=== PATIENT | female | born 1935 | race Caucasian/White ===

== ENCOUNTER 2018-03-12 06:42 | Emergency (ER) | payer OTHER, BC ==
[2018-03-12 07:38] LABS: Absolute Monocytes 1.3 K/uL (0.1-1.3); Absolute Neutrophil 11.8 K/uL (1.8-8.0); Basophils % 0.7 % (0-1.3); Eosinophils % 1.8 % (0-4.4); Hematocrit 21.1 % (36.0-45.0); MCH 31.4 pg (27.0-35.0); MCV 91.2 fL (80-100); Monocytes % 8.1 % (3.3-12.3); RBC Red Blood Cell Count 2.32 M/uL (3.86-4.86)
[2018-03-12 07:41] LABS: Protime INR 1.24
[2018-03-12] MEDS ORDERED: NA CHLORIDE 0.9% 1,000 ML ONE (07:57)
[2018-03-12 08:04] LABS: ALT/SGPT 15 U/L (12-78); AST/SGOT 16 U/L (15-37); Albumin 2.8 g/dL (3.4-5.0); Alkaline Phosphatase 18 U/L (45-117); BUN Blood Urea Nitrogen 61 mg/dL (7-18); Bicarbonate 29 mmol/L (21-32); Bilirubin Direct < 0.1 mg/dL (0-0.2); Bilirubin Total 0.3 mg/dL (0.2-1.0); CKMB Creatine Kinase MB 1.5 ng/mL (0.3-3.6); Creatine Phosphokinase 56 U/L (26-192); Glucose Level 77 mg/dL (74-106); Magnesium 1.8 mg/dL (1.8-2.4); NT PRO-BNP 690 pg/mL (<450); Protein, Total 6.1 g/dL (6.4-8.2); Sodium Level 142 mmol/L (136-145)
--- NOTE | 2018-03-12 08:09 | RAD REPORT ---
EXAM DESCRIPTION: CT - Head Brain Wo Cont - 03/12/2018 7:32 am CLINICAL HISTORY: TRAUMA Syncope, fall, head injury COMPARISON: No comparisons TECHNIQUE: All CT scans are performed using dose optimization technique as appropriate and may inclu de automated exposure control or mA/KV adjustment according to patient size. FINDINGS: No intracranial hemorrhage, hydrocephalus or extra-axial fluid collection.No areas of brai n edema or evidence of midline shift. Mild high density fluid is seen in the left maxillary antrum. The paranasal sinuses and mastoids are otherwise clear. The calvarium is intact. IMPRESSION: No acute intracranial abnormality. Small amount of high density fluid is present in the left maxillary antrum, which may be a small amou nt of blood.
--- NOTE | 2018-03-12 08:15 | RAD REPORT ---
EXAM DESCRIPTION: RAD - Chest Single View - 03/12/2018 7:11 am CLINICAL HISTORY: syncope, fall Chest pain. COMPARISON: No comparisons FINDINGS: Portable technique limits examination quality. The lungs are grossly clear. The heart is normal in size. Dual lead pacer device is present.Sternotom y wires present. IMPRESSION: No acute intrathoracic process suspected.
[2018-03-12] MEDS ORDERED: PANTOPRAZOLE 40 MG INJ ONE (08:40)
[2018-03-12] MEDS ORDERED: LIDOCAINE 1% MPF 5 ML VIAL ONE (08:40)
[2018-03-12] MEDS ORDERED: TETANUS & DIPHTHERIA TOX,ADULT 0.5 ML VIAL ONE (08:40)
[2018-03-12] MEDS ORDERED: PANTOPRAZOLE INJ 80 MG in NA CHLORIDE 0.9% 250 ML IV ONE (08:45)
--- NOTE | 2018-03-12 10:01 | ER ---
Nurse's Notes [facility] Name: Kaur Kinsey Age: 83 yrs Sex: Female : 1935 Arrival Date: 03/12/2018 Time: 06:45 Bed 15 Private MD: Diagnosis: Syncope and collapse;Laceration without foreign body of unspecified part of head;Gastrointestinal hemorrhage, unspecified Presentation: 03/12 06:46 Presenting complaint: EMS states: SYNCOPE AND FALL WITH HEAD TRAUMA ON BLOOD THINNERS. bp Care prior to arrival: IV initiated. 18 GA, in the right antecubital area. Mechanism of Injury: Fall from standing position. Trauma event details: Injury occurred in the [facility], Injury occurred: at home. Injury occurred: March 12, 2018 Injury occurred at: 06:15. 06:46 Acuity: LORRAINE 2 bp 06:46 Method Of Arrival: EMS: [facility] bp 06:54 Transition of care: patient was not received from another setting of care. Onset of jd3 symptoms was March 12, 2018. Risk Assessment: Do you want to hurt yourself or someone else? Patient reports no desire to harm self or others. Initial Sepsis Screen: Does the patient meet any 2 criteria? No. Patient's initial sepsis screen is negative. Does the patient have a suspected source of infection? No. Patient's initial sepsis screen is negative. 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 - Social history:: Smoking status: Patient/guardian denies using tobacco, Smoking status: Patient/guardian denies using tobacco. - Ebola Screening: : Patient negative for fever greater than or equal to 101.5 degrees Fahrenheit, and additional compatible Ebola Virus Disease symptoms Patient negative for fever greater than or equal to 101.5 degrees Fahrenheit, and additional compatible Ebola Virus Disease symptoms Patient denies exposure to infectious person Patient denies travel to an Ebola-affected area in the 21 days before illness onset No symptoms or risks identified at this time. Screenin:46 Abuse screen: Denies threats or abuse. Denies injuries from another. Nutritional bp screening: No deficits noted. Tuberculosis screening: No symptoms or risk factors identified. 07:15 Fall Risk IV access (20 points). iw Primary Survey: 06:46 A: Airway: patent. Breathing/Chest: Respiratory pattern: regular, Respiratory effort: bp spontaneous, unlabored. Circulation: Skin color: pink, Skin temperature: warm, dry. Disability Alert. 07:15 Reassessment Breathing/Chest Respiratory pattern Regular Respiratory effort Spontaneous iw Unlabored. Secondary Survey: 06:46 HEENT: Head Other R FRONTAL FULL THICKNESS IRREGULAR LACERATION. Gastrointestinal: bp Patient vomited prior to arrival. : No signs and/or symptoms were reported regarding the genitourinary system. Musculoskeletal: Circulation, motion, and sensation intact. Range of motion: intact in all extremities. Assessment: 06:46 General: Appears in no apparent distress. comfortable, Behavior is calm, cooperative, bp appropriate for age. Pain: Complains of pain in head. Neuro: Level of Consciousness is awake, alert, obeys commands, Oriented to person, place, time, situation, Appropriate for age Reports dizziness. EENT: No deficits noted. Cardiovascular: Rhythm is ventricular pacer. Respiratory: Airway is patent Respiratory effort is even, unlabored, Respiratory pattern is regular, symmetrical. GI: Reports nausea, vomiting. : No signs and/or symptoms were reported regarding the genitourinary system. Derm: No deficits noted. Musculoskeletal: Circulation, motion, and sensation intact. Range of motion: intact in all extremities. Injury Description: Avulsion sustained to forehead. 07:35 Reassessment: pt states she feels like her stomach is churning and feels very weak, pt iw BP=99/43. 07:41 Reassessment: EDWARD Howard notified of critical lab value HGB of 7.3. ss 08:02 Reassessment: pt unable to stand for more than a few seconds with assistance, BP iw dropped to 65 systolic, Pt states pt had an episosde of black liquid stool this morning, EDWARD Howard notified, NS bolus given, Type and Screen sent. 08:18 Reassessment: positive guaiac stool, per Jessika LEON, pt will receive blood transfusion iw and be admitted to hospital. Vital Signs: 06:46 BP 120 / 50; Pulse 83; Resp 14; Temp 97.9; Pulse Ox 96% ; Weight 68.04 kg; Height 5 ft. bp 6 in. (167.64 cm); 07:35 BP 99 / 43; Pulse 81; Resp 16; Temp 97.5(TE); Pulse Ox 99% on R/A; Pain 0/10; iw 07:43 BP 104 / 36 Supine; Pulse 81; Resp 14; Pulse Ox 99% on R/A; iw 07:48 BP 101 / 38 Sitting; Pulse 84; Resp 14; Pulse Ox 98% on R/A; iw 07:52 BP 65 / 54 Standing; iw 08:00 BP 106 / 47; Pulse 89; Resp 16 S; Pulse Ox 99% on R/A; Pain 4/10; iw 09:10 BP 158 / 44; Pulse 86; Resp 17; Pulse Ox 99% on R/A; mh5 10:46 BP 118 / 45; Pulse 89; Resp 16; Temp 97.0; Pulse Ox 99% on R/A; Pain 7/10; iw 06:46 Body Mass Index 24.21 (68.04 kg, 167.64 cm) bp Fabrice Coma Score: 06:46 Eye Response: spontaneous(4). Verbal Response: oriented(5). Motor Response: obeys bp commands(6). Total: 15. Trauma Score (Adult): 06:46 Eye Response: spontaneous(1); Verbal Response: oriented(1); Motor Response: obeys bp commands(2); Systolic BP: > 89 mm Hg(4); Respiratory Rate: 10 to 29 per min(4); [place] Score: 15; Trauma Score: 12 07:35 Eye Response: spontaneous(1); Verbal Response: oriented(1); Motor Response: obeys iw commands(2); Systolic BP: > 89 mm Hg(4); Respiratory Rate: 10 to 29 per min(4); [place] Score: 15; Trauma Score: 12 ED Course: 06:45 Patient arrived in ED. bp 06:46 Patient has correct armband on for positive identification. Bed in low position. Call bp light in reach. Side rails up X2. Adult w/ patient. 06:46 Maintain EMS IV. Dressing intact. Good blood return noted. Site clean \T\ dry. Gauge \T\ bp site: 18 GAUGE R AC. Patient maintains SpO2 saturation greater than 95% on room air. Thermoregulation: warm blanket given to patient. 06:47 Anita Starkey FNP-C is PHCP. kb 06:47 Levi Moulton MD is Attending Physician. kb 06:47 Triage completed. bp 06:53 Cl Nash, MATT is Primary Nurse. jd3 06:55 Arm band placed on. EKG completed in triage. Results shown to MD. jd3 07:05 Patient moved to radiology via stretcher. jb2 07:09 X-ray completed. Patient tolerated procedure well. Patient moved back from radiology. jb2 07:10 XRAY Chest (1 view) In Process Unspecified. EDMS 07:32 CT Head Brain wo Cont In Process Unspecified. EDMS 09:22 initiated transfer with Lisa from [facility]. eb 09:[address] Turner the GI production sanitizer for [facility] with Lalito WORD PROCESSING SPECIALIST for patient eb transfer consultation. 09:43 connected the curator herbarium from [facility] with Lalito WORD PROCESSING SPECIALIST for patient transfer eb consultation. 09:54 Inserted saline lock: 20 gauge in right forearm, using aseptic technique. em 09:[address] [facility] called and asked for a 15 extension, they are getting a eb bed for her. 10:02 Administrative approval given by Yasmin Nuno Rn Beet Flumer. Santiago Lepe has accepted the patient in transfer. Pt Going to [address] [place] [address] Bed 5864. Report to be called to [phone]. 11:16 Primary Nurse role handed off by Cl Nash, MATT iw 11:16 Margarita Deshpande, MATT is Primary Nurse. iw 11:30 No provider procedures requiring assistance completed. Patient transferred, IV remains iw in place. Administered Medications: 08:01 Drug: NS 0.9% 1000 ml Route: IV; Rate: 1000 ml; Site: right antecubital; iw 08:43 Drug: ProTONIX 80 mg Route: IVP; Site: right antecubital; iw 08:55 Drug: ProTONIX 8 mg/hr Route: IV; Rate: 25 ml/hr; Site: right antecubital; iw 08:55 Drug: Tetanus-Diphtheria Toxoid Adult 0.5 ml {Biomedical Field Service Engineer: [employer]. Exp: iw 04/08/2020. Lot #: [id number]. } Route: IM; Site: right deltoid; 09:20 Drug: Lidocaine (1 %) 1 vials Volume: 5 ml; Route: Infiltration; iw Intake: 06:46 PO: 0ml; Total: 0ml. bp Output: 06:46 Urine: 0ml; Total: 0ml. bp Outcome: 10:01 ER care complete, transfer ordered by . kb 11:30 Transferred by ground EMS to [facility], Transfer form completed. iw X-rays sent w/ patient. 11:30 Condition: stable 11:30 Discharge instructions given to patient, family, Instructed on the need for admit, Demonstrated understanding of instructions. 11:30 Patient's length of stay in the Emergency Department was greater than 2 hours. no GI iw availablePatient's length of stay extended due to 11:33 Patient left the ED. iw Signatures: Dispatcher [employer] EDAnita Arambula, HOLISTIC HEALTH PRACTITIONER-C HOLISTIC HEALTH PRACTITIONER-Ckb Emir Murphy2 Gerry Babin, SOLAR PHOTOVOLTAIC CREW LEAD SOLAR PHOTOVOLTAIC CREW LEAD Margarita Desir RN RN Alena Lyons RN RN ss Martinez, Maria [facility] Cl Nash RN RN jd3 Peltier, Brian, RN RN bp Botello, Elizabeth eb Corrections: (The following items were deleted from the chart) 07:36 07:35 BP 98 / 43; Pulse 81bpm; Resp 16bpm; Pulse Ox 99% RA; iw iw 07:37 07:35 BP 99 / 43; Pulse 81bpm; Resp 16bpm; Pulse Ox 99% RA; iw iw 11:09 08:00 BP 106 / 47; Pulse 89bpm; iw iw 11:09 10:46 BP 118 / 45; Pulse 89bpm; Resp 16bpm; Pulse Ox 99% RA; iw iw
--- NOTE | 2018-03-12 10:01 | EDPHYS ---
Physician Documentation [facility] Name: Kaur Kinsey Age: 83 yrs Sex: Female : 1935 Arrival Date: 03/12/2018 Time: 06:45 Bed 15 Private MD: ED Physician Levi Moulton HPI: 03/12 06:59 This 83 yrs old Female presents to ER via EMS with complaints of Fall Injury, kb Syncope. 06:59 The patient has experienced syncope, lost consciousness. Onset: The symptoms/episode kb began/occurred just prior to arrival. Duration: This was a single episode. Context: occurred at home, occurred while the patient was walking, Just prior to the episode the patient experienced dizziness. Associated injury: Head/face: forehead, laceration, 4 cm(s), 4cm laceration that is well approximated to center of forehead at hairline. 2.5cm laceration above right eyebrow.. Associated signs and symptoms: Pertinent positives: dizziness, vomiting. Current symptoms: Currently, the patient is not experiencing any symptoms, the patient feels back to baseline, no decreased level of consciousness, no confusion, no dysphasia, no headache, no paralysis, no visual changes. The patient has not experienced similar symptoms in the past. The patient has not recently seen a physician. Pt woke up to use the restroom, had a syncopal episode when she got into the bathroom and fell into shower door. States she woke up right away and called for her . Reports she had one episode of vomiting after the fall. EMS reports emesis looked and smelled like bowel content. Pt reports she had a BM last night and this morning. [place] fine when she went to sleep last night. EMS reports pt c/o dizziness when sitting up and it got better when they laid her down. Pt denies abd pain, nausea. States her abdomen just feels uncomfortable (rumbling). . 07:31 PCP is Esdras, Case Manager Specialist is Valdemar. kb 09:25 Pt reports she did have a black stool yesterday and again after the syncopal episode. . 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 - Social history:: Smoking status: Patient/guardian denies using tobacco, Smoking status: Patient/guardian denies using tobacco. - Ebola Screening: : Patient negative for fever greater than or equal to 101.5 degrees Fahrenheit, and additional compatible Ebola Virus Disease symptoms Patient negative for fever greater than or equal to 101.5 degrees Fahrenheit, and additional compatible Ebola Virus Disease symptoms Patient denies exposure to infectious person Patient denies travel to an Ebola-affected area in the 21 days before illness onset No symptoms or risks identified at this time. ROS: 06:59 Constitutional: Negative for fever, chills, and weight loss, Eyes: Negative for injury, kb pain, redness, and discharge, ENT: Negative for injury, pain, and discharge, Neck: Negative for injury, pain, and swelling, Cardiovascular: Negative for chest pain, palpitations, and edema, Respiratory: Negative for shortness of breath, cough, wheezing, and pleuritic chest pain, Back: Negative for injury and pain, : Negative for injury, bleeding, discharge, and swelling, MS/Extremity: Negative for injury and deformity. 06:59 Abdomen/GI: Positive for nausea and vomiting, Negative for abdominal pain, diarrhea, constipation, abdominal cramps, abdominal distension, anorexia. 06:59 Skin: Positive for ecchymosis, of the right eye. 06:59 Neuro: Positive for dizziness, syncope. 07:10 Skin: Positive for laceration(s), of the above right eyebrow and center of forehead at kb hairline. Exam: 07:10 Constitutional: This is a well developed, well nourished patient who is awake, alert, kb and in no acute distress. ENT: Nares patent. No nasal discharge, no septal abnormalities noted. Tympanic membranes are normal and external auditory canals are clear. Oropharynx with no redness, swelling, or masses, exudates, or evidence of obstruction, uvula midline. Mucous membranes moist. Neck: Trachea midline, no thyromegaly or masses palpated, and no cervical lymphadenopathy. Supple, full range of motion without nuchal rigidity, or vertebral point tenderness. No Meningismus. Chest/axilla: Normal chest wall appearance and motion. Nontender with no deformity. No lesions are appreciated. Cardiovascular: Regular rate and rhythm with a normal S1 and S2. No gallops, murmurs, or rubs. Normal PMI, no JVD. No pulse deficits. Respiratory: Lungs have equal breath sounds bilaterally, clear to auscultation and percussion. No rales, rhonchi or wheezes noted. No increased work of breathing, no retractions or nasal flaring. Abdomen/GI: Soft, non-tender, with normal bowel sounds. No distension or tympany. No guarding or rebound. No evidence of tenderness throughout. Back: No spinal tenderness. No costovertebral tenderness. Full range of motion. MS/ Extremity: Pulses equal, no cyanosis. Neurovascular intact. Full, normal range of motion. Neuro: Awake and alert, GCS 15, oriented to person, place, time, and situation. Cranial nerves II-XII grossly intact. Motor strength 5/5 in all extremities. Sensory grossly intact. Cerebellar exam normal. Normal gait. 07:10 Head/face: Noted is no obvious of injury or deformity except ecchymosis, that is moderate, of the right eye, a laceration(s), that is superficial, 4 cm(s), of the center of forehead at hairline. 07:12 Head/face: Noted is a laceration(s), that is deep, 2.5 cm(s), of the above right kb eyebrow. 09:24 Abdomen/GI: Rectal exam: rectal tone normal, Stool: guaiac positive, black, the exam is kb chaperoned by a family member. 10:34 Skin: Appearance: ecchymosis, noted on the, right lower back, that are moderate. Vital Signs: 06:46 BP 120 / 50; Pulse 83; Resp 14; Temp 97.9; Pulse Ox 96% ; Weight 68.04 kg; Height 5 ft. bp 6 in. (167.64 cm); 07:35 BP 99 / 43; Pulse 81; Resp 16; Temp 97.5(TE); Pulse Ox 99% on R/A; Pain 0/10; iw 07:43 BP 104 / 36 Supine; Pulse 81; Resp 14; Pulse Ox 99% on R/A; iw 07:48 BP 101 / 38 Sitting; Pulse 84; Resp 14; Pulse Ox 98% on R/A; iw 07:52 BP 65 / 54 Standing; iw 08:00 BP 106 / 47; Pulse 89; Resp 16 S; Pulse Ox 99% on R/A; Pain 4/10; iw 09:10 BP 158 / 44; Pulse 86; Resp 17; Pulse Ox 99% on R/A; mh5 10:46 BP 118 / 45; Pulse 89; Resp 16; Temp 97.0; Pulse Ox 99% on R/A; Pain 7/10; iw 06:46 Body Mass Index 24.21 (68.04 kg, 167.64 cm) bp Fabrice Coma Score: 06:46 Eye Response: spontaneous(4). Verbal Response: oriented(5). Motor Response: obeys bp commands(6). Total: 15. Trauma Score (Adult): 06:46 Eye Response: spontaneous(1); Verbal Response: oriented(1); Motor Response: obeys bp commands(2); Systolic BP: > 89 mm Hg(4); Respiratory Rate: 10 to 29 per min(4); Fabrice Score: 15; Trauma Score: 12 07:35 Eye Response: spontaneous(1); Verbal Response: oriented(1); Motor Response: obeys iw commands(2); Systolic BP: > 89 mm Hg(4); Respiratory Rate: 10 to 29 per min(4); Fabrice Score: 15; Trauma Score: 12 Laceration: 09:22 Wound Repair of 2.5cm ( 1.0in ) subcutaneous laceration to above right eyebrow. Distal kb neuro/vascular/tendon intact. Anesthesia: Wound infiltrated with 3 mls of 1% lidocaine. Wound prep: Moderate cleansing with hibiclenz by al, Wound irrigation with saline by al. Skin closed with 6 6-0 Prolene using interrupted sutures and sterile technique. Dressed with Neosporin. Patient tolerated well. 09:22 Wound Repair of 4cm ( 1.6in ) subcutaneous laceration to center of forehead and into kb hairline. Linear shaped.. Distal neuro/vascular/tendon intact. Anesthesia: Wound infiltrated with 2 mls of 1% lidocaine. Wound prep: Moderate cleansing with hibiclenz by me, Wound irrigation with saline by me. Skin closed with 4 Dianne using staple gun. Patient tolerated well. MDM: 06:47 Patient medically screened. kb 08:35 Data reviewed: vital signs, nurses notes. Data interpreted: Pulse oximetry: on room air kb is 98 %. Interpretation: normal. Counseling: I had a detailed discussion with the patient and/or guardian regarding: the historical points, exam findings, and any diagnostic results supporting the discharge/admit diagnosis, lab results, radiology results, the need to transfer to another facility, [facility] does not immediately have the required specialist. 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 Verbal understanding received. . 09:58 ED course: Pt accepted by GI and community services coordinator at [facility]. kb 03/12 06:55 Order name: Basic Metabolic Panel; Complete Time: 08:05 kb 03/12 06:55 Order name: CBC with Diff; Complete Time: 07:44 kb 03/12 06:55 Order name: Ckmb; Complete Time: 08:05 kb 03/12 06:55 Order name: CPK; Complete Time: 08:05 kb 03/12 06:55 Order name: LFT's; Complete Time: 08:05 kb 03/12 06:55 Order name: Magnesium; Complete Time: 08:05 kb 03/12 06:55 Order name: NT PRO-BNP; Complete Time: 08:05 kb 03/12 06:55 Order name: PT-INR; Complete Time: 07:44 kb 03/12 06:55 Order name: Ptt, Activated; Complete Time: 07:44 kb 03/12 06:55 Order name: Troponin (emerg Dept Use Only); Complete Time: 08:05 kb 03/12 07:44 Order name: Type And Screen kb 03/12 08:12 Order name: Bb Add On eb 03/12 08:36 Order name: Packed RBC Leukored -1 EDWA 03/12 09:20 Order name: ABO/RH no charge; Complete Time: 09:26 EDMS 03/12 06:46 Order name: CT Head Brain wo Cont; Complete Time: 08:17 bp 03/12 06:55 Order name: Orthostatics; Complete Time: 08:45 kb 03/12 06:55 Order name: XRAY Chest (1 view); Complete Time: 08:17 kb 03/12 06:55 Order name: EKG; Complete Time: 06:56 kb 03/12 06:55 Order name: Cardiac monitoring; Complete Time: 06:59 kb 03/12 06:55 Order name: EKG - Nurse/Tech; Complete Time: 06:59 kb 03/12 06:55 Order name: IV Saline Lock; Complete Time: 06:59 kb 03/12 06:55 Order name: O2 Per Protocol; Complete Time: 06:59 kb 03/12 09:24 Order name: Guiac kb 03/12 09:25 Order name: Occult Blood--Ancillary EDMS 03/12 06:55 Order name: O2 Sat Monitoring; Complete Time: 06:59 kb 03/12 08:22 Order name: Prolene, Sutures; Complete Time: 09:48 kb 03/12 08:22 Order name: Dressing - Wound; Complete Time: 09:48 kb 03/12 08:22 Order name: Gloves, Sterile; Complete Time: 09:48 kb 03/12 08:22 Order name: Setup Suture Tray; Complete Time: 09:48 kb Administered Medications: 08:01 Drug: NS 0.9% 1000 ml Route: IV; Rate: 1000 ml; Site: right antecubital; iw 08:43 Drug: ProTONIX 80 mg Route: IVP; Site: right antecubital; iw 08:55 Drug: ProTONIX 8 mg/hr Route: IV; Rate: 25 ml/hr; Site: right antecubital; iw 08:55 Drug: Tetanus-Diphtheria Toxoid Adult 0.5 ml {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 Exp: iw 04/08/2020. Lot #: [id number]. } Route: IM; Site: right deltoid; 09:20 Drug: Lidocaine (1 %) 1 vials Volume: 5 ml; Route: Infiltration; iw Disposition: 12:35 Co-signature as Attending Physician, Levi Moulton MD I agree with the assessment and wa plan of care. Disposition: 03/12/18 10:01 Transfer ordered to [facility]. Diagnosis are Syncope and collapse, Laceration without foreign body of unspecified part of head, Gastrointestinal hemorrhage, unspecified. - Reason for transfer: Higher level of care. - Accepting physician is Dr Waller. - Condition is Stable. - Problem is new. - Symptoms are unchanged. Signatures: Dispatcher [employer] EDMS Anita Starkey, MAT CLEANING MACHINE OPERATOR-C MAT CLEANING MACHINE OPERATOR-Ckb Margarita Deshpande RN RN iw Appiah, William, MD MD wa Davies, Jonathon, RN RN [id number] Peltier, Brian, RN RN bp Corrections: (The following items were deleted from the chart) 07:12 07:10 Head/face: Noted is no obvious of injury or deformity except ecchymosis, that is kb moderate, of the right eye, a laceration(s), that is superficial, 4 cm(s), of the center of forehead at hairline, kb 09:25 09:24 Abdomen/GI: Rectal exam: rectal tone normal, Stool: guaiac positive, black, kb kb 10:10 10:01 03/12/2018 10:01 Transfer ordered to [facility]. Diagnosis is kb Syncope and collapse; Laceration without foreign body of unspecified part of head; Gastrointestinal hemorrhage, unspecified. Reason for transfer: Higher level of care. Accepting physician is [facility]. Condition is Stable. Problem is new. Symptoms are unchanged. kb 10:36 07:10 Constitutional: This is a well developed, well nourished patient who is awake, kb alert, and in no acute distress. ENT: Nares patent. No nasal discharge, no septal abnormalities noted. Tympanic membranes are normal and external auditory canals are clear. Oropharynx with no redness, swelling, or masses, exudates, or evidence of obstruction, uvula midline. Mucous membranes moist. Neck: Trachea midline, no thyromegaly or masses palpated, and no cervical lymphadenopathy. Supple, full range of motion without nuchal rigidity, or vertebral point tenderness. No Meningismus. Chest/axilla: Normal chest wall appearance and motion. Nontender with no deformity. No lesions are appreciated. Cardiovascular: Regular rate and rhythm with a normal S1 and S2. No gallops, murmurs, or rubs. Normal PMI, no JVD. No pulse deficits. Respiratory: Lungs have equal breath sounds bilaterally, clear to auscultation and percussion. No rales, rhonchi or wheezes noted. No increased work of breathing, no retractions or nasal flaring. Abdomen/GI: Soft, non-tender, with normal bowel sounds. No distension or tympany. No guarding or rebound. No evidence of tenderness throughout. Back: No spinal tenderness. No costovertebral tenderness. Full range of motion. MS/ Extremity: Pulses equal, no cyanosis. Neurovascular intact. Full, normal range of motion. Neuro: Awake and alert, GCS 15, oriented to person, place, time, and situation. Cranial nerves II-XII grossly intact. Motor strength 5/5 in all extremities. Sensory grossly intact. Cerebellar exam normal. Normal gait. kb 11:33 10:10 03/12/2018 10:01 Transfer ordered to [facility]. Diagnosis is iw Syncope and collapse; Laceration without foreign body of unspecified part of head; Gastrointestinal hemorrhage, unspecified. Reason for transfer: Higher level of care. Accepting physician is Dr Waller. Condition is Stable. Problem is new. Symptoms are unchanged. kb
[2018-03-12] MEDS ORDERED: NA CHLORIDE 0.9% 250 ML ONE (10:12)
--- NOTE | 2018-03-13 06:09 | EKG ---
Test Date: 2018-03-12 Test Time: 06:50:10 Fabric Sourcer: NIRAV MEASUREMENT RESULTS: Intervals: Rate: 82 SC: 134 QRSD: 170 QT: 448 QTc: 523 [place]: P: 56 SC: 134 QRS: -59 T: 105 INTERPRETIVE STATEMENTS: Atrial-sensed ventricular-paced rhythm Abnormal ECG Compared to ECG 06/23/2003 10:34:00 Sinus rhythm no longer present Incomplete right bundle-branch block no longer present Left anterior fascicular block no longer present T-wave abnormality no longer present Myocardial infarct finding no longer present Electronically Signed On 03-13-18 06:06:29 CDT by Silviano Tobar
== END 2018-03-12 11:33 | disposition short-term general hospital (02) ==
LOC: ER 06:42
PROC: 0JQ10ZZ Repair Face Subcutaneous Tissue and Fascia, Open Approach (ICD-10-PCS; principal; 2018-03-12)
PROC: 30233N1 Transfusion of Nonautologous Red Blood Cells into Peripheral Vein, Percutaneous Approach (ICD-10-PCS; 2018-03-12)
DX: S01.81XA Laceration without foreign body of other part of head, initial encounter (principal); K92.2 Gastrointestinal hemorrhage, unspecified; W18.30XA Fall on same level, unspecified, initial encounter; Y93.01 Activity, walking, marching and hiking; Y92.009 Unspecified place in unspecified non-institutional (private) residence as the place of occurrence of the external cause; Z23 Encounter for immunization; Z79.01 Long term (current) use of anticoagulants; Z88.0 Allergy status to penicillin; Z88.5 Allergy status to narcotic agent; Z88.8 Allergy status to other drugs, medicaments and biological substances; Z91.048 Other nonmedicinal substance allergy status; Z95.1 Presence of aortocoronary bypass graft; E78.00 Pure hypercholesterolemia, unspecified; I51.9 Heart disease, unspecified
CPT/HCPCS: 12014; 36415; 36430; 70450; 71045; 80048; 80076; 82272; 82550; 82553; 83735; 83880; 84484; 85025; 85610; 85730; 86850; 86900; 86901; 90714; 93005; 96374; 99285; C9113 ×2; J7030; P9016

== ENCOUNTER 2018-03-16 09:59 | Emergency (ER) | payer OTHER, BC ==
--- OUTSIDE RECORDS SUMMARY | 2018-03-16 10:02 | XMS REPORT ---
:1935 [facility] [address] [place] [address] [address] [place] [address] Care Team Providers Name Role Phone CANDIDO LE Unavailable Unavailable Problems This patient has no known problems. Allergies, Adverse Reactions, Alerts This patient has no known allergies or adverse reactions. Medications This patient has no known medications. Results Test Description Test Time Test Comments Text Results Atomic Results Result Comments RAD, HIP, 2 2018-03-13 17:39:00 Reason for exam:->fall FINAL REPORT PATIENT ID: VIEWS, RIGHT [id number] Two views of the right hip without comparison. IMPRESSION: There is no acute fracture or traumatic malalignment. Mild degenerative changes are seen at the soft tissues are unremarkable. The sacrum is obscured by overlying bowel gas. Signed: Syeda Guthrie MDReport Verified Date/Time: 03/13/2018 17:39:18 Reading Location: [address] Ortho Consult Reading Room ONIN I 2018-03-13 14:03:00 Test Item Value Reference Range Comments TROPONIN I (BEAKER) (test iywq=351) 0.21 ng/mL 0.00-0.03 Troponin I (TnI) levels must be interpreted in the context of the presenting symptoms and the clinical findings. Elevated TnI levels indicate myocardial damage, but are not specific for ischemic heart disease. Elevated TnI levels are seen in patients with other cardiac conditions (including myocarditis and congestive heart failure), and slight TnI elevations occur in patients with other conditions, including sepsis, renal failure, acidosis, acute neurological disease, and persistent tachyarrhythmia.HEMOGLOBIN AND [id number] 13: 20:00 Test Item Value Reference Range Comments HEMOGLOBIN (BEAKER) (test ykbc=872) 8.8 GM/DL 11.2-15.7 HEMATOCRIT (ELISABETH) (test bfct=182) 25.7 % 34.1-44.9 HEMOGLOBIN [id number] 08:44:00 Test Item Value Reference Range Comments HEMOGLOBIN A1C (BEAKER) (test kerq=654) 5.4 % 4.3-6.1 TROPONIN [id number] 07:07:00 Test Item Value Reference Range Comments TROPONIN I (BEAKER) (test zxte=730) 0.24 ng/mL 0.00-0.03 Troponin I (TnI) levels must be interpreted in the context of the presenting symptoms and the clinical findings. Elevated TnI levels indicate myocardial damage, but are not specific for ischemic heart disease. Elevated TnI levels are seen in patients with other cardiac conditions (including myocarditis and congestive heart failure), and slight TnI elevations occur in patients with other conditions, including sepsis, renal failure, acidosis, acute neurological disease, and persistent tachyarrhythmia.[id number] 05:24:00 Test Item Value Reference Range Comments PHOSPHORUS (BEAKER) (test aoyw=539) 2.6 mg/dL 2.3-4.7 [id number] 05:24:00 Test Item Value Reference Range Comments MAGNESIUM (BEAKER) (test lerb=862) 2.1 mg/dL 1.6-2.6 BASIC METABOLIC [id number] 05:24:00 Test Item Value Reference Range Comments SODIUM (BEAKER) (test 137 meq/L 136-145 nixz=135) POTASSIUM (BEAKER) (test 3.7 meq/L 3.5-5.1 ohra=467) CHLORIDE (BEAKER) (test 107 meq/L 98-107 nknn=744) CO2 (BEAKER) (test 21 meq/L 22-29 cdxo=362) BLOOD UREA NITROGEN 34 mg/dL 7-21 (BEAKER) (test cehr=394) CREATININE (BEAKER) (test 0.70 mg/dL 0.57-1.25 ovjq=935) GLUCOSE RANDOM (BEAKER) 102 mg/dL 70-105 (test wczx=675) CALCIUM (BEAKER) (test 8.6 mg/dL 8.4-10.2 rxjv=957) EGFR (BEAKER) (test 80 mL/min/1.73 sq m ESTIMATED GFR IS NOT mxdk=5723) ACCURATE CREATININE CLEARANCE IN PREDICTING GLOMERULAR FILTRATION RATE. ESTIMATED GFR IS NOT APPLICABLE FOR DIALYSIS PATIENTS. LIPID [id number] 05:24:00 Test Item Value Reference Range Comments TRIGLYCERIDES (BEAKER) (test mbrd=821) 131 mg/dL CHOLESTEROL (BEAKER) (test izdq=017) 105 mg/dL HDL CHOLESTEROL (BEAKER) (test qasy=105) 31 mg/dL LDL CHOLESTEROL CALCULATED (BEAKER) (test 48 mg/dL jzwt=441) Triglyceride Reference Range: Low Risk <150 Borderline 150- 199 High Risk 200-499 Very High Risk >=500Cholesterol Reference Range: Low Risk <200 Borderline 200-239 High Risk > 240HDL Cholesterol Reference Range: Low Risk >=60 High Risk <40LDL Cholesterol Reference Range: Optimal <100 Near Optimal 100-129 Borderline 130-159 High 160-189 Very High >=190TSH/FREE T4 IF [id number] 05:20:00 Test Item Value Reference Range Comments THYROID STIMULATING HORMONE (BEAKER) (test 4.02 uIU/mL 0.35-4.94 lukn=652) CBC W/PLT COUNT & AUTO [id number] 04:52:00 Test Item Value Reference Range Comments WHITE BLOOD CELL COUNT (BEAKER) (test ided=201) 11.6 K/ L 3.5-10.5 RED BLOOD CELL COUNT (BEAKER) (test igoh=688) 2.79 M/ L 3.93-5.22 HEMOGLOBIN (BEAKER) (test fphh=512) 8.8 GM/DL 11.2-15.7 HEMATOCRIT (BEAKER) (test pdpr=908) 25.7 % 34.1-44.9 MEAN CORPUSCULAR VOLUME (BEAKER) (test zfdt=525) 92.1 fL 79.4-94.8 MEAN CORPUSCULAR HEMOGLOBIN (BEAKER) (test 31.5 pg 25.6-32.2 jvzt=386) MEAN CORPUSCULAR HEMOGLOBIN CONC (BEAKER) (test 34.2 GM/DL 32.2-35.5 oune=532) RED CELL DISTRIBUTION WIDTH (BEAKER) (test 14.4 % 11.7-14.4 epre=496) PLATELET COUNT (BEAKER) (test aahq=017) 144 K/CU MM 150-450 MEAN PLATELET VOLUME (BEAKER) (test wcmj=442) 10.9 fL 9.4-12.3 NUCLEATED RED BLOOD CELLS (BEAKER) (test 0 /100 WBC 0-0 fzyg=679) NEUTROPHILS RELATIVE PERCENT (BEAKER) (test 74 % ghkh=780) LYMPHOCYTES RELATIVE PERCENT (BEAKER) (test 13 % fhqp=554) MONOCYTES RELATIVE PERCENT (BEAKER) (test 8 % senw=400) EOSINOPHILS RELATIVE PERCENT (BEAKER) (test 3 % qmjl=010) BASOPHILS RELATIVE PERCENT (BEAKER) (test 1 % cxbc=336) NEUTROPHILS ABSOLUTE COUNT (BEAKER) (test 8.62 K/ L 1.56-6.13 pjzm=930) LYMPHOCYTES ABSOLUTE COUNT (BEAKER) (test 1.54 K/ L 1.18-3.74 yrnj=672) MONOCYTES ABSOLUTE COUNT (BEAKER) (test 0.98 K/ L 0.24-0.36 ptlv=201) EOSINOPHILS ABSOLUTE COUNT (BEAKER) (test 0.32 K/ L 0.04-0.36 wdin=135) BASOPHILS ABSOLUTE COUNT (BEAKER) (test 0.06 K/ L 0.01-0.08 tzlc=668) IMMATURE GRANULOCYTES-RELATIVE PERCENT (BEAKER) 1 % 0-1 (test fqtb=3205) HEMOGLOBIN AND [id number] 04:40:00 Test Item Value Reference Range Comments HEMOGLOBIN (BEAKER) (test vmxn=635) 8.8 GM/DL 11.2-15.7 HEMATOCRIT (BEAKER) (test kpok=900) 25.7 % 34.1-44.9 TROPONIN [id number] 00:53:00 Test Item Value Reference Range Comments TROPONIN I (BEAKER) (test fxnp=877) 0.22 ng/mL 0.00-0.03 Troponin I (TnI) levels must be interpreted in the context of the presenting symptoms and the clinical findings. Elevated TnI levels indicate myocardial damage, but are not specific for ischemic heart disease. Elevated TnI levels are seen in patients with other cardiac conditions (including myocarditis and congestive heart failure), and slight TnI elevations occur in patients with other conditions, including sepsis, renal failure, acidosis, acute neurological disease, and persistent tachyarrhythmia.HEMOGLOBIN AND [id number] 00: 09:00 Test Item Value Reference Range Comments HEMOGLOBIN (BEAKER) (test zmhu=947) 8.8 GM/DL 11.2-15.7 HEMATOCRIT (BEAKER) (test qzmn=273) 26.3 % 34.1-44.9 URINALYSIS W/ REFLEX URINE [id number] 21:53:00 Test Item Value Reference Range Comments COLOR (BEAKER) (test zrvk=225) Light Yellow CLARITY (BEAKER) (test jzmr=250) Clear SPECIFIC GRAVITY UA (BEAKER) (test vbli=496) 1.015 1.001-1.035 PH UA (BEAKER) (test xylu=523) 5.0 5.0-8.0 PROTEIN UA (BEAKER) (test zpbk=919) Negative Negative GLUCOSE UA (BEAKER) (test odbo=867) Negative Negative KETONES UA (BEAKER) (test mxkd=820) 10 mg/dL Negative BILIRUBIN UA (BEAKER) (test ruew=503) Negative Negative BLOOD UA (BEAKER) (test bifj=942) Negative Negative NITRITE UA (BEAKER) (test czkv=954) Negative Negative LEUKOCYTE ESTERASE UA (BEAKER) (test dzqy=793) Moderate Negative UROBILINOGEN UA (BEAKER) (test fsaz=292) 0.2 mg/dL 0.2-1.0 RBC UA (BEAKER) (test vvvb=774) 1 /HPF WBC UA (BEAKER) (test hzgz=358) 7 /HPF MUCUS (BEAKER) (test hqka=7633) Rare SQUAMOUS EPITHELIAL (BEAKER) (test leiv=341) 1 /HPF SOURCE(BEAKER) (test tifn=7708) [id number] 18:36:00 Test Item Value Reference Range Comments FERRITIN (BEAKER) (test aevg=178) 71 ng/mL 5-275 VITAMIN B12 AND [id number] 18:36:00 Test Item Value Reference Range Comments VITAMIN B12 (BEAKER) (test mfuo=497) 552 pg/mL 213-816 FOLATE (BEAKER) (test zsah=986) 16.2 ng/mL >=7.0 TROPONIN [id number] 18:12:00 Test Item Value Reference Range Comments TROPONIN I (BEAKER) (test iuxy=493) 0.20 ng/mL 0.00-0.03 Troponin I (TnI) levels must be interpreted in the context of the presenting symptoms and the clinical findings. Elevated TnI levels indicate myocardial damage, but are not specific for ischemic heart disease. Elevated TnI levels are seen in patients with other cardiac conditions (including myocarditis and congestive heart failure), and slight TnI elevations occur in patients with other conditions, including sepsis, renal failure, acidosis, acute neurological disease, and persistent tachyarrhythmia.IRON, TIBC, % SAT. (WITHOUT FERRITIN) 2018-03-12 18:01:00 Test Item Value Reference Range Comments IRON (BEAKER) (test bvle=703) 159 ug/dL 40-160 TOTAL IRON BINDING CAPACITY (BEAKER) (test 234 ug/dL 250-450 flad=398) IRON % SATURATION (2) (BEAKER) (test siwd=5655) 68 % 20-55 HEMOGLOBIN AND [id number] 17:39:00 Test Item Value Reference Range Comments HEMOGLOBIN (BEAKER) (test tlsw=287) 7.1 GM/DL 11.2-15.7 HEMATOCRIT (BEAKER) (test blvt=343) 21.4 % 34.1-44.9 RAD, CHEST, 1 VIEW, NON [id number] 16:19:00Post-intubationReason for exam:-& gt;sobShould this be performed at the bedside?->YesFINAL REPORT TECHNIQUE: Frontal chest radiograph dated 03/12/2018. 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 There is biapical pleural thickening. No focal consolidation. No pleural effusion or pneumothorax. Cardiomediastinal silhouette is normal in size. No pulmonary edema. No fracture. Sternotomy wires and plates are well aligned. There is apparent sclerosis of the left clavicle suggestive of a marrow replacement process. A nuclear medicine bone scan can be obtained. Signed: Tamie Alberts Verified Date/Time: 03/12/2018 16:19:21 Reading Location: [facility] Radiology Reading Room [id number] 15:29:00 Test Item Value Reference Range Comments PROCALCITONIN (BEAKER) (test tgjo=1581) 0.10 ng/mL <0.05 SEPSIS RISK (ng/mL)Low: 0.05-0.50Intermediate: 0.51-2.00High: & gt;=2.01B-TYPE NATRIURETIC FACTOR (BNP)2018-03-12 15:11:00 Test Item Value Reference Range Comments B-TYPE NATRIURETIC PEPTIDE (BEAKER) (test 238 pg/mL 0-100 tuki=362) CREATINE KINASE (CK), TOTAL AND [id number] 15:10:00 Test Item Value Reference Range Comments CREATINE KINASE TOTAL (BEAKER) (test lpzq=386) 80 U/L 29-200 CREATINE KINASE-MB (BEAKER) (test yiem=538) 3.1 ng/mL 0.0-6.6 CREATINE KINASE-MB INDEX (BEAKER) (test bath=255) 3.9 % CK-MB Reference Range:<6.7 Normal6.7-10.0 Borderline>10.0 AbnormalTROPONIN [id number] 15:10:00 Test Item Value Reference Range Comments TROPONIN I (BEAKER) (test vnra=152) 0.13 ng/mL 0.00-0.03 Troponin I (TnI) levels must be interpreted in the context of the presenting symptoms and the clinical findings. Elevated TnI levels indicate myocardial damage, but are not specific for ischemic heart disease. Elevated TnI levels are seen in patients with other cardiac conditions (including myocarditis and congestive heart failure), and slight TnI elevations occur in patients with other conditions, including sepsis, renal failure, acidosis, acute neurological disease, and persistent tachyarrhythmia.COMPREHENSIVE METABOLIC [id number] 15:08:00 Test Item Value Reference Range Comments TOTAL PROTEIN (BEAKER) 5.8 gm/dL 6.0-8.3 (test kabp=971) ALBUMIN (BEAKER) (test 3.1 g/dL 3.5-5.0 rokh=9656) ALKALINE PHOSPHATASE 19 U/L 40-150 (BEAKER) (test qwiy=697) BILIRUBIN TOTAL (BEAKER) 0.9 mg/dL 0.2-1.2 (test ioap=238) SODIUM (BEAKER) (test 137 meq/L 136-145 otpa=186) POTASSIUM (BEAKER) (test 3.8 meq/L 3.5-5.1 wcxg=437) CHLORIDE (BEAKER) (test 106 meq/L 98-107 ltex=691) CO2 (BEAKER) (test 21 meq/L 22-29 anvk=066) BLOOD UREA NITROGEN 52 mg/dL 7-21 (BEAKER) (test wspr=429) CREATININE (BEAKER) (test 0.73 mg/dL 0.57-1.25 gcrm=676) GLUCOSE RANDOM (BEAKER) 96 mg/dL 70-105 (test cqwd=275) CALCIUM (BEAKER) (test 8.6 mg/dL 8.4-10.2 ntim=071) AST (SGOT) (BEAKER) (test 18 U/L 5-34 irih=436) ALT (SGPT) (BEAKER) (test 11 U/L 6-55 qntx=994) EGFR (BEAKER) (test 76 mL/min/1.73 sq m ESTIMATED GFR IS NOT tmxy=4697) ACCURATE CREATININE CLEARANCE IN PREDICTING GLOMERULAR FILTRATION RATE. ESTIMATED GFR IS NOT APPLICABLE FOR DIALYSIS PATIENTS. KETONE, [id number] 15:08:00 Test Item Value Reference Range Comments KETONES, BLOOD (BEAKER) (test qtrg=1524) 0.6 mmol/L <0.4 [id number] 15:03:00 Test Item Value Reference Range Comments PHOSPHORUS (BEAKER) (test czua=357) 3.0 mg/dL 2.3-4.7 [id number] 15:03:00 Test Item Value Reference Range Comments MAGNESIUM (BEAKER) (test tunq=468) 1.5 mg/dL 1.6-2.6 LACTIC ACID, VENOUS, WHOLE [id number] 14:59:00 Test Item Value Reference Range Comments LACTATE BLOOD VENOUS (2) (BEAKER) (test 1.2 mmol/L 0.5-2.2 zyoq=1882) Effective 11/14/2015: Units/Reference Range ChangeNew: 0.5-2.2 mmol/L Previous: 5 -20 mg/dLPROTHROMBIN TIME/[id number] 14:45:00 Test Item Value Reference Range Comments PROTIME (BEAKER) (test zoui=783) 16.3 seconds 11.7-14.7 INR (BEAKER) (test plzk=490) 1.3 <=5.9 RECOMMENDED COUMADIN/WARFARIN INR THERAPY RANGESSTANDARD DOSE: 2.0 - 3.0 Includes: PROPHYLAXIS forvenous thrombosis, systemic embolization; TREATMENT for venous thrombosis and/or pulmonary embolus.HIGH RISK: Target INR is 2.5-3.5 for patients with mechanical heart valves.CBC W/PLT COUNT & AUTO [id number] 14:39:00 Test Item Value Reference Range Comments WHITE BLOOD CELL COUNT (BEAKER) (test pumf=149) 11.5 K/ L 3.5-10.5 RED BLOOD CELL COUNT (BEAKER) (test gekp=895) 2.49 M/ L 3.93-5.22 HEMOGLOBIN (BEAKER) (test pmwp=471) 7.7 GM/DL 11.2-15.7 HEMATOCRIT (BEAKER) (test kxom=016) 23.1 % 34.1-44.9 MEAN CORPUSCULAR VOLUME (BEAKER) (test uadr=856) 92.8 fL 79.4-94.8 MEAN CORPUSCULAR HEMOGLOBIN (BEAKER) (test 30.9 pg 25.6-32.2 gdes=271) MEAN CORPUSCULAR HEMOGLOBIN CONC (BEAKER) (test 33.3 GM/DL 32.2-35.5 esfd=106) RED CELL DISTRIBUTION WIDTH (BEAKER) (test 13.6 % 11.7-14.4 gdrf=202) PLATELET COUNT (BEAKER) (test apqj=686) 162 K/CU MM 150-450 MEAN PLATELET VOLUME (BEAKER) (test dquq=799) 10.9 fL 9.4-12.3 NUCLEATED RED BLOOD CELLS (BEAKER) (test 0 /100 WBC 0-0 pwbg=189) NEUTROPHILS RELATIVE PERCENT (BEAKER) (test 76 % ijdr=949) LYMPHOCYTES RELATIVE PERCENT (BEAKER) (test 15 % ngzo=288) MONOCYTES RELATIVE PERCENT (BEAKER) (test 8 % hzcn=116) EOSINOPHILS RELATIVE PERCENT (BEAKER) (test 0 % ovab=936) BASOPHILS RELATIVE PERCENT (BEAKER) (test 0 % ztmd=477) NEUTROPHILS ABSOLUTE COUNT (BEAKER) (test 8.75 K/ L 1.56-6.13 xnur=016) LYMPHOCYTES ABSOLUTE COUNT (BEAKER) (test 1.70 K/ L 1.18-3.74 grxj=132) MONOCYTES ABSOLUTE COUNT (BEAKER) (test 0.93 K/ L 0.24-0.36 tzgd=738) EOSINOPHILS ABSOLUTE COUNT (BEAKER) (test 0.02 K/ L 0.04-0.36 ahrj=798) BASOPHILS ABSOLUTE COUNT (BEAKER) (test 0.03 K/ L 0.01-0.08 aniv=915) IMMATURE GRANULOCYTES-RELATIVE PERCENT (BEAKER) 1 % 0-1 (test aqdf=6604) POCT-GLUCOSE [id number] 13:22:00 Test Item Value Reference Range Comments POC-GLUCOSE METER (BEAKER) 119 mg/dL 70-110 TESTED AT [facility] [address] (test wwmo=7161) [facility] [address]
--- OUTSIDE RECORDS SUMMARY | 2018-03-16 10:02 | XMS REPORT | Clinical Summary ---
:1935 Author Organization [facility] Address [address] [place] [address] Phone Care Team Providers Name Role Phone Unavailable Primary Care Provider Unavailable Allergies Active Allergy Reactions Severity Noted Date Comments Codeine Anaphylaxis High 03/12/2018 Meperidine Anaphylaxis High 03/12/2018 Morphine Anaphylaxis High 03/12/2018 Dexamethasone 03/12/2018 Iodinated Contrast- Oral And Iv Dye 03/12/2018 Benazepril 03/12/2018 Penicillins 03/12/2018 Zolpidem 03/12/2018 Current Medications Prescription Sig. Disp. Refills Start Date End Date Status simvastatin (ZOCOR) 20 Take 20 mg by Active MG tablet mouth nightly. carvedilol (COREG) 25 Take 25 mg by Active MG tablet mouth 2 (two) times daily with breakfast and dinner. clopidogrel (PLAVIX) Take 75 mg by Active 75 mg tablet mouth 3 (three) times a week MWF . levothyroxine Take 75 mcg by Active (SYNTHROID, mouth Every LEVOTHROID) 75 MCG morning on an tablet empty stomach. pantoprazole Take 1 tablet (40 180 tablet 3 03/13/2018 Active (PROTONIX) 40 MG mg total) by tablet mouth 2 (two) times daily. Active Problems Problem Noted Date Elevated troponin 03/13/2018 GIB (gastrointestinal bleeding) 03/12/2018 Acute blood loss anemia 03/12/2018 Demand ischemia of myocardium (HCC) 03/12/2018 Syncope 03/12/2018 Resolved Problems Problem Noted Date Resolved Date High anion gap metabolic acidosis 03/12/2018 03/12/2018 Encounters Date Type Specialty Care Team Description 03/12/2018 - Hospital Encounter Intensive Care Omranian, Acute blood loss 03/13/2018 MD Keyur anemia;Syncope, unspecified syncope type;Gastrointesti nal hemorrhage associated with gastric ulcer 03/12/2018 Anesthesia Event Gastroenterology Juanjose Sage MD 03/12/2018 Orders Only General Internal Medicine 03/12/2018 Procedure Pass Gastroenterology 03/12/2018 Surgery Gastroenterology [facility], UPPER ENDOSCOPY Silviano Velazquez MD after 03/15/2017 Social History Tobacco Use Types Packs/Day Years Used Date Never Smoker Smokeless Tobacco: Never Used Alcohol Use Drinks/Week oz/Week Comments No Sex Assigned at Date Recorded Not on file Last Filed Vital Signs Vital Sign Reading Time Taken Blood Pressure 170/58 03/13/2018 5:19 PM CDT Pulse 90 03/13/2018 5:19 PM CDT Temperature 36.4 C (97.6 F) 03/13/2018 12:30 PM CDT Respiratory Rate 24 03/13/2018 5:19 PM CDT Oxygen Saturation 97% 03/13/2018 5:19 PM CDT Inhaled Oxygen Concentration - - Weight 60.1 kg (132 lb 7.9 oz) 03/13/2018 4:20 AM CDT Height 167.6 cm (5' 6") 03/12/2018 1:20 PM CDT Body Mass Index 21.39 03/13/2018 4:20 AM CDT Plan of Treatment Not on file Results TRANSFUSION SERVICE REPORT - SCAN (03/14/2018 6:00 PM)Only the most recent of2 resultswithin the time period is included.Prepare Leuko-Red RBC (03/13/2018 11: 55 PM) Component Value Ref Range CROSSMATCH COMPATIBLE Unit ABO O Pos UNIT NUMBER [id number] Status TRANSFUSED Blood Bank Product RED BLOOD CELLS PRODUCT CODE [id number] Specimen Performing Laboratory Other SAFETRACE [place] XR hip 2 views right (03/13/2018 5:02 PM) Specimen Performing Laboratory GE RIS Narrative FINAL REPORT Two views of the right hip without comparison. IMPRESSION: There is no acute fracture or traumatic malalignment. Mild degenerative changes are seen at the soft tissues are unremarkable. The sacrum is obscured by overlying bowel gas. Signed: Syeda Guthrie MD Report Verified Date/Time:03/13/2018 17:39:18 Reading Location: [facility] C0[facility] Ortho Consult Reading Room Procedure Note Interface, External Ris In - 03/13/2018 5:41 PM CDT FINAL REPORT Two views of the right hip without comparison. IMPRESSION: There is no acute fracture or traumatic malalignment. Mild degenerative changes are seen at the soft tissues are unremarkable. The sacrum is obscured by overlying bowel gas. Signed: Syeda Guthrie MD Report Verified Date/Time: 03/13/2018 17:39:18 Reading Location: [address] Ortho Consult Reading Room CARDIOGRAM REPORT - SCAN (03/13/2018 4:30 PM)Hemoglobin and hematocrit (07/2017 1:12 PM)Only the most recent of4 resultswithin the time period is included. Component Value Ref Range Hemoglobin 8.8 (L) 11.2 - 15.7 GM/DL Hematocrit 25.7 (L) 34.1 - 44.9 % Specimen Performing Laboratory Blood - Arm, [address] [address] Troponin I (03/13/2018 1:12 PM)Only the most recent of5 resultswithin the time period is included. Component Value Ref Range Troponin I 0.21 (HH) 0.00 - 0.03 ng/mL Specimen Performing Laboratory Blood - Arm, [address] [address] Narrative Troponin I (TnI) levels must be interpreted [...] failure, acidosis, acute neurological disease, and persistent tachyarrhythmia. TSH/Free T4 If Indicated (03/13/2018 4:19 AM) Component Value Ref Range TSH 4.02 0.35 - 4.94 uIU/mL Specimen Performing Laboratory Blood [address] [address] CBC with platelet count + automated diff (03/13/2018 4:19 AM)Only the most recent of2 resultswithin the time period is included. Component Value Ref Range WBC 11.6 (H) 3.5 - 10.5 K/L RBC 2.79 (L) 3.93 - 5.22 M/L Hemoglobin 8.8 (L) 11.2 - 15.7 GM/DL Hematocrit 25.7 (L) 34.1 - 44.9 % MCV 92.1 79.4 - 94.8 fL MCH 31.5 25.6 - 32.2 pg MCHC 34.2 32.2 - 35.5 GM/DL RDW 14.4 11.7 - 14.4 % Platelets 144 (L) 150 - 450 K/CU MM MPV 10.9 9.4 - 12.3 fL nRBC 0 0 - 0 /100 WBC % Neutros 74 % % Lymphs 13 % % Monos 8 % % Eos 3 % % Baso 1 % # Neutros 8.62 (H) 1.56 - 6.13 K/L # Lymphs 1.54 1.18 - 3.74 K/L # Monos 0.98 (H) 0.24 - 0.36 K/L # Eos 0.32 0.04 - 0.36 K/L # Baso 0.06 0.01 - 0.08 K/L Immature Granulocytes-Relative 1 0 - 1 % Specimen Performing Laboratory Blood [address] [address] CBC with platelet count + automated diff (03/13/2018 4:19 AM)Only the most recent of2 resultswithin the time period is included. Specimen Performing Laboratory Blood Narrative The following orders were created for panel order CBC with platelet count + automated diff. Procedure Abnormality Status --------- ------ CBC with platelet count ...[[id number]]AbnormalFinal result Please view results for these tests on the individual orders. Phosphorus (03/13/2018 4:19 AM)Only the most recent of2 resultswithin the time period is included. Component Value Ref Range Phosphorus 2.6 2.3 - 4.7 mg/dL Specimen Performing Laboratory Blood [address] [address] Magnesium (03/13/2018 4:19 AM)Only the most recent of2 resultswithin the time period is included. Component Value Ref Range Magnesium 2.1 1.6 - 2.6 mg/dL Specimen Performing Laboratory Blood [address] [address] Hemoglobin A1c (03/13/2018 4:19 AM) Component Value Ref Range Hemoglobin A1C 5.4 4.3 - 6.1 % Specimen Performing Laboratory Blood [address] [address] Lipid panel (03/13/2018 4:19 AM) Component Value Ref Range Triglycerides 131 mg/dL Cholesterol 105 mg/dL HDL 31 mg/dL LDL Calculated 48 mg/dL Specimen Performing Laboratory Blood [address] [address] Narrative Triglyceride Reference Range: Low Risk <150 [id number] High Risk 200-499 Very High Risk>=500 Cholesterol Reference Range: Low Risk <200 [id number] High Risk>240 HDL Cholesterol Reference Range: Low Risk >=60 High Risk <40 LDL Cholesterol Reference Range: Optimal<100 Near [id number] [id number] [id number] Very High >=190 Basic Metabolic Panel (03/13/2018 4:19 AM) Component Value Ref Range Sodium 137 136 - 145 meq/L Potassium 3.7 3.5 - 5.1 meq/L Chloride 107 98 - 107 meq/L CO2 21 (L) 22 - 29 meq/L BUN 34 (H) 7 - 21 mg/dL Creatinine 0.70 0.57 - 1.25 mg/dL Glucose 102 70 - 105 mg/dL Calcium 8.6 8.4 - 10.2 mg/dL EGFR 80Comment: ESTIMATED GFR IS NOT ACCURATE mL/min/1.73 sq m CREATININE CLEARANCE IN PREDICTING GLOMERULAR FILTRATION RATE. ESTIMATED GFR IS NOT APPLICABLE FOR DIALYSIS PATIENTS. Specimen Performing Laboratory Blood [address] [address] Transfuse Leuko-Red RBC (03/12/2018 10:40 PM)Only the most recent of2 resultswithin the time period is included.Urinalysis w/Microscopic + Reflex to Culture (03/12/2018 9:38 PM) Component Value Ref Range Color, UA Light Yellow Clarity, UA Clear Specific [place], UA 1.015 1.001 - 1.035 pH, UA 5.0 5.0 - 8.0 Protein, UA Negative Negative Glucose, UA Negative Negative Ketones, UA 10 mg/dL (A) Negative Bilirubin, UA Negative Negative Blood, UA Negative Negative Nitrite, UA Negative Negative Leukocytes, UA Moderate (A) Negative Urobilinogen, UA 0.2 0.2 - 1.0 mg/dL RBC, UA 1 /HPF WBC, UA 7 /HPF Mucus Rare Squam Epithel, UA 1 /HPF Specimen Source Specimen Performing Laboratory Urine - Urine, Voided [address] [address] REPORT OF PROCEDURE - ENDOSCOPY URL (03/12/2018 8:30 PM)2D Echo W/Doppler(CW/PW /Color) (03/12/2018 5:48 PM) Component Value Ref Range Ejection Fraction Specimen Performing Laboratory [facility] ECHO HEARTLAB MKCKESSON CPACS Narrative Transthoracic Echocardiography Report (TTE) Demographics Patient Name [facility], Date of Study 03/12/2018 KAUR [id number] Female Visit Number [id number] Unknown [id number] Room Number 7107 Number Date of Birth4Referring Physician Age83 year(s)Publications Editor Garcia Siu [facility] Interpreting [facility] Needs to be Pre Physician Read Jae Mars MD Fellow SHONA Santos Procedure Type of Study TTE procedure:2DECHO W DOPPLER(CW/PW/COLOR) (STAT) Indications:Unexplained Pre-syncope/Syncope. 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 Severe concentric LV hypertrophy. Septal motion is abnormal, likely related to prior cardiac surgery . The other segments contract normally. LVEF by Olvera's method of disk assessment is normal (55-60%) . Degree of diastolic dysfunction (LAP assessment) is inconclusive due to mitral stenosis . The prosthetic AoV appears well-seated with normal function by Doppler. AoV dimensionless obstructive index (DOI)) is 0.89 . Mild paravalvular leak anteriorly. Severe mitral annular calcification, particularly posteriorly causing significant narrowing of mitral annulus. Calcification extends into posterior leaflet. There is severe mitral valve stenosis Estimated peak systolic PA pressure is 40-45 mmHg . Signature Findings Rhythm/BPRegular sinus rhythm during the exam. Left Ventricle The LV endocardium is adequately visualized. The left ventricle is chamber size (by vol index) is normal (female - LVED vol - 29-61ml/m2). Severe concentric LV hypertrophy. Septal motion is abnormal, likely related to prior cardiac surgery . The other segments contract normally. LVEF by Olvera's method of disk assessment is normal (55-60%) . Degree of diastolic dysfunction (LAP assessment) is inconclusive due to mitral stenosis . Left AtriumLA size is severely enlarged (>48 ml/m2) . Right VentricleThe right ventricular chamber size and systolic function are within normal limits. Right Atrium RA size is probably normal based on available views. Atrial SeptumNormal interatrial septum by available views. 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 The prosthetic AoV appears well-seated with normal function by Doppler. AoV dimensionless obstructive index (DOI)) is 0.89 . Mild paravalvular leak anteriorly. Mitral Valve Severe mitral annular calcification, particularly posteriorly causing significant narrowing of mitral annulus. Calcification extends into posterior leaflet. There is severe mitral valve stenosis (mean gradient 17.85 mmHg). Trace mitral regurgitation. Tricuspid ValveTV structure is normal. Mild tricuspid regurgitation. Estimated peak systolic PA pressure is 40-45 mmHg . Pulmonic Valve Normal PV structure and function. AortaAortic root size (SInus of Valsalva diameter) is normal . Proximal ascending aorta size is normal . PericardiumNo significant pericardial effusion is visualized. IVC/SVC/PA/PV/PleuralThe estimated RA pressure by IVC dynamics 5-10mmHg . Chambers/Structures Left Atrium LA Volume: 131.72 mlLA Area: 30.92 cm^ 2 LA Vol. Index: 77 ml/m^2 Left Ventricle LVIDd: 2.87 cm LV Septum Diastolic: 1.55 cm LV PW Diastolic: 2.46 cm LVEDV Olvera's:56.58 ml LVESV Olvera's:23.4 ml LVEF Olvera's: 58.6 %LVEDVI: 33 ml/m^2 LVESVI: 14 ml/m^2 LVOT Diameter: 1.48 cm Aorta Ao Root S of [place].: 3.93 cmAscending Aorta: 2.97 cm Descending Aorta: 3.02 cm Doppler/Quantitative Measurements Mitral Valve Mean Velocity: 1.82 m/s Mean Gradient: 15.28 mmHg Area (continuity): 0.81 cm^2 MV VTI : 76.4 cm MV Donald. Peak: 3.01 m/s Aortic Valve Peak Velocity: 2.39 m/sMean Velocity: 1.5 m/s Peak Gradient: 22.77 mmHgMean Gradient: 10.53 mmHg AV Area (continuity): 1.54 cm^2 AV VTI: 40.46 cm AV DVI: 0.89 LVOT Peak Velocity: 1.47 m/s Peak Gradient: 8.64 mmHg Mean Velocity: 1.03 m/s Mean Gradient: 5.04 mmHg LVOT Diameter: 1.48 cmLVOT VTI: 36.19 cm LVOT Area: 1.72 cm^2LVOT SV:62.23 ml LVOT CO: 4.98 l/min LVOT CI: 2.93 l/min/m^2 Tricuspid Valve TR Velocity: 3.07 m/s TR Gradient: 37.71 mmHg Procedure Note Interface, External Ris In - 03/13/2018 3:44 PM CDT Transthoracic Echocardiography Report (TTE) Demographics Patient Name DARWIN, Date of Study 03/12/2018 KAUR Gender Female Visit Number [id number] Race Unknown Room Number 7107 Number Date of 1935 Referring Physician Age 83 year(s) Publications Editor Garcia Siu [facility] Interpreting [facility] Needs to be Pre Physician Read Jae Mars MD Fellow SHONA Santos Procedure Type of Study TTE procedure:2DECHO W DOPPLER(CW/PW/COLOR) (STAT) Indications:Unexplained Pre-syncope/Syncope. 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 Severe concentric LV hypertrophy. Septal motion is abnormal, likely related to prior cardiac surgery . The other segments contract normally. LVEF by Olvera's method of disk assessment is normal (55-60%) . Degree of diastolic dysfunction (LAP assessment) is inconclusive due to mitral stenosis . The prosthetic AoV appears well-seated with normal function by Doppler. AoV dimensionless obstructive index (DOI)) is 0.89 . Mild paravalvular leak anteriorly. Severe mitral annular calcification, particularly posteriorly causing significant narrowing of mitral annulus. Calcification extends into posterior leaflet. There is severe mitral valve stenosis Estimated peak systolic PA pressure is 40-45 mmHg . Signature Findings Rhythm/BP Regular sinus rhythm during the exam. Left Ventricle The LV endocardium is adequately visualized. The left ventricle is chamber size (by vol index) is normal (female - LVED vol - 29-61ml/m2). Severe concentric LV hypertrophy. Septal motion is abnormal, likely related to prior cardiac surgery . The other segments contract normally. LVEF by Olvera's method of disk assessment is normal (55-60%) . Degree of diastolic dysfunction (LAP assessment) is inconclusive due to mitral stenosis . Left Atrium LA size is severely enlarged (>48 ml/m2) . Right Ventricle The right ventricular chamber size and systolic function are within normal limits. Right Atrium RA size is probably normal based on available views. Atrial Septum Normal interatrial septum by available views. 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 The prosthetic AoV appears well-seated with normal function by Doppler. AoV dimensionless obstructive index (DOI)) is 0.89 . Mild paravalvular leak anteriorly. Mitral Valve Severe mitral annular calcification, particularly posteriorly causing significant narrowing of mitral annulus. Calcification extends into posterior leaflet. There is severe mitral valve stenosis (mean gradient 17.85 mmHg). Trace mitral regurgitation. Tricuspid Valve TV structure is normal. Mild tricuspid regurgitation. Estimated peak systolic PA pressure is 40-45 mmHg . Pulmonic Valve Normal PV structure and function. Aorta Aortic root size (SInus of Valsalva diameter) is normal . Proximal ascending aorta size is normal . Pericardium No significant pericardial effusion is visualized. IVC/SVC/PA/PV/Pleural The estimated RA pressure by IVC dynamics 5-10mmHg . Chambers/Structures Left Atrium LA Volume: 131.72 ml LA Area: 30.92 cm^2 LA Vol. Index: 77 ml/m^2 Left Ventricle LVIDd: 2.87 cm LV Septum Diastolic: 1.55 cm LV PW Diastolic: 2.46 cm LVEDV Olvera's:56.58 ml LVESV Olvera's:23.4 ml LVEF Olvera's: 58.6 % LVEDVI: 33 ml/m^2 LVESVI: 14 ml/m^2 LVOT Diameter: 1.48 cm Aorta Ao Root S of [place].: 3.93 cm Ascending Aorta: 2.97 cm Descending Aorta: 3.02 cm Doppler/Quantitative Measurements Mitral Valve Mean Velocity: 1.82 m/s Mean Gradient: 15.28 mmHg Area (continuity): 0.81 cm^2 MV VTI: 76.4 cm MV Donald. Peak: 3.01 m/s Aortic Valve Peak Velocity: 2.39 m/s Mean Velocity: 1.5 m/s Peak Gradient: 22.77 mmHg Mean Gradient: 10.53 mmHg AV Area (continuity): 1.54 cm^2 AV VTI: 40.46 cm AV DVI: 0.89 LVOT Peak Velocity: 1.47 m/s Peak Gradient: 8.64 mmHg Mean Velocity: 1.03 m/s Mean Gradient: 5.04 mmHg LVOT Diameter: 1.48 cm LVOT VTI: 36.19 cm LVOT Area: 1.72 cm^2 LVOT SV:62.23 ml LVOT CO: 4.98 l/min LVOT CI: 2.93 l/min/m^2 Tricuspid Valve TR Velocity: 3.07 m/s TR Gradient: 37.71 mmHg Vitamin B12 and Folate (03/12/2018 5:19 PM) Component Value Ref Range Vitamin B12 552 213 - 816 pg/mL Folate 16.2 >=7.0 ng/mL Specimen Performing Laboratory Blood [address] [address] Iron, TIBC, % sat. (without ferritin) (03/12/2018 5:19 PM) Component Value Ref Range Iron 159 40 - 160 ug/dL TIBC 234 (L) 250 - 450 ug/dL Iron % Saturation 68 (H) 20 - 55 % Specimen Performing Laboratory Blood [address] [address] Ferritin (03/12/2018 5:19 PM) Component Value Ref Range Ferritin 71 5 - 275 ng/mL Specimen Performing Laboratory [address] [address] ECG 12 lead (03/12/2018 4:22 PM) Specimen Performing Laboratory GE MUSE Narrative Ventricular Rate 79 BPM Atrial Rate 79 BPM P-R Interval 132 ms QRS Duration 168 ms Q-T Interval 478 ms QTC Calculation(Bazett) 548 ms P [place] 36 degrees R [place] -58 degrees T [place] 114 degrees Atrial-sensed ventricular-paced rhythm Abnormal ECG No previous ECGs available Confirmed by MD DONNELL, JET ([id number]) on 03/13/2018 5:18:05 AM Procedure Note Interface, External Ris In - 03/13/2018 5:18 AM CDT Ventricular Rate 79 BPM Atrial Rate 79 BPM P-R Interval 132 ms QRS Duration 168 ms Q-T Interval 478 ms QTC Calculation(Bazett) 548 ms P [place] 36 degrees R [place] -58 degrees T [place] 114 degrees Atrial-sensed ventricular-paced rhythm Abnormal ECG No previous ECGs available Confirmed by MD DONNELL, JET ([id number]) on 03/13/2018 5:18:05 AM XR chest 1 view portable / bedside (03/12/2018 2:34 PM) Specimen Performing Laboratory GE RIS Narrative FINAL REPORT TECHNIQUE: Frontal chest radiograph dated 03/12/2018. CLINICAL HISTORY: SOB COMPARISON STUDY: None IMPRESSION: Right-sided pacemaker is unchanged. There is biapical pleural thickening. No focal consolidation. No pleural effusion or pneumothorax. Cardiomediastinal silhouette is normal in size. No pulmonary edema. No fracture. Sternotomy wires and plates are well aligned. There is apparent sclerosis of the left clavicle suggestive of a marrow replacement process. A nuclear medicine bone scan can be obtained. Signed: Candy Alberts MD Report Verified Date/Time:03/12/2018 16:19:21 Reading Location: [facility] Radiology Reading Room Procedure Note Interface, External Ris In - 03/12/2018 4:21 PM CDT FINAL REPORT TECHNIQUE: Frontal chest radiograph dated 03/12/2018. CLINICAL HISTORY: SOB COMPARISON STUDY: None IMPRESSION: Right-sided pacemaker is unchanged. There is biapical pleural thickening. No focal consolidation. No pleural effusion or pneumothorax. Cardiomediastinal silhouette is normal in size. No pulmonary edema. No fracture. Sternotomy wires and plates are well aligned. There is apparent sclerosis of the left clavicle suggestive of a marrow replacement process. A nuclear medicine bone scan can be obtained. Signed: Candy Alberts MD Report Verified Date/Time: 03/12/2018 16:19:21 Reading Location: [facility] Radiology Reading Room Procalcitonin (03/12/2018 2:18 PM) Component Value Ref Range Procalcitonin 0.10 (H) <0.05 ng/mL Specimen Performing Laboratory Blood - Arm, Right [address] [address] Narrative SEPSIS RISK (ng/mL) Low:0.05-0.50 Intermediate: 0.51-2.00 High: >=2.01 Type and screen, automated (03/12/2018 2:18 PM) Component Value Ref Range ABO/RH AUTOMATED (BEAKER) O POSITIVE Ab Scrn NEGATIVE Specimen Performing Laboratory Blood - Arm, [address] [address] Lactic acid, venous, whole blood (03/12/2018 2:18 PM) Component Value Ref Range Lactate, Venous 1.2 0.5 - 2.2 mmol/L Specimen Performing Laboratory Blood - Arm, [address] [address] Narrative Effective 11/14/2015: Units/Reference Range Change New: 0.5-2.2 mmol/LPrevious: 5-20 mg/dL Prothrombin time/INR (03/12/2018 2:18 PM) Component Value Ref Range Protime 16.3 (H) 11.7 - 14.7 seconds INR 1.3 <=5.9 Specimen Performing Laboratory Blood - Arm, [address] [address] Narrative RECOMMENDED COUMADIN/WARFARIN INR THERAPY RANGES STANDARD DOSE: 2.0 - 3.0 Includes: PROPHYLAXIS for venous thrombosis, systemic embolization; TREATMENT for venous thrombosis and/or pulmonary embolus. HIGH RISK: Target INR is 2.5-3.5 for patients with mechanical heart valves. B-type Natriuretic Factor (BNP) (03/12/2018 2:18 PM) Component Value Ref Range BNP 238 (H) 0 - 100 pg/mL Specimen Performing Laboratory Blood - Arm, [address] [address] Creatine Kinase (CK), Total and MB (03/12/2018 2:18 PM) Component Value Ref Range Total CK 80 29 - 200 U/L CK-MB 3.1 0.0 - 6.6 ng/mL MB Relative Index 3.9 % Specimen Performing Laboratory Blood - Arm, [address] [address] Narrative CK-MB Reference Range: <6.7Normal 6.7-10.0Borderline >10.0 Abnormal Ketone, blood (03/12/2018 2:18 PM) Component Value Ref Range Ketones, Blood 0.6 (H) <0.4 mmol/L Specimen Performing Laboratory Blood - Arm, [address] [address] Comprehensive metabolic panel (03/12/2018 2:18 PM) Component Value Ref Range Protein, Total 5.8 (L) 6.0 - 8.3 gm/dL Albumin 3.1 (L) 3.5 - 5.0 g/dL Alkaline Phosphatase 19 (L) 40 - 150 U/L Total Bilirubin 0.9 0.2 - 1.2 mg/dL Sodium 137 136 - 145 meq/L Potassium 3.8 3.5 - 5.1 meq/L Chloride 106 98 - 107 meq/L CO2 21 (L) 22 - 29 meq/L BUN 52 (H) 7 - 21 mg/dL Creatinine 0.73 0.57 - 1.25 mg/dL Glucose 96 70 - 105 mg/dL Calcium 8.6 8.4 - 10.2 mg/dL AST 18 5 - 34 U/L ALT 11 6 - 55 U/L EGFR 76Comment: ESTIMATED GFR IS NOT ACCURATE mL/min/1.73 sq m CREATININE CLEARANCE IN PREDICTING GLOMERULAR FILTRATION RATE. ESTIMATED GFR IS NOT APPLICABLE FOR DIALYSIS PATIENTS. Specimen Performing Laboratory Blood - Arm, [address] [address] POC-Glucose meter (03/12/2018 1:20 PM) Component Value Ref Range POC-Glucose Meter 119 (H)Comment: TESTED AT [address] 70 - 110 mg/[place] [address] Specimen Performing Laboratory Blood [address] [address] after 03/15/2017
--- NOTE | 2018-03-16 10:50 | EDPHYS ---
Physician Documentation [facility] Name: Kaur Kinsey Age: 83 yrs Sex: Female : 1935 Arrival Date: 03/16/2018 Time: 10:02 Bed Treatment Private MD: THIERRY ESTRADA ED Physician Alex Yañez HPI: 03/16 10:46 This 83 yrs old Female presents to ER via Wheelchair with complaints of tom Suture Removal. 10:46 The patient has roverto on the forehead. Previous treatment: The patient was initially tom treated 10 day(s) ago. Sutures/roverto progress: The patient has no c/o's. The wound is well-healing with no redness, swelling, discharge, or dehiscence reported. The patient has not experienced similar symptoms in the past. Historical: - Allergies: 10:38 Codeine; aj1 10:38 Demerol; aj1 10:38 Dexamethasone; aj1 10:38 Iodine; aj1 10:38 Lotensin; aj1 10:38 Morphine; aj1 10:38 PENICILLINS; aj1 10:38 Zolpidem; aj1 - Home Meds: 10:38 carvedilol 25 mg Oral tab 1 tab daily [Active]; levothyroxine 75 mcg tab 1 tab once aj1 daily [Active]; Plavix 75 mg Oral tab 1 tab once daily [Active]; simvastatin 20 mg Oral tab 1 tab once daily [Active]; Protonix Oral [Active]; - PMHx: 10:38 heart disease; High Cholesterol; Thyroid problem; aj1 - Immunization history:: Last tetanus immunization: up to date Flu vaccine is up to date. - Social history:: Smoking status: Patient/guardian denies using tobacco. - Ebola Screening: : Patient denies travel to an Ebola-affected area in the 21 days before illness onset. - Family history:: not pertinent. ROS: 10:46 Constitutional: Negative for fever, chills, and weight loss, Eyes: Negative for injury, tom pain, redness, and discharge, ENT: Negative for injury, pain, and discharge, Neck: Negative for injury, pain, and swelling, Cardiovascular: Negative for chest pain, palpitations, and edema, Respiratory: Negative for shortness of breath, cough, wheezing, and pleuritic chest pain, Abdomen/GI: Negative for abdominal pain, nausea, vomiting, diarrhea, and constipation, Back: Negative for injury and pain, : Negative for injury, bleeding, discharge, and swelling, MS/Extremity: Negative for injury and deformity, Neuro: Negative for headache, weakness, numbness, tingling, and seizure, Psych: Negative for depression, anxiety, suicide ideation, homicidal ideation, and hallucinations, Allergy/Immunology: Negative for hives, rash, and allergies, Endocrine: Negative for neck swelling, polydipsia, polyuria, polyphagia, and marked weight changes, Hematologic/Lymphatic: Negative for swollen nodes, abnormal bleeding, and unusual bruising. 10:46 Skin: Positive for laceration(s). Exam: 10:46 Constitutional: This is a well developed, well nourished patient who is awake, alert, tom and in no acute distress. Head/Face: Normocephalic, atraumatic. Eyes: Pupils equal round and reactive to light, extra-ocular motions intact. Lids and lashes normal. Conjunctiva and sclera are non-icteric and not injected. Cornea within normal limits. Periorbital areas with no swelling, redness, or edema. ENT: Nares patent. No nasal discharge, no septal abnormalities noted. Tympanic membranes are normal and external auditory canals are clear. Oropharynx with no redness, swelling, or masses, exudates, or evidence of obstruction, uvula midline. Mucous membranes moist. Neck: Trachea midline, no thyromegaly or masses palpated, and no cervical lymphadenopathy. Supple, full range of motion without nuchal rigidity, or vertebral point tenderness. No Meningismus. Chest/axilla: Normal chest wall appearance and motion. Nontender with no deformity. No lesions are appreciated. Cardiovascular: Regular rate and rhythm with a normal S1 and S2. No gallops, murmurs, or rubs. Normal PMI, no JVD. No pulse deficits. Respiratory: Lungs have equal breath sounds bilaterally, clear to auscultation and percussion. No rales, rhonchi or wheezes noted. No increased work of breathing, no retractions or nasal flaring. Abdomen/GI: Soft, non-tender, with normal bowel sounds. No distension or tympany. No guarding or rebound. No evidence of tenderness throughout. Back: No spinal tenderness. No costovertebral tenderness. Full range of motion. Skin: Warm, dry with normal turgor. Normal color with no rashes, no lesions, and no evidence of cellulitis. MS/ Extremity: Pulses equal, no cyanosis. Neurovascular intact. Full, normal range of motion. Neuro: Awake and alert, GCS 15, oriented to person, place, time, and situation. Cranial nerves II-XII grossly intact. Motor strength 5/5 in all extremities. Sensory grossly intact. Cerebellar exam normal. Normal gait. Psych: Awake, alert, with orientation to person, place and time. Behavior, mood, and affect are within normal limits. Vital Signs: 10:38 BP 118 / 42; Pulse 62; Resp 18; Temp 97.2(TE); Pulse Ox 98% on R/A; Weight 61.23 kg aj1 (R); Height 5 ft. 6 in. (167.64 cm) (R); 10:38 Body Mass Index 21.79 (61.23 kg, 167.64 cm) [facility] Procedures: 10:49 Suture/Staple removal: Removed 6 sutures, 4 roverto, from face, site appears well tom healed, dressed with Neosporin, Patient tolerated well. MDM: 10:31 Patient medically screened. [facility] 10:48 Data reviewed: vital signs, nurses notes. [facility] Administered Medications: No medications were administered Disposition: 03/16/18 10:49 Discharged to Home. Impression: Encounter for removal of sutures - and roverto. - Condition is Stable. - Discharge Instructions: Suture Removal, Care After, Wound Closure Removal. - Medication Reconciliation Form, Thank You Letter, Antibiotic Education, Prescription Opioid Use form. - Follow up: THIERRY ESTRADA; When: As needed; Reason: Recheck today's complaints, Continuance of care, Re-evaluation by your physician. - Problem is new. - Symptoms have improved. Signatures: Willow Alexander RN RN aj1 Alex Yañez MD MD cha Townsend, Paige RN RN pt Corrections: (The following items were deleted from the chart) 10:58 10:49 03/16/2018 10:49 Discharged to Home. Impression: Encounter for removal of sutures pt - and roverto. Condition is Stable. Forms are Medication Reconciliation Form, Thank You Letter, Antibiotic Education, Prescription Opioid Use. Follow up: THIERRY ESTRADA; When: As needed; Reason: Recheck today's complaints, Continuance of care, Re-evaluation by your physician. Problem is new. Symptoms have improved. tom
--- NOTE | 2018-03-16 10:50 | ER ---
Nurse's Notes [facility] Name: Kaur Kinsey Age: 83 yrs Sex: Female : 1935 Arrival Date: 03/16/2018 Time: 10:02 Bed Treatment Private MD: THIERRY ESTRADA Diagnosis: Encounter for removal of sutures-and roverto Presentation: 03/16 10:33 Presenting complaint: Patient states: She fell last and hit her head, she was aj1 transferred to [facility], where she stayed in ICU and was discharged 3 days ago. States that she came into today to have her sutures and roverto removed. Sutures noted above right eye, roverto noted to scalp. Patient reports that she is still having some dizziness when she stands, but is feels fine when she is sitting. Bruising noted to right eye. Transition of care: patient was not received from another setting of care. Onset of symptoms was March 11, 2018. Risk Assessment: Do you want to hurt yourself or someone else? Patient reports no desire to harm self or others. Initial Sepsis Screen: Does the patient meet any 2 criteria? No. Patient's initial sepsis screen is negative. Does the patient have a suspected source of infection? No. Patient's initial sepsis screen is negative. Care prior to arrival: None. 10:33 Method Of Arrival: Wheelchair aj1 10:33 Acuity: LORRAINE 4 aj1 Triage Assessment: 10:38 General: Appears in no apparent distress. comfortable, Behavior is calm, cooperative, aj1 appropriate for age. Pain: Complains of pain in forehead. Historical: - Allergies: 10:38 Codeine; aj1 10:38 Demerol; aj1 10:38 Dexamethasone; aj1 10:38 Iodine; aj1 10:38 Lotensin; aj1 10:38 Morphine; aj1 10:38 PENICILLINS; aj1 10:38 Zolpidem; aj1 - Home Meds: 10:38 carvedilol 25 mg Oral tab 1 tab daily [Active]; levothyroxine 75 mcg tab 1 tab once aj1 daily [Active]; Plavix 75 mg Oral tab 1 tab once daily [Active]; simvastatin 20 mg Oral tab 1 tab once daily [Active]; Protonix Oral [Active]; - PMHx: 10:38 heart disease; High Cholesterol; Thyroid problem; aj1 - Immunization history:: Last tetanus immunization: up to date Flu vaccine is up to date. - Social history:: Smoking status: Patient/guardian denies using tobacco. - Ebola Screening: : Patient denies travel to an Ebola-affected area in the 21 days before illness onset. - Family history:: not pertinent. Screenin:39 Abuse screen: Denies threats or abuse. Denies injuries from another. Nutritional aj1 screening: No deficits noted. Tuberculosis screening: No symptoms or risk factors identified. Assessment: 10:39 General: Appears in no apparent distress. comfortable, Behavior is calm, cooperative, aj1 appropriate for age. Pain: Complains of pain in forehead. Neuro: Level of Consciousness is awake, alert, obeys commands, Oriented to person, place, time, situation, Speech is normal, Facial symmetry appears normal, Reports dizziness. Cardiovascular: Patient's skin is warm and dry. Respiratory: Airway is patent Respiratory effort is even, unlabored, Respiratory pattern is regular, symmetrical. GI: No signs and/or symptoms were reported involving the gastrointestinal system. : No signs and/or symptoms were reported regarding the genitourinary system. EENT: No signs and/or symptoms were reported regarding the EENT system. Derm: Bruising that is green, on right eye sutures noted above right eye, roverto noted to scalp. Musculoskeletal: Circulation, motion, and sensation intact. Vital Signs: 10:38 BP 118 / 42; Pulse 62; Resp 18; Temp 97.2(TE); Pulse Ox 98% on R/A; Weight 61.23 kg aj1 (R); Height 5 ft. 6 in. (167.64 cm) (R); 10:38 Body Mass Index 21.79 (61.23 kg, 167.64 cm) aj1 ED Course: 10:02 Patient arrived in ED. sb2 10:03 THIERRY ESTRADA is Private Physician. sb2 10:31 Alex Yañez MD is Attending Physician. tom 10:33 Willow Alexander, MATT is Primary Nurse. aj1 10:36 Triage completed. aj1 10:38 Arm band placed on Patient placed in an exam room. aj1 10:39 Patient has correct armband on for positive identification. Call light in reach. aj1 10:39 No provider procedures requiring assistance completed. aj1 10:48 THIERRY ESTRADA is Referral Physician. tom Administered Medications: No medications were administered Outcome: 10:49 Discharge ordered by . tom 10:57 Condition: good pt 10:57 Discharge instructions given to patient, family, Instructed on safety practices, wound care, Demonstrated understanding of instructions, wound care. 10:57 No charge visit due to suture removal. 10:58 Patient left the ED. pt Signatures: Willow Alexander RN RN aj1 Alex Yañez MD MD cha Townsend, Paige, RN RN pt Arianne Boucher 2
== END 2018-03-16 10:58 | disposition home or self-care (01) ==
LOC: ER 09:59
DX: Z48.02 Encounter for removal of sutures (principal)

== ENCOUNTER 2018-05-26 10:07 | Day surgery (SDC) | payer OTHER, BC ==
--- OUTSIDE RECORDS SUMMARY | 2018-05-26 10:10 | XMS REPORT | Clinical Summary ---
:1935 Author Organization [facility] Address [address] [place] [address] Care Team Providers Name Role Phone Unavailable Primary Care Provider Unavailable Allergies Active Allergy Reactions Severity Noted Date Comments Codeine Anaphylaxis High 03/12/2018 Meperidine Anaphylaxis High 03/12/2018 Dexamethasone 03/12/2018 Iodinated Contrast- Oral And Iv Dye 03/12/2018 Benazepril 03/12/2018 Morphine Anaphylaxis High 03/12/2018 Penicillins 03/12/2018 Zolpidem 03/12/2018 Medications Medication Sig Dispensed Refills Start Date End Date Status simvastatin (ZOCOR) 20 Take 20 mg by 0 Active MG tablet mouth nightly. carvedilol (COREG) 25 Take 25 mg by 0 Active MG tablet mouth 2 (two) times daily with breakfast and dinner. clopidogrel (PLAVIX) Take 75 mg by 0 Active 75 mg tablet mouth 3 (three) times a week MW . levothyroxine Take 75 mcg by 0 Active (SYNTHROID, mouth Every LEVOTHROID) 75 MCG morning on an tablet empty stomach. pantoprazole Take 1 tablet (40 180 tablet 3 03/13/2018 Active (PROTONIX) 40 MG mg total) by tablet mouth 2 (two) times daily. Active Problems Problem Noted Date Elevated troponin 03/13/2018 GIB (gastrointestinal bleeding) 03/12/2018 Acute blood loss anemia 03/12/2018 Demand ischemia of myocardium 03/12/2018 Syncope 03/12/2018 Resolved Problems Problem Noted Date Resolved Date High anion gap metabolic acidosis 03/12/2018 03/12/2018 Encounters Date Type Specialty Care Team Description 03/12/2018 Anesthesia Event Gastroenterology Juanjose Sage MD 03/12/2018 [facility] Silviano Velazquez MD 03/12/2018 Hospital Intensive Care Omranian, Acute blood loss anemia; - Encounter MD Keyur Syncope, unspecified syncope type; 03/13/2018 Gastrointestinal hemorrhage associated with gastric ulcer 03/12/2018 Orders Only General Internal Medicine after 05/25/2017 Social History Tobacco Use Types Packs/Day Years Used Date Never Smoker Smokeless Tobacco: Never Used Alcohol Use Drinks/Week oz/Week Comments No Sex Assigned at Date Recorded Not on file Job Start Date Occupation Industry Not on file Not on file Not on file Travel History Travel Start Travel End No recent travel history available. Last Filed Vital Signs Vital Sign Reading [...] CDT Plan of Treatment Not on file Procedures Procedure Name Priority Date/Time Associated Comments Diagnosis REPORT OF PROCEDURE - 03/22/2018 10:30 ENDOSCOPY SCAN AM CDT RHYTHM STRIP - SCAN 03/22/2018 10:30 AM CDT TRANSFUSION SERVICE 03/14/2018 6:00 REPORT - SCAN PM CDT PREPARE LEUKO-REDUCED Routine 03/13/2018 11:55 Results for this RBC PM CDT procedure are in the results section. TRANSFUSION SERVICE 03/13/2018 6:01 REPORT - SCAN PM CDT XR HIP RIGHT 2 VIEW Routine 03/13/2018 5:02 Results for this PM CDT procedure are in the results section. ECHOCARDIOGRAM REPORT - 03/13/2018 4:30 SCAN PM CDT TROPONIN I Routine 03/13/2018 1:12 Results for this PM CDT procedure are in the results section. HEMOGLOBIN AND STAT 03/13/2018 1:12 Results for this HEMATOCRIT PM CDT procedure are in the results section. CBC W/PLT COUNT & AUTO Routine 03/13/2018 4:19 Results for this DIFFERENTIAL AM CDT procedure are in the results section. TROPONIN I Routine 03/13/2018 4:19 Results for this AM CDT procedure are in the results section. HEMOGLOBIN AND STAT 03/13/2018 4:19 Results for this HEMATOCRIT AM CDT procedure are in the results section. BASIC METABOLIC PANEL Routine 03/13/2018 4:19 Results for this (7) AM CDT procedure are in the results section. PHOSPHORUS STAT 03/13/2018 4:19 Results for this AM CDT procedure are in the results section. MAGNESIUM STAT 03/13/2018 4:19 Results for this AM CDT procedure are in the results section. LIPID PANEL Routine 03/13/2018 4:19 Results for this AM CDT procedure are in the results section. HEMOGLOBIN A1C Routine 03/13/2018 4:19 Results for this AM CDT procedure are in the results section. TSH/FREE T4 IF Routine 03/13/2018 4:19 Results for this INDICATED AM CDT procedure are in the results section. CBC W/PLT COUNT & AUTO Routine 03/13/2018 4:19 Results for this DIFFERENTIAL AM CDT procedure are in the results section. TROPONIN I Routine 03/12/2018 11:52 Results for this PM CDT procedure are in the results section. HEMOGLOBIN AND STAT 03/12/2018 11:52 Results for this HEMATOCRIT PM CDT procedure are in the results section. TRANSFUSE LEUKO-REDUCED Routine 03/12/2018 10:40 RED BLOOD CELLS PM CDT URINALYSIS W/ REFLEX STAT 03/12/2018 9:38 Results for this URINE CULTURE PM CDT procedure are in the results section. REPORT OF PROCEDURE - 03/12/2018 8:30 ENDOSCOPY URL PM CDT UPPER ENDOSCOPY 03/12/2018 8:00 Melena PM CDT 2D ECHO W/ DOPPLER STAT 03/12/2018 5:48 Results for this (CW/PW/COLOR) PM CDT procedure are in the results section. IRON, TIBC, % SAT. Routine 03/12/2018 5:19 Results for this (WITHOUT FERRITIN) PM CDT procedure are in the results section. FERRITIN Routine 03/12/2018 5:19 Results for this PM CDT procedure are in the results section. VITAMIN B12 AND FOLATE Routine 03/12/2018 5:19 Results for this PM CDT procedure are in the results section. TROPONIN I Routine 03/12/2018 5:19 Results for this PM CDT procedure are in the results section. HEMOGLOBIN AND STAT 03/12/2018 5:19 Results for this HEMATOCRIT PM CDT procedure are in the results section. ECG 12-LEAD Routine 03/12/2018 4:22 PM CDT Procedure Note - Interface, External Ris In - 03/12/2018 4:33 PM CDT Ventricular Rate 79 BPM Atrial Rate 79 BPM P-R Interval 132 ms QRS Duration 168 ms Q-T Interval 478 ms QTC Calculation(Bazett) 548 ms P Independence 36 degrees R Independence -58 degrees T Independence 114 degrees Atrial-sensed ventricular-paced rhythm Abnormal ECG No previous ECGs available ECG 12-LEAD STAT 03/12/2018 4:22 PM CDT BLOOD CULTURE Routine 03/12/2018 2:54 PM CDT XR CHEST 1 VIEW Routine 03/12/2018 2:34 PM CDT Results for this PORTABLE/BEDSIDE procedure are in the results section. CBC W/PLT COUNT & AUTO STAT 03/12/2018 2:18 PM CDT Results for this DIFFERENTIAL procedure are in the results section. TYPE AND SCREEN, AUTOMATED STAT 03/12/2018 2:18 PM CDT PHOSPHORUS STAT 03/12/2018 2:18 PM CDT CBC W/PLT COUNT & AUTO STAT 03/12/2018 2:18 PM CDT Results for this DIFFERENTIAL procedure are in the results section. MAGNESIUM STAT 03/12/2018 2:18 PM CDT LACTIC ACID, VENOUS, WHOLE STAT 03/12/2018 2:18 PM CDT Results for this BLOOD procedure are in the results section. B-TYPE NATRIURETIC FACTOR STAT 03/12/2018 2:18 PM CDT Results for this (BNP) procedure are in the results section. PROCALCITONIN STAT 03/12/2018 2:18 PM CDT CREATINE KINASE (CK), TOTAL STAT 03/12/2018 2:18 PM CDT Results for this AND MB procedure are in the results section. TROPONIN I STAT 03/12/2018 2:18 PM CDT COMPREHENSIVE METABOLIC STAT 03/12/2018 2:18 PM CDT Results for this PANEL procedure are in the results section. KETONE, BLOOD STAT 03/12/2018 2:18 PM CDT PROTHROMBIN TIME/INR Routine 03/12/2018 2:18 PM CDT BLOOD CULTURE Routine 03/12/2018 2:18 PM CDT POCT-GLUCOSE METER Routine 03/12/2018 1:20 PM CDT after 05/25/2017 Results EKG-SCANNED (03/22/2018 10:30 AM CDT) Narrative Performed At RHYTHM STRIP - SCAN (03/22/2018 10:30 AM CDT) Narrative Performed At TRANSFUSION SERVICE REPORT - SCAN (03/14/2018 6:00 PM CDT)Only the most recent of2 resultswithin the time period is included. Narrative Performed At Prepare Leuko-Red RBC (03/13/2018 11:55 PM CDT) CROSSMATCH COMPATIBLE SAFETRACE TX Unit ABO O Pos SAFETRACE TX UNIT NUMBER [id number] SAFETRACE TX Status TRANSFUSED SAFETRACE TX Blood Bank Product RED BLOOD CELLS SAFETRACE TX PRODUCT CODE [id number] SAFETRACE TX Specimen Other Performing Organization Address City/State/Zipcode Phone Number SAFETRACE TX XR hip 2 views right (03/13/2018 5:02 PM CDT) Narrative Performed At FINAL REPORT GE RIS Two views of the right hip without comparison. IMPRESSION: There is no acute fracture or traumatic malalignment. Mild degenerative changes are seen at the soft tissues are unremarkable. The sacrum is obscured by overlying bowel gas. Signed: Floyd Guthrie MD Report Verified Date/Time:03/13/2018 17:39:18 Reading Location: [address] Ortho Consult Reading Room Procedure Note Interface, External Ris In - 03/13/2018 5:41 PM CDT FINAL REPORT Two views of the right hip without comparison. IMPRESSION: There is no acute fracture or traumatic malalignment. Mild degenerative changes are seen at the soft tissues are unremarkable. The sacrum is obscured by overlying bowel gas. Signed: Floyd Guthrie MD Report Verified Date/Time: 03/13/2018 17:39:18 Reading Location: [facility] [id number] Ortho Consult Reading Room Performing Organization Address City/State/Zipcode Phone Number GE RIS ECHOCARDIOGRAM REPORT - SCAN (03/13/2018 4:30 PM CDT) Narrative Performed At Hemoglobin and hematocrit (03/13/2018 1:12 PM CDT)Only the most recent of4 resultswithin the time period is included. Hemoglobin 8.8 (L) 11.2 - 15.7 GM/DL [facility] Hematocrit 25.7 (L) 34.1 - 44.9 % [facility] Specimen Blood - Arm, Right Performing Organization Address [facility] Phone Number [address] [address] CENTER Troponin I (03/13/2018 1:12 PM CDT)Only the most recent of5 resultswithin the time period is included. Troponin I 0.21 (HH) 0.00 - 0.03 ng/mL [facility] Specimen Blood - Arm, Right Narrative Performed At [facility] Troponin I (TnI) levels must be interpreted [...] acidosis, acute neurological disease, and persistent tachyarrhythmia. Performing Organization Address City/State/Zipcode Phone Number [address] [address] [phone] CENTER TSH/Free T4 If Indicated (03/13/2018 4:19 AM CDT) TSH 4.02 0.35 - 4.94 uIU/mL [facility] Specimen Blood Performing Organization Address City/State/Zipcode Phone Number [facility] [address] [place] [address] [phone] CENTER CBC with platelet count + automated diff (03/13/2018 4:19 AM CDT)Only the most recent of2 resultswithin the time period is included. WBC 11.6 (H) 3.5 - 10.5 K/L [facility] RBC 2.79 (L) 3.93 - 5.22 M/L [facility] Hemoglobin 8.8 (L) 11.2 - 15.7 GM/DL [facility] Hematocrit 25.7 (L) 34.1 - 44.9 % [facility] MCV 92.1 79.4 - 94.8 fL [facility] MCH 31.5 25.6 - 32.2 pg [facility] MCHC 34.2 32.2 - 35.5 GM/DL [facility] RDW 14.4 11.7 - 14.4 % [facility] Platelets 144 (L) 150 - 450 K/CU MM [facility] MPV 10.9 9.4 - 12.3 fL [facility] nRBC 0 0 - 0 /100 WBC [facility] % Neutros 74 % [facility] % Lymphs 13 % [facility] % Monos 8 % [facility] % Eos 3 % [facility] % Baso 1 % [facility] # Neutros 8.62 (H) 1.56 - 6.13 K/L [facility] # Lymphs 1.54 1.18 - 3.74 K/L [facility] # Monos 0.98 (H) 0.24 - 0.36 K/L [facility] # Eos 0.32 0.04 - 0.36 K/L [facility] # Baso 0.06 0.01 - 0.08 K/L [facility] Immature Granulocytes-Relative 1 0 - 1 % [facility] Specimen Blood Performing Organization Address City/State/Zipcode Phone Number [address] [address] CENTER Phosphorus (03/13/2018 4:19 AM CDT)Only the most recent of2 resultswithin the time period is included. Phosphorus 2.6 2.3 - 4.7 mg/dL [facility] Specimen Blood Performing Organization Address City/[facility]/Zipcode Phone Number [address] [address] CENTER Magnesium (03/13/2018 4:19 AM CDT)Only the most recent of2 resultswithin the time period is included. Magnesium 2.1 1.6 - 2.6 mg/dL [facility] Specimen Blood Performing Organization Address City/[facility]/Zipcode Phone Number [address] [address] [place] Hemoglobin A1c (03/13/2018 4:19 AM CDT) Hemoglobin A1C 5.4 4.3 - 6.1 % [facility] Specimen Blood Performing Organization Address City/[facility]/Zipcode Phone Number [address] [address] [phone] [place] Lipid panel (03/13/2018 4:19 AM CDT) Triglycerides 131 mg/dL [facility] Cholesterol 105 mg/dL [facility] HDL 31 mg/dL [facility] LDL Calculated 48 mg/dL [facility] Specimen Blood Narrative Performed At [facility] Triglyceride Reference Range: Low Risk <150 [id number] High Risk 200-499 Very High Risk>=500 Cholesterol Reference Range: Low Risk <200 [id number] High Risk>240 HDL Cholesterol Reference Range: Low Risk >=60 High Risk <40 LDL Cholesterol Reference Range: Optimal<100 Near [id number] [id number] [id number] Very High >=190 Performing Organization Address City/[facility]/Zipcode Phone Number [address] [address] CENTER Basic Metabolic Panel (03/13/2018 4:19 AM CDT) Sodium 137 136 - 145 meq/L [facility] Potassium 3.7 3.5 - 5.1 meq/L [facility] Chloride 107 98 - 107 meq/L [facility] CO2 21 (L) 22 - 29 meq/L [facility] BUN 34 (H) 7 - 21 mg/dL [facility] Creatinine 0.70 0.57 - 1.25 mg/dL [facility] Glucose 102 70 - 105 mg/dL [facility] Calcium 8.6 8.4 - 10.2 mg/dL [facility] EGFR 80Comment: ESTIMATED GFR IS mL/min/1.73 sq m [facility] NOT ACCURATE CREATININE [facility] CLEARANCE IN PREDICTING GLOMERULAR FILTRATION RATE. ESTIMATED GFR IS NOT APPLICABLE FOR DIALYSIS PATIENTS. Specimen Blood Performing Organization Address City/[facility]/Zipcode Phone Number [address] [address] [phone] CENTER Transfuse Leuko-Red RBC (03/12/2018 10:40 PM CDT)Only the most recent of2 resultswithin the time period is included.Urinalysis w/Microscopic + Reflex to Culture (03/12/2018 9:38 PM CDT) Color, UA Light Yellow [facility] Clarity, UA Clear [facility] Specific [place], UA 1.015 1.001 - 1.035 [facility] pH, UA 5.0 5.0 - 8.0 [facility] Protein, UA Negative Negative [facility] Glucose, UA Negative Negative [facility] Ketones, UA 10 mg/dL (A) Negative [facility] Bilirubin, UA Negative Negative [facility] Blood, UA Negative Negative [facility] Nitrite, UA Negative Negative [facility] Leukocytes, UA Moderate (A) Negative [facility] Urobilinogen, UA 0.2 0.2 - 1.0 mg/dL [facility] RBC, UA 1 /HPF [facility] WBC, UA 7 /HPF [facility] Mucus Rare [facility] Squam Epithel, UA 1 /HPF [facility] Specimen Source [facility] Specimen Urine - Urine, Voided Performing Organization Address City/State/Zipcode Phone Number [facility] [address] [place] [address] [phone] CENTER REPORT OF PROCEDURE - ENDOSCOPY URL (03/12/2018 8:30 PM CDT) Narrative Performed At 2D Echo W/Doppler(CW/PW/Color) (03/12/2018 5:48 PM CDT) Ejection Fraction [facility] Narrative Performed At Transthoracic Echocardiography Report (TTE) [facility] Demographics Patient Name [facility], Date of Study 03/12/2018 KAUR [id number] GenderFemale Visit Number [id number] Unknown [id number] Room Number 7107 Number Date of Birth4Referring Physician Age83 year(s)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 Th e left ventricle is chamber size (by vol index) is normal (female - LVED vol - 29-61ml/m2). Severe co ncentric LV hypertrophy. Septal motion is ab normal, likely related to prior cardiac surgery . Th e other segments contract normally. LV EF by Ovlera's method of disk assessment is no rmal (55-60%) . De gree of diastolic dysfunction (LAP assessment) is in conclusive due to mitral stenosis . Left AtriumLA size is severely enlarged (>48 ml/m2) . Right VentricleThe right ventricular chamber size and systolic fu nction are within normal limits. Right Atrium RA size is probably normal based on available vi ews. Atrial SeptumNormal interatrial septum by available views. 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 Th e prosthetic AoV appears well-seated with normal fu nction by Doppler. Ao V dimensionless obstructive index (DOI)) is 0.89 . Mi ld paravalvular leak anteriorly. Mitral Valve Severe mitral annular calcification, particularly po steriorly causing significant narrowing of mitral an nulus. Calcification extends into posterior le aflet. Th ere is severe mitral valve stenosis (mean gr adient 17.85 mmHg). Tr annabelle mitral regurgitation. Tricuspid ValveTV structure is normal. Mi ld tricuspid regurgitation. Es timated peak systolic PA pressure is 40-45 mmHg . Pulmonic Valve Normal PV structure and function. AortaAortic root size (SInus of Valsalva diameter) is no rmal . Pr oximal ascending aorta size is normal . PericardiumNo significant pericardial effusion is visualized. IVC/SVC/PA/PV/PleuralThe estimated RA pressure by IVC dynamics 5-10mmHg . Chambers/Structures Left Atrium LA Volume: 131.72 mlLA Area: 30.92 cm^2 LA Vol. 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 Phone Number [facility] [address] [place] [phone] CENTER Iron, TIBC, % sat. (without ferritin) (03/12/2018 5:19 PM CDT) Iron 159 40 - 160 ug/dL [facility] TIBC 234 (L) 250 - 450 ug/dL [facility] Iron % Saturation 68 (H) 20 - 55 % [facility] Specimen Blood Performing Organization Address [facility] Phone Number [address] [address] CENTER Ferritin (03/12/2018 5:19 PM CDT) Ferritin 71 5 - 275 ng/mL [facility] Specimen Blood Performing Organization Address [facility] Phone Number [address] [address] [phone] [place] ECG 12 lead (03/12/2018 4:22 PM CDT) Narrative Performed At Ventricular Rate 79 BPM GE MUSE Atrial Rate 79 BPM P-R Interval 132 ms QRS Duration 168 ms Q-T Interval 478 ms QTC Calculation(Bazett) 548 ms P Independence 36 degrees R Independence -58 degrees T Independence 114 degrees Atrial-sensed ventricular-paced rhythm Abnormal ECG No previous ECGs available Confirmed by MD DONNELL, JET ([id number]) on 03/13/2018 5:18:05 AM Procedure Note Interface, External Ris In - 03/13/2018 5:18 AM CDT Ventricular Rate 79 BPM Atrial Rate 79 BPM P-R Interval 132 ms QRS Duration 168 ms Q-T Interval 478 ms QTC Calculation(Bazett) 548 ms P Independence 36 degrees R Independence -58 degrees T Independence 114 degrees Atrial-sensed ventricular-paced rhythm Abnormal ECG No previous ECGs available Confirmed by MD DONNELL, JET ([id number]) on 03/13/2018 5:18:05 AM Performing Organization Address City/State/Zipcode Phone Number [place] Blood culture #2 (03/12/2018 2:54 PM CDT)Only the most recent of2 resultswithin the time period is included. Result No growth in 5 days [facility] Specimen Blood - Arm, Right Performing Organization Address City/[facility]/Zipcode Phone Number [facility] [address] [place] [address] CENTER XR chest 1 view portable / bedside (03/12/2018 2:34 PM CDT) Narrative Performed At FINAL REPORT [employer] TECHNIQUE: Frontal chest radiograph dated 03/12/2018. CLINICAL [...] MD Report Verified Date/Time:03/12/2018 16:19:21 Reading Location: [facility] Radiology Reading Room Procedure Note Interface, External [...] Report Verified Date/Time: 03/12/2018 16:19:21 Reading Location: [facility] Radiology Reading Room Performing Organization Address [facility]/Zipcode Phone Number GE RIS Procalcitonin (03/12/2018 2:18 PM CDT) Procalcitonin 0.10 (H) <0.05 ng/mL [facility] Specimen Blood - Arm, Right Narrative Performed At [facility] SEPSIS RISK (ng/mL) Low:0.05-0.50 Intermediate: 0.51-2.00 High: >=2.01 Performing Organization Address [facility] Phone Number [address] [address] [phone] CENTER Type and screen, automated (03/12/2018 2:18 PM CDT) ABO/RH AUTOMATED (BEAKER) O POSITIVE [facility] Ab Scrn NEGATIVE [facility] Specimen Blood - Arm, Right Performing Organization Address [facility] Phone Number [address] [address] [phone] Lactic acid, venous, whole blood (03/12/2018 2:18 PM CDT) Lactate, Venous 1.2 0.5 - 2.2 mmol/L [facility] Specimen Blood - Arm, Right Narrative Performed At [facility] Effective 11/14/2015: Units/Reference Range Change New: 0.5-2.2 mmol/LPrevious: 5-20 mg/dL Performing Organization Address [facility] Phone Number [address] [address] CENTER Prothrombin time/INR (03/12/2018 2:18 PM CDT) Protime 16.3 (H) 11.7 - 14.7 seconds [facility] INR 1.3 <=5.9 [facility] Specimen Blood - Arm, Right Narrative Performed At [facility] RECOMMENDED COUMADIN/WARFARIN INR THERAPY RANGES STANDARD DOSE: 2.0 - 3.0 Includes: PROPHYLAXIS for venous thrombosis, systemic embolization; TREATMENT for venous thrombosis and/or pulmonary embolus. HIGH RISK: Target INR is 2.5-3.5 for patients with mechanical heart valves. Performing Organization Address [facility] Phone Number [address] [address] CENTER B-type Natriuretic Factor (BNP) (03/12/2018 2:18 PM CDT) BNP 238 (H) 0 - 100 pg/mL [facility] Specimen Blood - Arm, Right Performing Organization Address [facility] Phone Number [address] [address] CENTER Creatine Kinase (CK), Total and MB (03/12/2018 2:18 PM CDT) Total CK 80 29 - 200 U/L [facility] CK-MB 3.1 0.0 - 6.6 ng/mL [facility] MB Relative Index 3.9 % [facility] Specimen Blood - Arm, Right Narrative Performed At CK-MB Reference Range: [facility] <6.7Normal 6.7-10.0Borderline >10.0 Abnormal Performing Organization Address [facility] [place] Phone Number [address] [place] [address] [address] CENTER Ketone, blood (03/12/2018 2:18 PM CDT) Ketones, Blood 0.6 (H) <0.4 mmol/L [facility] Specimen Blood - Arm, Right Performing Organization Address [facility] Phone Number [address] [place] [address] [address] [phone] CENTER Comprehensive metabolic panel (03/12/2018 2:18 PM CDT) Protein, Total 5.8 (L) 6.0 - 8.3 gm/dL [facility] Albumin 3.1 (L) 3.5 - 5.0 g/dL [facility] Alkaline Phosphatase 19 (L) 40 - 150 U/L [facility] Total Bilirubin 0.9 0.2 - 1.2 mg/dL [facility] Sodium 137 136 - 145 meq/L [facility] Potassium 3.8 3.5 - 5.1 meq/L [facility] Chloride 106 98 - 107 meq/L [facility] CO2 21 (L) 22 - 29 meq/L [facility] BUN 52 (H) 7 - 21 mg/dL [facility] Creatinine 0.73 0.57 - 1.25 mg/dL [facility] Glucose 96 70 - 105 mg/dL [facility] Calcium 8.6 8.4 - 10.2 mg/dL [facility] AST 18 5 - 34 U/L [facility] ALT 11 6 - 55 U/L [facility] EGFR 76Comment: ESTIMATED GFR mL/min/1.73 sq m [facility] IS NOT ACCURATE [facility] CREATININE CLEARANCE IN PREDICTING GLOMERULAR FILTRATION RATE. ESTIMATED GFR IS NOT APPLICABLE FOR DIALYSIS PATIENTS. Specimen Blood - Arm, Right Performing Organization Address City/[facility]/Zipcode Phone Number [address] [place] [address] [address] CENTER POC-Glucose meter (03/12/2018 1:20 PM CDT) POC-Glucose Meter 119 (H)Comment: TESTED AT 70 - 110 mg/dL [address] [address] Specimen Blood Performing Organization Address City/[facility]/Zipcode Phone Number [address] [place] [place] [address] CENTER after 05/25/2017 Insurance Payer Benefit Plan / Subscriber ID Type Phone Address Group MEDICARE MEDICARE A B xxxxxxxxxx Medicare BLUE CROSS/BLUE BCBS OS xxxxxxxxxxxx PPO [phone] [address] SHIELD POS/PPO/[place] [address] Advance Directives For more information, please contact:[facility] [place] [address] [phone] Code Status Date Activated Date Inactivated Comments Full Code 03/12/2018 1:03 PM 03/13/2018 8:25 PM This code status was determined by: Patient
--- OUTSIDE RECORDS SUMMARY | 2018-05-26 10:10 | XMS REPORT ---
:1935 [facility] Address [address] [place] [address] [address] [address] Care Team Providers Name Role Phone REY CANDIDO Unavailable Unavailable Problems This patient has no known problems. Allergies, Adverse Reactions, Alerts This patient has no known allergies or adverse reactions. Medications This patient has no known medications. Results Test Description Test Time Test Comments Text Results Atomic Results Result Comments BLOOD CULTURE 2018-03-18 00:00:00 Test Item Value Reference Range Comments CULTURE (BEAKER) (test leqg=2928) No growth in 5 days BLOOD [id number] 00:00:00 Test Item Value Reference Range Comments CULTURE (BEAKER) (test cmko=3980) No growth in 5 days RAD, HIP, 2 VIEWS, [id number] 17:39:00Reason for exam:->fallFINAL REPORT Two views of the right hip without comparison. IMPRESSION: Thereis no acute fracture or traumatic malalignment. Mild degenerative changes are seen at the soft tissues are unremarkable. The sacrum is obscured by overlying bowel gas. Signed: Syeda Guthrie [facility] Verified Date/ Time: 03/13/2018 17:39:18 Reading Location: [facility] [id number] Ortho Consult Reading Room TROPONIN [id number] 14:03:00 Test Item Value Reference Range Comments TROPONIN I (NOEMIAKER) (test irii=750) 0.21 ng/mL 0.00-0.03 Troponin I (TnI) levels [...] acute neurological disease, and persistent tachyarrhythmia.HEMOGLOBIN AND [id number] 13: 20:00 Test Item Value Reference Range Comments HEMOGLOBIN (BEAKER) (test guto=761) 8.8 GM/DL 11.2-15.7 HEMATOCRIT (BEAKER) (test fatj=618) 25.7 % 34.1-44.9 HEMOGLOBIN [id number] 08:44:00 Test Item Value Reference Range Comments HEMOGLOBIN A1C (BEAKER) (test zuym=128) 5.4 % 4.3-6.1 TROPONIN [id number] 07:07:00 Test Item Value Reference Range Comments TROPONIN I (BEAKER) (test fsbs=496) 0.24 ng/mL 0.00-0.03 Troponin I (TnI) levels [...] failure, acidosis, acute neurological disease, and persistent tachyarrhythmia.[id number] 05:24:00 Test Item Value Reference Range Comments PHOSPHORUS (BEAKER) (test vxgx=776) 2.6 mg/dL 2.3-4.7 [id number] 05:24:00 Test Item Value Reference Range Comments MAGNESIUM (BEAKER) (test econ=597) 2.1 mg/dL 1.6-2.6 BASIC METABOLIC [id number] 05:24:00 Test Item Value Reference Range Comments SODIUM (BEAKER) (test 137 meq/L 136-145 mqvc=184) POTASSIUM (BEAKER) (test 3.7 meq/L 3.5-5.1 rwcw=763) CHLORIDE (BEAKER) (test 107 meq/L 98-107 degr=121) CO2 (BEAKER) (test 21 meq/L 22-29 qncj=662) BLOOD UREA NITROGEN 34 mg/dL 7-21 (BEAKER) (test sdpd=378) CREATININE (BEAKER) (test 0.70 mg/dL 0.57-1.25 kdio=005) GLUCOSE RANDOM (BEAKER) 102 mg/dL 70-105 (test znpt=285) CALCIUM (BEAKER) (test 8.6 mg/dL 8.4-10.2 pnjn=668) EGFR (BEAKER) (test 80 mL/min/1.73 sq m ESTIMATED GFR IS NOT jcbb=3860) ACCURATE CREATININE CLEARANCE IN PREDICTING GLOMERULAR FILTRATION RATE. ESTIMATED GFR IS NOT APPLICABLE FOR DIALYSIS PATIENTS. LIPID [id number] 05:24:00 Test Item Value Reference Range Comments TRIGLYCERIDES (BEAKER) (test nvqe=009) 131 mg/dL CHOLESTEROL (BEAKER) (test pqxe=491) 105 mg/dL HDL CHOLESTEROL (BEAKER) (test xqpn=256) 31 mg/dL LDL CHOLESTEROL CALCULATED (BEAKER) (test 48 mg/dL ffrx=855) Triglyceride Reference Range: Low Risk <150 Borderline 150- 199 High Risk 200-499 Very High Risk >=500Cholesterol Reference Range: Low Risk <200 Borderline 200-239 High Risk > 240HDL Cholesterol Reference Range: Low Risk >=60 High Risk <40LDL Cholesterol Reference Range: Optimal <100 Near Optimal 100-129 Borderline 130-159 High 160-189 Very High >=190TSH/FREE T4 IF [id number] 05:20:00 Test Item Value Reference Range Comments THYROID STIMULATING HORMONE (BEAKER) (test 4.02 uIU/mL 0.35-4.94 scqg=664) CBC W/PLT COUNT & AUTO [id number] 04:52:00 Test Item Value Reference Range Comments WHITE BLOOD CELL COUNT (BEAKER) (test ebua=642) 11.6 K/ L 3.5-10.5 RED BLOOD CELL COUNT (BEAKER) (test hpgg=664) 2.79 M/ L 3.93-5.22 HEMOGLOBIN (BEAKER) (test zwze=793) 8.8 GM/DL 11.2-15.7 HEMATOCRIT (BEAKER) (test fqam=136) 25.7 % 34.1-44.9 MEAN CORPUSCULAR VOLUME (BEAKER) (test semh=742) 92.1 fL 79.4-94.8 MEAN CORPUSCULAR HEMOGLOBIN (BEAKER) (test 31.5 pg 25.6-32.2 mzks=434) MEAN CORPUSCULAR HEMOGLOBIN CONC (BEAKER) (test 34.2 GM/DL 32.2-35.5 sdhk=087) RED CELL DISTRIBUTION WIDTH (BEAKER) (test 14.4 % 11.7-14.4 cauz=302) PLATELET COUNT (BEAKER) (test grxt=911) 144 K/CU MM 150-450 MEAN PLATELET VOLUME (BEAKER) (test tsgi=711) 10.9 fL 9.4-12.3 NUCLEATED RED BLOOD CELLS (BEAKER) (test 0 /100 WBC 0-0 aljw=676) NEUTROPHILS RELATIVE PERCENT (BEAKER) (test 74 % yvnt=614) LYMPHOCYTES RELATIVE PERCENT (BEAKER) (test 13 % tndj=708) MONOCYTES RELATIVE PERCENT (BEAKER) (test 8 % akcb=778) EOSINOPHILS RELATIVE PERCENT (BEAKER) (test 3 % yorb=639) BASOPHILS RELATIVE PERCENT (BEAKER) (test 1 % livg=933) NEUTROPHILS ABSOLUTE COUNT (BEAKER) (test 8.62 K/ L 1.56-6.13 zrpj=231) LYMPHOCYTES ABSOLUTE COUNT (BEAKER) (test 1.54 K/ L 1.18-3.74 vnta=137) MONOCYTES ABSOLUTE COUNT (BEAKER) (test 0.98 K/ L 0.24-0.36 svxf=158) EOSINOPHILS ABSOLUTE COUNT (BEAKER) (test 0.32 K/ L 0.04-0.36 ytfp=773) BASOPHILS ABSOLUTE COUNT (BEAKER) (test 0.06 K/ L 0.01-0.08 hzsf=741) IMMATURE GRANULOCYTES-RELATIVE PERCENT (BEAKER) 1 % 0-1 (test gesp=5449) HEMOGLOBIN AND [id number] 04:40:00 Test Item Value Reference Range Comments HEMOGLOBIN (BEAKER) (test dzxx=701) 8.8 GM/DL 11.2-15.7 HEMATOCRIT (BEAKER) (test ioin=788) 25.7 % 34.1-44.9 TROPONIN [id number] 00:53:00 Test Item Value Reference Range Comments TROPONIN I (BEAKER) (test rzfk=144) 0.22 ng/mL 0.00-0.03 Troponin I (TnI) levels [...] acute neurological disease, and persistent tachyarrhythmia.HEMOGLOBIN AND [id number] 00: 09:00 Test Item Value Reference Range Comments HEMOGLOBIN (BEAKER) (test hsoc=360) 8.8 GM/DL 11.2-15.7 HEMATOCRIT (BEAKER) (test rnmw=538) 26.3 % 34.1-44.9 URINALYSIS W/ REFLEX URINE [id number] 21:53:00 Test Item Value Reference Range Comments COLOR (BEAKER) (test zsba=944) Light Yellow CLARITY (BEAKER) (test qmqa=373) Clear SPECIFIC GRAVITY UA (BEAKER) (test xocp=970) 1.015 1.001-1.035 PH UA (BEAKER) (test zedu=873) 5.0 5.0-8.0 PROTEIN UA (BEAKER) (test jxqo=593) Negative Negative GLUCOSE UA (BEAKER) (test wyah=471) Negative Negative KETONES UA (BEAKER) (test bqnp=927) 10 mg/dL Negative BILIRUBIN UA (BEAKER) (test uhws=547) Negative Negative BLOOD UA (BEAKER) (test ickp=579) Negative Negative NITRITE UA (BEAKER) (test knol=075) Negative Negative LEUKOCYTE ESTERASE UA (BEAKER) (test lpso=472) Moderate Negative UROBILINOGEN UA (BEAKER) (test eesw=609) 0.2 mg/dL 0.2-1.0 RBC UA (BEAKER) (test qszm=499) 1 /HPF WBC UA (BEAKER) (test fcqk=847) 7 /HPF MUCUS (BEAKER) (test jtci=3495) Rare SQUAMOUS EPITHELIAL (BEAKER) (test vmat=577) 1 /HPF SOURCE(BEAKER) (test wubd=1262) [id number] 18:36:00 Test Item Value Reference Range Comments FERRITIN (BEAKER) (test lbdr=804) 71 ng/mL 5-275 VITAMIN B12 AND [id number] 18:36:00 Test Item Value Reference Range Comments VITAMIN B12 (BEAKER) (test bdpa=626) 552 pg/mL 213-816 FOLATE (BEAKER) (test mrgz=630) 16.2 ng/mL >=7.0 TROPONIN [id number] 18:12:00 Test Item Value Reference Range Comments TROPONIN I (BEAKER) (test vvqm=927) 0.20 ng/mL 0.00-0.03 Troponin I (TnI) levels [...] Value Reference Range Comments IRON (BEAKER) (test pwcc=809) 159 ug/dL 40-160 TOTAL IRON BINDING CAPACITY (BEAKER) (test 234 ug/dL 250-450 hamv=375) IRON % SATURATION (2) (BEAKER) (test infj=9437) 68 % 20-55 HEMOGLOBIN AND [id number] 17:39:00 Test Item Value Reference Range Comments HEMOGLOBIN (BEAKER) (test izqy=107) 7.1 GM/DL 11.2-15.7 HEMATOCRIT (BEAKER) (test hmcu=535) 21.4 % 34.1-44.9 RAD, CHEST, 1 VIEW, NON [id number] 16:19:00Post-intubationReason for exam:-& gt;sobShould this be performed [...] [place] Verified Date/Time: 03/12/2018 16:19:21 Reading Location: [facility] Radiology Reading Room [id number] 15:29:00 Test Item Value Reference Range Comments PROCALCITONIN (BEAKER) (test aice=2678) 0.10 ng/mL <0.05 SEPSIS RISK (ng/mL)Low: 0.05-0.50Intermediate: 0.51-2.00High: & gt;=2.01B-TYPE NATRIURETIC FACTOR (BNP)2018-03-12 15:11:00 Test Item Value Reference Range Comments B-TYPE NATRIURETIC PEPTIDE (BEAKER) (test 238 pg/mL 0-100 drpa=567) CREATINE KINASE (CK), TOTAL AND [id number] 15:10:00 Test Item Value Reference Range Comments CREATINE KINASE TOTAL (BEAKER) (test hxya=652) 80 U/L 29-200 CREATINE KINASE-MB (BEAKER) (test gnpe=262) 3.1 ng/mL 0.0-6.6 CREATINE KINASE-MB INDEX (BEAKER) (test wqmg=941) 3.9 % CK-MB Reference Range:<6.7 Normal6.7-10.0 Borderline>10.0 AbnormalTROPONIN [id number] 15:10:00 Test Item Value Reference Range Comments TROPONIN I (BEAKER) (test sdbr=289) 0.13 ng/mL 0.00-0.03 Troponin I (TnI) levels [...] acute neurological disease, and persistent tachyarrhythmia.COMPREHENSIVE METABOLIC [id number] 15:08:00 Test Item Value Reference Range Comments TOTAL PROTEIN (BEAKER) 5.8 gm/dL 6.0-8.3 (test vvkx=634) ALBUMIN (BEAKER) (test 3.1 g/dL 3.5-5.0 ostv=2061) ALKALINE PHOSPHATASE 19 U/L 40-150 (BEAKER) (test wnzt=828) BILIRUBIN TOTAL (BEAKER) 0.9 mg/dL 0.2-1.2 (test upxz=029) SODIUM (BEAKER) (test 137 meq/L 136-145 ybeq=795) POTASSIUM (BEAKER) (test 3.8 meq/L 3.5-5.1 lpem=850) CHLORIDE (BEAKER) (test 106 meq/L 98-107 qvuz=186) CO2 (BEAKER) (test 21 meq/L 22-29 votd=642) BLOOD UREA NITROGEN 52 mg/dL 7-21 (BEAKER) (test jukx=528) CREATININE (BEAKER) (test 0.73 mg/dL 0.57-1.25 ktno=384) GLUCOSE RANDOM (BEAKER) 96 mg/dL 70-105 (test ufpi=264) CALCIUM (BEAKER) (test 8.6 mg/dL 8.4-10.2 opcg=813) AST (SGOT) (BEAKER) (test 18 U/L 5-34 bfft=790) ALT (SGPT) (BEAKER) (test 11 U/L 6-55 isrg=216) EGFR (BEAKER) (test 76 mL/min/1.73 sq m ESTIMATED GFR IS NOT rluh=4021) ACCURATE CREATININE CLEARANCE IN PREDICTING GLOMERULAR FILTRATION RATE. ESTIMATED GFR IS NOT APPLICABLE FOR DIALYSIS PATIENTS. KETONE, [id number] 15:08:00 Test Item Value Reference Range Comments KETONES, BLOOD (BEAKER) (test jchy=1985) 0.6 mmol/L <0.4 [id number] 15:03:00 Test Item Value Reference Range Comments PHOSPHORUS (BEAKER) (test hzmx=446) 3.0 mg/dL 2.3-4.7 [id number] 15:03:00 Test Item Value Reference Range Comments MAGNESIUM (BEAKER) (test dxno=196) 1.5 mg/dL 1.6-2.6 LACTIC ACID, VENOUS, WHOLE [id number] 14:59:00 Test Item Value Reference Range Comments LACTATE BLOOD VENOUS (2) (BEAKER) (test 1.2 mmol/L 0.5-2.2 lxvi=6447) Effective 11/14/2015: Units/Reference Range ChangeNew: 0.5-2.2 mmol/L Previous: 5 -20 mg/dLPROTHROMBIN TIME/[id number] 14:45:00 Test Item Value Reference Range Comments PROTIME (BEAKER) (test tylw=147) 16.3 seconds 11.7-14.7 INR (BEAKER) (test sgfz=772) 1.3 <=5.9 RECOMMENDED COUMADIN/WARFARIN INR THERAPY RANGESSTANDARD DOSE: 2.0 - 3.0 Includes: PROPHYLAXIS forvenous thrombosis, systemic embolization; TREATMENT for venous thrombosis and/or pulmonary embolus.HIGH RISK: Target INR is 2.5-3.5 for patients with mechanical heart valves.CBC W/PLT COUNT & AUTO [id number] 14:39:00 Test Item Value Reference Range Comments WHITE BLOOD CELL COUNT (BEAKER) (test eqga=230) 11.5 K/ L 3.5-10.5 RED BLOOD CELL COUNT (BEAKER) (test mxjz=282) 2.49 M/ L 3.93-5.22 HEMOGLOBIN (BEAKER) (test kbnz=061) 7.7 GM/DL 11.2-15.7 HEMATOCRIT (BEAKER) (test hpqq=849) 23.1 % 34.1-44.9 MEAN CORPUSCULAR VOLUME (BEAKER) (test myob=932) 92.8 fL 79.4-94.8 MEAN CORPUSCULAR HEMOGLOBIN (BEAKER) (test 30.9 pg 25.6-32.2 jtog=328) MEAN CORPUSCULAR HEMOGLOBIN CONC (BEAKER) (test 33.3 GM/DL 32.2-35.5 kncn=500) RED CELL DISTRIBUTION WIDTH (BEAKER) (test 13.6 % 11.7-14.4 oiry=701) PLATELET COUNT (BEAKER) (test ilhd=918) 162 K/CU MM 150-450 MEAN PLATELET VOLUME (BEAKER) (test qrbi=397) 10.9 fL 9.4-12.3 NUCLEATED RED BLOOD CELLS (BEAKER) (test 0 /100 WBC 0-0 pkeh=088) NEUTROPHILS RELATIVE PERCENT (BEAKER) (test 76 % ruoh=220) LYMPHOCYTES RELATIVE PERCENT (BEAKER) (test 15 % lzwy=642) MONOCYTES RELATIVE PERCENT (BEAKER) (test 8 % tthx=659) EOSINOPHILS RELATIVE PERCENT (BEAKER) (test 0 % gkmi=395) BASOPHILS RELATIVE PERCENT (BEAKER) (test 0 % rnwa=661) NEUTROPHILS ABSOLUTE COUNT (BEAKER) (test 8.75 K/ L 1.56-6.13 zyae=956) LYMPHOCYTES ABSOLUTE COUNT (BEAKER) (test 1.70 K/ L 1.18-3.74 iyre=402) MONOCYTES ABSOLUTE COUNT (BEAKER) (test 0.93 K/ L 0.24-0.36 ehwt=850) EOSINOPHILS ABSOLUTE COUNT (BEAKER) (test 0.02 K/ L 0.04-0.36 pbcn=899) BASOPHILS ABSOLUTE COUNT (BEAKER) (test 0.03 K/ L 0.01-0.08 phpq=325) IMMATURE GRANULOCYTES-RELATIVE PERCENT (BEAKER) 1 % 0-1 (test wjwk=5107) POCT-GLUCOSE [id number] 13:22:00 Test Item Value Reference Range Comments POC-GLUCOSE METER (BEAKER) 119 mg/dL 70-110 TESTED AT [facility] [address] (test mxeq=0045) [facility] [address]
[2018-05-26] MEDS ORDERED: Ringers Lactate 1,000 ML IV ONE (10:45)
[2018-05-26] MEDS ORDERED: PROPOFOL 200 MG/20 ML VIAL IV ONE ×2 (12:02→12:03)
[2018-05-26] MEDS ORDERED: LIDOCAINE 1% MPF 5 ML VIAL ONE (12:03)
--- NOTE | 2018-05-26 12:15 | ENDO RPT ---
[address], [address] EGD PROCEDURE REPORT EXAM DATE: 05/26/2018 PATIENT NAME: Kaur Kinsey MR#: [id number] BIRTHDATE: 1935 ATTENDING: Levi Oquendo Dr STATUS: outpatient DIRECTOR OF SOFTWARE DEVELOPMENT: Yola Lazo and Liza Barreto RN INDICATIONS: The patient is a 83 yr old Female here for an EGD due to melenic bleeding and anemia PROCEDURE PERFORMED: EGD with biopsy MEDICATIONS: Per Anesthesia. TOPICAL ANESTHETIC: none CONSENT: The patient understands the risks and benefits of the procedure and understands that these risks include, but are not limited to: sedation, allergic reaction, infection, perforation and/or bleeding. Alternative means of evaluation and treatment include, among others: physical exam, x-rays, and/or surgical intervention. The patient elects to proceed with this endoscopic procedure. DESCRIPTION OF PROCEDURE: During intra-op preparation period all mechanical medical equipment was checked for proper function. Hand hygiene and appropriate measures for infection prevention was taken. Procedure, possible complications, and alternatives including but not limited to the possibility of bleeding, perforation, tear, infection, sepsis, need for surgery, need for blood transfusion, and anesthesia related complications were explained to the patient. After the risks, benefits and alternatives of the procedure were thoroughly explained, Informed consent was verified, confirmed and timeout was successfully executed by the treatment team. The patient was placed in the left lateral position. The patient was anesthetized with topical anesthesia. Through the anesthetized oropharyngeal area, the scope was passed without any difficulty. The [id number] ([id number]) endoscope was introduced through the mouth and advanced to the second portion of the duodenum. Retroflexed views revealed a small hiatal hernia. The gastroscope was then slowly withdrawn and removed. A small hiatal hernia was found An ulcer was found at the pylorus. Multiple biopsies were obtained and sent to pathology. ADVERSE EVENTS: There were no complications. IMPRESSIONS: 1. Small hiatal hernia 2. 3 mm ulcer with surrounding edema / erythema - inflammation at the pylorus RECOMMENDATIONS: 1. await biopsy results 2. acid suppression therapy 3. CT abdomen REPEAT EXAM: Return in 3 month(s) Levi Oquendo Dr eSigned: Levi Oquendo Dr 05/26/2018 12:14 PM cc: Fernando Dewitt CPT CODES: ICD9 CODES: PATIENT NAME: Ananddeannagirma Kaurterrell Hargrove MR#: [id number]
== END 2018-05-26 12:45 | disposition home or self-care (01) ==
LOC: OR 10:07
PROVIDERS: ATTEND Internal Medicine Gastroenterology
PROC: 0DB68ZX Excision of Stomach, Via Natural or Artificial Opening Endoscopic, Diagnostic (ICD-10-PCS; principal; 2018-05-26 11:30)
DX: K29.50 Unspecified chronic gastritis without bleeding (principal); K25.9 Gastric ulcer, unspecified as acute or chronic, without hemorrhage or perforation; K44.9 Diaphragmatic hernia without obstruction or gangrene; D64.9 Anemia, unspecified; I10 Essential (primary) hypertension; E07.9 Disorder of thyroid, unspecified; I25.10 Atherosclerotic heart disease of native coronary artery without angina pectoris; Z79.02 Long term (current) use of antithrombotics/antiplatelets; Z95.0 Presence of cardiac pacemaker; Z95.2 Presence of prosthetic heart valve; Z95.1 Presence of aortocoronary bypass graft; Z88.0 Allergy status to penicillin; Z88.6 Allergy status to analgesic agent; Z88.8 Allergy status to other drugs, medicaments and biological substances
CPT/HCPCS: 43239; 88305; 88312; J2704

== ENCOUNTER 2021-09-26 00:28 | Observation (INO) | payer OTHER, BC ==
--- OUTSIDE RECORDS SUMMARY | 2021-09-26 00:32 | XMS REPORT | Continuity of Care Document ---
:1935 Author Organization [facility] t Address [address] [place] [address] Care Team Providers Name Role Phone Gladys Aldrich Attending Clinician Unavailable OMRANIAN Attending Clinician Unavailable OMRANIAN Admitting Clinician Unavailable Payers Payer Name Policy Type Policy Number Effective Date Expiration Date S ource Problems This patient has no known problems. Allergies, Adverse Reactions, Alerts Allergy Allergy Status Severity Reaction(s) Onset Inactive Treating Comm ents Source Name Type Date Date Clinician iodine DA [facility] U [facility] 11-30 00:00: [address] morphine DA [facility] 11-30 00:00: [address] codeine DA Active U [facility] 11-30 00:00: [address] dexameth DA Active U [facility] asone 11-30 00:00: [address] benazepr DA Active U [facility] il 11-30 00:00: [address] zolpidem DA Active U 2020- [facility] 11-30 00:00: [address] meperidi DA Active U [facility] ne 11-30 00:00: [address] iodine DA Active U UNKNOWN 0 [facility] 11-30 00:00: [address] morphine DA Active U UNKNOWN [facility] 11-30 00:00: [facility] codeine DA Active U UNKNOWN [facility] 11-30 00:00: [address] dexameth DA Active U UNKNOWN [facility] asone 11-30:: [address] benazepr DA Active U UNKNOWN [facility] [place] 11-30 00:00: [address] zolpidem DA Active U UNKNOWN [facility] 11-30 00:00: [address] meperidi DA Active U UNKNOWN [facility] ne 11-30 00:00: [address] Medications This patient has no known medications. Procedures This patient has no known procedures. Encounters Start End Encounter Admission Attending Care Care Encounter Source Date/Time Date/Time Type Type Clinicians Facility Department ID 2020-12-01 2020-12-01 Outpatient [facility] SURG [id number] [id number] [facility] 09:00:00 09:00:00 [facility] [id number] [facility] Results Test Description Test Time Test Comments Results Result Comments Source BASIC METABOLIC PANEL 2020-12-01 09:34:00 Test Item Value Reference Range Interpretation Comme nts SODIUM (test code = NA) 135 MMOL/L 137-145 L POTASSIUM (test code = K) 3.9 MMOL/L 3.5-5.1 N CHLORIDE (test code = CL) 96 MMOL/L 98-107 L CARBON DIOXIDE (test code = CO2) 29 MMOL/L 22-30 N GLUCOSE (test code = GLU) 93 MG/DL 74-106 N BLOOD UREA NITROGEN (test code = 16 MG/DL 7-17 N BUN) GLOMERULAR FILTRATION RATE (test > 60 Reporting units: ml/min/1.73 code = GFR) m2 (Modified M DRD Formula)Referen ce Range: > or = 60 ml/min/1.7 3 m2 CREATININE (test code = CREAT) 0.80 MG/DL 0.52-1.04 N CALCIUM (test code = CA) 9.6 MG/DL 8.4-10.2 N LIPID PROFILE (CORONARY RISK)2020-12-01 09:34:00 Test Item Value Reference Range Interpretation Comments TRIGLYCERIDES (test 123 MG/DL TRIGLYCE RIDES code = TRIG) REFERENCE RANGE:Normal: < 150 mg/dLBorderline High: 150-199 mg/dLHi gh: 200-499 mg/dLVe ry High: >=500 mg/ dL CHOLESTEROL (test code 147 MG/DL <200 = CHOL) HDL CHOLESTEROL (test 60 MG/DL 40-59 H code = HDL) LIPOPROTEIN LDL (test 50 MG/DL 0-99 N code = LDL) OPTIMAL........ .<100 mg/dLNEAR OPTIMAL/ABOVE OPTIMAL........ .100-12 9 mg/dL BORDERLINE HIGH.........13 0-159 mg/dL HIGH.........16 0-189 mg/dL VERY HIGH...... ...>/= 190 mg/dL [id number] 09:34:00 Test Item Value Reference Range Interpretation Comments MAGNESIUM (test code = MAG) 1.9 MG/DL 1.6-2.3 N COVID 19 Asymptomatic [facility] [id number] 09:23:00 Test Item Value Reference Range Interpretation Comments COVID 19 NEGATIVE Negative "Negative resul ts from Asymptomatic IH AG patients with symptom (test code = onset beyondfiv e days, COVNONPUIAG) should be liliam aura as presumptive, andconfirmation with a molecular assay , if necessary forpa tient management may be performed. Nega tive results do notr ule out COVID-19 and sh ould not be used as the sole basisfor treatm ent or patient managem ent decisions, includinginfect ion control decisio ns. Negative result s should beconsidered in the context of a pa tients recent exposure s,history, and the presenc e of clinical signs and symptomsconsist ent with COVID-19.This t est detects both vi able andnon-viable S ARS-CoV and SARS CoV-2. Test performance dep endson the amount of virus (antigen) in the sample." BASIC METABOLIC [id number] 09:23:00 Test Item Value Reference Range Interpretation Comments SODIUM (test code = 135 MMOL/L 137-145 L NA) POTASSIUM (test code = 3.9 MMOL/L 3.5-5.1 N K) CHLORIDE (test code = 96 MMOL/L 98-107 L CL) CARBON DIOXIDE (test 29 MMOL/L 22-30 N code = CO2) GLUCOSE (test code = 93 MG/DL 74-106 N GLU) BLOOD UREA NITROGEN 16 MG/DL 7-17 N (test code = BUN) GLOMERULAR FILTRATION > 60 Report ing units: RATE (test code = GFR) ml/mi n/1.73 m2 (Modified MDRD Formula)Referen ce Range: > or = 6 0 ml/min/1.73 m2 CREATININE (test code 0.80 MG/DL 0.52-1.04 N = CREAT) CALCIUM (test code = 9.6 MG/DL 8.4-10.2 N CA) LIPID PROFILE (CORONARY RISK)2020-12-01 09:23:00 Test Item Value Reference Range Interpretation Comments TRIGLYCERIDES (test 123 MG/DL TRIGLYCE RIDES code = TRIG) REFERENCE RANGE:Normal: < 150 mg/dLBorderline High: 150-199 mg/dLHi gh: 200-499 mg/dLVe ry High: >=500 mg/ dL CHOLESTEROL (test code 147 MG/DL <200 = CHOL) HDL CHOLESTEROL (test 60 MG/DL 40-59 H code = HDL) LIPOPROTEIN LDL (test MG/DL 0-99 code = LDL) [id number] 09:23:00 Test Item Value Reference Range Interpretation Comments MAGNESIUM (test code = MAG) 1.9 MG/DL 1.6-2.3 N PROTHROMBIN [id number] 09:16:00 Test Item Value Reference Range Interpretation Comments PROTHROMBIN TIME PATIENT 12.9 9.5-12.7 H (test code = PTP) INTERNATIONAL NORMAL RATIO 1.2 0.86-1.14 H T he INR is to be used (test code = INR) only for m onitoring oral anticoagulantth erapy. INDICATION INR VALUE ------- ------- -----1. Prophylaxis, d eep venous thrombos is, including high risk surgery. 2.0 - 3.0 2. Prophylaxis, de ep venous thrombos is, hip surgery, tr eatment for deep venous thrombosis or pulmonary preve ntion of systemic embolism in pat ients with valvula r heart disease, atrial fibrillation, tissue heart va lve, or acute myocardia l infarction. 2.0 - 3.0 3. Mechanical pros thesis heart valves, recurrent syste olga embolism. 3.0 - 4.5 PTT [id number] 09:16:00 Test Item Value Reference Range Interpretation Comments PTT ACTIVATED (test code = APTT) 36.2 SECONDS 25.1-36.5 N CBC W/AUTO [id number] 08:51:00 Test Item Value Reference Range Interpretation Comments WHITE BLOOD CELL (test code = 7.7 K/MM3 3.8-9.8 N WBC) RED BLOOD CELL (test code = 4.39 M/MM3 3.58-4.97 N RBC) HEMOGLOBIN (test code = HGB) 13.8 G/DL 11.2-14.9 N HEMATOCRIT (test code = HCT) 42.7 % 33.2-43.5 N MEAN CELL VOLUME (test code = 97 fL 80.7-99.1 N MCV) MEAN CELL HGB (test code = MCH) 31.4 pg 27.0-34.1 N MEAN CELL HGB CONCETRATION 32.3 % 32.2-35.7 N (test code = MCHC) RED CELL DISTRIBUTION WIDTH 13.0 % 12.1-15.2 N (test code = RDW) PLATELET COUNT (test code = 239 K/MM3 129-368 N PLT) MEAN PLATELET VOLUME (test code 9.8 fl 7.4-10.4 N = MPV) NEUTROPHIL % (test code = NT%) 67.0 % 43-75 N IMMATURE GRANULOCYTE % (test 0.1 % 0.0-2.0 N code = IG%) LYMPHOCYTE % (test code = LY%) 15.4 % 14-44 N MONOCYTE % (test code = MO%) 10.3 % 4-13 N EOSINOPHIL % (test code = EO%) 6.3 % 0-6 H BASOPHIL % (test code = BA%) 0.9 % 0-2 N NUCLEATED RBC % (test code = 0.0 % 0-1.0 N NRBC%) NEUTROPHIL # (test code = NT#) 5.17 K/mm3 2.0-7.6 N IMMATURE GRANULOCYTE # (test 0.01 x10 3/uL 0-0.03 N code = IG#) LYMPHOCYTE # (test code = LY#) 1.19 K/mm3 1.0-3.8 N MONOCYTE # (test code = MO#) 0.80 K/mm3 0.1-0.8 N EOSINOPHIL # (test code = EO#) 0.49 K/mm3 0.0-0.2 H BASOPHIL # (test code = BA#) 0.07 K/mm3 0.0-0.2 N NUCLEATED RBC # (test code = 0.00 K/mm3 0.0-0.1 N NRBC#) BLOOD [id number] 00:00:00 Test Item Value Reference Range Interpretation Comments CULTURE (BEAKER) (test No growth in 5 days code = 1095) BLOOD [id number] 00:00:00 Test Item Value Reference Range Interpretation Comments CULTURE (BEAKER) (test No growth in 5 days code = 1095) RAD, HIP, 2 VIEWS, [id number] 17:39:00Reason for exam:->fallFINAL REPORT Two views of the right hip without comparison. IMPRESSION: Thereis no acute fracture or traumatic malalignment. Mild degenerative changes are seen at the soft tissues are unremarkable. The sacrum is obscured by overlying bowel gas. Signed: Syeda Guthrie MDReport Verified Date/Time: 03/13/2018 17:39:18 Reading Location: [address] Ortho Consult Reading Room TROPONIN [id number] 14:03:00 Test Item Value Reference Range Interpretation Comments TROPONIN I (BEAKER) (test code = 0.21 ng/mL 0.00-0.03 397) Troponin I (TnI) levels must be interpreted [...] acute neurological disease, and persistent tachyarrhythmia.HEMOGLOBIN AND [id number] 13:20:00 Test Item Value Reference Range Interpretation Comments HEMOGLOBIN (BEAKER) (test code = 8.8 GM/DL 11.2-15.7 L 410) HEMATOCRIT (BEAKER) (test code = 25.7 % 34.1-44.9 L 411) HEMOGLOBIN [id number] 08:44:00 Test Item Value Reference Range Interpretation Comments HEMOGLOBIN A1C (BEAKER) (test code = 5.4 % 4.3-6.1 368) TROPONIN [id number] 07:07:00 Test Item Value Reference Range Interpretation Comments TROPONIN I (BEAKER) (test code = 0.24 ng/mL 0.00-0.03 HH 397) Troponin I (TnI) levels must be interpreted [...] failure, acidosis, acute neurological disease, and persistent tachyarrhythmia.[id number] 05:24:00 Test Item Value Reference Range Interpretation Comments PHOSPHORUS (BEAKER) (test code = 2.6 mg/dL 2.3-4.7 604) [id number] 05:24:00 Test Item Value Reference Range Interpretation Comments MAGNESIUM (BEAKER) (test code = 2.1 mg/dL 1.6-2.6 627) BASIC METABOLIC [id number] 05:24:00 Test Item Value Reference Range Interpretation Comments SODIUM (BEAKER) 137 meq/L 136-145 (test code = 381) POTASSIUM (BEAKER) 3.7 meq/L 3.5-5.1 (test code = 379) CHLORIDE (BEAKER) 107 meq/L 98-107 (test code = 382) CO2 (BEAKER) (test 21 meq/L 22-29 L code = 355) BLOOD UREA NITROGEN 34 mg/dL 7-21 H (BEAKER) (test code = 354) CREATININE (BEAKER) 0.70 mg/dL 0.57-1.25 (test code = 358) GLUCOSE RANDOM 102 mg/dL 70-105 (BEAKER) (test code = 652) CALCIUM (BEAKER) 8.6 mg/dL 8.4-10.2 (test code = 697) EGFR (BEAKER) (test 80 mL/min/1.73 ESTIMA AURA GFR IS code = 1092) sq m NOT ACCURATE CREATININE CLEARANCE IN PREDICTING GLOMERULAR FILTRATION RATE . ESTIMATED GFR I S NOT APPLICABLE FOR DIALYSIS PATIEN TS. LIPID [id number] 05:24:00 Test Item Value Reference Range Interpretation Comments TRIGLYCERIDES (BEAKER) (test code = 131 mg/dL 540) CHOLESTEROL (BEAKER) (test code = 105 mg/dL 631) HDL CHOLESTEROL (BEAKER) (test code 31 mg/dL = 976) LDL CHOLESTEROL CALCULATED (BEAKER) 48 mg/dL (test code = 633) Triglyceride Reference Range: Low Risk <150 Borderline 150-199 High Risk 200-499 Very High Risk >=500Cholesterol Reference Range: Low Risk <200 Borderline 200-239 High Risk >240HDL Cholesterol Reference Range: Low Risk >=60 High Risk <40LDL Cholesterol Reference Range: Optimal <100 Near Optimal 100-129 Borderline 130-159 High 160-189 Very High >=190TSH/FREE T4 IF [id number] 05:20:00 Test Item Value Reference Range Interpretation Comments THYROID STIMULATING HORMONE 4.02 uIU/mL 0.35-4.94 (BEAKER) (test code = 772) CBC W/PLT COUNT & AUTO [id number] 04:52:00 Test Item Value Reference Range Interpretation Comments WHITE BLOOD CELL COUNT (BEAKER) 11.6 K/ L 3.5-10.5 H (test code = 775) RED BLOOD CELL COUNT (BEAKER) 2.79 M/ L 3.93-5.22 L (test code = 761) HEMOGLOBIN (BEAKER) (test code = 8.8 GM/DL 11.2-15.7 L 410) HEMATOCRIT (BEAKER) (test code = 25.7 % 34.1-44.9 L 411) MEAN CORPUSCULAR VOLUME (BEAKER) 92.1 fL 79.4-94.8 (test code = 753) MEAN CORPUSCULAR HEMOGLOBIN 31.5 pg 25.6-32.2 (BEAKER) (test code = 751) MEAN CORPUSCULAR HEMOGLOBIN CONC 34.2 GM/DL 32.2-35.5 (BEAKER) (test code = 752) RED CELL DISTRIBUTION WIDTH 14.4 % 11.7-14.4 (BEAKER) (test code = 412) PLATELET COUNT (BEAKER) (test 144 K/CU MM 150-450 L code = 756) MEAN PLATELET VOLUME (BEAKER) 10.9 fL 9.4-12.3 (test code = 754) NUCLEATED RED BLOOD CELLS 0 /100 WBC 0-0 (BEAKER) (test code = 413) NEUTROPHILS RELATIVE PERCENT 74 % (BEAKER) (test code = 429) LYMPHOCYTES RELATIVE PERCENT 13 % (BEAKER) (test code = 430) MONOCYTES RELATIVE PERCENT 8 % (BEAKER) (test code = 431) EOSINOPHILS RELATIVE PERCENT 3 % (BEAKER) (test code = 432) BASOPHILS RELATIVE PERCENT 1 % (BEAKER) (test code = 437) NEUTROPHILS ABSOLUTE COUNT 8.62 K/ L 1.56-6.13 H (BEAKER) (test code = 670) LYMPHOCYTES ABSOLUTE COUNT 1.54 K/ L 1.18-3.74 (BEAKER) (test code = 414) MONOCYTES ABSOLUTE COUNT (BEAKER) 0.98 K/ L 0.24-0.36 H (test code = 415) EOSINOPHILS ABSOLUTE COUNT 0.32 K/ L 0.04-0.36 (BEAKER) (test code = 416) BASOPHILS ABSOLUTE COUNT (BEAKER) 0.06 K/ L 0.01-0.08 (test code = 417) IMMATURE GRANULOCYTES-RELATIVE 1 % 0-1 PERCENT (BEAKER) (test code = 2801) HEMOGLOBIN AND [id number] 04:40:00 Test Item Value Reference Range Interpretation Comments HEMOGLOBIN (BEAKER) (test code = 8.8 GM/DL 11.2-15.7 L 410) HEMATOCRIT (BEAKER) (test code = 25.7 % 34.1-44.9 L 411) TROPONIN [id number] 00:53:00 Test Item Value Reference Range Interpretation Comments TROPONIN I (BEAKER) (test code = 0.22 ng/mL 0.00-0.03 HH 397) Troponin I (TnI) levels must be interpreted [...] acute neurological disease, and persistent tachyarrhythmia.HEMOGLOBIN AND [id number] 00:09:00 Test Item Value Reference Range Interpretation Comments HEMOGLOBIN (BEAKER) (test code = 8.8 GM/DL 11.2-15.7 L 410) HEMATOCRIT (BEAKER) (test code = 26.3 % 34.1-44.9 L 411) URINALYSIS W/ REFLEX URINE [id number] 21:53:00 Test Item Value Reference Range Interpretation Comments COLOR (BEAKER) (test code = 470) Light Yellow CLARITY (BEAKER) (test code = Clear 469) SPECIFIC GRAVITY UA (BEAKER) 1.015 1.001-1.035 (test code = 468) PH UA (BEAKER) (test code = 467) 5.0 5.0-8.0 PROTEIN UA (BEAKER) (test code = Negative Negative 464) GLUCOSE UA (BEAKER) (test code = Negative Negative 365) KETONES UA (BEAKER) (test code = 10 mg/dL Negative A 371) BILIRUBIN UA (BEAKER) (test code Negative Negative = 462) BLOOD UA (BEAKER) (test code = Negative Negative 461) NITRITE UA (BEAKER) (test code = Negative Negative 465) LEUKOCYTE ESTERASE UA (BEAKER) Moderate Negative A (test code = 466) UROBILINOGEN UA (BEAKER) (test 0.2 mg/dL 0.2-1.0 code = 463) RBC UA (BEAKER) (test code = 1 /HPF 519) WBC UA (BEAKER) (test code = 7 /HPF 520) MUCUS (BEAKER) (test code = Rare 1574) SQUAMOUS EPITHELIAL (BEAKER) 1 /HPF (test code = 516) SOURCE(BEAKER) (test code = 2795) [id number] 18:36:00 Test Item Value Reference Range Interpretation Comments FERRITIN (BEAKER) (test code = 361) 71 ng/mL 5-275 VITAMIN B12 AND [id number] 18:36:00 Test Item Value Reference Range Interpretation Comments VITAMIN B12 (BEAKER) (test code = 552 pg/mL 213-816 774) FOLATE (BEAKER) (test code = 362) 16.2 ng/mL >=7.0 TROPONIN [id number] 18:12:00 Test Item Value Reference Range Interpretation Comments TROPONIN I (BEAKER) (test code = 0.20 ng/mL 0.00-0.03 397) Troponin I (TnI) levels must be interpreted [...] 2018-03-12 18:01:00 Test Item Value Reference Range Interpretation Comments IRON (BEAKER) (test code = 547) 159 ug/dL 40-160 TOTAL IRON BINDING CAPACITY 234 ug/dL 250-450 L (BEAKER) (test code = 769) IRON % SATURATION (2) (BEAKER) 68 % 20-55 H (test code = 2590) HEMOGLOBIN AND [id number] 17:39:00 Test Item Value Reference Range Interpretation Comments HEMOGLOBIN (BEAKER) (test code = 7.1 GM/DL 11.2-15.7 L 410) HEMATOCRIT (BEAKER) (test code = 21.4 % 34.1-44.9 L 411) RAD, CHEST, 1 VIEW, NON [id number] 16:19:00Post-intubationReason for exam:- >sobShould this be performed at the bedside?->YesFINAL REPORT TECHNIQUE: Frontal chest radiograph dated 03/12/2018. CLINICAL HI STORY: SOB COMPARISON STUDY: None IMPRESSION:Right-sided pacemaker is [...] scan can be obtained. Signed: Tamie Alberts MDReport Verified Date/Time: 03/12/2018 16:19:21 Reading Location: [facility] Radiology Reading Room [id number] 15:29:00 Test Item Value Reference Range Interpretation Comments PROCALCITONIN (BEAKER) (test code 0.10 ng/mL <0.05 H = 3036) SEPSIS RISK (ng/mL)Low: 0.05-0.50Intermediate: 0.51-2.00High: >=2.01B-TYPE NATRIURETIC FACTOR (BNP)2018-03-12 15:11:00 Test Item Value Reference Range Interpretation Comments B-TYPE NATRIURETIC PEPTIDE (BEAKER) 238 pg/mL 0-100 H (test code = 700) CREATINE KINASE (CK), TOTAL AND [id number] 15:10:00 Test Item Value Reference Range Interpretation Comments CREATINE KINASE TOTAL (BEAKER) 80 U/L 29-200 (test code = 380) CREATINE KINASE-MB (BEAKER) (test 3.1 ng/mL 0.0-6.6 code = 750) CREATINE KINASE-MB INDEX (BEAKER) 3.9 % (test code = 395) CK-MB Reference Range:<6.7 Normal6.7-10.0 Borderline>10.0 AbnormalTROPONIN [id number] 15:10:00 Test Item Value Reference Range Interpretation Comments TROPONIN I (BEAKER) (test code = 0.13 ng/mL 0.00-0.03 H 397) Troponin I (TnI) levels must be interpreted [...] acute neurological disease, and persistent tachyarrhythmia.COMPREHENSIVE METABOLIC [id number] 15:08:00 Test Item Value Reference Range Interpretation Comments TOTAL PROTEIN 5.8 gm/dL 6.0-8.3 L (BEAKER) (test code = 770) ALBUMIN (BEAKER) 3.1 g/dL 3.5-5.0 L (test code = 1145) ALKALINE PHOSPHATASE 19 U/L 40-150 L (BEAKER) (test code = 346) BILIRUBIN TOTAL 0.9 mg/dL 0.2-1.2 (BEAKER) (test code = 377) SODIUM (BEAKER) (test 137 meq/L 136-145 code = 381) POTASSIUM (BEAKER) 3.8 meq/L 3.5-5.1 (test code = 379) CHLORIDE (BEAKER) 106 meq/L 98-107 (test code = 382) CO2 (BEAKER) (test 21 meq/L 22-29 L code = 355) BLOOD UREA NITROGEN 52 mg/dL 7-21 H (BEAKER) (test code = 354) CREATININE (BEAKER) 0.73 mg/dL 0.57-1.25 (test code = 358) GLUCOSE RANDOM 96 mg/dL 70-105 (BEAKER) (test code = 652) CALCIUM (BEAKER) 8.6 mg/dL 8.4-10.2 (test code = 697) AST (SGOT) (BEAKER) 18 U/L 5-34 (test code = 353) ALT (SGPT) (BEAKER) 11 U/L 6-55 (test code = 347) EGFR (BEAKER) (test 76 mL/min/1.73 ESTIMA AURA GFR IS code = 1092) sq m NOT ACCURATE CREATININE CLEARANCE IN PREDICTING GLOMERULAR FILTRATION RATE . ESTIMATED GFR I S NOT APPLICABLE FOR DIALYSIS PATIEN TS. KETONE, [id number] 15:08:00 Test Item Value Reference Range Interpretation Comments KETONES, BLOOD (BEAKER) (test code 0.6 mmol/L <0.4 H = 1103) [id number] 15:03:00 Test Item Value Reference Range Interpretation Comments PHOSPHORUS (BEAKER) (test code = 3.0 mg/dL 2.3-4.7 604) [id number] 15:03:00 Test Item Value Reference Range Interpretation Comments MAGNESIUM (BEAKER) (test code = 1.5 mg/dL 1.6-2.6 L 627) LACTIC ACID, VENOUS, WHOLE [id number] 14:59:00 Test Item Value Reference Range Interpretation Comments LACTATE BLOOD VENOUS (2) (BEAKER) 1.2 mmol/L 0.5-2.2 (test code = 2872) Effective 11/14/2015: Units/Reference Range ChangeNew: 0.5-2.2 mmol/L Previous: 5-20 mg/dLPROTHROMBIN TIME/[id number] 14:45:00 Test Item Value Reference Range Interpretation Comments PROTIME (BEAKER) (test code = 16.3 seconds 11.7-14.7 H 759) INR (BEAKER) (test code = 370) 1.3 <=5.9 RECOMMENDED COUMADIN/WARFARIN INR THERAPY RANGESSTANDARD DOSE: 2.0 - 3.0 Includes: PROPHYLAXIS forvenous thrombosis, systemic embolization; TREATMENT for venous thrombosis and/or pulmonary embolus.HIGH RISK: Target INR is 2.5-3.5 for patients with mechanical heart valves.CBC W/PLT COUNT & AUTO DIFFERENTIAL 2018-03-12 14:39:00 Test Item Value Reference Range Interpretation Comments WHITE BLOOD CELL COUNT (BEAKER) 11.5 K/ L 3.5-10.5 H (test code = 775) RED BLOOD CELL COUNT (BEAKER) 2.49 M/ L 3.93-5.22 L (test code = 761) HEMOGLOBIN (BEAKER) (test code = 7.7 GM/DL 11.2-15.7 L 410) HEMATOCRIT (BEAKER) (test code = 23.1 % 34.1-44.9 L 411) MEAN CORPUSCULAR VOLUME (BEAKER) 92.8 fL 79.4-94.8 (test code = 753) MEAN CORPUSCULAR HEMOGLOBIN 30.9 pg 25.6-32.2 (BEAKER) (test code = 751) MEAN CORPUSCULAR HEMOGLOBIN CONC 33.3 GM/DL 32.2-35.5 (BEAKER) (test code = 752) RED CELL DISTRIBUTION WIDTH 13.6 % 11.7-14.4 (BEAKER) (test code = 412) PLATELET COUNT (BEAKER) (test 162 K/CU MM 150-450 code = 756) MEAN PLATELET VOLUME (BEAKER) 10.9 fL 9.4-12.3 (test code = 754) NUCLEATED RED BLOOD CELLS 0 /100 WBC 0-0 (BEAKER) (test code = 413) NEUTROPHILS RELATIVE PERCENT 76 % (BEAKER) (test code = 429) LYMPHOCYTES RELATIVE PERCENT 15 % (BEAKER) (test code = 430) MONOCYTES RELATIVE PERCENT 8 % (BEAKER) (test code = 431) EOSINOPHILS RELATIVE PERCENT 0 % (BEAKER) (test code = 432) BASOPHILS RELATIVE PERCENT 0 % (BEAKER) (test code = 437) NEUTROPHILS ABSOLUTE COUNT 8.75 K/ L 1.56-6.13 H (BEAKER) (test code = 670) LYMPHOCYTES ABSOLUTE COUNT 1.70 K/ L 1.18-3.74 (BEAKER) (test code = 414) MONOCYTES ABSOLUTE COUNT (BEAKER) 0.93 K/ L 0.24-0.36 H (test code = 415) EOSINOPHILS ABSOLUTE COUNT 0.02 K/ L 0.04-0.36 L (BEAKER) (test code = 416) BASOPHILS ABSOLUTE COUNT (BEAKER) 0.03 K/ L 0.01-0.08 (test code = 417) IMMATURE GRANULOCYTES-RELATIVE 1 % 0-1 PERCENT (BEAKER) (test code = 2801) POCT-GLUCOSE [id number] 13:22:00 Test Item Value Reference Range Interpretation Comments POC-GLUCOSE METER 119 mg/dL 70-110 H TESTED AT [facility] [address] ([place]) (test code = ELISABETH CHAHAL 1538) [id number]
[2021-09-26 01:04] LABS: Absolute Lymphocytes (CBC) 1.6 K/uL (0.7-4.9); Hematocrit 39.4 % (36.0-45.0); Lymphocytes % 18.9 % (15.3-44.8); MPV 8.1 fL (7.6-11.3); RBC Red Blood Cell Count 4.18 M/uL (3.86-4.86)
[2021-09-26 01:20] LABS: Potassium 4.4 mmol/L (3.5-5.1)
[2021-09-26 01:48] LABS: Albumin 3.4 g/dL (3.4-5.0); Bilirubin Direct 0.1 mg/dL (0-0.2); Bilirubin Total 0.5 mg/dL (0.2-1.0); Protein, Total 8.3 g/dL (6.4-8.2)
[2021-09-26] MEDS ORDERED: ONDANSETRON 4 MG/2 ML VIAL ONE (01:53)
[2021-09-26] MEDS ORDERED: FENTANYL CITR 100 MCG/2 ML ONE (01:53)
--- NOTE | 2021-09-26 07:40 | EDPHYS ---
Physician Documentation [facility] Name: Kaur Kinsey Age: 86 yrs Sex: Female : 1935 Arrival Date: 09/26/2021 Time: 00:34 Bed 4 Private MD: ED Physician Ivan Conway HPI: 09/26 02:41 This 86 yrs old Female presents to ER via Wheelchair with complaints of Chest Pain > 30 kdr y/o. 02:41 The patient or guardian reports chest pain that is located primarily in the substernal kdr area. Onset: suddenly, 1 hour(s) ago. The pain does not radiate. Associated signs and symptoms: The patient has no apparent associated signs or symptoms. The chest pain is described as aching, a pressure, sharp. Duration: The patient or guardian reports a single episode, that is still ongoing, but improving. Severity of pain: At its worst the pain was moderate severe just prior to arrival, in the emergency department the pain has improved mildly. The patient has not recently seen a physician. Historical: - Allergies: 00:46 Codeine; as6 00:46 Morphine; as6 00:46 Demerol; as6 00:46 PENICILLINS; as6 00:46 Iodine; as6 00:46 Lotensin; as6 00:46 zolpidem; as6 00:46 Dexamethasone; as6 - Home Meds: 00:46 simvastatin 20 mg Oral tab 1 tab once daily [Active]; carvedilol 25 mg Oral tab 1 tab as6 daily [Active]; Plavix 75 mg Oral tab 1 tab MWF [Active]; levothyroxine 75 mcg tab 1 tab once daily [Active]; Protonix 40 mg oral TbEC 1 tab 2 times per day [Active]; Charlette Oral daily [Active]; - PMHx: 00:46 heart disease; High Cholesterol; Thyroid problem; as6 - PSHx: 00:46 Cholecystectomy; partial mastectomy; "vein surgery"; pacemaker; open heart; as6 - Immunization history:: Client reports receiving the 2nd dose of the Covid vaccine, moderna. - Social history:: Smoking status: Patient denies any tobacco usage or history of. ROS: 02:41 Constitutional: Negative for fever, chills, and weight loss, Eyes: Negative for injury, kdr pain, redness, and discharge, Neck: Negative for injury, pain, and swelling, Respiratory: Negative for shortness of breath, cough, wheezing, and pleuritic chest pain, Abdomen/GI: Negative for abdominal pain, nausea, vomiting, diarrhea, and constipation, Back: Negative for injury and pain, : Negative for injury, bleeding, discharge, and swelling, MS/Extremity: Negative for injury and deformity, Skin: Negative for injury, rash, and discoloration, Neuro: Negative for headache, weakness, numbness, tingling, and seizure activity. Psych: Negative for depression, anxiety, suicide ideation, homicidal ideation, and hallucinations, Allergy/Immunology: Negative for hives, rash, and allergies, Endocrine: Negative for neck swelling, polydipsia, polyuria, polyphagia, and marked weight changes, Hematologic/Lymphatic: Negative for swollen nodes, abnormal bleeding, and unusual bruising. 02:41 Cardiovascular: Positive for chest pain, Negative for edema, orthopnea, palpitations, paroxysmal nocturnal dyspnea. Exam: 02:41 Constitutional: This is a well developed, well nourished patient who is awake, alert, kdr and in no acute distress. Head/Face: Normocephalic, atraumatic. Eyes: Pupils equal round and reactive to light, extra-ocular motions intact. Lids and lashes normal. Conjunctiva and sclera are non-icteric and not injected. Cornea within normal limits. Periorbital areas with no swelling, redness, or edema. Neck: Trachea midline, no thyromegaly or masses palpated, and no cervical lymphadenopathy. Supple, full range of motion without nuchal rigidity, or vertebral point tenderness. No Meningismus. Chest/axilla: Normal chest wall appearance and motion. Nontender with no deformity. No lesions are appreciated. Cardiovascular: Regular rate and rhythm with a normal S1 and S2. No gallops, murmurs, or rubs. Normal PMI, no JVD. No pulse deficits. Respiratory: Lungs have equal breath sounds bilaterally, clear to auscultation and percussion. No rales, rhonchi or wheezes noted. No increased work of breathing, no retractions or nasal flaring. Abdomen/GI: Soft, non-tender, with normal bowel sounds. No distension or tympany. No guarding or rebound. No evidence of tenderness throughout. Back: No spinal tenderness. No costovertebral tenderness. Full range of motion. Skin: Warm, dry with normal turgor. Normal color with no rashes, no lesions, and no evidence of cellulitis. MS/ Extremity: Pulses equal, no cyanosis. Neurovascular intact. Full, normal range of motion. Neuro: Awake and alert, GCS 15, oriented to person, place, time, and situation. Cranial nerves II-XII grossly intact. Motor strength 5/5 in all extremities. Sensory grossly intact. Cerebellar exam normal. Normal gait. Psych: Awake, alert, with orientation to person, place and time. Behavior, mood, and affect are within normal limits. 05:32 ECG was reviewed by the Attending Physician. kdr Vital Signs: 00:39 BP 210 / 74; Pulse 74; Resp 20 S; Temp 98.8(TE); Pulse Ox 100% on R/A; Weight 58.97 kg as6 (R); Height 5 ft. 6 in. (167.64 cm); Pain 10/10; 01:03 Pulse 70; Resp 16; Pulse Ox 100% on R/A; st1 01:09 BP 154 / 66; st1 04:52 BP 138 / 64; Pulse 62; Resp 18; Pulse Ox 97% on R/A; sf1 06:00 BP 134 / 66; Pulse 60; Resp 16; Pulse Ox 95% on 2 lpm NC; st1 07:30 BP 146 / 64; Pulse 68; Resp 18; Pulse Ox 99% on R/A; ph 08:30 BP 159 / 78; Pulse 66; Resp 16; Pulse Ox 100% on R/A; ph 10:00 BP 142 / 70; Pulse 67; Resp 18; Pulse Ox 98% on R/A; ph 11:00 BP 149 / 78; Pulse 70; Resp 18; Temp 97.8; Pulse Ox 100% on R/A; ph 00:39 Body Mass Index 20.98 (58.97 kg, 167.64 cm) as6 MDM: 02:39 Data reviewed: vital signs, nurses notes, lab test result(s), EKG, radiologic studies. kdr ED course: Patient's chest pain has resolved at this time. She states that her chronic leg pain is more of an issue at this time. Currently her initial labs have returned minus the cardiac enzyme. Discussed with the patient and her the possible need for admission to observe and further evaluate prior to discharge. Patient and her expressed their desire most likely to be discharged and to follow-up tomorrow with Dr. Aldrich. Indicated that this may be possible if her enzymes are negative and she continues to be pain-free. Patient's expressed that they definitely did not want to be transferred back to [facility] this they had had a very negative experience there when they were transferred there previously. 07:24 Transition of care: Care assumed from Freddie Rees MD. ms3 07:26 Patient medically screened. ms3 07:35 HEART Score: History: Moderately Suspicious (1), ECG: Non specific repolarization ms3 disturbance / LBTB / PM (1), Age: > or = 65 years (2), Risk Factors: > or = 3 Risk factors for atherosclerotic disease (2), Troponin: > 1 and < 3 x normal limit (1), Total Score = 7. The patient was given aspirin in the Emergency Department. 07:37 ED course: Discussed case with Dr. Callahan and accepts patient as observation. Discussed ms3 plan for observation with patient and her and they understand agree with plan. Patient's pain is improved at this time. Patient remains in stable condition.. 09/26 00:44 Order name: Basic Metabolic Panel; Complete Time: 07: kdr 09/26 00:44 Order name: CBC with Diff; Complete Time: 02:29 kdr 09/26 00:44 Order name: LFT's; Complete Time: 07: kdr 09/26 00:44 Order name: Troponin HS; Complete Time: 07: kdr 09/26 08:33 Order name: SARS-COV-2 RT PCR; Complete Time: 09:20 EDMS 09/26 09:30 Order name: Basic Metabolic Panel EDMS 09/26 09:30 Order name: Basic Metabolic Panel EDMS 09/26 09:30 Order name: CBC with Automated Diff EDMS 09/26 09:30 Order name: CBC with Automated Diff EDMS 09/26 09:31 Order name: Troponin High Sensitivity EDMS 09/26 09:31 Order name: Troponin High Sensitivity EDMS 09/26 09:31 Order name: Troponin High Sensitivity EDMS 09/26 09:31 Order name: Troponin High Sensitivity EDMS 09/26 00:44 Order name: XRAY Chest (1 view) [facility] 09/26 00:44 Order name: EKG; Complete Time: 00:45 kdr 09/26 00:44 Order name: Cardiac monitoring; Complete Time: 00:55 kdr 09/26 00:44 Order name: EKG - Nurse/Tech; Complete Time: 00:55 kdr 09/26 00:44 Order name: IV Saline Lock; Complete Time: 00:55 kdr 09/26 00:44 Order name: Labs collected and sent; Complete Time: 00:55 [facility] 09/26 00:44 Order name: O2 Per Protocol; Complete Time: 00:55 kdr 09/26 00:44 Order name: O2 Sat Monitoring; Complete Time: 00:55 [facility] 09/26 07:38 Order name: EKG Electrocardiogram EDMS 09/26 09:30 Order name: NPO EDMS EC:32 Rate is 71 beats/min. Rhythm is regular, Paced with No ectopy. Clinical impression: kdr paced. Administered Medications: 02:02 Drug: fentaNYL (PF) 25 mcg Route: IVP; Site: left antecubital; sf1 02:02 Drug: Zofran (Ondansetron) 4 mg Route: IVP; Site: left antecubital; sf1 08:00 Drug: Aspirin Chewable Tablet 324 mg Route: PO; ph 11:55 Follow up: Response: No adverse reaction ph Disposition Summary: 09/26/21 07:39 Hospitalization Ordered Hospitalization Status: Observation ms3 Provider: Nestor Callahan ms3 Location: Telemetry/MedSurg (observation) ms3 Condition: Stable ms3 Problem: new ms3 Symptoms: have improved ms3 Bed/Room Type: Standard ms3 Room Assignment: 211(09/26/21 11:28) bd Diagnosis - Chest pain, unspecified ms3 - elevated troponin ms3 - History of HLD ms3 - History of CAD ms3 Forms: - Medication Reconciliation Form ms3 - SBAR form ms3 Signatures: Dispatcher [employer] EDMS Jaquelin Ellis Kevin, MD MD kdr Yelitza De Leon RN RN ph Ivan Conway, DO ms3 Virgil Lange RN RN as6 Fillers, MATT Gong RN sf1 Corrections: (The following items were deleted from the chart) 08:33 07:35 COVID 19 CPL+BRZ ordered. EDMS EDMS 11 07:39 ms3 bd
--- NOTE | 2021-09-26 07:40 | ER ---
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 Coronavirus screen: At this time, the client does not indicate any symptoms associated with coronavirus-19. Ebola Screen: No symptoms or risks identified at this time. Initial Sepsis Screen: Does the patient meet any 2 criteria? No. Patient's initial sepsis screen is negative. Does the patient have a suspected source of infection? No. Patient's initial sepsis screen is negative. Risk Assessment: Do you want to hurt yourself or someone else? Patient reports no desire to harm self or others. Onset of symptoms was September 25, 2021 at 23:30. 00:39 Method Of Arrival: Wheelchair as6 00:39 Acuity: LORRAINE 2 as6 Triage Assessment: 00:45 General: Appears uncomfortable, Behavior is cooperative, anxious. Pain: Complains of as6 pain in chest and epigastric area. Cardiovascular: Reports chest pain. Historical: - Allergies: 00:46 Codeine; as6 00:46 Morphine; as6 00:46 Demerol; 6 00:46 PENICILLINS; as 00:46 Iodine; as 00:46 Lotensin; as6 00:46 zolpidem; as6 00:46 Dexamethasone; as6 - Home Meds: 00:46 simvastatin 20 mg Oral tab 1 tab once daily [Active]; carvedilol 25 mg Oral tab 1 tab as6 daily [Active]; Plavix 75 mg Oral tab 1 tab MWF [Active]; levothyroxine 75 mcg tab 1 tab once daily [Active]; Protonix 40 mg oral TbEC 1 tab 2 times per day [Active]; Charlette Oral daily [Active]; - PMHx: 00:46 heart disease; High Cholesterol; Thyroid problem; as6 - PSHx: 00:46 Cholecystectomy; partial mastectomy; "vein surgery"; pacemaker; open heart; as6 - Immunization history:: Client reports receiving the 2nd dose of the Covid vaccine, moderna. - Social history:: Smoking status: Patient denies any tobacco usage or history of. Screenin:56 Abuse screen: Denies threats or abuse. Nutritional screening: No deficits noted. st1 Tuberculosis screening: No symptoms or risk factors identified. Fall Risk None identified. No fall in past 12 months (0 pts). No secondary diagnosis (0 pts). IV access (20 points). Ambulatory Aid- None/Bed Rest/Nurse Assist (0 pts). Gait- Normal/Bed Rest/Wheelchair (0 pts) Mental Status- Oriented to own ability (0 pts). Total Bains Fall Scale indicates No Risk (0-24 pts). Assessment: 00:56 Reassessment: No changes from previously documented assessment. Patient is alert, st1 oriented x 3, equal unlabored respirations, skin warm/dry/pink. please see triage assessment. Pain: Complains of pain in Chest Pain does not radiate. Pain currently is 8 out of 10 on a pain scale. Pain began suddenly. 07:15 Reassessment: Patient appears in no apparent distress at this time. No changes from ph previously documented assessment. Patient is alert, oriented x 3, equal unlabored respirations, skin warm/dry/pink. PT resting comfortably, at bedside, awaiting results of HS troponin and re-evaluation by ERP. 08:30 Reassessment: Patient appears in no apparent distress at this time. Patient and/or ph family updated on plan of care and expected duration. Pain level reassessed. Patient is alert, oriented x 3, equal unlabored respirations, skin warm/dry/pink. 09:30 Reassessment: Patient appears in no apparent distress at this time. Patient and/or ph family updated on plan of care and expected duration. Pain level reassessed. Patient is alert, oriented x 3, equal unlabored respirations, skin warm/dry/pink. 11:00 Reassessment: Patient appears in no apparent distress at this time. Patient and/or ph family updated on plan of care and expected duration. Pain level reassessed. Patient is alert, oriented x 3, equal unlabored respirations, skin warm/dry/pink. 11:52 Reassessment: Patient appears in no apparent distress at this time. Patient and/or ph family updated on plan of care and expected duration. Pain level reassessed. Patient is alert, oriented x 3, equal unlabored respirations, skin warm/dry/pink. Report called to MATT Jacobsen Patient denies pain at this time. Vital Signs: 00:39 BP 210 / 74; Pulse 74; Resp 20 S; Temp 98.8(TE); Pulse Ox 100% on R/A; Weight 58.97 kg as6 (R); Height 5 ft. 6 in. (167.64 cm); Pain 10/10; 01:03 Pulse 70; Resp 16; Pulse Ox 100% on R/A; st1 01:09 BP 154 / 66; st1 04:52 BP 138 / 64; Pulse 62; Resp 18; Pulse Ox 97% on R/A; sf1 06:00 BP 134 / 66; Pulse 60; Resp 16; Pulse Ox 95% on 2 lpm NC; st1 07:30 BP 146 / 64; Pulse 68; Resp 18; Pulse Ox 99% on R/A; ph 08:30 BP 159 / 78; Pulse 66; Resp 16; Pulse Ox 100% on R/A; ph 10:00 BP 142 / 70; Pulse 67; Resp 18; Pulse Ox 98% on R/A; ph 11:00 BP 149 / 78; Pulse 70; Resp 18; Temp 97.8; Pulse Ox 100% on R/A; ph 00:39 Body Mass Index 20.98 (58.97 kg, 167.64 cm) as6 ED Course: 00:34 Patient arrived in ED. wm 00:35 Freddie Rees MD is Attending Physician. kdr 00:41 Triage completed. as6 00:42 Arm band placed on. as6 00:45 Kaleigh Nroton RN is Primary Nurse. st1 00:55 Troponin HS Sent. st1 00:55 LFT's Sent. st1 00:55 CBC with Diff Sent. st1 00:55 Basic Metabolic Panel Sent. st1 00:56 Patient has correct armband on for positive identification. Placed in gown. Bed in low st1 position. Call light in reach. Side rails up X 1. equalizer operator on. Pulse ox on. NIBP on. Door closed. Warm blanket given. Verbal reassurance given. Head of bed elevated. 00:56 No provider procedures requiring assistance completed. Inserted saline lock: 20 gauge st1 in left antecubital area, using aseptic technique. Oxygen administration via nasal cannula \\T\\ 2L/min. 01:07 Basic Metabolic Panel Sent. sf1 01:07 LFT's Sent. sf1 01:07 Troponin HS Sent. sf1 01:17 XRAY Chest (1 view) In Process Unspecified. EDMS 07:24 Attending Physician role handed off by Freddie Rees MD ms3 07:24 Ivan Conway DO is Attending Physician. ms3 07:38 Nestor Callahan MD is Hospitalizing Provider. ms3 11:54 Patient admitted, IV remains in place. ph Administered Medications: 02:02 Drug: fentaNYL (PF) 25 mcg Route: IVP; Site: left antecubital; sf1 02:02 Drug: Zofran (Ondansetron) 4 mg Route: IVP; Site: left antecubital; sf1 08:00 Drug: Aspirin Chewable Tablet 324 mg Route: PO; ph 11:55 Follow up: Response: No adverse reaction ph Outcome: 07:39 Decision to Hospitalize by Provider. ms3 11:54 Admitted to Tele accompanied by nurse, family with patient, via wheelchair, room 211, ph Report called to Ann-Marie GUTIERREZ 11:54 Condition: good 11:54 Instructed on the need for admit. 11:59 Patient left the ED. ph Signatures: Dispatcher [employer] EDMS Freddie Rees MD MD kdr Hall, Patricia RN RN ph Ivan Conway DO DO ms3 Ofelia Araiza Virgil Lange RN RN as6 Kaleigh Norton, RN RN st1 Farideh Marshall RN RN sf1
[2021-09-26] MEDS ORDERED: ASPIRIN EC 81 MG TAB PO ONE (07:52)
[2021-09-26] MEDS ORDERED: ASPIRIN 81 MG CHEWABLE TABLET ONE (08:03)
--- NOTE | 2021-09-26 09:33 | P.HP ---
Certification for Inpatient Patient admitted to: Observation With expected LOS: <2 Midnights Practitioner: I am a practitioner with admitting privileges, knowledge of patient current condition, hospital course, and medical plan of care. Services: Services provided to patient in accordance with Admission requirements found in Title 42 Section 412.3 of the Code of Federal Regulations Patient History Date of Service: 09/26/21 Reason for admission: Chest pain, NSTEMI History of Present Illness: 86-year-old female, PMH CAD s/p CABG, s/p aortic valve replacement, pacemaker, hypothyroidism Presents to ED due to severe substernal pressure/squeezing sensation. Episode began 11 PM last night and lasted up to about an hour after arrival to the ER, then slowly subsided after. Currently without any chest pain. States she has been in her usual state of health until this episode, it was very uncomfortable and she was unable to sleep. She has been taking her medications as prescribed, without any recent changes in her medications. She denies any shortness of breath, no nausea/vomiting, no diarrhea, no fever/chills. In the ED, troponin was noted to be mildly elevated, labs otherwise rather unremarkable. Given her significant risk factors/history and mildly elevated troponin, patient will be brought in under observation for ACS rule out. Allergies benazepril [From Lotensin] Allergy (Verified 09/26/21 15:04) Hives/Rash codeine Allergy (Verified 09/26/21 15:04) Shortness of breath dexamethasone Allergy (Verified 09/26/21 15:04) Hives/Rash iodine Allergy (Verified 09/26/21 15:04) Hives/Rash meperidine [From Demerol] Allergy (Verified 09/26/21 15:04) Shortness of breath morphine Allergy (Verified 09/26/21 15:04) Shortness of breath Penicillins Allergy (Verified 09/26/21 15:04) Hives/Rash zolpidem Allergy (Verified 09/26/21 15:04) Hives/Rash Home Medications: Carvedilol [Coreg] 1 tab PO DAILY 09/26/21 Clopidogrel Bisulfate [Plavix] 75 mg PO DAILY 09/26/21 Levothyroxine Sodium [Levothyroxine] 75 mcg PO DAILY 09/26/21 Pantoprazole [Protonix Tab*] 1 tab PO BID 09/26/21 Simvastatin 1 tab PO DAILY 09/26/21 - Past Medical/Surgical History -: CAD s/p CABG -: Hypothyroidism -: h/o breast cancer, now s/p mastectomy -: CABG -: Cholecystectomy -: Partial mastectomy -: Pacemaker - Family History Family History: Reviewed- Non-Contributory - Social History Smoking Status: Never smoker Alcohol use: No Place of Residence: Home Review of Systems 10-point ROS is otherwise unremarkable Physical Examination - Physical Exam General: Alert, In no apparent distress, Oriented x3 HEENT: Mucous membr. moist/pink, Sclerae nonicteric Neck: Supple, No LAD Respiratory: Clear to auscultation bilaterally, Normal air movement Cardiovascular: No edema, Regular rate/rhythm, Systolic murmur Gastrointestinal: Soft and benign, Non-distended, No tenderness Musculoskeletal: No erythema, No tenderness Integumentary: No rashes, No significant lesion Neurological: Normal speech, Normal strength at 5/5 x4 extr, Normal affect - Studies Laboratory Data (last 24 hrs) 09/26/21 00:50: WBC 8.30, Hgb 13.2, Hct 39.4, Plt Count 238 09/26/21 00:50: Sodium 134 L, Potassium 4.4, BUN 18, Creatinine 0.81, Glucose 104, Total Bilirubin 0.5, AST 37, ALT 24, Alkaline Phosphatase 28 L Assessment and Plan - Advance Directives Does patient have a Living Will: No Does patient have a Durable POA for Healthcare: No Physician Review Additional Text: Problem List NSTEMI CAD s/p CABG pacemaker s/p aortic valve replacement h/o breast cancer s/p mastectomy GERD hypothyroidism troponin mildly elevated on initial check significant cardiac history, and reporting substernal pressure, couldn't sleep given aspirin in ED start lovenox beta mable, statin cardiology consulted trend trop Echocardiogram, stress test VTE: lovenox Code: DNR Dispo: home, in next 24-48hrs Time Spent Managing Pts Care (In Minutes): 70
[2021-09-26] MEDS: ENOXAPARIN 60 MG/0.6 ML SQ SCH ×2 (10:00→22:43)
[2021-09-26] MEDS ORDERED: REGADENOSON 0.4 MG/5 ML SYR IV ONE (11:27)
[2021-09-26 12:44] VITALS: BMI 20.9
--- NOTE | 2021-09-26 13:01 | RAD REPORT ---
EXAM DESCRIPTION: RAD - Chest Single View - 09/26/2021 1:17 am CLINICAL HISTORY: 86 years, Female, CHEST PAIN COMPARISON: None. FINDINGS: Single view of the chest was obtained portable. No prior films are available for compariso n. The heart is in the upper normal size. Sternotomy wires and metallic ring within the aortic valv e corresponding to previous valvular replacement. There is a dual-lead pacemaker via right subclavian . The pulmonary vasculature is normal distribution. Minimal increased linear densities within the rig ht and left lung base could correspond to atelectasis and/or infiltrate. No significant pleural effus ions. The rest of the soft tissue and bony structures demonstrate to be unremarkable. IMPRESSION: Minimal increased linear densities within the right and left lung base could correspond to atelectasis and/or infiltrate. Status post aortic valve replacement. Pacemaker in good position. Electronically signed by: Eber Ashley MD 09/26/2021 1:52 AM CDT Due to temporary technical issues with the PACS/Fluency reporting system, reports are being signed by the in House radiologists without review as a courtesy to insure prompt reporting. The interpreting radiolog ist is fully responsible for the content of the report.
[2021-09-26 15:05] VITALS: O2SAT 96
[2021-09-26] MEDS ORDERED: carvediloL 6.25 MG TAB PO SCH (18:00)
--- NOTE | 2021-09-26 20:33 | CON ---
Date of Consultation: 09/26/2021 Reason For Consultation: Elevated troponin. History Of Present Illness: This is an elderly female, known history of coronary artery disease, sta tus post 3-vessel CABG in 2009, aortic valve replacement, aortic root replacement for aortic aneurysm , comes in because of chest pressure. She was resting at home and had retrosternal chest pressure th at radiates to the left upper extremity and has been completely chest pain free since. Denies having any active chest pain or shortness of breath or any other complaints at the present time. Past Medical History: Coronary artery disease; thoracic aortic aneurysm, status post surgical repair ; history of hypothyroidism; acid reflux; breast cancer. Medications: Refer to reconciliation sheet for detailed list. Allergies: LONG LIST OF ALLERGIES WAS REVIEWED. Family History: No premature coronary artery disease or cancer. Social History: Does not smoke or drink. Does not use any drugs. Review of Systems: All systems reviewed are negative except as mentioned in the HPI. Physical Examination: Vital Signs: Reviewed. Head and Neck: Pupils are equal and reactive to light. Intact eye movements. No JVD. No cervical lymphadenopathy. Neck is supple. Thyroid is not enlarged. Lungs: Clear to auscultation bilaterally. No rhonchi, rales, or crackles. No accessory muscle use. Heart: Irregular. No extra sounds. Abdomen: Soft, nontender. Bowel sounds positive. No organomegaly. No masses or hernia. No rigidi ty or rebound. Extremities: No clubbing or cyanosis. Intact pulses. Skin: No rashes. Neurologic: Alert, awake, oriented x3. No acute focal deficits appreciated. Investigations: Hemoglobin is 13.2. Troponin 125, then 154. Creatinine was 0.81. Assessment And Recommendations: Chest pain with elevated troponin, suggestive of non-ST elevation my ocardial infarction. Agree with Lovenox and aspirin, and please do a Lexiscan nuclear stress test. The patient claims that this was canceled today because of shoulder pain. Also, the patient to be pr emedicated prior to the stress test. If stress test is abnormal, then we will plan for coronary ron ogram. Please obtain an echocardiogram if not already done and use nitroglycerin and morphine for pa in control. SR/MODL Voice ID: [id number] Report ID: [id number]
[2021-09-26] MEDS ORDERED: ATORVASTATIN 40 MG TAB PO SCH (21:00)
--- NOTE | 2021-09-26 23:12 | P.DS ---
Admission Date: 09/26/21 Discharge Date: 09/26/21 Discharge Condition: FAIR Reason for Admission: Chest pain, NSTEMI Procedures: Chest x-ray FINDINGS: Single view of the chest was obtained portable. No prior films are available for comparison. The heart is in the upper normal size. Sternotomy wires and metallic ring within the aortic valve corresponding to previous valvular replacement. There is a dual-lead pacemaker via right subclavian. The pulmonary vasculature is normal distribution. Minimal increased linear densities within the right and left lung base could correspond to atelectasis and/or infiltrate. No significant pleural effusions. The rest of the soft tissue and bony structures demonstrate to be unremarkable. IMPRESSION: Minimal increased linear densities within the right and left lung base could correspond to atelectasis and/or infiltrate. Status post aortic valve replacement. Pacemaker in good position. Problem list NSTEMI CAD s/p CABG pacemaker s/p aortic valve replacement h/o breast cancer s/p mastectomy GERD hypothyroidism Brief History of Present Illness: 86-year-old female, PMH CAD s/p CABG, s/p aortic valve replacement, pacemaker, hypothyroidism Presents to ED due to severe substernal pressure/squeezing sensation. Episode began 11 PM last night and lasted up to about an hour after arrival to the ER, then slowly subsided after. Currently without any chest pain. States she has been in her usual state of health until this episode, it was very uncomfortable and she was unable to sleep. She has been taking her medications as prescribed, without any recent changes in her medications. She denies any shortness of breath, no nausea/vomiting, no diarrhea, no fever/chills. In the ED, troponin was noted to be mildly elevated, labs otherwise rather unremarkable. Given her significant risk factors/history and mildly elevated troponin, patient will be brought in under observation for ACS rule out. Hospital Course: Patient was admitted, troponins were trended and were slowly trending upwards diagnosed with NSTEMI and treated with Lovenox, aspirin, statin. Patient was evaluated by cardiology who recommended echocardiogram, stress test. 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 Aldrich and therefore requested transfer to [facility]. she has accepted patient for further evaluation. Patient to be transferred this evening. Vital Signs/Physical Exam: Temp Pulse Resp BP Pulse Ox 98.7 F 68 19 173/73 H 93 09/26/21 20:00 09/26/21 20:00 09/26/21 20:00 09/26/21 20:00 09/26/21 20:00 General: Alert, In no apparent distress HEENT: Atraumatic, PERRLA, EOMI Neck: Supple, JVD not distended Respiratory: Clear to auscultation bilaterally, Normal air movement Cardiovascular: Regular rate/rhythm, Normal S1 S2 Gastrointestinal: Normal bowel sounds, No tenderness Musculoskeletal: No tenderness Integumentary: No rashes Neurological: Normal speech, Normal tone, Normal affect Lymphatics: No axilla or inguinal lymphadenopathy Laboratory Data at Discharge: WBC 8.30 K/uL (4.3-10.9) 09/26/21 00:50 Hgb 13.2 g/dL (12.0-15.0) 09/26/21 00:50 Hct 39.4 % (36.0-45.0) 09/26/21 00:50 Plt Count 238 K/uL (152-406) 09/26/21 00:50 Sodium 134 mmol/L (136-145) L 09/26/21 00:50 Potassium 4.4 mmol/L (3.5-5.1) 09/26/21 00:50 BUN 18 mg/dL (7-18) 09/26/21 00:50 Creatinine 0.81 mg/dL (0.55-1.3) 09/26/21 00:50 Glucose 104 mg/dL (74-106) 09/26/21 00:50 Total Bilirubin 0.5 mg/dL (0.2-1.0) 09/26/21 00:50 AST 37 U/L (15-37) 09/26/21 00:50 ALT 24 U/L (12-78) 09/26/21 00:50 Alkaline Phosphatase 28 U/L (45-117) L 09/26/21 00:50 Home Medications: Carvedilol [Coreg] 1 tab PO DAILY 09/26/21 Clopidogrel Bisulfate [Plavix] 75 mg PO DAILY 09/26/21 Levothyroxine Sodium [Levothyroxine] 75 mcg PO DAILY 09/26/21 Pantoprazole [Protonix Tab*] 1 tab PO BID 09/26/21 Simvastatin 1 tab PO DAILY 09/26/21 Physician Discharge Instructions: Continue with plan of care at [facility] Followup: CHRISTIAN ALDRICH [UNKNOWN] - Fernando Dewitt MD [Primary Care Provider] - Time spent managing pt's care (in minutes): 30
[2021-09-26 23:49] VITALS: BP 156/66; TEMP 98.1
[2021-09-27] MEDS ORDERED: ASPIRIN EC 81 MG TAB PO SCH (09:00)
--- NOTE | 2021-09-30 08:32 | EKG ---
Test Date: 2021-09-26 Test Time: 00:53:02 [place] Hand: MEASUREMENT RESULTS: Intervals: Rate: 71 [place]: 166 QRSD: 178 QT: 468 QTc: 508 [place]: P: 86 NV: 166 QRS: -64 T: 105 INTERPRETIVE STATEMENTS: Electronic ventricular pacemaker Compared to ECG 09/26/2021 00:52:30 No significant changes Electronically Signed On 09-30-21 08:23:57 CDT by Silviano Tobar
--- NOTE | 2021-09-30 08:32 | EKG ---
Test Date: 2021-09-26 Test Time: 00:52:30 Parts Processor: MEASUREMENT RESULTS: Intervals: Rate: 74 [place]: 168 QRSD: 178 QT: 462 QTc: 512 [place]: P: 89 [place]: 168 QRS: -64 T: 106 INTERPRETIVE STATEMENTS: Electronic ventricular pacemaker Compared to ECG 03/12/2018 06:50:10 Atrial-sensed ventricular-paced complex(es) or rhythm no longer present Electronically Signed On 09-30-21 08:23:58 CDT by Silviano Tobar
== END 2021-09-27 00:19 | disposition short-term general hospital (02) ==
LOC: ER 00:28 → ERHOLD 09:47 → 2ND 11:54
PROVIDERS: ADMIT Hospitalist; ATTEND Hospitalist
DX: I21.4 Non-ST elevation (NSTEMI) myocardial infarction (principal); I25.10 Atherosclerotic heart disease of native coronary artery without angina pectoris; K21.9 Gastro-esophageal reflux disease without esophagitis; E03.9 Hypothyroidism, unspecified; M25.519 Pain in unspecified shoulder; E78.00 Pure hypercholesterolemia, unspecified; E78.5 Hyperlipidemia, unspecified; Z66 Do not resuscitate; Z95.0 Presence of cardiac pacemaker; Z95.1 Presence of aortocoronary bypass graft; Z95.2 Presence of prosthetic heart valve; Z79.02 Long term (current) use of antithrombotics/antiplatelets; Z79.899 Other long term (current) drug therapy; Z88.6 Allergy status to analgesic agent; Z88.8 Allergy status to other drugs, medicaments and biological substances; Z88.0 Allergy status to penicillin; Z91.041 Radiographic dye allergy status; Z85.3 Personal history of malignant neoplasm of breast; Z90.10 Acquired absence of unspecified breast and nipple; Z90.49 Acquired absence of other specified parts of digestive tract; Z20.822 Contact with and (suspected) exposure to COVID-19
CPT/HCPCS: 93005 ×2; 85025; 80048; 36415; 80076; 84484 ×4; 71045; 94760 ×2; 96375; 96374; 99285; U0003; J3010; J1650; J2405; G0378 ×2; J2785

== ENCOUNTER 2023-03-01 20:40 | Emergency (ER) | payer OTHER, BC ==
--- OUTSIDE RECORDS SUMMARY | 2023-03-01 20:44 | XMS REPORT | Continuity of Care Document ---
:1935 Author Organization [facility] t Address [address] [facility]. [address] [place] [address] Care Team Providers Name Role Phone Eliseo Her Attending Clinician Unavailable Christian Aldrich Attending Clinician Unavailable CANDIDO LE Attending Clinician Unavailable Eliseo Her Admitting Clinician Unavailable CANDIDO LE Admitting Clinician Unavailable Payers Payer Name Policy Type Policy Number Effective Date Expiration Date S ource Problems Condition Condition Condition Status Onset Resolution Last Treating Co mments Source Name Details Category Date Date Treatment Clinician Date Elevated Elevated Disease [facility] Demand Demand Disease Recurre [facility] ischemia ischemia nce 03-12 [facility] Medical myocardium myocardium 00 Ce nter GIB GIB Disease Active [facility] (gastroint (gastroint 03-12 [facility] estinal estinal 00:00: Medical bleeding) bleeding) 00 Cent er Acute Acute Disease Active [facility] blood loss blood loss 03-12 [facility] anemia anemia 00:00: Medical 00 Center Syncope Syncope Disease Active [facility] 03[facility] Allergies, Adverse Reactions, Alerts Allergy Allergy Status Severity Reaction(s) Onset Inactive Treating Comm ents Source Name Type Date Date Clinician Penicill DA Active U UNKNOWN [facility] 09[facility]: [address] iodine DA Active U 2020-0 [facility] 11-30 00:00: [place] [facility] morphine DA Active U 2020-0 [facility] 11-30 00:00: [address] codeine DA Active U 1-0 [facility] 11-30 00:00: [address] dexameth DA Active U 2020-0 [facility] asone 11-30 00:00: [address] benazepr DA Active U 2020-0 [facility] il 11-30 00:00: [address] zolpidem DA Active U 2020-0 [facility] 11-30 00:00: [address] meperidi DA Active U 2020-0 [facility] ne 11-30 00:00: [address] iodine DA Active U UNKNOWN 2020-0 [facility] 11-30 00:00: [address] morphine DA Active U UNKNOWN 2020-0 [facility] 11-30 00:00: [address] codeine DA Active U UNKNOWN 2020-0 [facility] 11-30 00:00: [address] dexameth DA Active U UNKNOWN 2020-0 [facility] asone 11-30 00:00: [address] benazepr DA Active U UNKNOWN 2020-0 [facility] il 11-30 00:00: [address] zolpidem DA Active U UNKNOWN 2020-0 [facility] 11-30 00:00: [address] Center meperidi DA Active U UNKNOWN 2020-0 [facility] ne 11-30 00:00: [address] Codeine Propensi Active Anaphylaxis 2017-[address] [facility] to 03-12 [facility] adverse 00:00: Medical reaction 00 Center s Meperidi Propensi Active Anaphylaxis 2018-[address] [facility] ty to 03-12 [facility] adverse 00:00: Medical reaction 00 Center s Dexameth Propensi Active 2017- [facility] asone ty to 03-12 [facility] adverse 00:00: Medical reaction 00 Center s Iodinate Propensi Active 2018- [facility] to 03-12 [facility] Contrast adverse 00:00: Medical Media reaction 00 Center s Benazepr Propensi Active 2017-[address] [facility] ty to 03-12 [facility] adverse 00:00: Medical reaction 00 Center s Morphine Propensi Active Anaphylaxis 2018- [facility] ty to 03-12 [facility] adverse 00:00: Medical reaction 00 Center s Penicill Propensi Active [facility] to 03-12 [facility] adverse 00:00: Medical reaction 00 Center s Zolpidem Propensi Active [facility] ty to 03-12 [facility] adverse 00:00: Medical reaction 00 Center s Social History Social Habit Start Date Stop Date Quantity Comments Source Alcohol intake 2018-03-16 2018-03-[address] [facility] 00:00:00 00:00:00 non-drinker of Medical Ce nter alcohol (finding) Tobacco use and 2018-03-12 2018-03-12 Smokeless [address] [facility]00 non-user Medical Center Sex Assigned At [address] [facility] 00:00:00 00:[facility]:00 Medical Center Smoking Status Start Date Stop Date Source Never smoked tobacco [facility] s [facility] Medications Ordered Filled Start Stop Current Ordering Indication Dosage Frequency Signature Comments Components Source Medication Medication Date Date Medication? Clinician (SIG) Name Name simvastatin Yes 20mg QD Take [address] (ZOCOR) 20 03-13 by mouth [facility] MG tablet 18:25: nightly. Medi hetal 28 Center carvedilol Yes 25mg Take [address] (COREG) 25 03-13 by mouth 2 Lisa es MG tablet 18:25: (two) Medical 28 times Center daily with breakfast and dinner. clopidogrel Yes 75mg [id number] Take [address] (PLAVIX) 75 03-13 [id number] by mouth 3 [facility] mg tablet 18:25: 3W (three) Medic al 28 times a Center week MWF . levothyroxi Yes 75ug Take [address] ne 9-01 mcg by [facility] (SYNTHROID, 18:25: mouth Medic al LEVOTHROID) 28 Every Center 75 MCG morning on tablet an empty stomach. pantoprazol Yes 40mg Q.5D Take [address] e 9-01 tablet (40 [facility] (PROTONIX) 00:00: mg total) Me dical 40 MG 00 by mouth 2 Center tablet (two) times daily. Procedures Procedure Date / Time Performed Performing Clinician [facility] nabor [id number] 2021-09-28 00:00:00 [facility] [id number] 2021-09-28 00:00:00 [facility] [id number] 2021-09-28 00:00:00 [facility] [id number] 2021-09-28 00:00:00 [facility] [id number] 2021-09-28 00:00:00 [facility] Encounters Start End Encounter Admission Attending Care Care Encounter Source Date/Time Date/Time Type Type Clinicians Facility Department ID 2021-09-27 2021-09-29 Inpatient UR GUERRERO HerU TELE [id number] [facility] 01:35:00 14:53:[address] [facility] 2020-11-30 2020-11-30 Outpatient TIMA Aldrich [facility] [id number] [facility] 14:19:40 14:19:[address] [facility] Results Test Description Test Time Test Comments Results Result Comments Source LIPID PROFILE (CORONARY RISK) 2021-09-28 10:00:00 Test Item Value Reference Range Interpretation Comme nts TRIGLYCERIDES (test code = TRIG) 71 MG/DL 150-199 L TRIGLYCERIDES REFERENCE RANGE:Normal: < 150 mg/dLBorderline High: 150-199 mg/dLHigh: 200- 499 mg/dLVery High: >=500 mg/ dL CHOLESTEROL (test code = CHOL) 140 MG/DL <200 HDL CHOLESTEROL (test code = 63 MG/DL 40-59 H HDL) LIPOPROTEIN LDL (test code = 41 MG/DL 0-99 N OPTIMAL.........<100 mg/dLNEAR LDL) OPTIMAL/ABOVE OPTIMAL........ .100-129 mg/dL BORDERLINE HIGH .........130-159 mg/dL HIGH..... ....160-189 mg/dL VERY HIGH...... ...>/= 190 mg/dL PROTHROMBIN [id number] 09:24:00 Test Item Value Reference Range Interpretation Comments PROTHROMBIN TIME 12.3 SECONDS 9.5-12.7 N PATIENT (test code = PTP) INTERNATIONAL NORMAL 1.1 0.86-1.14 N The INR is to be RATIO (test code = used only for INR) monitoring oral anticoagulantth erap y. INDICATION INR VALUE ---- ---- ---- -------1. Prophylaxis, de ep venous thrombos is, including high risk surgery. 2.0 - 3.0 2. Prophylaxis, deep venous thrombosis, hip surgery, treatm ent for deep venous thrombosis or pulmonary prevention of systemic emboli sm in patients wit h valvular heart disease, atrial fibrillation, tissue heart va lve, or acute myocar dial infarction. 2.0 - 3.0 3. Medical Scientific Officer al prosthesis hear t valves, recurre nt systemic emboli sm. 3.0 - 4.5 PTT [id number] 09:24:00 Test Item Value Reference Range Interpretation Comments PTT ACTIVATED (test code = APTT) 39.5 SECONDS 25.1-36.5 H COMPREHENSIVE METABOLIC [id number] 09:23:00 Test Item Value Reference Range Interpretation Comments SODIUM (test code 132 MMOL/L 137-145 L = NA) POTASSIUM (test 4.1 MMOL/L 3.5-5.1 N code = K) CHLORIDE (test 96 MMOL/L 98-107 L code = CL) CARBON DIOXIDE 28 MMOL/L 22-30 N (test code = CO2) ANION GAP (test 12 MMOL/L 14-24 L code = GAP) GLUCOSE (test 124 MG/DL 74-106 H code = GLU) BLOOD UREA 19 MG/DL 7-17 H NITROGEN (test code = BUN) GLOMERULAR > 60 Reporting units : FILTRATION RATE ml/min/1.73 m2 (Modified (test code = GFR) MDRD Formu la)Reference Range: > or = 6 0 ml/min/1.73 m2 CREATININE (test 0.60 MG/DL 0.52-1.04 N code = CREAT) TOTAL PROTEIN 8.7 G/DL 6.3-8.2 H [facility] Clinical Diagnostic (test code = has made us kemar re of PROT) newinformation regarding the potential i nterference ofEltrombopag ( a bone marrow stimulan t used to treatthrombocyt onmenia and aplastic anemia ) with specific assays on the Vitros 5600 of which Total Protein is one of thoseassays per formed in our lab.Wallace woodard testing perform ed at Ortho determined that Eltrombopag does interfere with Vitros Total Protein asfollowsEltrom bopag Interference fo r Vitros Product Total Protein:======= Eltrombopag Max Observed Av g. BiasConcentrati on Concentration Concentration== ==== 2.5 mg/dl 6.0 g/dl +0.41 +0.34 3.5 mg/dl 6.0 g /dl +0.50 +0.45 5 mg/dl 6 .0 g/dl +0.73 +0.65 2.5 mg/dl 8.0 g/dl +0.44 +0.4 1 3.5 mg/dl 8.0 g/dl +0.55 +0.52 5 mg/dl 8.0 g/dl +0.86 +0.77 ALBUMIN (test 4.2 G/DL 3.5-5.0 N code = ALB) CALCIUM (test 9.8 MG/DL 8.4-10.2 N code = CA) BILIRUBIN TOTAL 0.9 MG/DL 0.2-1.3 Eltrombopag Interference (test code = for Vitros Prod uct TBil, BILT) BuBc: Assa y Eltrombopag Ofelia lyte/ Max Observed Avg. B ias Concentration C oncentration Concentration== ====TBil 7mg/dl TBil/ 1. 2mg/dl +0.23mg.dl +0.2 0mg/dlBuBc 3.5mg/dl Bu/0.8 mg/dl +0.25mg/dl +0.2 4mg/dlBuBc 7 mg/dl Bu/14.2mg /dl +0.38mg/dl +0.2 5mg/dlBuBc 5mg/dl Bc/0mg/d l +0.25mg/dl +0.15mg/dlBuBc 3.5mg/dl Bc/2.8mg/dl +0. 25mg/dl +0.23mg/dl SGOT/AST (test 146 UNITS/L 14-36 H code = AST) SGPT/ALT (test 119 UNITS/L 0-34 H code = ALT) ALKALINE 68 UNITS/L 38-126 PHOSPHATASE (test code = ALKP) UNABLE TO DRAW BLOOD, REASON: PT IN RESTROOMNOTIFIED PATIENT CARE STAFF: CHIN DAS 09/28/21 AT 0603 BY Flora Tejada W/AUTO [id number] 09:08:00 Test Item Value Reference Range Interpretation Comments WHITE BLOOD CELL (test code = 8.0 K/MM3 3.8-9.8 N WBC) RED BLOOD CELL (test code = 4.13 M/MM3 3.58-4.97 N RBC) HEMOGLOBIN (test code = HGB) 13.0 G/DL 11.2-14.9 N HEMATOCRIT (test code = HCT) 38.9 % 33.2-43.5 N MEAN CELL VOLUME (test code = 94 fL 80.7-99.1 N MCV) MEAN CELL HGB (test code = MCH) 31.5 pg 27.0-34.1 N MEAN CELL HGB CONCETRATION 33.4 % 32.2-35.7 N (test code = MCHC) RED CELL DISTRIBUTION WIDTH 12.3 % 12.1-15.2 N (test code = RDW) PLATELET COUNT (test code = 243 K/MM3 129-368 N PLT) MEAN PLATELET VOLUME (test code 10.0 fl 7.4-10.4 N = MPV) NEUTROPHIL % (test code = NT%) 72.7 % 43-75 N IMMATURE GRANULOCYTE % (test 0.4 % 0.0-2.0 N code = IG%) LYMPHOCYTE % (test code = LY%) 14.2 % 14-44 N MONOCYTE % (test code = MO%) 10.4 % 4-13 N EOSINOPHIL % (test code = EO%) 1.6 % 0-6 N BASOPHIL % (test code = BA%) 0.7 % 0-2 N NUCLEATED RBC % (test code = 0.0 % 0-1.0 N NRBC%) NEUTROPHIL # (test code = NT#) 5.84 K/mm3 2.0-7.6 N IMMATURE GRANULOCYTE # (test 0.03 x10 3/uL 0-0.03 N code = IG#) LYMPHOCYTE # (test code = LY#) 1.14 K/mm3 1.0-3.8 N MONOCYTE # (test code = MO#) 0.84 K/mm3 0.1-0.8 H EOSINOPHIL # (test code = EO#) 0.13 K/mm3 0.0-0.2 N BASOPHIL # (test code = BA#) 0.06 K/mm3 0.0-0.2 N NUCLEATED RBC # (test code = 0.00 K/mm3 0.0-0.1 N NRBC#) UNABLE TO DRAW BLOOD, REASON: PT IN RESTROOMNOTIFIED PATIENT CARE STAFF: CHIN DAS 09/28/21 AT 0604 BY Frances Tejada Asymptomatic IH [id number] 07:39:00 Test Item Value Reference Range Interpretation Comments COVID 19 NEGATIVE Negative "Negative resul ts from Asymptomatic IH AG patients with symptom (test code = onset beyondfiv e days, COVNONPUIAG) should be treat ed as presumptive, andconfirmation with a molecular assay [...] amount of virus (antigen) in the sample." [id number] 20:10:00 Test Item Value Reference Range Interpretation Comments TROPONIN-I (test code = TROPI) 0.026 NG/ML 0.012-0.033 N - XR SHOULDER 2+V [id number] 15:54:[address] [facility] [place] [place] [facility] KAUR KINSEY : 1935 Sex: F Patient Name: KAUR KINSEY Unit No: [id number] EXAMS: CPT CODE: [id number] XR SHOULDER 2+V [place] [id number] EXAM: - XR SHOULDER 2+V RT CLINICAL HISTORY: R arm pain COMPARISON: None available. TECHNIQUE: AP views in internal and external rotation LOCATION: U19 FINDINGS: Bones: Anatomic alignment. No displaced fracture or dislocation identified. Normal marrow density. Joint spaces: Mild glenohumeral and acromioclavicular joint degenerative changes noted. No periarticular erosions. Soft tissues: Unremarkable. IMPRESSION: No acute osseous findings. at 1554 Reported and signed by: Duarte Palm MD CC: Christian Aldrich MD; Eliseo Her MD;Radha Mg MD Technologist: Araseli Espinal (RT)(R) Transcrpt Date/Tm/Trnsp: 09/27/2021 (6452) Michael.JW22 Orig Print D/T: S: 09/27/2021 (5326) JOEY [place] NAME: KAUR KINSEY [address] [place] PHYS: Radha Chacon MD [address] [address] : 1935 AGE: 86 SEX: F : [id number] PHONE #: [phone] EXAM DATE: 09/27/2021 STATUS: ADM IN FAX #: [phone] RADIOLOGY NO: PAGE 1 Signed [id number] 15:14:00 Test Item Value Reference Range Interpretation Comments TROPONIN-I (test code = TROPI) 0.025 NG/ML 0.012-0.033 COMPREHENSIVE METABOLIC [id number] 11:14:00 Test Item Value Reference Range Interpretation Comments SODIUM (test code 134 MMOL/L 137-145 L = NA) POTASSIUM (test 4.5 MMOL/L 3.5-5.1 N code = K) CHLORIDE (test 99 MMOL/L 98-107 N code = CL) CARBON DIOXIDE 29 MMOL/L 22-30 N (test code = CO2) ANION GAP (test 11 MMOL/L 14-24 L code = GAP) GLUCOSE (test 119 MG/DL 74-106 H code = GLU) BLOOD UREA 19 MG/DL 7-17 H NITROGEN (test code = BUN) GLOMERULAR > 60 Reporting units : FILTRATION RATE ml/min/1.73 m2 (Modified (test code = GFR) MDRD Formu la)Reference Range: > or = 6 0 ml/min/1.73 m2 CREATININE (test 0.80 MG/DL 0.52-1.04 N code = CREAT) TOTAL PROTEIN 8.3 G/DL 6.3-8.2 H [facility] Clinical Diagnostic (test code = has made us kemar re of PROT) newinformation regarding the potential i nterference ofEltrombopag ( a bone marrow stimulan t used to treatthrombocyt onmenia and aplastic anemia ) with specific assays on the Curbed.coms 5600 of which Total Protein is one of thoseassays per formed in our lab.Anna Mariee vance testing perform ed at Ortho determined that Eltrombopag does interfere with Vitros Total Protein asfollowsEltrom bopag Interference fo r Vitros Product Total Protein:======= Eltrombopag Max Observed Av g. BiasConcentrati on Concentration Concentration== ==== 2.5 mg/dl 6.0 g/dl +0.41 +0.34 3.5 mg/dl 6.0 g /dl +0.50 +0.45 5 mg/dl 6 .0 g/dl +0.73 +0.65 2.5 mg/dl 8.0 g/dl +0.44 +0.4 1 3.5 mg/dl 8.0 g/dl +0.55 +0.52 5 mg/dl 8.0 g/dl +0.86 +0.77 ALBUMIN (test 4.0 G/DL 3.5-5.0 N code = ALB) CALCIUM (test 9.9 MG/DL 8.4-10.2 N code = CA) BILIRUBIN TOTAL 0.8 MG/DL 0.2-1.3 N Eltrombopag Interference (test code = for Vitros Prod uct TBil, BILT) BuBc: Assa y Eltrombopag Ofelia lyte/ Max Observed Avg. B ias Concentration C oncentration Concentration== ====TBil 7mg/dl TBil/ 1. 2mg/dl +0.23mg.dl +0.2 0mg/dlBuBc 3.5mg/dl Bu/0.8 mg/dl +0.25mg/dl +0.2 4mg/dlBuBc 7 mg/dl Bu/14.2mg /dl +0.38mg/dl +0.2 5mg/dlBuBc 5mg/dl Bc/0mg/d l +0.25mg/dl +0.15mg/dlBuBc 3.5mg/dl Bc/2.8mg/dl +0. 25mg/dl +0.23mg/dl SGOT/AST (test 130 UNITS/L 14-36 H code = AST) SGPT/ALT (test 90 UNITS/L 0-34 H code = ALT) ALKALINE 59 UNITS/L 38-126 N PHOSPHATASE (test code = ALKP) CBC W/AUTO [id number] 10:55:00 Test Item Value Reference Range Interpretation Comments WHITE BLOOD CELL (test code = 7.7 K/MM3 3.8-9.8 N WBC) RED BLOOD CELL (test code = 4.17 M/MM3 3.58-4.97 N RBC) HEMOGLOBIN (test code = HGB) 12.9 G/DL 11.2-14.9 N HEMATOCRIT (test code = HCT) 39.6 % 33.2-43.5 N MEAN CELL VOLUME (test code = 95 fL 80.7-99.1 N MCV) MEAN CELL HGB (test code = MCH) 30.9 pg 27.0-34.1 N MEAN CELL HGB CONCETRATION 32.6 % 32.2-35.7 N (test code = MCHC) RED CELL DISTRIBUTION WIDTH 12.4 % 12.1-15.2 N (test code = RDW) PLATELET COUNT (test code = 220 K/MM3 129-368 N PLT) MEAN PLATELET VOLUME (test code 10.4 fl 7.4-10.4 N = MPV) NEUTROPHIL % (test code = NT%) 74.2 % 43-75 N IMMATURE GRANULOCYTE % (test 0.3 % 0.0-2.0 N code = IG%) LYMPHOCYTE % (test code = LY%) 11.4 % 14-44 L MONOCYTE % (test code = MO%) 10.3 % 4-13 N EOSINOPHIL % (test code = EO%) 2.9 % 0-6 N BASOPHIL % (test code = BA%) 0.9 % 0-2 N NUCLEATED RBC % (test code = 0.0 % 0-1.0 N NRBC%) NEUTROPHIL # (test code = NT#) 5.72 K/mm3 2.0-7.6 N IMMATURE GRANULOCYTE # (test 0.02 x10 3/uL 0-0.03 N code = IG#) LYMPHOCYTE # (test code = LY#) 0.88 K/mm3 1.0-3.8 L MONOCYTE # (test code = MO#) 0.79 K/mm3 0.1-0.8 N EOSINOPHIL # (test code = EO#) 0.22 K/mm3 0.0-0.2 H BASOPHIL # (test code = BA#) 0.07 K/mm3 0.0-0.2 N NUCLEATED RBC # (test code = 0.00 K/mm3 0.0-0.1 N NRBC#) GLYCOSYLATED HEMOGLOBIN [id number] 10:09:00 Test Item Value Reference Range Interpretation Comments GLYCOSYLATED 5.3 % 4.8-5.9 N Any condition t hat HEMOGLOBIN (HA1C) shortens e rythocyte (test code = survival or dec reasesmean GLYHGB) erythrocyte age (e.g., recovery from a cute blood loss,hemolytic anemia) will falsely lo wer HGBA1c resultsregardle ss of the method used. HG BA1c results from zi rouse HbSS, HbCC, and HbSc must be interpreted with cautiongiven th e pathological pr ocesses, including anemia,increase d red cell turnover, trans fusion requirements, thatadversely i mpact HGBA1c as a mar ker of long-term glycemiccontrol . Alternative for ms of testing such as fructosaminesho uld be considered for these patients. MEAN BLOOD GLUCOSE 105 MG/DL 70-110 N (test code = MBG) PATIENT REFUSE THE BLOOD DRAW. NOTIFIED PATIENT CARE STAFF:XOCHITL GUTIERREZ ON 09/27/21 AT 0641 BY [id number] PROFILE (CORONARY RISK)2021-09-27 10:06:00 Test Item Value Reference Range Interpretation Comments TRIGLYCERIDES (test 69 MG/DL 150-199 L TRIGLYCE RIDES code = TRIG) REFERENCE RANGE:Normal: < 150 mg/dLBorderline High: 150-199 mg/dLHi gh: 200-499 mg/dLVe ry High: >=500 mg/ dL CHOLESTEROL (test code 129 MG/DL <200 = CHOL) HDL CHOLESTEROL (test 57 MG/DL 40-59 N code = HDL) LIPOPROTEIN LDL (test 42 MG/DL 0-99 N OPTIM AL.........<100 code = LDL) mg/dLNEAR OPTIMAL/ABOVE OPTIMAL........ .100-12 9 mg/dL BORDERL INE HIGH.........13 0-159 mg/dL HIGH.........16 0-189 mg/dL VERY HIGH.........>/ = 190 mg/dL PATIENT REFUSE THE BLOOD DRAW. NOTIFIED PATIENT CARE STAFF:XOCHITL GUTIERREZ ON 09/27/21 AT 0642 BY [id number] STIMULATING [id number] 10:06:00 Test Item Value Reference Range Interpretation Comments THYROID STIMULATING 3.530 MIU/L 0.465-4.68 N Please b e aware that HORMONE (test code = bias re sults for TSH TSH) may occur forpa tient who are taking Biotin suppleme nts. PATIENT REFUSE THE BLOOD DRAW. NOTIFIED PATIENT CARE STAFF:XOCHITL GUTIERREZ ON 09/27/21 AT 0642 BY [id number] 10:06:00 Test Item Value Reference Range Interpretation Comments TROPONIN-I (test code = TROPI) 0.028 NG/ML 0.012-0.033 N PATIENT REFUSE THE BLOOD DRAW. NOTIFIED PATIENT CARE STAFF:XOCHITL GUTIERREZ ON 09/27/21 AT 0642 BY [id number] METABOLIC [id number] 09:34:00 Test Item Value Reference Range Interpretation [...] 8.4-10.2 N CA) LIPID PROFILE (CORONARY RISK)2020-12-01 09:34:00 Test Item Value Reference Range Interpretation Comments TRIGLYCERIDES (test 123 MG/DL TRIGLYCE RIDES code = TRIG) REFERENCE RANGE:Normal: < 150 mg/dLBorderline High: 150-199 mg/dLHi gh: 200-499 mg/dLVe ry High: >=500 mg/ dL CHOLESTEROL (test code 147 MG/DL <200 = CHOL) HDL CHOLESTEROL (test 60 MG/DL 40-59 H code = HDL) LIPOPROTEIN LDL (test 50 MG/DL 0-99 N OPTIM AL.........<100 code = LDL) mg/dLNEAR OPTIMAL/ABOVE OPTIMAL........ .100-12 9 mg/dL BORDER LINE HIGH.........13 0-159 mg/dL HIGH.........16 0-189 mg/dL VERY HIGH.........>/ = 190 mg/dL [id number] 09:34:00 Test Item Value Reference Range Interpretation Comments MAGNESIUM (test code = MAG) 1.9 MG/DL 1.6-2.3 N COVID 19 Asymptomatic IH [id number] 09:23:00 Test Item Value Reference Range Interpretation Comments COVID 19 NEGATIVE Negative "Negative resul ts from Asymptomatic IH AG patients with symptom (test code = onset beyondfiv e days, COVNONPUIAG) should be treat ed as presumptive, andconfirmation with a molecular assay [...] virus (antigen) in the sample." BASIC METABOLIC [id number] 09:23:00 Test Item Value Reference Range Interpretation [...] LDL (test MG/DL 0-99 code = LDL) [id number] 09:23:00 Test Item Value Reference Range Interpretation Comments MAGNESIUM (test code = MAG) 1.9 MG/DL 1.6-2.3 N PROTHROMBIN [id number] 09:16:00 Test Item Value Reference Range Interpretation Comments PROTHROMBIN TIME PATIENT 12.9 9.5-12.7 H (test code = PTP) INTERNATIONAL NORMAL RATIO 1.2 0.86-1.14 H T he INR is to be used (test code = INR) only for m onitoring oral anticoagulantth erapy. INDICATION INR VALUE ------- ------- -----1. Prophylaxis, de ep venous thrombos is, including high risk surgery. 2.0 - 3.0 2. Prophylaxis, de ep venous thrombos is, hip surgery, treatm ent for deep venous thr ombosis or pulmonary prevention of s ystemic embolism in pat ients with valvular h eart disease, atrial fibrillation, t issue heart valve, or acute myocardial infa rction. 2.0 - 3.0 3. Mechanical pros thesis heart valves, recurrent syste olga embolism. 3.0 - 4.5 PTT [id number] 09:16:00 Test Item Value Reference Range Interpretation Comments PTT ACTIVATED (test code = APTT) 36.2 SECONDS 25.1-36.5 N CBC W/AUTO [id number] 08:51:00 Test Item Value Reference Range Interpretation [...] = 0.00 K/mm3 0.0-0.1 N NRBC#) BLOOD [id number] 00:00:00 Test Item Value Reference Range Interpretation Comments CULTURE (BEAKER) (test No growth in 5 days code = 1095) BLOOD [id number] 00:00:00 Test Item Value Reference Range Interpretation Comments CULTURE (BEAKER) (test No growth in 5 days code = 1095) RAD, HIP, 2 VIEWS, [id number] 17:39:00Reason for exam:->fallFINAL REPORT Two views of the right hip without comparison. IMPRESSION: There is no acute fracture or traumatic malalignment. Mild degenerative changes are seen at the soft tissuesare unremarkable. The sacrum is obscured by overlying bowel gas. Signed: Floyd Guthrie MDReport Verified Date/Time: 03/13/2018 17:39:18 Reading Location: [facility] [id number] Ortho Consult Reading Room [facility] signed by: FLOYD GUTHRIE M.D. on 03/13/2018 05:39 PMTROPONIN [id number] 14:03:00 Test Item Value Reference Range Interpretation [...] acute neurological disease, and persistent tachyarrhythmia.HEMOGLOBIN AND [id number] 13:20:00 Test Item Value Reference Range Interpretation Comments HEMOGLOBIN (BEAKER) (test code = 8.8 GM/DL 11.2-15.7 L 410) HEMATOCRIT (BEAKER) (test code = 25.7 % 34.1-44.9 L 411) HEMOGLOBIN [id number] 08:44:00 Test Item Value Reference Range Interpretation Comments HEMOGLOBIN A1C (BEAKER) (test code = 5.4 % 4.3-6.1 368) TROPONIN [id number] 07:07:00 Test Item Value Reference Range Interpretation Comments TROPONIN I (BEAKER) (test code = 0.24 ng/mL 0.00-0.03 397) Troponin I (TnI) levels [...] failure, acidosis, acute neurological disease, and persistent tachyarrhythmia.[id number] 05:24:00 Test Item Value Reference Range Interpretation Comments PHOSPHORUS (BEAKER) (test code = 2.6 mg/dL 2.3-4.7 604) [id number] 05:24:00 Test Item Value Reference Range Interpretation Comments MAGNESIUM (BEAKER) (test code = 2.1 mg/dL 1.6-2.6 627) BASIC METABOLIC [id number] 05:24:00 Test Item Value Reference Range Interpretation [...] NOT APPLICABLE FOR DIALYSIS PATIEN TS. LIPID [id number] 05:24:00 Test Item Value Reference Range Interpretation Comments TRIGLYCERIDES (BEAKER) (test code = 131 mg/dL 540) CHOLESTEROL (BEAKER) (test code = 105 mg/dL 631) HDL CHOLESTEROL (BEAKER) (test code 31 mg/dL = 976) LDL CHOLESTEROL CALCULATED (BEAKER) 48 mg/dL (test code = 633) Triglyceride Reference Range: Low Risk <150 Borderline 150-199 High Risk 200- 499 Very High Risk >=500Cholesterol Reference Range: Low Risk <200 Borderline 200-239 High Risk >240HDL Cholesterol Reference Range: Low Risk >=60 High Risk <40LDL Cholesterol Reference Range: Optimal <100 Near Optimal 100-129 Borderline 130-159 High 160-189 Very High >=190TSH/FREE T4 IF [id number] 05:20:00 Test Item Value Reference Range Interpretation Comments THYROID STIMULATING HORMONE 4.02 uIU/mL 0.35-4.94 (BEAKER) (test code = 772) CBC W/PLT COUNT & AUTO [id number] 04:52:00 Test Item Value Reference Range Interpretation [...] (BEAKER) (test code = 2801) HEMOGLOBIN AND [id number] 04:40:00 Test Item Value Reference Range Interpretation Comments HEMOGLOBIN (BEAKER) (test code = 8.8 GM/DL 11.2-15.7 L 410) HEMATOCRIT (BEAKER) (test code = 25.7 % 34.1-44.9 L 411) TROPONIN [id number] 00:53:00 Test Item Value Reference Range Interpretation [...] acute neurological disease, and persistent tachyarrhythmia.HEMOGLOBIN AND [id number] 00:09:00 Test Item Value Reference Range Interpretation Comments HEMOGLOBIN (BEAKER) (test code = 8.8 GM/DL 11.2-15.7 L 410) HEMATOCRIT (BEAKER) (test code = 26.3 % 34.1-44.9 L 411) URINALYSIS W/ REFLEX URINE [id number] 21:53:00 Test Item Value Reference Range Interpretation [...] = 516) SOURCE(BEAKER) (test code = 2795) [id number] 18:36:00 Test Item Value Reference Range Interpretation Comments FERRITIN (BEAKER) (test code = 361) 71 ng/mL 5-275 VITAMIN B12 AND [id number] 18:36:00 Test Item Value Reference Range Interpretation Comments VITAMIN B12 (BEAKER) (test code = 552 pg/mL 213-816 774) FOLATE (BEAKER) (test code = 362) 16.2 ng/mL >=7.0 TROPONIN [id number] 18:12:00 Test Item Value Reference Range Interpretation [...] H (test code = 2590) HEMOGLOBIN AND [id number] 17:39:00 Test Item Value Reference Range Interpretation Comments HEMOGLOBIN (BEAKER) (test code = 7.1 GM/DL 11.2-15.7 L 410) HEMATOCRIT (BEAKER) (test code = 21.4 % 34.1-44.9 L 411) RAD, CHEST, 1 VIEW, NON [id number] 16:19:00Post-intubationReason for exam:- >sobShould this be performed [...] bone scan can be obtained. Signed: Candy Adameepcielo Verified Date/Time: 03/12/2018 16:19:21 Reading Location: [facility] Radiology Reading Room [id number] 15:29:00 Test Item Value Reference Range Interpretation Comments PROCALCITONIN (BEAKER) (test code 0.10 ng/mL <0.05 H = 3036) SEPSIS RISK (ng/mL)Low: 0.05-0.50Intermediate: 0.51-2.00High: >=2.01B-TYPE NATRIURETIC FACTOR (BNP)2018-03-12 15:11:00 Test Item Value Reference Range Interpretation Comments B-TYPE NATRIURETIC PEPTIDE (BEAKER) 238 pg/mL 0-100 H (test code = 700) CREATINE KINASE (CK), TOTAL AND [id number] 15:10:00 Test Item Value Reference Range Interpretation Comments CREATINE KINASE TOTAL (BEAKER) 80 U/L 29-200 (test code = 380) CREATINE KINASE-MB (BEAKER) (test 3.1 ng/mL 0.0-6.6 code = 750) CREATINE KINASE-MB INDEX (BEAKER) 3.9 % (test code = 395) CK-MB Reference Range:<6.7 Normal6.7-10.0 Borderline>10.0 AbnormalTROPONIN [id number] 15:10:00 Test Item Value Reference Range Interpretation [...] failure, acidosis, acute neurological disease, and persistent tachyarrhythmia.KETONE, [id number] 15:08:00 Test Item Value Reference Range Interpretation Comments KETONES, BLOOD (BEAKER) (test code 0.6 mmol/L <0.4 H = 1103) COMPREHENSIVE METABOLIC [id number] 15:08:00 Test Item Value Reference Range Interpretation [...] S NOT APPLICABLE FOR DIALYSIS PATIEN TS. [id number] 15:03:00 Test Item Value Reference Range Interpretation Comments PHOSPHORUS (BEAKER) (test code = 3.0 mg/dL 2.3-4.7 604) [id number] 15:03:00 Test Item Value Reference Range Interpretation Comments MAGNESIUM (BEAKER) (test code = 1.5 mg/dL 1.6-2.6 L 627) LACTIC ACID, VENOUS, WHOLE [id number] 14:59:00 Test Item Value Reference Range Interpretation Comments LACTATE BLOOD VENOUS (2) (BEAKER) 1.2 mmol/L 0.5-2.2 (test code = 2872) Effective 11/14/2015: Units/Reference Range ChangeNew: 0.5-2.2 mmol/L Previous: 5- 20 mg/dLPROTHROMBIN [id number] 14:45:00 Test Item Value Reference Range Interpretation Comments PROTIME (BEAKER) (test code = 16.3 seconds 11.7-14.7 H 759) INR (BEAKER) (test code = 370) 1.3 <=5.9 RECOMMENDED COUMADIN/WARFARIN INR THERAPY RANGESSTANDARD DOSE: 2.0 - 3.0 Includes: PROPHYLAXIS for venous thrombosis, systemic embolization; TREATMENT for venous thrombosis and/or pulmonary embolus.HIGH RISK: Target INR is 2.5-3.5 for patients with mechanical heart valves.CBC W/PLT COUNT & AUTO [id number] 14:39:00 Test Item Value Reference Range Interpretation [...] PERCENT (BEAKER) (test code = 2801) POCT-GLUCOSE [id number] 13:22:00 Test Item Value Reference Range Interpretation Comments POC-GLUCOSE METER 119 mg/dL 70-110 H TESTED AT [facility] 6720 (BEAKER) (test code = ELISABETH MEDELL[place] 1538) [address] Notes Date/Time Note Provider Source 2021-09-29 07:02:00-00:00 [facility] ([facility]) Hospitalist Discharge Summary REPORT#:[id number] REPORT STATUS: Signed DATE:09/29/21 TIME: 701 PATIENT: KAUR KINSEY UNIT #: [id number] [facility] AGE: 86 SEX: F ATTEND: Sumit Her MD ADM AUTHOR: Radha Mg MD R2 * ALL edits or amendments must be made on the el ectronic/computer document * Radha Mg 09/29/21 0702: General Information Date of admission: Observation Start Date: Date of admission: 09/27/21 Discharge date: 09/29/21 Hospital course: Ms. Kinsey is an 86 yo w daniel with CAD s/p CABG 2009 (BLAIR to LAD, SVG to D), aortic valve replacement/ aortic aneurys m repair 2009, biventricular pacemaker replaced 2020, hypothyroidism, PUD with GI bleed 2019, osteoarthritis with chronic knee and upper back pain, remote hx breast cancer who presented to OSH for CP and was transferred t o our facility for management of possible NSTEMI by her motion study engineer Dr. Aldrich. Pt presented to [facility] with chest pain and was admitted for possible ACS and reportedly received full-dose A SA 325mg x1 and full-dose Lovenox. Pt was found to hav e elevated high-sensitivity troponin (172, REF < 59) and non-specific ST changes on ECG and underwent stress test there which was stopped when pt began having R arm pain. On 09/27 pt was transferred to our facility for further management by her outpt car diologist Dr. Aldrich. Pt's troponins here were normal x 2 however pt continued having occasional R shoulder/ neck pain worse with movemen t of R arm. She underwent L heart catheterization by Dr. Aldrich and was found to blanco ve occluded BLAIR to LAD however SVG to first diagonal remains patent with no ne ed for revascularization at this time. Per cardiology, plan to cont iue medical management and optimization of pt's risk factors. Pt was also evaluated by orthopedic yifan geon Dr. Clemons however was not having R shoulder pain at th at time; no recommendation for inpt intervention at this time. Pt received [place] 5/325 for her shoul calixto pain with relief of her symptoms and no adverse effe cts. During her admission at our facility the pt was monitored with telemetry and received her home C oreg, Synthroid, and pantoprazole as well as ASA 81mg and statin. No Eliquis as pt takes this MWF at home. Pt also received Lovenox for DVT Prophylax is. No acute events overnight al though her BP remains somewhat elevated; resumed pt' s home losartan 50mg. This AM pt continues havin g occasional R shoulder/ neck pain however does not desire steroid injection; plan for outpt follow-up with pt 's orthopedist as pt's R shoulder pain appears t o be due to musculoskeletal causes rather than cardiac. No CP, SOB, lightheadedness, palpitations, or N/V. Pt is medically stable to dc home per Cardiology with plan to follow up with Dr. Aldrich in 1 week. Also advised follow-up with p t's orthopedist for further evaluation/ treatment of pt' s MSK R shoulder pain. Discharge plan was discussed with pt and pt's daughter who expressed understa nding and agreement with plan and eagerness to go home. Pt. condition on discharge: improved, stable Allergies: Allergies: Penicillins (Coded, UNKNOWN, 09/27/21) benazepril (From LOTENSIN) (Coded, UNKNOWN, 11/11 08/02) codeine (Coded, UNKNOWN, 11/30/20) dexamethasone (Coded, UNKNOWN, 11/30/20) iodine (Coded, UNKNOWN, 11/30/20) meperidine (From DEMEROL) (Coded, UNKNOWN, 11/30) morphine (Coded, UNKNOWN, 11/30/20) zolpidem (Coded, UNKNOWN, 11/30/20) Med Rec Med Rec Discharge meds: Continue taking these medications: SIMVASTATIN (ZOCOR) 20 MG TAB 20 MILLIGRAM ORAL DAILY. CARVEDILOL (COREG) 25 MG TAB 25 MILLIGRAM ORAL DAILY. CLOPIDOGREL (PLAVIX) 75 MG TAB 75 MILLIGRAM ORAL THURSDAY, THURSDAY, THURSDAY. LEVOTHYROXINE (SYNTHROID) 75 MCG TAB 75 MICROGRAM ORAL DAILY. FEXOFENADINE (CHARLETTE ALLERGY) 180 MG TAB 180 MILLIGRAM ORAL DAILY. PANTOPRAZOLE DR (PROTONIX) 40 MG TAB.DR 40 MILLIGRAM ORAL TWICE DAILY. LOSARTAN (COZAAR) 50 MG TAB 50 MILLIGRAM ORAL DAILY. Comments: TAKE 1 TABLET BY MOUTH EVERY DAY - SIG Obtained From [employer] Objective VS/I O Last Documented: Result Date Time B/P 167/75 09/29 618 B/P Mean 105.6 09/29 618 Pulse 78 09/29 618 Pulse Ox 97 09/29 0411 O2 Delivery Nasal cannula 09/29 410 Temp 97.9 09/29 041 Resp 16 09/29 041 FiO2 21 09/29 0112 24 hour I O ending at 0700: 09/29 0700 09/28 1900 Intake Total 360 300 Output Total Balance 360 300 Intake, Oral 360 300 Number Voids 3 Patient 57.5 kg Weight Weight Bed scale Measurement Method General appearance: alert, awake, oriented, no a cute distress, mental status normal Head/Eyes: atraumatic, normal conjunctiva/sclera , normocephalic ENT: moist mucosal membranes, normal ear right Neck: JVD present, full range of motion, no brui t/NL carotids, no masses or swelling Cardiovascular: murmur, pacemaker (biventricular ), regular rate rhythm Murmur: systolic 2/6 (YEISON, DEM), diastolic 2/6 (YEISON, DEM ) Respiratory: aerating well, clear to auscultatio n, symmetric expansion, no distress Abdomen: non-tender, soft, no distention Genitourinary: no bladder distention, no urinary catheter Rectal: not indicated Extremities: moves all, norm al capillary refill, no calf tenderness, no cyanosis , no edema Vascular pulse assess: Palpatated: R radial, L radial, R posterior tibi nicolas, L posterior tibialis. Musculoskeletal: normal inspection, mild R shoul calixto pain with R shoulder movement, R upper back muscle tenderness to palp ation; no bony midline tenderness Neuro/SOUBRETTE: alert, oriented X 3, normal speech Skin: dry, normal temperature Psychiatry: normal affect, normal judgment/insig ht, normal mood Results Findings/Data: Laboratory Tests: 09/28 09/28 09/28 0852 0852 0710 Chemistry Sodium (137 - 145 MMOL/L) 132 L Potassium (3.5 - 5.1 MMOL/L) 4.1 Chloride (98 - 107 MMOL/L) 96 L Carbon Dioxide (22 - 30 MMOL/L) 28 Anion Gap (14 - 24 MMOL/L) 12 L BUN (7 - 17 MG/DL) 19 H Creatinine (0.52 - 1.04 MG/DL) 0.60 Glomerular Filtr Rate > 60 Glucose (74 - 106 MG/DL) 124 H Calcium (8.4 - 10.2 MG/DL) 9.8 Total Bilirubin (0.2 - 1.3 MG/DL) 0.9 AST (14 - 36 UNITS/L) 146 H ALT (0 - 34 UNITS/L) 119 H Total Alk Phosphatase (38 - 126 UNITS/L) 68 Total Protein (6.3 - 8.2 G/DL) 8.7 H Albumin (3.5 - 5.0 G/DL) 4.2 Triglycerides (150 - 199 MG/DL) 71 L Cholesterol (<200 MG/DL) 140 LDL Cholesterol Measurd (0 - 99 MG/DL) 41 HDL Cholesterol (40 - 59 MG/DL) 63 H Coagulation INR (0.86 - 1.14) 1.1 APTT (25.1 - 36.5 SECONDS) 39.5 H PT Patient/Control Mix (9.5 - 12.7 SECONDS) 12. 3 Hematology WBC (3.8 - 9.8 K/MM3) 8.0 RBC (3.58 - 4.97 M/MM3) 4.13 Hgb (11.2 - 14.9 G/DL) 13.0 Hct (33.2 - 43.5 %) 38.9 MCV (80.7 - 99.1 fL) 94 MCH (27.0 - 34.1 pg) 31.5 MCHC (32.2 - 35.7 %) 33.4 RDW (12.1 - 15.2 %) 12.3 Plt Count (129 - 368 K/MM3) 243 MPV (7.4 - 10.4 fl) 10.0 Neut % (Auto) (43 - 75 %) 72.7 Lymph % (Auto) (14 - 44 %) 14.2 Tucker % (Auto) (4 - 13 %) 10.4 Eos % (Auto) (0 - 6 %) 1.6 Baso % (Auto) (0 - 2 %) 0.7 Neut # (Auto) (2.0 - 7.6 K/mm3) 5.84 Lymph # (Auto) (1.0 - 3.8 K/mm3) 1.14 Tucker # (Auto) (0.1 - 0.8 K/mm3) 0.84 H Eos # (Auto) (0.0 - 0.2 K/mm3) 0.13 Baso # (Auto) (0.0 - 0.2 K/mm3) 0.06 Immature Gran % (0.0 - 2.0 %) 0.4 Nucleated RBC % (0 - 1.0 %) 0.0 Nucleated RBCs # (Man) (0.0 - 0.1 K/mm3) 0.00 Serology SARS-CoV-2 Ag (Rapid) (Negative) NEGATIVE Results: labs reviewed, vital signs reviewed, cu rrent med profile rev'd Discharge Instructions PCP PCP follow-up: PCP: DOES_NOT KNOW Additional Discharge Routines: Patient Financial Representative Follow -Up Diet: Cardiac Additional instructions: follow up with pt's orthopedist for R shoulder/ upper back pain Discharge management: greater than 30 mins, face to face encounter Time spent: Time spent with patient (minutes): 38 Follow-up Appointments Consulting provider 1: Provider 1: Christian Aldrich MD Specialty: Cardiology Consult follow up timeframe: In 1-2 weeks Quality: Discharge Advanced Care Plan 65 or Older Discussed with: patient, surrogate decis. maker ( and daughter) Discussion included: code status (DNR) Current Medications Current medication review: I attest that the foregoing medication list in t he medical record is true, accurate, and complete to the best of my knowled luis. Evan Harris 09/29/21 1410: Attestations Teaching Physician Attestation F/U visit w/ resident: I saw the patient with the resident. D/W Pt and pt daughter at bed side. Pt wants to follow up with her Orthos as outpt. Rev iewed labs. agree with the resident's findings and plan. d/w pt, pt daughter, RN Resident Discharge time > 30 minutes in coordinating care Electronically Signed by Radha Mg MD R2 on at 140 Electronically Signed by Evan Harris MD on at 1410 RPT #:[id number] END OF REPORT 2021-09-29 06:43:00-00:00 [facility] ([facility]) Cardiology Progress Note REPORT#:[id number] REPORT STATUS: Signed DATE:09/29/21 TIME: 06 PATIENT: KAUR KINSEY UNIT #: [id number] [facility] AGE: 86 SEX: F ATTEND: Fozia Her MD ADM AUTHOR: Terrell Moore MD * ALL edits or amendments must be made on the [employer]/computer document * Subjective Chief complaint: CP/NSTMI HPI: No shoulder pain. Patient reports: No: chest pain, palpitations, shortness of breat h. Objective General VS/I O: 24 hour I O ending at 0700: 09/29 0700 09/28 1900 Intake Total 300 Output Total Balance 300 Intake, Oral 300 Patient 57.5 kg Weight Weight Bed scale Measurement Method Vital Signs: Date Time Temp Pulse Resp B/P B/P Pulse O2 O2 F low FiO2 Mean Ox Delivery Rate 09/29 0619 78 167/75 105.6 09/29 0411 97.9 79 16 175/67 103.2 97 Nasal cannula 09/29 0112 95 Room air 21 09/29 0035 98.1 98 17 161/69 99.6 96 09/28 2057 97.7 66 17 163/70 100.9 95 09/28 1835 97.5 75 16 171/68 102.5 98 Room air 09/28 1527 97.7 71 18 128/62 84.1 95 Room air 09/28 1411 97.5 81 16 144/74 97.1 95 09/28 0650 98.1 78 16 156/64 94.6 95 Room air PATIENT WEIGHT: Weight (lb): 126 Weight (oz): 12.25 Weight (kg): 57.500 Medications: Active Meds + DC'd Last 24 Hrs Nitroglycerin (NITRO-BID UD) 1 INCH Q6HR TRANSDE RM Sodium Chloride (SODIUM CHLORIDE 0.9%) 173 ML IL EOP ONCE ONE IV (DC) Hydrocodone Bitart/Acetaminophen (NORCO 5/325 TA BLET (C-II)) 0 .STK-MED ONE .ROUTE (DC) Nitroglycerin (NITRO-BID UD) 0 .STK-MED ONE .ROU TE (DC) Iopamidol (ISOVUE-300) 0 .STK-MED ONE .ROUTE (DC ) Heparin Sodium/Sodium Chloride (HEPARIN 1000 UNI TS/NS 500ML) 1,000 ML .STK- MED ONE IV (DC) Iopamidol (ISOVUE-300) 0 .STK-MED ONE .ROUTE (DC ) Lidocaine HCl (XYLOCAINE 1%) 0 .STK-MED ONE .ROU TE (DC) Fentanyl Citrate (SUBLIMAZE (C-II)) 0 .STK-MED O NE .ROUTE (DC) Heparin Sodium (HEPARIN SODIUM) 0 .STK-MED ONE . ROUTE (DC) Midazolam HCl (VERSED (C-IV)) 0 .STK-MED ONE .R OUTE (DC) Diphenhydramine HCl (BENADRYL) 0 .STK-MED ONE IV (DC) Famotidine (PEPCID) 0 .STK-MED ONE IV (DC) Methylprednisolone Sodium Succinate (SOLU-Medrol ) 0 .STK-MED ONE IV (DC) Hydrocodone Bitart/Acetaminophen (NORCO 5/325 TA BLET (C-II)) 1 TAB Q4H PRN PRN PO Tramadol HCl (ULTRAM) 50 MG Q6H PRN PRN PO Aspirin (CHILDREN'S ASPIRIN) 81 MG DAILY PO Atorvastatin Calcium (LIPITOR) 40 MG DAILY PO Carvedilol (COREG) 25 MG DAILY PO Levothyroxine Sodium (Synthroid) 75 MCG DAILY PO Pantoprazole (PROTONIX) 40 MG BID PO Clopidogrel Bisulfate (PLAVIX) 75 MG MOWEFR PO ( CKD) Acetaminophen (TYLENOL) 650 MG Q4H PRN PRN PO Hydralazine HCl (APRESOLINE) 10 MG Q4H PRN PRN I V Ondansetron HCl (ZOFRAN) 4 MG Q8H PRN PRN IV Physical Exam General appearance: alert, awake, oriented Head/Eyes: atraumatic, normocephalic, PERRLA ENT: moist mucosal membranes Neck: JVD present, full range of motion, no brui t/NL carotids, no masses or swelling Cardiovascular: CV assessment: regular rate and rhythm, BP puls es = bilaterally Murmur assessment: II/ YEISON and DEM Respiratory: clear to auscultation, no distress Abdomen: soft, non-tender, no mass/organomegaly, no pulsatile mass Lower extremity: LE assessment: no edema, 2+ peripheral pulses Musculoskeletal: full range of motion Neuro/SOUBRETTE: alert, oriented X 3, CN II-XII intact , no motor deficits Psychiatry: normal affect, normal judgment/insig ht, normal mood, no hallucinations Results Findings/Data: Laboratory Tests 09/28 0852 Chemistry Sodium (137 - 145 MMOL/L) 132 L Potassium (3.5 - 5.1 MMOL/L) 4.1 Chloride (98 - 107 MMOL/L) 96 L Carbon Dioxide (22 - 30 MMOL/L) 28 Anion Gap (14 - 24 MMOL/L) 12 L BUN (7 - 17 MG/DL) 19 H Creatinine (0.52 - 1.04 MG/DL) 0.60 Glomerular Filtr Rate > 60 Glucose (74 - 106 MG/DL) 124 H Calcium (8.4 - 10.2 MG/DL) 9.8 Total Bilirubin (0.2 - 1.3 MG/DL) 0.9 AST (14 - 36 UNITS/L) 146 H ALT (0 - 34 UNITS/L) 119 H Total Alk Phosphatase (38 - 126 UNITS/L) 68 Total Protein (6.3 - 8.2 G/DL) 8.7 H Albumin (3.5 - 5.0 G/DL) 4.2 Triglycerides (150 - 199 MG/DL) 71 L Cholesterol (<200 MG/DL) 140 LDL Cholesterol Measurd (0 - 99 MG/DL) 41 HDL Cholesterol (40 - 59 MG/DL) 63 H Laboratory Tests 09/29 851 Coagulation INR (0.86 - 1.14) 1.1 APTT (25.1 - 36.5 SECONDS) 39.5 H PT Patient/Control Mix (9.5 - 12.7 SECONDS) 12. 3 Laboratory Tests 09/29 851 Hematology WBC (3.8 - 9.8 K/MM3) 8.0 RBC (3.58 - 4.97 M/MM3) 4.13 Hgb (11.2 - 14.9 G/DL) 13.0 Hct (33.2 - 43.5 %) 38.9 MCV (80.7 - 99.1 fL) 94 MCH (27.0 - 34.1 pg) 31.5 MCHC (32.2 - 35.7 %) 33.4 RDW (12.1 - 15.2 %) 12.3 Plt Count (129 - 368 K/MM3) 243 MPV (7.4 - 10.4 fl) 10.0 Neut % (Auto) (43 - 75 %) 72.7 Lymph % (Auto) (14 - 44 %) 14.2 Tucker % (Auto) (4 - 13 %) 10.4 Eos % (Auto) (0 - 6 %) 1.6 Baso % (Auto) (0 - 2 %) 0.7 Neut # (Auto) (2.0 - 7.6 K/mm3) 5.84 Lymph # (Auto) (1.0 - 3.8 K/mm3) 1.14 Tucker # (Auto) (0.1 - 0.8 K/mm3) 0.84 H Eos # (Auto) (0.0 - 0.2 K/mm3) 0.13 Baso # (Auto) (0.0 - 0.2 K/mm3) 0.06 Immature Gran % (0.0 - 2.0 %) 0.4 Nucleated RBC % (0 - 1.0 %) 0.0 Nucleated RBCs # (Man) (0.0 - 0.1 K/mm3) 0.00 Laboratory Tests 09/28 0710 Serology SARS-CoV-2 Ag (Rapid) (Negative) NEGATIVE Laboratory Tests 09/28 0852 Coagulation APTT (25.1 - 36.5 SECONDS) 39.5 H Diagnosis, Assessment Plan Free Text DxA P Notes Free Text DxA P Notes: IMPRESSION: 1. CP/NSTMI - s/p LHC. Occluded BLAIR to LAD. 2. CAD, S/P CABX2 on 03/01/2010, BLAIR to LAD, S VG to D 3. AVR, AI, stable 4. MR 5. PAFIB 6. S/P PPI 7. HTN 8. HLP 9. Shoulder pain - resolved. RECOMMEND: 1. Continue current Med Rx 2. Consider amlodipine if continued HTN. 3. Cardiac cleared for discharge. at 0708 [facility] #:[id number] END OF REPORT 2021-09-28 18:48:00-00:00 [facility]edic Consult Note REPORT#:[id number] REPORT STATUS: Signed DATE:09/28/21 TIME: 1847 PATIENT: KAUR KINSEY UNIT #: [id number] ROOM/BED: Z408-A : 34 AGE: 86 SEX: F ATTEND: Sumit Her MD ADM AUTHOR: Devendra Melendez MD * ALL edits or amendments must be made on the [employer]/computer document * History of Present Illness Time At Bedside )( Time at bedside: 1800 Reason for consult: pain (right shoulder) Chief complaint: pain between the shoulder blades HPI: 86 years old lady with a his tory of carotid artery disease, aortic aneurysm and pacemaker was admitted to the hospital due to th e complaint of chest pain. Patient also reported that she has occasional pa in in between her shoulder blades several months of Prialt to her admission . However today patient has no pain in her right s houlder or in her back. History - Adult longitudinal Additional medical history: CAD s/p CABG, bradycardia with pacemaker, breast cancer s/p L mastectomy and radiation, aortic valve replacement, aortic aneurysm repair, hypothyroidism, bleeding gastric ulcer (2-3 yea rs ago per daughter, causes by NSAID use on top of Plavix, treated via EGD) , and Sweet's syndrome Additional surgical history: CABG (02/2010), aortic valve replacement ( 0), aortic aneurysm repair (02/2010), R leg vein surgery, L partial mastec kiesha (1981), cholecystectomy (1953), vein surgery (1961), pacemaker placemen t (2002, batteries replaced 2009, pacemaker replaced 1 year ago) Smoking status: Smoking status for patients 13 years old or old er: Never Smoker Allergies: Coded Allergies: Penicillins (UNKNOWN 09/27/21) benazepril (From LOTENSIN) (UNKNOWN 11/30/20) codeine (UNKNOWN 11/30/20) dexamethasone (UNKNOWN 11/30/20) iodine (UNKNOWN 11/30/20) meperidine (From DEMEROL) (UNKNOWN 11/30/20) morphine (UNKNOWN 11/30/20) zolpidem (UNKNOWN 11/30/20) Review of Systems Constitutional: Denies: chills, fatigue, fev er, generalized weakness, lethargy, malaise, recent wt loss, other. Musculoskeletal: Denies: extremity pain, extremity swelli ng, joint pain, joint swelling, lumbar pain, myalgias, neck pain, thoracic pain. Objective VS: Last Documented: Result Date Time Pulse Ox 98 09/28 1834 B/P 171/68 09/28 1834 B/P Mean 102.5 09/28 1834 O2 Delivery Room air 09/28 1834 Temp 97.5 09/28 1834 Pulse 75 09/28 1834 Resp 16 09/28 1834 PATIENT WEIGHT: Weight (lb): 126 Weight (oz): 12.25 Weight (kg): 57.500 Ambulation status: ambulating, self Physical Exam General appearance: alert, awake, oriented, no a cute distress, pleasant, conversational, mental status normal Shoulder-left: full range of motion, neurovascul ar intact, non-tender, normal inspection, shoulder stable, no compartment syndrome, no deformity, no evidence of DVT, no joint swelling Shoulder-right: full range of motion, ne urovascular intact, non-tender, normal inspection, shoulder stable, no compartment syndrome, no deformity, no evidence of DVT, no joint swelling Neck: full range of motion, non-tender, supple/n o meningismus, no masses or swelling Musculoskeletal: no midline vertebral tend, no m uscle spasm, no paraspinal tenderness Diagnosis, Assessment Plan Problem List/A P: 1. CAD (coronary artery disease) 2. Pacemaker 3. History of bradycardia 4. S/P CABG (coronary artery bypass graft) 5. S/P aortic valve replacement 6. S/P aortic aneurysm repair 7. Status post partial mastectomy of left breas t Free Text A P: Assessment: 1. No abnormality of both shoulders are thoracic spine/cervical spine. 2. The occasional soreness between her shoulder blades was probably due to heavy lifting pulling or pushing doing h er daily activity. However patient was asymptomatic today. Plan: I recommended the patient to avoid any heavy lifting pulling or pushing. Quality: Ortho Current Medications Current medication review: I attest that the foregoing medication list in t medical record is true, accurate, and complete to the best of my knowled ge. Electronically Signed by Devendra Melendez MD on at 1856 [facility] #:[id number] END OF REPORT 2021-09-28 11:16:00-00:00 [id number] [facility] [address] [place] [address] PATIENT NAME: KAUR KINSEY ADMIT DATE : 09/27/21 ACCOUNT NO: [id number] ROOM NO: [facility] AGE: 86 REPORT TYPE: CARDIAC CATHETERIZATION REPORT SEX: F ADMITTING PHYSICIAN:Eliseo Her MD ATTENDING PHYSICIAN:Eliseo Her MD PROCEDURE DATE: 09/28/2021 SENIOR DEVELOPER: Christian Aldrich MD TITLE OF THE PROCEDURE: 1. Left heart catheterization. 2. Graft angiography. 3. BLAIR angiogram. 4. Aortic root angiogram. INDICATION FOR THE PROCEDURE: Chest pain , non-ST wave myocardial infarction in a patient with known coronary artery disease, ao rtic valve replacement and previous bypass. ESTIMATED BLOOD LOSS: Minimal. COMPLICATIONS: None. CONTRAST: 110 mL. ANESTHESIA: Conscious sedation with Versed and f entanyl. A 1% lidocaine for local anesthesia. FINAL DIAGNOSES: Single-vessel coronary artery d isease, patent saphenous vein graft to the first diagonal, occluded le ft internal mammary artery to the left anterior descending, thoracic aortic aneurysm, s tatus post ascending graft repair and aortic valve replacement. The recomme ndation is medical therapy. PROCEDURE IN DETAIL: After informed consent, the patient was brought to the cardiac catheterization lab in a stable fasting nonsedated state. She was prepped and draped in the usual sterile fashion. After conscious sedation, 1% lidocaine was administered to the right common f emoral artery area for local anesthesia. A 6-Vincentian sheath was placed in the right common femoral artery using standard techniques and fluoroscop y. After heparinization, left coronary angiogram showed 20% ostial LAD. The circumflex had luminal irregularities. The LAD itself had a 55% mid lesion. The first diagonal had like a 30% proximal lesion and then the graft to the diagonal is aneurysmal at the distal part. The second diagonal had a 50% ostial lesion. There i s a 30% distal plaque in the LAD. The BLAIR appears to be occluded. There is n o retrograde flow. Right coronary angiogram showed 35 % plaque proximal, mid, and distal dominant vessel, large vessel. Left ventricular angiogram showed ejection fraction of 60%, left ventricular end-diastolic pressure of 7, no wall motion abnormalities or PATIENT NAME: KAUR KINSEY significant aortic valve gradient. BLAIR is occluded proximally. The vein graft to the first diagonal is patent with 45% mid dis ease. There is a valve right after the disease and there is an aneurysmal dil atation distal. Aortic root angiogram was carried out th at showed the ascending graft to be patent and then after proximal to that, ther e is aneurysm at 3.5 cm. The right groin was sealed using Angio-Seal. There were no complications. T he patient tolerated the procedure well. She was transferred back to the holding area for observation and then back to her room wh ere she can be safely discharged this evening. This was all discussed in detail with the patient and her daughter. Dictated By: Christian Aldrich MD WT: CATH:DAMARIS/GISELA/WILFRED Conf#: [id number]/DID#: [id number] Authenticated by Christian Aldrich MD On 09/10 12:15:57 PM at 1215 PATIENT NAME: KAUR KINSEY 2021-09-28 08:58:00-00:00 [id number] [place] [address] PATIENT NAME: KAUR KINSEY ADMIT DATE : 09/27/21 ACCOUNT NO: [id number] ROOM NO: .[facility] AGE: 86 REPORT TYPE: ELECTROCARDIOGRAM SEX: F ADMITTING PHYSICIAN:Eliseo Her MD ATTENDING PHYSICIAN:Eliseo Her MD Order: [id number] Test Reason : CP/CAD/[place] Test Date/Time Stamp: [facility] Sep 28 2021 08:58:32 Blood Pressure : / mmHG Vent. Rate : 074 BPM Atrial Rate : 074 BPM P-R Int : 166 ms QRS Dur : 182 ms QT Int : 480 ms P-R-T Axes : 049 -66 105 degree s QTc Int : 532 ms Atrial-sensed ventricular-paced rhythm Abnormal ECG When compared with ECG of 27-SEP-2021 11:10, Vent. rate has increased BY 2 BPM Confirmed by CHRISTIAN ALDRICH ([id number]) on 09/28/2021 12:20:15 PM Referred By: Eliseo Her Confirmed by:CHRISTIAN CUETO at 1220 PATIENT NAME: KAUR KINSEY 2021-09-28 08:58:00-00:00 [id number] [place] [address] PATIENT NAME: KAUR KINSEY ADMIT DATE : 09/27/21 ACCOUNT NO: [id number] ROOM NO: Z.408 AGE: 86 REPORT TYPE: ELECTROCARDIOGRAM SEX: F ADMITTING PHYSICIAN:Eliseo Her MD ATTENDING PHYSICIAN:Eliseo Her MD Order: [id number] Test Reason : CP/CAD/[place] Test Date/Time Stamp: ThuSep 28 2021 08:58:32 Blood Pressure : / mmHG Vent. Rate : 074 BPM Atrial Rate : 074 BPM P-R Int : 166 ms QRS Dur : 182 ms QT Int : 480 ms P-R-T Axes : 049 -66 105 degree s QTc Int : 532 ms Atrial-sensed ventricular-paced rhythm Abnormal ECG When compared with ECG of 27-SEP-2021 11:10, Vent. rate has increased BY 2 BPM Confirmed by CHRISTIAN ALDRICH ([id number]) on 09/30/2021 4:17:57 PM Referred By: Self Referred Confirmed by:CHRISTIAN ECHEVERRIA at 1617 PATIENT NAME: KAUR KINSEY 2021-09-28 06:31:00-00:00 [facility] ([facility]) Hospitalist Progress Note REPORT#:[id number] REPORT STATUS: Signed DATE:09/28/21 TIME: 630 PATIENT: KAUR KINSEY UNIT #: [id number] ROOM/BED: [address] : 34 AGE: 86 SEX: F ATTEND: Fozia Her MD ADM AUTHOR: Jarrell Crespo MD R1 * ALL edits or amendments must be made on the Max Rumpus/Exterity document * See Addendum Jarrell Crespo 09/28/21630: Subjective Chief complaint: chest pain HPI: Patient was sitting in the chair at the time of examination. She reports that she had arm pain earlier, but none now. Review of Systems Constitutional: Denies: chills, fever. Allergy/Immun: Denies: anaphylaxis. Eyes: Denies: itching. Respiratory: Denies: STERN (dyspnea on exer tion), pleuritic pain, pneumonia, productive cough ( sputum), SOB. Cardiovascular: Denies: chest pain, STERN (dyspnea on exertion). GI: Denies: abdominal pain, nausea, vomiting. Neuro: Denies: slurred speech, unable to speak. Psych: Denies: agitation. All systems rev neg: except as marked Objective General VS/I O: Vital Signs: Date Time Temp Pulse Resp B/P B/P Pulse O2 O2 F low FiO2 Mean Ox Delivery Rate 09/28 0650 98.1 78 16 156/64 94.6 95 Room air 09/28 0446 97.5 99 17 162/77 105.5 97 09/28 0333 97.5 70 18 173/70 104.6 96 Room air 09/27 2342 98.1 74 19 149/58 88.5 95 Room air 09/27 2201 97.5 61 17 198/70 112.9 96 09/27 1918 97.5 61 19 174/63 99.9 94 Room air 09/27 1536 59 16 104/66 78.8 94 09/27 1031 71 17 99 09/27 1031 97.3 74 16 150/66 94.0 90 24 hour I O ending at 0700: 09/28 0700 09/27 1900 Intake Total 480 Output Total Balance 480 Intake, Oral 480 Number Voids 4 1 PATIENT WEIGHT: Weight (lb): Weight (oz): Weight (kg): Medications: Active Meds + DC'd Last 24 Hrs Sodium Chloride (SODIUM CHLORIDE 0.9%) 3 ML PREO P ONCE ONE IV (PEND) Hydrocodone Bitart/Acetaminophen (NORCO 5/325 TA BLET (C-II)) 1 TAB Q4H PRN PRN PO Tramadol HCl (ULTRAM) 50 MG Q6H PRN PRN PO Aspirin (CHILDREN'S ASPIRIN) 81 MG DAILY PO Atorvastatin Calcium (LIPITOR) 40 MG DAILY PO Carvedilol (COREG) 25 MG DAILY PO Enoxaparin Sodium (LOVENOX) 40 MG Q24H SUBQ (DC ) Levothyroxine Sodium (Synthroid) 75 MCG DAILY PO Pantoprazole (PROTONIX) 40 MG BID PO Clopidogrel Bisulfate (PLAVIX) 75 MG MOWEFR PO ( CKD) Acetaminophen (TYLENOL) 650 MG Q4H PRN PRN PO Hydralazine HCl (APRESOLINE) 10 MG Q4H PRN PRN I V Ondansetron HCl (ZOFRAN) 4 MG Q8H PRN PRN IV Nutrition assessment: The data set between the solid lines has been im ported from the dietitian's assessment. Any exceptions have been noted under Provider comments. BMI Calculated: Nutrition related diagnosis: Nutrition diagnosis details: Nutrition problem: Nutrition etiology: Nutrition signs and symptoms: Nutrition prescription: Dietitian name: Assessment completed: Provider comments on imported dietitian assessme nt: Physical Exam General appearance: alert, awake, oriented Head/Eyes: atraumatic, normocephalic ENT: moist mucosal membranes Neck: supple/no meningismus Cardiovascular: murmur (from valve replacement.) , pacemaker Respiratory: aerating well, no distress Abdomen: non-tender, soft Neuro/SOUBRETTE: alert, oriented X 3, normal speech Skin: dry Psychiatry: normal affect, normal mood Results Findings/Data: Laboratory Tests 09/27 09/27 09/27 09/27 09/27 1930 1418 0902 0902 0902 Chemistry Sodium (137 - 145 MMOL/L) 134 L Potassium (3.5 - 5.1 MMOL/L) 4.5 Chloride (98 - 107 MMOL/L) 99 Carbon Dioxide (22 - 30 MMOL/L) 29 Anion Gap (14 - 24 MMOL/L) 11 L BUN (7 - 17 MG/DL) 19 H Creatinine (0.52 - 1.04 MG/DL) 0.80 Glomerular Filtr Rate > 60 Glucose (74 - 106 MG/DL) 119 H Mean Blood Glucose (70 - 110 MG/DL) 105 Hemoglobin A1c (4.8 - 5.9 %) 5.3 Calcium (8.4 - 10.2 MG/DL) 9.9 Total Bilirubin (0.2 - 1.3 MG/DL) 0.8 AST (14 - 36 UNITS/L) 130 H ALT (0 - 34 UNITS/L) 90 H Total Alk Phosphatase (38 - 126 UNITS/L) 59 Troponin I (0.012 - 0.033 NG/ML) 0.026 0.025 0. 028 Total Protein (6.3 - 8.2 G/DL) 8.3 H Albumin (3.5 - 5.0 G/DL) 4.0 Triglycerides (150 - 199 MG/DL) 69 L Cholesterol (<200 MG/DL) 129 LDL Cholesterol Measurd (0 - 99 MG/DL) 42 HDL Cholesterol (40 - 59 MG/DL) 57 TSH (0.465 - 4.68 MIU/L) 3.530 Laboratory Tests 09/27 09 Hematology WBC (3.8 - 9.8 K/MM3) 7.7 RBC (3.58 - 4.97 M/MM3) 4.17 Hgb (11.2 - 14.9 G/DL) 12.9 Hct (33.2 - 43.5 %) 39.6 MCV (80.7 - 99.1 fL) 95 MCH (27.0 - 34.1 pg) 30.9 MCHC (32.2 - 35.7 %) 32.6 RDW (12.1 - 15.2 %) 12.4 Plt Count (129 - 368 K/MM3) 220 MPV (7.4 - 10.4 fl) 10.4 Neut % (Auto) (43 - 75 %) 74.2 Lymph % (Auto) (14 - 44 %) 11.4 L Tucker % (Auto) (4 - 13 %) 10.3 Eos % (Auto) (0 - 6 %) 2.9 Baso % (Auto) (0 - 2 %) 0.9 Neut # (Auto) (2.0 - 7.6 K/mm3) 5.72 Lymph # (Auto) (1.0 - 3.8 K/mm3) 0.88 L Tucker # (Auto) (0.1 - 0.8 K/mm3) 0.79 Eos # (Auto) (0.0 - 0.2 K/mm3) 0.22 H Baso # (Auto) (0.0 - 0.2 K/mm3) 0.07 Immature Gran % (0.0 - 2.0 %) 0.3 Nucleated RBC % (0 - 1.0 %) 0.0 Nucleated RBCs # (Man) (0.0 - 0.1 K/mm3) 0.00 Laboratory Tests 09/28 0710 Serology SARS-CoV-2 Ag (Rapid) (Negative) NEGATIVE Radiology data: Recent Impressions: RADIOLOGY - XR SHOULDER 2+V RT 09/27 1520 Report Impression - Status: SIGNED Entered: 09/27/2021 3735 IMPRESSION: No acute osseous findings. Impression By: [email or web address] - Duarte Palm MD Free Text Obj Notes Free Text Obj Notes: Limited physical exam because patient refused to be examined overnight and wanted to sleep Diagnosis, Assessment Plan Problem List/A P: 1. Elevated troponin 2. Pacemaker 3. History of bradycardia 4. CAD (coronary artery disease) 5. History of breast cancer 6. Hypothyroidism 7. H/O gastric ulcer 8. S/P CABG (coronary artery bypass graft) 9. S/P aortic valve replacement 10. S/P aortic aneurysm repair 11. 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 #Elevated troponin #CAD s/p CABG #Hx of aortic valve replacement #H x of aortic aneurysm repair -Patients symptoms and labs concerning for NSTEM I so patient transferred here -s/p ASA and Lovenox 1mg/kg x1 dose at OSH -Trend troponin and ekgs -Continue ASA, statin -Continue Plavix -Lovenox DVT dose for now. Trops here were david l. Pending cardiology cath. #History of bradycardia #Pacemaker in place -No bradycardia as per vitals. -HTN on PRN meds. -Continue home carvedilol and monitor closely #H/O gastric ulcer -Continue protonix, moniter for signs of bleedin g #Hypothyroidism -Continue home Synthroid Shoulder pain. X ray was negative. Family wants shoulder inject ion prior to d/c home. Diet: Cardiac DVT ppx: SCDs, lovenox Code Status -- patient state d DNR at OSH but no official DNR paperwork availabe Quality: Gen Med Crit Care VTE Prophylaxis VTE prophylaxis initiated: yes Current Medications Current medication review: I attest that the foregoing medication list in t he medical record is true, accurate, and complete to the best of my knowled ge. Advanced Care Plan 65 or Older Discussed with: patient, surrogate decis. maker ( and daughter) Discussion included: code status (DNR) Attestations Attestation needed: teaching physician Evan Harris 09/29/21 1407: Attestations Teaching Physician Attestation F/U visit w/ resident: I saw the patient with the resident. Pt is s/p cardiac cath. Will get ortho to evaluate patint for shoulder pain. Monitor bp closely continue current treatment. agree with the resident's findings and plan. Electronically Signed by Jarrell Crespo MD R1 on 0 09/28/21 at 1350 Electronically Signed by Evan Harris MD on at 1409 Addendum 1: 09/28/21 1351 by Jarrell Crespo MD R1 dnr is signed. Electronically Signed by Jarrell Crespo MD R1 on 0 09/28/21 at 1351 Electronically Signed by Evan Harris MD on at 1756 RPT #:[id number] END OF REPORT 2021-09-28 06:14:00-00:00 [facility] ([facility]) Cardiology Progress Note REPORT#:[id number] REPORT STATUS: Signed DATE:09/28/21 TIME: 613 PATIENT: KAUR KINSEY UNIT #: [id number] ROOM/BED: [address] : 34 AGE: 86 SEX: F ATTEND: Sumit Her MD ADM AUTHOR: Chirstian Aldrich MD * ALL edits or amendments must be made on the Max Rumpus/computer document * Subjective Chief complaint: CP/NSTMI Patient reports: Yes: chest pain. No: nausea, palpitations, short ness of breath, swelling. Nursing reports: No: complaints. Objective General VS/I O: 24 hour I O ending at 0700: 09/28 0700 09/27 1900 Intake Total 480 Output Total Balance 480 Intake, Oral 480 Number Voids 4 1 Vital Signs: Date Time Temp Pulse Resp B/P B/P Pulse O2 O2 F low FiO2 Mean Ox Delivery Rate 09/28 0446 97.5 99 17 162/77 105.5 97 09/28 0333 97.5 70 18 173/70 104.6 96 Room air 09/27 2342 98.1 74 19 149/58 88.5 95 Room air 09/27 2201 97.5 61 17 198/70 112.9 96 09/27 1918 97.5 61 19 174/63 99.9 94 Room air 09/27 1536 59 16 104/66 78.8 94 09/27 1031 71 17 99 09/27 1031 97.3 74 16 150/66 94.0 90 PATIENT WEIGHT: Weight (lb): Weight (oz): Weight (kg): Medications: Active Meds + DC'd Last 24 Hrs Sodium Chloride (SODIUM CHLORIDE 0.9%) 0 PREOP O NCE ONE IV (UNi) Hydrocodone Bitart/Acetaminophen (NORCO 5/325 TA BLET (C-II)) 1 TAB Q4H PRN PRN PO Tramadol HCl (ULTRAM) 50 MG Q6H PRN PRN PO Aspirin (CHILDREN'S ASPIRIN) 81 MG DAILY PO Atorvastatin Calcium (LIPITOR) 40 MG DAILY PO Carvedilol (COREG) 25 MG DAILY PO Enoxaparin Sodium (LOVENOX) 40 MG Q24H SUBQ (DCr ) Levothyroxine Sodium (Synthroid) 75 MCG DAILY PO Pantoprazole (PROTONIX) 40 MG BID PO Clopidogrel Bisulfate (PLAVIX) 75 MG MOWEFR PO ( CKD) Acetaminophen (TYLENOL) 650 MG Q4H PRN PRN PO Hydralazine HCl (APRESOLINE) 10 MG Q4H PRN PRN I V Ondansetron HCl (ZOFRAN) 4 MG Q8H PRN PRN IV Pacemaker: permanent Nutrition assessment: The data set between the solid lines has been im ported from the dietitian's assessment. Any exceptions have been noted under Provider comments. BMI Calculated: Nutrition related diagnosis: Nutrition diagnosis details: Nutrition problem: Nutrition etiology: Nutrition signs and symptoms: Nutrition prescription: Dietitian name: Assessment completed: Provider comments on imported dietitian assessme nt: Physical Exam General appearance: alert, awake, oriented, no a cute distress, pleasant, conversational, mental status normal, no respira tory distress Head/Eyes: atraumatic, normocephalic, PERRLA ENT: moist mucosal membranes Neck: JVD present, full range of motion, no brui t/NL carotids, no masses or swelling Cardiovascular: CV assessment: regular rate and rhythm, BP puls es = bilaterally Murmur assessment: II/ YEISON and DEM Respiratory: clear to auscultation, no distress Abdomen: soft, non-tender, no mass/organomegaly, no pulsatile mass Lower extremity: LE assessment: no edema, 2+ peripheral pulses Musculoskeletal: full range of motion Neuro/SOUBRETTE: alert, oriented X 3, CN II-XII intact , no motor deficits Psychiatry: normal affect, normal judgment/insig ht, normal mood, no hallucinations Results Findings/Data: Laboratory Tests 09/27 09/27 09/27 09/27 09/27 1930 1418 0902 0902 0902 Chemistry Sodium (137 - 145 MMOL/L) 134 L Potassium (3.5 - 5.1 MMOL/L) 4.5 Chloride (98 - 107 MMOL/L) 99 Carbon Dioxide (22 - 30 MMOL/L) 29 Anion Gap (14 - 24 MMOL/L) 11 L BUN (7 - 17 MG/DL) 19 H Creatinine (0.52 - 1.04 MG/DL) 0.80 Glomerular Filtr Rate > 60 Glucose (74 - 106 MG/DL) 119 H Mean Blood Glucose (70 - 110 MG/DL) 105 Hemoglobin A1c (4.8 - 5.9 %) 5.3 Calcium (8.4 - 10.2 MG/DL) 9.9 Total Bilirubin (0.2 - 1.3 MG/DL) 0.8 AST (14 - 36 UNITS/L) 130 H ALT (0 - 34 UNITS/L) 90 H Total Alk Phosphatase (38 - 126 UNITS/L) 59 Troponin I (0.012 - 0.033 NG/ML) 0.026 0.025 0. 028 Total Protein (6.3 - 8.2 G/DL) 8.3 H Albumin (3.5 - 5.0 G/DL) 4.0 Triglycerides (150 - 199 MG/DL) 69 L Cholesterol (<200 MG/DL) 129 LDL Cholesterol Measurd (0 - 99 MG/DL) 42 HDL Cholesterol (40 - 59 MG/DL) 57 TSH (0.465 - 4.68 MIU/L) 3.530 Laboratory Tests 09/27 0902 Hematology WBC (3.8 - 9.8 K/MM3) 7.7 RBC (3.58 - 4.97 M/MM3) 4.17 Hgb (11.2 - 14.9 G/DL) 12.9 Hct (33.2 - 43.5 %) 39.6 MCV (80.7 - 99.1 fL) 95 MCH (27.0 - 34.1 pg) 30.9 MCHC (32.2 - 35.7 %) 32.6 RDW (12.1 - 15.2 %) 12.4 Plt Count (129 - 368 K/MM3) 220 MPV (7.4 - 10.4 fl) 10.4 Neut % (Auto) (43 - 75 %) 74.2 Lymph % (Auto) (14 - 44 %) 11.4 L Tucker % (Auto) (4 - 13 %) 10.3 Eos % (Auto) (0 - 6 %) 2.9 Baso % (Auto) (0 - 2 %) 0.9 Neut # (Auto) (2.0 - 7.6 K/mm3) 5.72 Lymph # (Auto) (1.0 - 3.8 K/mm3) 0.88 L Tucker # (Auto) (0.1 - 0.8 K/mm3) 0.79 Eos # (Auto) (0.0 - 0.2 K/mm3) 0.22 H Baso # (Auto) (0.0 - 0.2 K/mm3) 0.07 Immature Gran % (0.0 - 2.0 %) 0.3 Nucleated RBC % (0 - 1.0 %) 0.0 Nucleated RBCs # (Man) (0.0 - 0.1 K/mm3) 0.00 Laboratory Tests 09/27 09/27 09/27 1930 1418 0902 Chemistry Troponin I (0.012 - 0.033 NG/ML) 0.026 0.025 0. 028 Radiology data: Recent Impressions: RADIOLOGY - XR SHOULDER 2+V RT 09/27 1520 Report Impression - Status: SIGNED Entered: 09/27/2021 8707 IMPRESSION: No acute osseous findings. Impression By: [email or web address] Brett Palm MD Results: labs reviewed, vital signs reviewed, vi carolina signs stable, echo personally reviewed, EKG personally reviewed, rh ythm personally rev'd, US results reviewed, x-ray personally reviewed, cur rent med profile rev'd EKG Interpretation: paced Telemetry Interpretation: AV Paced Echo results: Stable Diagnosis, Assessment Plan Problem List/A P: 1. CAD (coronary artery disease) 2. Pacemaker 3. Elevated troponin 4. History of breast cancer 5. H/O gastric ulcer 6. S/P CABG (coronary artery bypass graft) 7. S/P aortic valve replacement 8. S/P aortic aneurysm repair 9. Status post partial mastectomy of left breas t Orders: Procedure Date/time Status Nothing By Mouth 09/28 B Active Surgical Prep 09/29 623 Active Verify signed consent on chart 09/29 623 Activ e Assess: Peripheral Pulse 09/29 623 Active Hold Dose 09/29 623 Active Clip Prep 09/29 623 Active VTE Prophylaxis Status 09/29 623 Active CARDIAC FOOD PROCESSOR 09/29 623 Active NPO: Except for Meds 09/28 605 Active Plan discussed with: patient , daughter, admitting physician, patient care team, nurse Free Text DxA P Notes Free Text DxA P Notes: IMPRESSION: 1. CP/NSTMI 2. CAD, S/P CABX2 on 03/01/2010, BLAIR to LAD, S VG to D 3. AVR, AI, stable 4. MR 5. PAFIB 6. S/P PPI 7. HTN 8. HLP RECOMMEND: 1. Continue current Med Rx 2. Proceed with L CATH/Grafts poss PCI 3. Risks/Benefits discussed in detail with pt a nd daughter and they are willing to proceed 4. Rest as per orders Electronically Signed by Christian Aldrich MD on 0 09/28/21 at 0633 [facility] #:[id number] END OF REPORT 2021-09-27 16:23:00-00:00 [id number] [place] [id number] PATIENT NAME: KAUR KINSEY ADMIT DATE : 09/27/21 ACCOUNT NO: [id number] ROOM NO: Z.408 AGE: 86 REPORT TYPE: ECHOCARDIOGRAM SEX: F ADMITTING PHYSICIAN:Eliseo Her MD ATTENDING PHYSICIAN:Eliseo Her MD *[facility]* [address] [place] [id number] Transthoracic Echocardiogram Patient: Kaur Kinsey Study Date: 09/27/2021 BP: 150 / 66 Location: [facility] URN: [id number] : 1935 Age: 86 Height: / Gender: F Weight: / BMI/BSA: / *Ordering Physician: * Manjula Rome *Interpreting Physician: * Christian Aldrcih MD *Oyster Worker: * Florencia Mg, RVT Indications: Chest Pain, unspecified. Study data: Transthoracic echocardiogram. Proced ure: Transthoracic echocardiography was performed. Images were obta ined using a Readmill cardiac ultrasound machine. Image quality was fair. M-mo de, complete 2D, complete spectral Doppler, and color Doppler. Lo cation: Bedside. Patient status: Inpatient. Patient room number: 408. Study status: Routine. Rhythm: Normal sinus rhythm. Findings Left ventricle: The cavity size is normal. Wall thickness is moderately increased. Systolic function is normal. The norm mated ejection fraction is 55-60%. Wall motion is normal; there are no r egional wall motion abnormalities. Pulmonary venous flow is not sixto rded. Left ventricular diastolic function parameters are normal. Right ventricle: Poorly visualized. The cavity s ize is normal. Pacer wire noted in the right ventricle. Systolic func tion is normal. PATIENT NAME: KAUR KINSEY Left atrium: The atrium is mildly dilated. Right atrium: The atrium is normal in size. Pace r wire noted in right atrium. Aorta: The aortic root is not dilated. Aortic valve: Poorly visualized. There is a biop rosthetic valve. Transvalvular velocity is within the normal rang e. There is no evidence of stenosis. There is mild regurgitation. Mitral valve: The annulus is moderately calcifie d. The leaflets are mildly calcified. The findings are consistent wi th severe stenosis. There is mild regurgitation. Tricuspid valve: Not well visualized. The valve is structurally normal. There is no evidence of stenosis. There is mild regurgitation. Pulmonic valve: Not well visualized. There is no significant regurgitation. Pericardium: A trivial pericardial effusion is i dentified. No evidence of pleural fluid accumulation. Measurements Left ventricle Value Ref ERNESTINA, LAX 4.2 cm 3.8 - 5.2 ESD, LAX 2.9 cm 2.2 - 3.5 FS, LAX 30 % 27 - 45 PW, ED 1.3 cm 0.6 - 0.9 PW, ES 1.8 cm IVS/PW, ED 1.25 EF 58 % 54 - 74 IVRT 137 ms E/e', avg, TDI 47 <=14 LVOT Value Ref Diam, S 2.05 cm Area 3.3 cm 2 Peak hanna, S 1.14 m/sec Mean hanna, S 0.81 m/sec VTI, S 26.7 cm Peak grad, S 5 mm Hg Mean grad, S 3 mm Hg SV 87 ml Qs 5.14 L/min Ventricular septum Value Ref IVS, ED 1.6 cm 0.6 - 0.9 IVS, ES 1.9 cm Right ventricle Value Ref ERNESTINA, LAX 2.1 cm Pressure, S 44 mm Hg RVOT Value Ref Peak v, S 0.73 m/sec Peak grad, S 2 mm Hg PATIENT NAME: KAUR KINSEY Left atrium Value Ref AP dim, ES 4.65 cm 2.70 - 3.80 Area ES, A4C 24 cm 2 <=20 AP dim, ES MM 4.9 cm 2.7 - 3.8 LA/Ao root ratio, MM 1.35 Right atrium Value Ref Area, ES, A4C 18 cm 2 10 - 18 Aortic valve Value Ref Leaflet sep, MM 1.52 cm Peak v, S 1.81 m/sec Mean v, S 1.19 m/sec VTI, S 37.1 cm Mean grad, S 6.7 mm Hg Peak grad, S 13.2 mm Hg LVOT/AV, VTI ratio 0.72 HELIO, VTI 2.70 cm 2 LVOT/AV, Vpeak ratio 0.63 HELIO, Vmax 2.10 cm 2 Mitral valve Value Ref Peak E 1.71 m/sec Peak A 1.95 m/sec Mean v, D 1.75 m/sec VTI leaflet coapt 75.4 cm Decel time 426 ms PHT 177 ms Mean grad, D 12.6 mm Hg Peak grad, D 18.9 mm Hg Peak E/A ratio 0.88 MVA, PHT 1.3 cm 2 Pulmonic valve Value Ref IL v, ED 0.59 m/sec Tricuspid valve Value Ref TR peak v 2.63 m/sec <=2.8 Peak RV-RA grad, S 28 mm Hg Aortic root Value Ref Root diam 3.3 cm Root diam, ED MM 3.63 cm Pulmonary artery Value Ref Pressure, S 40.0 mm Hg Systemic veins Value Ref Estimated CVP 10 mm Hg Conclusions PATIENT NAME: KAUR KINSEY Summary: 1. Left ventricle: The cavity size is normal. Wa ll thickness is moderately increased. Systolic function is norm al. The estimated ejection fraction is 55-60%. Wall motion is nor mal; there are no regional wall motion abnormalities. Left ventri cular diastolic function parameters are normal. 2. Right ventricle: The RV pressure during systo le by Doppler is 44 mm Hg. 3. Left atrium: The atrium is mildly dilated. 4. Aortic valve: There is a bioprosthetic valve. There is mild regurgitation. 5. Mitral valve: The findings are consistent wit h severe stenosis. The mean diastolic gradient is 12.6 mm Hg. The peak diastolic gradient is 18.9 mm Hg. 6. Pericardium, extracardiac: A trivial pericard ial effusion is identified. Prepared and electronically signed by Christian Aldrich MD 09/27/2021 16:23 at 0418 PATIENT NAME: KAUR KINSEY 2021-09-27 11:10:00-00:00 [id number] [place] [id number] PATIENT NAME: KAUR KINSEY ADMIT DATE : 09/27/21 ACCOUNT NO: [id number] ROOM NO: [facility] AGE: 86 REPORT TYPE: ELECTROCARDIOGRAM SEX: F ADMITTING PHYSICIAN:Eliseo Her MD ATTENDING PHYSICIAN:Eliseo Her MD Order: [id number] Test Reason : CP/[place]/CAD Test Date/Time Stamp: ThuSep 27 2021 11:10:41 Blood Pressure : / mmHG Vent. Rate : 072 BPM Atrial Rate : 072 BPM P-R Int : 164 ms QRS Dur : 174 ms QT Int : 484 ms P-R-T Axes : -28 -61 111 degree s QTc Int : 529 ms Atrial-sensed ventricular-paced rhythm Abnormal ECG When compared with ECG of 01-DEC-2020 11:06, Vent. rate has increased BY 12 BPM Confirmed by CHRISTIAN ALDRICH ([id number]) on 09/27/2021 4:19:28 PM Referred By: Self Referred Confirmed by:CHRISTIAN ECHEVERRIA at 1257 PATIENT NAME: KAUR KINSEY 2021-09-27 08:10:00-00:00 [id number] [place] [id number] PATIENT NAME: KAUR KINSEY ADMIT DATE : 09/27/21 ACCOUNT NO: [id number] ROOM NO: [facility] AGE: 86 REPORT TYPE: CONSULTATION REPORT SEX: F ADMITTING PHYSICIAN:Eliseo Her MD ATTENDING PHYSICIAN:Eliseo Her MD CONSULTATION DATE: 09/27/2021 CONSULTING PHYSICIAN: Terrell Moore MD REFERRING PHYSICIAN: Eliseo Her MD REASON FOR CONSULTATION: We were asked to evaluate this patient for chest pain. HISTORY OF PRESENT ILLNESS: This is an 86-year-o ld female with a history of coronary artery disease, status post aortocorona ry bypass, aortic valve replacement, complete heart block, permanent pac emaker, status post Medtronic dual-chamber permanent pacemaker, last generator change, 12/01/2020, hypothyroidism, who was transferred from [facility] for further evaluation and care. She present ed there for evaluation of chest pain, which began at 11:00 p.m. on 09/25/2020. She has difficulty giving a detailed description of her chest discomfort. She is some what confused and was unaware she was admitted as a patient here. She was mg sferred here yesterday after finding elevated troponin. Currently, she denies chest pain. PAST MEDICAL HISTORY: 1. Coronary artery disease, status post aortocor onary bypass in February 2010. 2. Status post aortic valve replacement in 2009. Valve is a 21 mm Zenon-East bioprosthetic aortic valve. 3. History of bradycardia, status post permanent pacemaker. 4. History of bleeding gastric ulcer. 5. History of aortic aneurysm repair in February 11. 6. Hypothyroidism. 7. Breast cancer, status post left mastectomy an d radiation. 8. Status post cholecystectomy. 9. Paroxysmal atrial fibrillation. 10. Hyperlipidemia. 11. Hypothyroidism ALLERGIES: CODEINE, MORPHINE, DEMEROL, PENICILLI N, IODINE, LOTENSIN, AMBIEN, DEXAMETHASONE. FAMILY HISTORY: No family history of coronary ar jet disease. SOCIAL HISTORY: No tobacco. No alcohol. HOME MEDICATIONS: Fexofenadine, clopidogrel 75 m g on Thursday, Thursday, and Thursday; carvedilol 25 mg daily, simvastatin 20 m g daily, pantoprazole 40 mg PATIENT NAME: KAUR KINSEY twice daily, levothyroxine 75 mcg daily. REVIEW OF SYSTEMS: CONSTITUTIONAL: No complaints of fever or chills . ENMT: No complaints of headache. EYES: No complaints of blurred vision. RESPIRATORY: Denies shortness of breath. No comp laints of cough. CARDIOVASCULAR: Chest pain, which is now resolve d. GASTROINTESTINAL: No complaints of nausea or vom iting. GENITOURINARY: No complaints of urinary frequenc y or dysuria. MUSCULOSKELETAL: No complaints of joint pain. SKIN: No complaints of skin rash. NEUROLOGIC: No complaints of focal weakness. PHYSICAL EXAMINATION: GENERAL: Well-nourished female, in no acute dist ress. VITAL SIGNS: The patient refused vital signs. ENMT: Atraumatic, normocephalic. RESPIRATORY: Normal effort. Clear to auscultatio n bilaterally. CARDIOVASCULAR: Normal S1 and S2. No S3 or S4. NECK: JVP is normal. There are no carotid bruits . EXTREMITIES: No edema. NEUROLOGIC: Cranial nerves II through XII are in tact. No focal motor deficits noted. DIAGNOSTIC STUDIES: Electrocardiogram at [facility] showed sinus rhythm with demand atrial pacing and atrial trig gered ventricular pacing. OUTSIDE LABORATORY DATA: White blood cell count 8.3, hemoglobin 13.2, and platelets 238. Sodium 134, potassium 4.4, chlori de 97, CO2 30, BUN 18, creatinine 0.81, glucose 104, calcium 9.7. Tropo robert-I 172.7. SARS-CoV-2 rapid negative. IMPRESSION: 1. Dqd-RL-ngacamk elevation myocardial infarctio n. 2. History of coronary artery disease, status po st aortocoronary bypass. 3. Status post bioprosthetic aortic valve replac ement. 4. Complete heart block, sta tus post Medtronic dual-chamber permanent pacemaker with generator change in November 2020. 5. Hypertension. 6. Hyperlipidemia. PLAN: Currently, the patient is refusing any fur ther evaluation or treatment. She has refused vitals, EKG, and lab evaluation. She stated she would like to go home. She is unaware she was admitted here as a patient. I explained to her that she has evidence of having myocardial i nfarction. Above, will need to be reviewed with her daughter who apparently brought her to the [facility] initially and is currently unavailable. Dictated By: Terrell Moore MD WT: CON:Z.HIM/PEPGR/NTS PATIENT NAME: KAUR KINSEY Conf#: [id number]/DID#: [id number] Authenticated and Edited by Terrell Moore MD On 10/03/21 9:12:15 PM at 0913 PATIENT NAME: KAUR KINSEY 2021-09-27 06:59:00-00:00 [facility] ([facility] Hospitalist Progress Note REPORT#:[id number] REPORT STATUS: Signed DATE:09/27/21 TIME: 658 PATIENT: KAUR KINSEY UNIT #: [id number] ROOM/BED: [address] : 34 AGE: 86 SEX: F ATTEND: Sumit Her MD ADM AUTHOR: Jarrell Crespo MD R1 * ALL edits or amendments must be made on the Max Rumpus/computer document * See Addendum Jarrell Crespo 09/27/21 0659: Subjective Chief complaint: chest pain HPI: Patient was sitting in the c hair at the time of examination. Nurse had reported that she previously had refused to do the blood work and ekg earlier. After speaking to the patient, she is agreeable to get ting the lab work done. Review of Systems Constitutional: Denies: chills, fever. Allergy/Immun: Denies: anaphylaxis. Eyes: Denies: itching. Respiratory: Denies: STERN (dyspnea on exertion), hemoptysis, n on productive cough, parox nocturnal dyspnea, pleurisy, pleuritic pain, pneumonia, productive cough (sputum ), SOB, wheezing. Cardiovascular: Denies: chest pain, STERN (dyspnea on exertion), p alpitations. GI: Denies: abdominal pain, nausea, vomiting. Neuro: Denies: headache, slurred speech, unable to spea k. Psych: Denies: agitation. All systems rev neg: except as marked Objective General VS/I O: PATIENT WEIGHT: Weight (lb): Weight (oz): Weight (kg): Medications: Active Meds + DC'd Last 24 Hrs Enoxaparin Sodium (LOVENOX) 40 MG 0600 SUBQ (CAN ) Aspirin (CHILDREN'S ASPIRIN) 81 MG DAILY PO Atorvastatin Calcium (LIPITOR) 40 MG DAILY PO Carvedilol (COREG) 25 MG DAILY PO Enoxaparin Sodium (LOVENOX) 40 MG Q24H SUBQ Levothyroxine Sodium (Synthroid) 75 MCG DAILY PO Pantoprazole (PROTONIX) 40 MG BID PO Simvastatin (ZOCOR) 20 MG DAILY PO (CAN) Clopidogrel Bisulfate (PLAVIX) 75 MG MOWEFR PO ( CKD) Enoxaparin Sodium (LOVENOX) 0 ONCE ONE SUBQ (CAN ) Acetaminophen (TYLENOL) 650 MG Q4H PRN PRN PO Hydralazine HCl (APRESOLINE) 10 MG Q4H PRN PRN I V Ondansetron HCl (ZOFRAN) 4 MG Q8H PRN PRN IV Nutrition assessment: The data set between the solid lines has been im ported from the dietitian's assessment. Any exceptions have been noted under Provider comments. BMI Calculated: Nutrition related diagnosis: Nutrition diagnosis details: Nutrition problem: Nutrition etiology: Nutrition signs and symptoms: Nutrition prescription: Dietitian name: Assessment completed: Provider comments on imported dietitian assessme nt: Physical Exam General appearance: alert, awake Head/Eyes: atraumatic, normocephalic ENT: moist mucosal membranes Neck: supple/no meningismus Cardiovascular: murmur (from valve replacement.) , pacemaker Respiratory: aerating well, no distress Abdomen: non-tender, soft Neuro/SOUBRETTE: alert, oriented X 3, normal speech Skin: dry Psychiatry: normal affect, normal mood Results Findings/Data: Laboratory Tests 09/27 09/27 0902 0902 Chemistry Mean Blood Glucose (70 - 110 MG/DL) 105 Hemoglobin A1c (4.8 - 5.9 %) 5.3 Troponin I (0.012 - 0.033 NG/ML) 0.028 Triglycerides (150 - 199 MG/DL) 69 L Cholesterol (<200 MG/DL) 129 LDL Cholesterol Measurd (0 - 99 MG/DL) 42 HDL Cholesterol (40 - 59 MG/DL) 57 TSH (0.465 - 4.68 MIU/L) 3.530 Free Text Obj Notes Free Text Obj Notes: Limited physical exam because patient refused to be examined overnight and wanted to sleep Diagnosis, Assessment Plan Problem List/A P: 1. Elevated troponin 2. Pacemaker 3. History of bradycardia 4. CAD (coronary artery disease) 5. History of breast cancer 6. Hypothyroidism 7. H/O gastric ulcer 8. S/P CABG (coronary artery bypass graft) 9. S/P aortic valve replacement 10. S/P aortic aneurysm repair 11. 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 #Elevated troponin #CAD s/p CABG #Hx of aortic valve replacement #H x of aortic aneurysm repair -Patients symptoms and labs concerning for NSTEM I so patient transferred here -s/p ASA and Lovenox 1mg/kg x1 dose at OSH -Trend troponin and ekgs -Continue ASA, statin -Continue Plavix -Lovenox DVT dose for now. Troponin here is stil l pending. Echo is pending. -Dr. Aldrich is consulted. #History of bradycardia #Pacemaker in place -Patient refused vitals here but HR 68 at 2000 o n 09/26 per prior records -Continue home carvedilol and monitor closely #H/O gastric ulcer -Continue protonix, moniter for signs of bleedin g #Hypothyroidism -Continue home Synthroid Diet: Cardiac DVT ppx: SCDs, lovenox Code Status -- patient state d DNR at OSH but no official DNR paperwork availabe Quality: Gen Med Crit Care VTE Prophylaxis VTE prophylaxis initiated: yes Current Medications Current medication review: I attest that the foregoing medication list in t he medical record is true, accurate, and complete to the best of my knowled ge. Attestations Attestation needed: teaching physician Eliseo Her 09/27/21 1752: Quality: Gen Med Crit Care Advanced Care Plan 65 or Older Discussed with: patient, surrogate decis. maker ( and daughter) Discussion included: code status (DNR) Attestations Teaching Physician Attestation F/U visit w/ resident: I saw the patient with the resident Dr Crespo PG y1 and . . . agree with the resident's findings and plan. 86 yoF with known h/o CAD s/p CABG with bioprosthetic aortic valve replacement and aortic aneurysm repair, SSS s/p dual chamber PM, transfered from [facility] with possible NSTEMI. Pt was initially a dmitted for work up of chest pain. Her initial troponins was elevated at 172 (high sens itivity scale where 0-59 is normal range) but pt developed angina pa in when attempted to undergone cardiac stress testing. Currently she's resting in bed w ith family at bedside, in V- paced rhythm rate 60s. Howev er, intermittently she still c/o right shoulder and arm pain, described as tightness. Will admit for further ischemic workup by her ca rdiologist Dr Aldrich. Electronically Signed by Jarrell Crespo MD R1 on 0 09/27/21 at 1407 at 1753 Addendum 1: 09/27/211757 by Jarrell Crespo MD R1 Patient has signed dnr earlier today. Electronically Signed by Jarrell Crespo MD R1 on 0 09/27/21 at 1758 at 2046 RPT #:[id number] END OF REPORT 2021-09-27 04:07:00-00:00 [facility] ([facility]) Hospitalist History Physical REPORT#:[id number] REPORT STATUS: Signed DATE:09/27/21 TIME: 406 PATIENT: KAUR KINSEY UNIT #: [id number] ROOM/BED: [address] : 34 AGE: 86 SEX: F ATTEND: Sumit Her MD ADM AUTHOR: Manjula Rome R2 * ALL edits or amendments must be made on the Max Rump[employer]/computer document * Merle Rome 09/27/21 0407: History of Present Illness HPI Chief complaint: chest pain PCP: PCP: DOES_NOT KNOW HPI: History primarily from transfer notes and daught er's recollection because the patient refused to asnwer qu estions or be examined on arrival, stating that she jsut wanted to rest. Per daughter, the patient i s also very forgetful at baseline. 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 The p atient began to have chest pain around 11pm on 09/25/20 that made it uncomfortable for h er to sleep. EKG without any acute ST elevations and nonspecific T wave inver sions. CXR showed minimal increased linear densities w ithin the right and left lung base could correspond to atelectasis and/or infiltrate. CBC and CMP wn l. High sensitivity troponin elevated at 172.70 (normal < 58.9). The patient was treated with ASA 324mg and Lovenox 1mg/kg x1 per axel ceja's daughter. Echo and stress test were ordered per records but no echo report available. The patien brenna was taken for a stress test but it was stopped due to pa harman experiencing severe R arm pain. The patient's motion study engineer is Dr. Aldrich so she was transferred here for further evaluation. PMHx: CAD s/p CABG, bradycardia with pac emaker, breast cancer s/p L mastectomy and radiation, aortic valve replacement, aortic aneurysm repair, hypothyroidism, bleeding gastric ulcer (2-3 years ago pe r daughter, causes by NSAID use on top of Plavix, treated via EGD), and Sweet's syndrom e PSHx: CABG (02/2010), aortic valve replacement (02/2010), aortic aneurysm repair (02/2010), R leg vein surgery, L partial mastect salvatore (1981), cholecystectomy ( 1953), vein surgery (1961), pacemaker placement (2002, batteries replaced 2009, pacemaker replaced 1 year ago) Alleriges: per chart Meds: per chart Fam Hx: none per prior notes Social hx: per notes, never smoker, no etoh or d urg use History Past Medical Surgical Hx Additional medical history: CAD s/p CABG, bradycardia with pacemaker, breast cancer s/p L mastectomy and radiation, aortic valve replacement, aortic aneu rysm repair, hypothyroidism, bleeding gastric ulcer (2-3 years ago pe r daughter, causes by NSAID use on top of Plavix, treated via EGD), and Sweet's syndrom e Additional surgical history: CABG (02/2010), aortic valve replacement (02/2010), aortic aneurysm repair (2009), R leg vein surgery, L partial mastectomy (1981), cholecystectomy (1953), vein surgery (1961), pacemaker placement (2002, batteries replaced 2009, pacemaker replaced 1 year ago) Social History Smoking status: Smoking status for patients 13 years old or old er: Never Smoker Medication/Allergy-Vaccine Hx Medications: Home Medications: CLOPIDOGREL (PLAVIX) 75 MG PO MOWEFR SIMVASTATIN (ZOCOR) 20 MG PO DAILY CARVEDILOL (COREG) 25 MG PO DAILY LEVOTHYROXINE (SYNTHROID) 75 MCG PO DAILY FEXOFENADINE (CHARLETTE ALLERGY) 180 MG PO DAILY PANTOPRAZOLE DR (PROTONIX) 40 MG PO BID Allergies: Coded Allergies: Penicillins (UNKNOWN 09/27/21) benazepril (From LOTENSIN) (UNKNOWN 11/30/20) codeine (UNKNOWN 11/30/20) dexamethasone (UNKNOWN 11/30/20) iodine (UNKNOWN 11/30/20) meperidine (From DEMEROL) (UNKNOWN 11/30/20) morphine (UNKNOWN 11/30/20) zolpidem (UNKNOWN 11/30/20) Unable to obtain: family history, smoking histor y, social history Review of Systems Unable to obtain due to: Patient refused to answer questions Physical Exam VS/I O: Patient Weight and BMI Weight (kg): BMI: General appearance: alert, awake, no acute distr ess, no respiratory distress Head/Eyes: atraumatic, normocephalic ENT: moist mucosal membranes Neck: supple/no meningismus Respiratory: aerating well, no distress Results Results: labs reviewed, EKG personally reviewed, x-ray personally reviewed, current med profile rev'd Free Text PE Notes Free Text PE Notes: Limited physical exam because patient refused to be examined overnight and wanted to sleep Diagnosis, Assessment Plan Problem List/A P: 1. Elevated troponin 2. CAD (coronary artery disease) 3. S/P CABG (coronary artery bypass graft) 4. S/P aortic valve replacement 5. S/P aortic aneurysm repair 6. History of bradycardia 7. Pacemaker 8. H/O gastric ulcer 9. Hypothyroidism 10. History of breast cancer 11. 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 #Elevated troponin #CAD s/p CABG #Hx of aortic valve replacement #H x of aortic aneurysm repair -Patients symptoms and labs concerning for NSTEM I so patient transferred here -s/p ASA and Lovenox 1mg/kg x1 dose at OSH -Trend troponin and ekgs -Continue ASA, statin -Continue Plavix -Lovenox DVT dose for now -f/u echo -Cardiology consulted -Telemetry monitoring -- patient refused telemetry monitoring despite multiple attempts to talk with her. P chandan's daughter aware and states that the patient is difficult to convince #History of bradycardia #Pacemaker in place -Patient refused vitals here but HR 68 at 2000 o n / per prior records -Continue home carvedilol and monitor closely #H/O gastric ulcer -Continue protonix, moniter for signs of bleedin g #Hypothyroidism -Continue home Synthroid Diet: Cardiac DVT ppx: SCDs, lovenox Code Status -- patient state d DNR at OSH but no official DNR paperwork availabe Consultants: cardiology Resuscitation discussion: Pt/family expressed: desire for DNR Unable: patient not cooperative Quality: Gen Med Crit Care VTE Prophylaxis VTE prophylaxis initiated: yes Current Medications Current medication review: I attest that the foregoing medication list in [facility] medical record is true, accurate, and complete to the best of my knowled Eliseo Andre 09/27/21 1746: Quality: Gen Med Crit Care Advanced Care Plan 65 or Older Discussed with: patient, surrogate decis. maker ( and daughter) Discussion included: code status (DNR) Attestations Teaching Physician Attestation 1st visit w/o resident: I performed a history and ph ysical examination of the patient and discussed with the resident Dr Lemus PGy2. I have reviewed the resident's note and . . . agree with the findings and plan as documented in the resident's note. 86 yoF with known h/o CAD s/p CABG with bioprosthetic aortic valve replacement and aortic aneurysm repair, SSS s/p dual chamber PM, transfered from [facility] with possible NSTEMI. Pt was initially a dmitted for work up of chest pain. Her initial troponins was elevated at 172 (high sens itivity scale where 0-59 is normal range) but pt developed angina pa in when attempted to undergone cardiac stress testing. Currently she's resting in bed w ith family at bedside, in V- paced rhythm rate 60s. Howev er, intermittently she still c/o right shoulder and arm pain, described as tightness. Will admit for further ischemic workup by her ca rdiologist Dr Aldrich. at 0504 at 1752 RPT #:[id number] END OF REPORT 2020-12-01 11:06:00-00:00 [id number] [place] [address] PATIENT NAME: KAUR KINSEY ADMIT DATE : 12/01/20 ACCOUNT NO: [id number] ROOM NO: AGE: 85 REPORT TYPE: ELECTROCARDIOGRAM SEX: F ADMITTING PHYSICIAN: ATTENDING PHYSICIAN:Christian Aldrich MD Order: [id number] Test Reason : S/P PPI Test Date/Time Stamp: ThuDec 01 2020 11:06:00 Blood Pressure : / mmHG Vent. Rate : 060 BPM Atrial Rate : 060 BPM P-R Int : 186 ms QRS Dur : 146 ms QT Int : 496 ms P-R-T Axes : 079 -75 107 degree s QTc Int : 496 ms AV sequential or dual chamber electronic pacemak er When compared with ECG of 01-DEC-2020 09:00, Vent. rate has decreased BY 5 BPM Confirmed by CHRISTIAN ALDRICH ([id number]) on 12/01/2020 11:49:15 AM Referred By: Christian Aldrich Confirmed by:CHRISTIAN ECHEVERRIA at 1149 PATIENT NAME: KAUR KINSEY 2020-12-01 10:37:00-00:00 [id number] [place] [id number] PATIENT NAME: KAUR KINSEY ADMIT DATE : 12/01/20 ACCOUNT NO: [id number] ROOM NO: AGE: 85 REPORT TYPE: CARDIAC CATHETERIZATION REPORT SEX: F ADMITTING PHYSICIAN: ATTENDING PHYSICIAN:Christian Aldrich MD PROCEDURE DATE: 12/01/2020 CARDIOLOGY PROCEDURE SENIOR DEVELOPER: Christian Aldrich MD TITLE OF THE PROCEDURE: Dual-chamber pac emaker change out, pacemaker generator change. INDICATION FOR THE PROCEDURE: Pacemaker JAQUELINE for complete heart block. ESTIMATED BLOOD LOSS: Minimal. COMPLICATIONS: None. CONTRAST: None. ANESTHESIA: Conscious sedation with Versed and f entanyl and 1% lidocaine for local anesthesia. FINAL DIAGNOSIS: Successful pacemaker generator change with the new generator being Medtronic [id number], serial #[id number]. The leads were existing from 2002. PROCEDURE IN DETAIL: Please see enclosed report in the chart. DISPOSITION: The patient will be going home in hours. Dictated By: Christian Aldrich MD WT: CATH:DAMARIS/GISELA/WILFRED Conf#: [id number]/DID#: [id number] Authenticated by Christian Aldrich MD On 11/11 11:29:01 AM at 1129 PATIENT NAME: KAUR KINSEY 2020-12-01 09:00:00-00:00 [id number] [place] [address] PATIENT NAME: KAUR KINSEY ADMIT DATE : 12/01/20 ACCOUNT NO: [id number] ROOM NO: AGE: 85 REPORT TYPE: ELECTROCARDIOGRAM SEX: F ADMITTING PHYSICIAN: ATTENDING PHYSICIAN:Christian Aldrich MD Order: [id number] Test Reason : PREOP Test Date/Time Stamp: ThuDec 01 2020 09:00:27 Blood Pressure : / mmHG Vent. Rate : 065 BPM Atrial Rate : 065 BPM P-R Int : 000 ms QRS Dur : 180 ms QT Int : 500 ms P-R-T Axes : 000 -63 117 degree s QTc Int : 520 ms Electronic ventricular pacemaker No previous ECGs available Confirmed by CHRISTIAN ALDRICH ([id number]) on 12/01/2020 9:08:01 AM Referred By: Christian Aldrich Confirmed by:CHRISTIAN ECHEVERRIA at 0908 PATIENT NAME: KAUR KINSEY 2020-11-30 07:27:00-00:00 [id number] [facility] [address] [place] [address] PATIENT NAME: KAUR KINSEY ADMIT DATE: ACCOUNT NO: [id number] ROOM NO: AGE: 85 REPORT TYPE: PREOP HISTORY AND PHYSICAL SEX: F ADMITTING PHYSICIAN: ATTENDING PHYSICIAN:Christian Aldrich MD PATIENT NAME: KAUR KINSEY ADMIT DATE:2020 ADMISSION DATE: 12/01/2020 SENIOR DEVELOPER: Christian Aldrich MD REASON FOR ADMISSION: Pacemaker generator change in a patient who is a pacemaker dependent. The pacemaker has reached E RI. HISTORY OF PRESENT ILLNESS: Kaur is an 85-year-old patient of mine with a long history of complete heart block, status post fir st pacemaker implantation on 06/29/2003. She had her replacement on 0, and now she is due for another replacement. She is at [facility]. She is pacem serena dependent. The patient is known to have coronary artery disease and sev ere aortic insufficiency documented by catheterization on 02/09/2010. She underwent aortic valve replacement, bioprosthetic as well as bypass on 03/01/2010. At that time, she had BLAIR to the LAD and vein graft to th e first diagonal and the bioprosthetic valve was a 21 mm Zenon-East bioprosthet ic aortic valve. The patient has done well from the coronary artery disease a nd from the aortic valve standpoint. She has not required any cardiac cat heterization since her 2009 pre-surgery catheterization. She had an echocard iogram on 03/26/2020 that showed mild aortic valve insufficiency, normal f unctioning aortic valve. She had mitral annular calcification with moderate s tenosis and then moderate insufficiency. Ejection frac tion has been in the 50s, pulmonary hypertension in the 40s. She had a negative nuclear stre ss test on 10/07/2018. She has not had any significant angina and no congestive heart f ailure, TIAs, or strokes. The patient is here today for pacemaker generator harley cardoso. PAST MEDICAL HISTORY: Remarkable for the above i n addition to hypertension, hyperlipidemia, paroxysmal atrial fibrillation, hypothyroidism, acid reflux, history of gastric ulcers, vitamin B12 deficienc y, vitamin D deficiency, and allergies. PAST SURGICAL HISTORY: Remarkable for the above. In addition, she has had cholecystectomy in 1953, partial mastectomy in . She was diagnosed with Sweet syndrome in 2001. Received radiation after her mastectomy on the left. ALLERGIES: SEVERAL; CODEINE, MORPHINE, DEMEROL, PENICILLIN, IODINE, LOTENSIN, AMBIEN, DEXAMETHASONE. THESE ALLERGIES ARE NOT SEVERE, MAINLY REACTION TO THOSE MEDICATIONS. MEDICATIONS: Simvastatin 20 mg daily, Le vothroid 112 mcg daily, Charlette daily, Protonix 40 mg daily, vitamins C, D, and B12, ca rvedilol 25 mg, Plavix 75 mg PATIENT NAME: KAUR KINSEY [id number] daily. She is not on any other blood thinners be cause of her gastric history. SOCIAL HISTORY: The patient never smoked. There is no history of alcohol or street drug use. She is accompanied by her [facility] nd. FAMILY HISTORY: Mother had heart problems, lived to age 92. No premature atherosclerosis. REVIEW OF SYSTEMS: Remarkable for the above in a ddition to lack of energy, insomnia, allergies, numbness, tiredness. No acu te GI or symptoms. No TIAs or strokes. PHYSICAL EXAMINATION: GENERAL: Reveals a pleasant elderly lady, in no acute distress. VITAL SIGNS: Blood pressure 128/78, pulse 75 and regular, respiratory rate 18 and unlabored, and temperature afebrile. HEENT: Head, atraumatic and normocephalic. Eyes ENT examination within normal for age. NECK: Supple. Mild jugular venous distention. No bruits. No lymphadenopathy. Normal upstroke. LUNGS: Clear and resonant. HEART: Regular rate and rhythm with I to II/ s ystolic ejection murmur and diastolic murmurs at the mitral and aortic area respectively. No gallops. ABDOMEN: Soft. No tenderness, no organomegaly, n o masses or bruits. EXTREMITIES: A 2+ distal pulses. No edema, cyano sis, or clubbing. NEUROLOGIC: Alert and oriented x3. The examinati on appears to be nonfocal. LABORATORY DATA: Pending. Noninvasive cardiovasc ular workup enclosed. IMPRESSION: This is an 85-year-old lady with cor onary artery disease and valvular heart disease detailed above. She has a lso short runs of paroxysmal atrial fibrillation. She has a complete heart block and a pacemaker since 2002. She is here for pacemaker generator change. RECOMMENDATIONS: The recommendation is to procee d with the above-mentioned procedures. The risks and benefits of th e planned procedures were discussed in detail with the patient and her , and she is willing to proceed. Rest as per orders. Dictated By: Christian Aldrich MD WT: PREOPHP:MUSTAPHA/GISELA/WILFRED Conf#: [id number]/DID#: [id number] Authenticated and Edited by Christian Aldrich MD On 11/30/20 3:20:39 PM at [id number] PATIENT NAME: KAUR KINSEY [id number]
[2023-03-01] MEDS ORDERED: ASPIRIN 81 MG CHEWABLE TABLET ONE (21:03)
[2023-03-01 21:13] LABS: Absolute Lymphocytes (CBC) 0.9 K/uL (0.7-4.9); Hematocrit 40.4 % (36.0-45.0); Lymphocytes % 7.2 % (15.3-44.8); MPV 7.3 fL (7.6-11.3); Platelets 246 thou/uL (152-406); RBC Red Blood Cell Count 4.34 M/uL (3.86-4.86)
[2023-03-01 21:17] LABS: Protime INR 1.19
--- NOTE | 2023-03-01 21:25 | RAD REPORT ---
EXAM DESCRIPTION: RAD - Chest Single View - 03/01/2023 9:16 pm CLINICAL HISTORY: CHEST PAIN COMPARISON: Chest Single View dated 09/26/2021; Chest Single View dated 03/12/2018 FINDINGS: Lines: None. Lungs: No evidence of edema or pneumonia. Pleural: No significant pleural effusions or pneumothorax. Cardiac: Mild cardiomegaly.Aortic valve prosthesis. Mediastinum: Within normal limits. Bones: No acute fractures. Sternotomy. Other: Pacemaker. IMPRESSION: No acute cardiopulmonary disease.
[2023-03-01 21:44] LABS: Albumin 3.4 g/dL (3.4-5.0); Bilirubin Direct 0.5 mg/dL (0-0.2); Bilirubin Indirect, Calculated 0.5 mg/dL (0.2-0.8); Magnesium 1.6 mg/dL (1.6-2.4); Potassium 3.9 mEq/L (3.5-5.1); Protein, Total 7.9 g/dL (6.4-8.2)
[2023-03-01 21:49] LABS: Troponin High Sensitivity 267.1 pg/mL (<58.9)
--- NOTE | 2023-03-01 23:12 | ER ---
Nurse's Notes [facility] Name: Kaur Kinsey Age: 88 yrs Sex: Female : 1935 Arrival Date: 03/01/2023 Time: 20:40 Bed 5 Private MD: Fuentes Sue Diagnosis: Subsequent non-ST elevation (NSTEMI) myocardial infarction Presentation: 03/01 20:42 Chief complaint: Patient states: bilateral lower chest wall pain squeezing pf1 sensation,onset 1730 with diarrhea, onset this AM. stated gave patient Imodium and Tylenol earlier today. Patient denies any chest pain at this time. 20:42 Coronavirus screen: Vaccine status: Patient reports receiving the 2nd dose of the covid pf1 vaccine. 4 doses of Moderna Client denies travel out of the [place] in the last 14 days. Client presents with at least one sign or symptom that may indicate coronavirus-19. Ebola Screen: Patient negative for fever greater than or equal to 101.5 degrees Fahrenheit, and additional compatible Ebola Virus Disease symptoms. Initial Sepsis Screen: Does the patient meet any 2 criteria? No. Patient's initial sepsis screen is negative. Does the patient have a suspected source of infection? No. Patient's initial sepsis screen is negative. Risk Assessment: Do you want to hurt yourself or someone else? Patient reports no desire to harm self or others. 20:42 Method Of Arrival: Wheelchair pf1 20:42 Acuity: LORRAINE 2 pf1 21:13 Acuity: LORRAINE 3 jw7 22:46 Onset of symptoms was March 01, 2023. jw7 Historical: - Allergies: 21:15 Codeine; pf1 21:15 Demerol; pf1 21:15 Dexamethasone; pf1 21:15 Iodine; pf1 21:15 Lotensin; pf1 21:15 Morphine; pf1 21:15 PENICILLINS; pf1 21:15 zolpidem; pf1 - PMHx: 21:15 heart disease; High Cholesterol; Thyroid problem; Myocardial infarction; Aneurysm; pf1 insomnia; knee pain; - PSHx: 21:15 "vein surgery"; Cholecystectomy; open heart; pacemaker; partial mastectomy; pf1 - Immunization history:: Adult Immunizations up to date, Client reports receiving the 2nd dose of the Covid vaccine, 4 doses of Moderna Last tetanus immunization: < 5 years ago Flu vaccine is up to date. - Social history:: Smoking status: Patient denies any tobacco usage or history of. Patient/guardian denies using alcohol, street drugs. - Family history:: not pertinent. Screenin:13 [facility] ED Fall Risk Assessment (Adult) History of falling in the last 3 months, jw7 including since admission No falls in past 3 months (0 pts) Score/Fall Risk Level 0 - 2 = Low Risk. Abuse screen: Denies threats or abuse. Denies injuries from another. Nutritional screening: No deficits noted. Tuberculosis screening: No symptoms or risk factors identified. Assessment: 21:10 General: Appears in no apparent distress. comfortable, Behavior is calm, cooperative. jw7 Pain: Denies pain. Neuro: No deficits noted. Cardoso Agitation-Sedation Scale (RASS): 0 - Alert and Calm Level of Consciousness is awake, alert, obeys commands, Oriented to person, place, time, situation. Cardiovascular: No deficits noted. Capillary refill < 3 seconds Clubbing of nail beds is absent JVD is absent Patient's skin is warm and dry. Respiratory: No deficits noted. Airway is patent Trachea midline Respiratory effort is even, unlabored, Respiratory pattern is regular, symmetrical. GI: No deficits noted. No signs and/or symptoms were reported involving the gastrointestinal system. Abdomen is flat, non-distended. : No deficits noted. No signs and/or symptoms were reported regarding the genitourinary system. EENT: No deficits noted. No signs and/or symptoms were reported regarding the EENT system. Derm: No deficits noted. No signs and/or symptoms reported regarding the dermatologic system. Skin is healthy with good turgor, is fragile, Skin is dry, Skin is normal, Skin temperature is warm. Musculoskeletal: No deficits noted. No signs and/or symptoms reported regarding the musculoskeletal system. Circulation, motion, and sensation intact. Capillary refill < 3 seconds, Range of motion: intact in all extremities. 22:45 Reassessment: Patient appears in no apparent distress at this time. No changes from jw7 previously documented assessment. Patient and/or family updated on plan of care and expected duration. Pain level reassessed. Patient is alert, oriented x 3, equal unlabored respirations, skin warm/dry/pink. Vital Signs: 20:42 BP 186 / 59; Pulse 63; Resp 15; Temp 97.7; Weight 53.52 kg; Height 5 ft. 6 in. ; Pain pf1 0/10; 21:14 BP 148 / 70; Pulse 62; Resp 22 S; Pulse Ox 98% on R/A; jw7 22:00 BP 150 / 52; Pulse 59; Resp 18 S; Pulse Ox 98% on R/A; jw7 23:00 BP 168 / 80; Pulse 62; Resp 17 S; Pulse Ox 98% on R/A; jw7 03/02 00:00 BP 123 / 60; Pulse 59; Resp 17 S; Pulse Ox 95% on R/A; jw7 01:00 BP 153 / 65; Pulse 59; Resp 19 S; Pulse Ox 98% on R/A; jw7 03/01 20:42 Body Mass Index 19.05 (53.52 kg, 167.64 cm) pf1 08 20:42 Pain Scale: Adult pf1 ED Course: 03/01 20:42 Patient arrived in ED. es 20:42 Fuentes Sue DO is Private Physician. es 20:49 Luis Albreto Benites MD is Attending Physician. rt 20:51 Lissy Nelson RN is Primary Nurse. jw7 21:09 Initial lab(s) drawn, by me, sent to lab. EKG done, by ED staff, reviewed by Luis Alberto Benites MD. Inserted saline lock: 22 gauge in left forearm, using aseptic technique. Blood collected. 21:10 Basic Metabolic Panel Sent. jw7 21:10 CBC with Diff Sent. jw7 21:10 LFT's Sent. jw7 21:10 Magnesium Sent. jw7 21:10 NT PRO-BNP Sent. jw7 21:10 PT-INR Sent. jw7 21:10 Troponin HS Sent. jw7 21:13 Triage completed. jw7 21:14 Arm band placed on. jw7 21:18 XRAY Chest (1 view) In Process Unspecified. EDMS 22:38 Initiated transfer to [facility] with Rocío. rv1 22:45 Patient has correct armband on for positive identification. Placed in gown. Bed in low jw7 position. Call light in reach. Side rails up X2. 22:56 Pt accepted to [facility] ER by Dr. Kimball. rv1 03/02 00:05 Evelyn was [facility] called back to inform that [facility] no longer has Folder Machine Operator rv1 capabilities, acceptance withdrawn, Initiated with [facility]. 00:19 Pt accepted to [facility] ER by Dr. Diana. rv1 02:00 No provider procedures requiring assistance completed. Patient transferred, IV remains jw7 in place. 02:01 Provided Education on: need for transfer. jw7 Administered Medications: 03/01 21:46 Not Given (Physician Discretion): Aspirin PO Chewable Tablet 324 mg PO once; 81 mg kd3 tablets x 4 23:33 Drug: Nitroglycerin Sublingual 0.4 mg Route: Sublingual; jw7 23:46 Drug: Nitroglycerin Sublingual 0.4 mg Route: Sublingual; jw7 03/02 02:02 Follow up: Response: No adverse reaction; No change in condition jw7 00:03 Drug: fentaNYL (PF) IVP 50 mcg Route: IVP; Site: right forearm; as6 02:02 Follow up: Response: No adverse reaction; No change in condition jw7 01:28 Drug: fentaNYL (PF) IVP 50 mcg Route: IVP; Site: right forearm; jw7 02:02 Follow up: Response: No adverse reaction; Marked relief of symptoms jw7 Medication: 02:01 VIS not applicable for this client. jw7 Outcome: 03/01 23:10 ER care complete, transfer ordered by . rt 03/02 02:00 Transferred by ground EMS to other acute care facility: [facility] . jw7 Condition: stable Instructed on the need for transfer, Demonstrated understanding of instructions. 02:02 Patient left the ED. jw7 Signatures: Dispatcher [employer] Shakira Parsons Ashby RN RN as6 Lissy Nelson RN RN jw7 Luis Alberto Benites MD MD rt Tran Landeros RN RN pf1 Lisa Porter rv1 Che Gray RN kd3 Corrections: (The following items were deleted from the chart) : 01:26 Initiated transfer to [facility] with Rocío rv1 rv1 01:26 Pt accepted to [facility] ER by Dr. Kimball rv1 rv1 01: 00:19 Pt accepted to [facility] by Dr. Diana rv1 rv1
--- NOTE | 2023-03-01 23:12 | EDPHYS ---
Physician Documentation [facility] Name: Kaur Kinsey Age: 88 yrs Sex: Female : 1935 Arrival Date: 03/01/2023 Time: 20:40 Bed 5 Private MD: Fuentes Sue ED Physician Luis Alberto Benites HPI: 03/01 22:44 This 88 yrs old Female presents to ER via Wheelchair with complaints of Chest Pain > 30 rt y/o. 22:44 . rt 22:44 Patient presents to the ED with a substernal chest pain described as a pressure rt starting at about 5 PM. This lasted for about 30 minutes and then resolved. She denies having any chest pain at the moment. She denies other acute complaints. Pain is nonradiating, moderate in severity, no other aggravating or alleviating factors.. Historical: - Allergies: 21:15 Codeine; pf1 21:15 Demerol; pf1 21:15 Dexamethasone; pf1 21:15 Iodine; pf1 21:15 Lotensin; pf1 21:15 Morphine; pf1 21:15 PENICILLINS; pf1 21:15 zolpidem; pf1 - PMHx: 21:15 heart disease; High Cholesterol; Thyroid problem; Myocardial infarction; Aneurysm; pf1 insomnia; knee pain; - PSHx: 21:15 "vein surgery"; Cholecystectomy; open heart; pacemaker; partial mastectomy; pf1 - Immunization history:: Adult Immunizations up to date, Client reports receiving the 2nd dose of the Covid vaccine, 4 doses of Moderna Last tetanus immunization: < 5 years ago Flu vaccine is up to date. - Social history:: Smoking status: Patient denies any tobacco usage or history of. Patient/guardian denies using alcohol, street drugs. - Family history:: not pertinent. ROS: 22:44 Constitutional: Negative for fever, chills, and weight loss, Respiratory: Negative for rt shortness of breath, cough, wheezing, and pleuritic chest pain, Abdomen/GI: Negative for abdominal pain, nausea, vomiting, diarrhea, and constipation, MS/Extremity: Negative for injury and deformity, Skin: Negative for injury, rash, and discoloration, Neuro: Negative for headache, weakness, numbness, tingling, and seizure, Psych: Negative for depression, anxiety, suicide ideation, homicidal ideation, and hallucinations. 22:44 Cardiovascular: Positive for chest pain, Negative for edema. Exam: 22:44 Constitutional: This is a well developed, well nourished patient who is awake, alert, rt and in no acute distress. Head/Face: Normocephalic, atraumatic. Chest/axilla: Normal chest wall appearance and motion. Nontender with no deformity. No lesions are appreciated. Cardiovascular: Regular rate and rhythm with a normal S1 and S2. No gallops, murmurs, or rubs. Normal PMI, no JVD. No pulse deficits. Respiratory: Lungs have equal breath sounds bilaterally, clear to auscultation and percussion. No rales, rhonchi or wheezes noted. No increased work of breathing, no retractions or nasal flaring. Abdomen/GI: Soft, non-tender, with normal bowel sounds. No distension or tympany. No guarding or rebound. No evidence of tenderness throughout. Skin: Warm, dry with normal turgor. Normal color with no rashes, no lesions, and no evidence of cellulitis. MS/ Extremity: Pulses equal, no cyanosis. Neurovascular intact. Full, normal range of motion. Neuro: Awake and alert, GCS 15, oriented to person, place, time, and situation. Cranial nerves II-XII grossly intact. Motor strength 5/5 in all extremities. Sensory grossly intact. Cerebellar exam normal. Normal gait. Psych: Awake, alert, with orientation to person, place and time. Behavior, mood, and affect are within normal limits. 22:44 ECG was reviewed by the Attending Physician. 03/02 00:32 ECG was reviewed by the Attending Physician. rt Vital Signs: 03/01 20:42 BP 186 / 59; Pulse 63; Resp 15; Temp 97.7; Weight 53.52 kg; Height 5 ft. 6 in. ; Pain pf1 0/10; 21:14 BP 148 / 70; Pulse 62; Resp 22 S; Pulse Ox 98% on R/A; jw7 22:00 BP 150 / 52; Pulse 59; Resp 18 S; Pulse Ox 98% on R/A; jw7 23:00 BP 168 / 80; Pulse 62; Resp 17 S; Pulse Ox 98% on R/A; jw7 03/02 00:00 BP 123 / 60; Pulse 59; Resp 17 S; Pulse Ox 95% on R/A; jw7 01:00 BP 153 / 65; Pulse 59; Resp 19 S; Pulse Ox 98% on R/A; jw7 03/01 20:42 Body Mass Index 19.05 (53.52 kg, 167.64 cm) pf1 03/01 20:42 Pain Scale: Adult pf1 MDM: 03/01 20:49 Patient medically screened. rt 03/02 00:32 Differential diagnosis: abnormal EKG, acute myocardial infarction, pneumonia, rt pneumothorax. HEART Score: History: Highly Suspicious (2), ECG: Significant ST-deviation (2), Age: > or = 65 years (2), Risk Factors: > or = 3 Risk factors for atherosclerotic disease (2), Troponin: > or = 3 x Normal Limit (2), Total Score = 10. The patient was not given aspirin in the Emergency Department. Patient reports taking aspirin within the past 24 hours. Data reviewed: vital signs, lab test result(s), EKG, radiologic studies. Consideration of Admission/Observation Patient request transfer to [facility] for continuity of care as she has had prior cardiac catheterizations there.. Management of patient was discussed with the following: Construction Flagger: Discussed with accepting ER doctor. I considered the following discharge prescriptions or medication management in the emergency department Medications were administered in the Emergency Department. See MAR. Independent interpretation of the following test(s) in the Emergency Department X-Ray: My interpretation is No consolidation seen on interpretation of the x-ray image. Test considered but Not performed: CT: Low suspicion for PE, CT angiogram not indicated. Care significantly affected by the following chronic conditions: CAD. Counseling: I had a detailed discussion with the patient and/or guardian regarding the historical points, exam findings, and any diagnostic results supporting the discharge/admit diagnosis, lab results, radiology results, the need to transfer to another facility. 03/01 20:47 Order name: Basic Metabolic Panel; Complete Time: 21:58 snw 03/01 20:47 Order name: CBC with Diff; Complete Time: 21:28 snw 03/01 20:47 Order name: LFT's; Complete Time: 21:58 snw 03/01 20:47 Order name: Magnesium; Complete Time: 21:58 snw 03/01 20:47 Order name: NT PRO-BNP; Complete Time: 21:58 snw 03/01 20:47 Order name: PT-INR; Complete Time: 21:28 snw 03/01 20:47 Order name: Troponin HS; Complete Time: :58 snw 03/01 20:47 Order name: XRAY Chest (1 view); Complete Time: 21:28 snw 03/01 20:47 Order name: EKG; Complete Time: 20:48 snw 03/01 23:53 Order name: EKG; Complete Time: 23:54 rt 03/01 20:47 Order name: Cardiac monitoring; Complete Time: 21:09 snw 03/01 20:47 Order name: EKG - Nurse/Tech; Complete Time: 21: snw 03/01 20:47 Order name: IV Saline Lock; Complete Time: 21: snw 03/01 20:47 Order name: Labs collected and sent; Complete Time: 21:09 snw 03/01 20:47 Order name: O2 Per Protocol; Complete Time: 21: snw 03/01 20:47 Order name: O2 Sat Monitoring; Complete Time: 21: snw 03/01 23:53 Order name: EKG - Nurse/Tech; Complete Time: 00:20 rt EC/20 22:44 Rate is 63 beats/min. Rhythm is regular, Paced with Conduction, ST, T waves consistent rt with ventricularly paced rhythm, appears similar compared to prior EKG from last year. Left axis deviation noted. QT interval is normal. No Q waves. 03/02 00:32 Rate is 61 beats/min. Rhythm is regular, Paced with ST, T waves, conduction consistent rt with ventricular paced rhythm, no change compared to prior EKG. QT interval is normal. No Q waves. Administered Medications: 03/01 21:46 Not Given (Physician Discretion): Aspirin PO Chewable Tablet 324 mg PO once; 81 mg kd3 tablets x 4 23:33 Drug: Nitroglycerin Sublingual 0.4 mg Route: Sublingual; jw7 23:46 Drug: Nitroglycerin Sublingual 0.4 mg Route: Sublingual; jw7 03/02 02:02 Follow up: Response: No adverse reaction; No change in condition jw7 00:03 Drug: fentaNYL (PF) IVP 50 mcg Route: IVP; Site: right forearm; as6 02:02 Follow up: Response: No adverse reaction; No change in condition jw7 01:28 Drug: fentaNYL (PF) IVP 50 mcg Route: IVP; Site: right forearm; jw7 02:02 Follow up: Response: No adverse reaction; Marked relief of symptoms jw7 Disposition: 02:28 Critical Care:. rt Disposition Summary: 03/01/23 23:10 Transfer Ordered Transfer Location: Other Acute Care Facility rt Condition: Stable rt Problem: new rt Symptoms: have improved rt Reason: Patient request(03/02/23 00:31) rt Accepting Physician: Dr. Diana(03/02/23 02:02) jw7 Diagnosis - Subsequent non-ST elevation (NSTEMI) myocardial infarction rt Forms: - Medication Reconciliation Form rt - SBAR form rt Critical care time excluding procedures: :28 Critical care time: Bedside Care: 30 minutes, Consultation: 10 minutes. Total time: 40 rt minutes Signatures: Dispatcher [employer] EDMS Jamila Aguiar, EARNESTC MAJOR ACCOUNT MANAGER-Virgil Roman RN RN as6 Lissy Nelson RN RN jw7 Luis Alberto Benites MD MD rt Tran Landeros RN RN pf1 Che Gray RN kd3 Corrections: (The following items were deleted from the chart) 00:31 08 23:10 Dr. Kimball rt rt 03/02 00:31 08 23:10 Higher level of care rt rt 03/02 00:32 00:31 Dr. Kimball rt rt 02:02 00:32 Dr. Diana rt jw7
[2023-03-01] MEDS ORDERED: NITROGLYCERIN 0.4 MG/TAB SL ONE (23:40)
[2023-03-02] MEDS ORDERED: FENTANYL CITR 100 MCG/2 ML ONE ×2 (00:09→01:34)
[2023-03-02 02:50] VITALS: TEMP 97.7
[2023-03-02 02:52] VITALS: O2SAT 98
[2023-03-02 02:53] VITALS: BP 150/52
--- NOTE | 2023-03-02 17:57 | EKG ---
Test Date: 2023-03-01 Test Time: 20:50:04 Buyer Intern: GERARD MEASUREMENT RESULTS: Intervals: Rate: 63 WI: QRSD: 180 QT: 482 QTc: 493 [place]: P: WI: QRS: -61 T: 118 INTERPRETIVE STATEMENTS: Electronic ventricular pacemaker Compared to ECG 09/26/2021 00:53:02 No significant changes Electronically Signed On 03-02-23 17:56:05 CDT by Catracho Dyson
--- NOTE | 2023-03-02 18:11 | EKG ---
Test Date: 2023-03-02 Test Time: 00:15:24 Gas Engine Performance Engineer: MEASUREMENT RESULTS: Intervals: Rate: 61 [place]: QRSD: 180 QT: 514 QTc: 517 [place]: P: [place]: QRS: -68 T: 113 INTERPRETIVE STATEMENTS: Ventricular-paced rhythm Abnormal ECG Compared to ECG 03/01/2023 20:50:04 No significant changes Electronically Signed On 03-02-23 18:01:51 CDT by Catracho Dyson
== END 2023-03-02 02:02 ==
LOC: ER 20:40
DX: I22.2 Subsequent non-ST elevation (NSTEMI) myocardial infarction (principal); I21.9 Acute myocardial infarction, unspecified; I51.9 Heart disease, unspecified; I25.2 Old myocardial infarction; Z95.0 Presence of cardiac pacemaker; Z88.0 Allergy status to penicillin; Z88.5 Allergy status to narcotic agent; Z88.8 Allergy status to other drugs, medicaments and biological substances; Z91.048 Other nonmedicinal substance allergy status
CPT/HCPCS: 93005 ×2; 85025; 80048; 36415; 83735; 85610; 80076; 84484; 83880; 71045; 96374; 99285; J3010

== ENCOUNTER 2023-06-14 15:49 | Inpatient (IN) | payer OTHER, BC ==
--- OUTSIDE RECORDS SUMMARY | 2023-06-14 16:15 | XMS REPORT | Continuity of Care Document ---
:1935 Author Organization [facility] t Address [address] [facility]. [address] [place] [address] Care Team Providers Name Role Phone Radha Mckeon Attending Clinician Unavailable Eliseo Her Attending Clinician Unavailable Christian Aldrich Attending Clinician Unavailable CANDIDO LE Attending Clinician Unavailable Radha Mckeon Admitting Clinician Unavailable Eliseo Her Admitting Clinician Unavailable [...] Medical 00 Center Syncope Syncope Disease Active 2018-[address] [facility]: [facility] 00 Center Allergies, Adverse Reactions, Alerts Allergy Allergy Status Severity Reaction(s) Onset Inactive Treating Comm ents Source Name Type Date Date Clinician zolpidem DA Active U UNKNOWN 2022-0 [facility] 8-21 [place] 00:00: [facility] meperidi DA Active U UNKNOWN 2022-0 [facility] ne 03-02 [place] 00:[facility]: [facility] Penicill DA Active U UNKNOWN 2022-0 [facility] ins 03-02 [place] 00:00: [facility] iodine DA Active U UNKNOWN 2022-0 [facility] 03-02 [place] 00:00: [facility] morphine DA Active U UNKNOWN 2022-0 [facility] 03-02 [place] 00:00: [facility] codeine DA Active U UNKNOWN 2022-0 [facility] 03-02 [place] 00:00: [facility] dexameth DA Active U UNKNOWN 2022-0 [facility] asone 03-02 [place] 00:00: [facility] benazepr DA Active U UNKNOWN 2022-0 [facility] [place] 03-02 [place] 00:00: [facility] Penicill DA Active U UNKNOWN 2021-0 [facility] ins 3- 00:00: [address] iodine DA Active U 2020-0 [facility] - 00:00: [place] [address] [facility] [place] morphine DA Active U 2020-0 [facility] - 00:00: [place] [address] [facility] [place] codeine DA Active U 2020-0 [facility] - 00:00: [place] [address] [facility] [place] dexameth DA Active U 2020-0 [facility] asone 11-30 00:00: [place] [address] [facility] benazepr DA Active U 2020-0 [facility] il - 00:00: [place] [address] [facility] Center zolpidem DA Active U 2020-0 [facility] 5- 00:00: [place] [address] [facility] meperidi DA Active U 2020-0 [facility] ne - 00:00: [place] 00 [facility] iodine DA Active U UNKNOWN 2020-0 [facility] 5-21 00:00: [place] [address] [facility] morphine DA Active U UNKNOWN 2020-0 [facility] -21 00:00: [place] 00 [facility] codeine DA Active U UNKNOWN 2020-0 [facility] 11-30 00:00: [place] [facility] dexameth DA Active U UNKNOWN [facility] asone 11-30 00:00: [place] [facility] benazepr DA Active U UNKNOWN [facility] il 11-30 00:00: [place] [facility] zolpidem DA Active U UNKNOWN [facility] 11-30 00:00: [place] [facility] meperidi DA Active U UNKNOWN [facility] ne 11-30 00:00: [place] [facility] Codeine Propensi Active Anaphylaxis [facility] adverse 00:00: Medical reaction 00 Center s Meperidi Propensi Active Anaphylaxis [facility] ty to 8 [facility] adverse 00:00: Medical reaction 00 Center s Dexameth [facility]i Active [facility] asone ty to 8 [facility] adverse 00:00: Medical reaction 00 Center s Iodinate Propensi Active [facility] Contrast adverse 00:00: Medical Media reaction 00 Center s Benazepr Propensi Active [facility] to 8 [facility] adverse 00:00: Medical reaction 00 Center s Morphine Propensi Active Anaphylaxis [facility] to 8 [facility] adverse 00:00: Medical reaction 00 Center s Penicill Propensi Active [facility] adverse 00:00: Medical reaction 00 Center s Zolpidem Propensi Active [facility] adverse 00:00: Medical reaction 00 Center s Social History Social Habit Start Date Stop Date Quantity Comments Source Sexual orientation [facility] Alcohol intake 2018-03-16 2018-03-[address] [facility] 00:00:00 00:00:00 non-drinker of Medical Ce nter alcohol (finding) Tobacco use and 2018-03-12 2018-03-12 Smokeless tobacco [facility] exposure 00:[facility]:00 00:00:00 non-user [facility] Sex Assigned At [address] [facility] 00:00:00 00:00:00 [facility] Smoking Status Start Date Stop Date Source Never smoked tobacco [facility] Medications Ordered Filled Start Stop Current Ordering Indication Dosage Frequency Signature Comments Components Source Medication Medication Date Date Medication? Clinician (SIG) Name Name simvastatin 2018-0 Yes 20mg QD Take [address] (ZOCOR) 20 9 by mouth [facility] tablet 18:25: nightly. [address] carvedilol 2018-0 Yes 25mg Take [address] (COREG) 25 03-13 by mouth 2 [facility] MG tablet 18:25: (two) Medical 28 times Center daily with breakfast and dinner. clopidogrel 2018-0 Yes 75mg Q.[id number] Take [address] (PLAVIX) 75 9- [id number] by mouth 3 [facility] mg tablet 18:25: 3W (three) Medic al 28 times a [place] week MWF . levothyroxi 2018-0 Yes 75ug Take [address] ne 9-01 mcg by [facility] (SYNTHROID, 18:25: mouth Medic al LEVOTHROID) 28 Every Center 75 MCG morning on tablet an empty stomach. simvastatin 2018-0 Yes 20mg QD Take [address] (ZOCOR) 20 03-13 by mouth [facility] tablet 18:25: nightly. [address] carvedilol 2017-0 Yes 25mg Take [address] (COREG) 25 03-13 by mouth 2 [facility] MG tablet 18:25: (two) Medical 28 times Center daily with breakfast and dinner. clopidogrel 2018-0 Yes 75mg Q.[id number] Take [address] (PLAVIX) 75 03-13 [id number] by mouth 3 [facility] mg tablet 18:25: 3W (three) Medic al 28 times a Center week MWF . levothyroxi 2018-0 Yes 75ug Take [address] ne 9-01 mcg by [facility] (SYNTHROID, 18:25: mouth Medic al LEVOTHROID) 28 Every Center 75 MCG morning on tablet an empty stomach. simvastatin 2018-0 Yes 20mg QD Take [address] (ZOCOR) 20 03-13 by mouth [facility] tablet 18:25: nightly. [address] carvedilol 2018-0 Yes 25mg Take [address] (COREG) 25 03-13 by mouth 2 [facility] MG tablet 18:25: (two) Medical 28 times Center daily with breakfast and dinner. clopidogrel 2018-0 Yes 75mg Q.[id number] Take [address] (PLAVIX) 75 9-01 [id number] by mouth 3 [facility] mg tablet 18:25: 3W (three) Medic al 28 times a Center week MWF . levothyroxi 2018-0 Yes 75ug Take [address] ne 9-01 mcg by [facility] (SYNTHROID, 18:25: mouth Medic al LEVOTHROID) 28 Every Center 75 MCG morning on tablet an empty stomach. pantoprazol 2018-0 Yes 40mg Q.5D Take [address] e 9-01 tablet (40 [facility] (PROTONIX) 00:00: mg total) Me dical 40 MG 00 by mouth 2 Center tablet (two) times daily. pantoprazol 2018-0 Yes 40mg Q.5D Take [address] e 9-01 tablet (40 [facility] (PROTONIX) 00:00: mg total) Me dical 40 MG 00 by mouth 2 Center tablet (two) times daily. pantoprazol 2018-0 Yes 40mg Q.5D Take [address] e 9-01 tablet (40 [facility] (PROTONIX) 00:00: mg total) Me dical 40 MG 00 by mouth 2 Center tablet (two) times daily. Procedures Procedure Date / Time Performed Performing Clinician [facility] e [id number] 2021-09-28 00:00:00 [facility] [id number] 2021-09-28 00:00:00 [facility] [id number] 2021-09-28 00:00:00 [facility] [id number] 2021-09-28 00:00:00 [facility] [id number] 2021-09-28 00:00:00 [facility] Encounters Start End Encounter Admission Attending Care Care Encounter Source Date/Time Date/Time Type Type Clinicians Facility Department ID 2023-03-02 2023-03-03 Inpatient SABA Mckeon [facility] [id number] [facility] 07:50:00 13:49:00 Radha Suhail [facility] 2021-09-27 2021-09-29 Inpatient TIMA Lopez TELE [id number] [facility] 01:35:00 14:53:00 Eliseo 55 [facility] 2020-11-30 2020-11-30 Outpatient TIMA Aldrich [facility] [id number] [facility] 14:19:40 14:19:40 Salim 03 [facility] Results Test Description Test Time Test Comments Results Result Comments Source T3 FREE 2023-03-04 04:08:00 Test Item Value Reference Range Interpretation Comme nts T3 FREE (test code = T3F) 2.8 pg/mL 2.0-4.4 Pe rformed At: [facility] [id number] [place], [place] [id number] Jagdeep Soto MD Ph:[phone] T4 [id number] 04:24:00 Test Item Value Reference Range Interpretation Comments T4 FREE (test code = T4F) 1.35 ng/dL 0.89-1.76 N THYROID STIMULATING [id number] 04:24:00 Test Item Value Reference Range Interpretation Comments THYROID STIMULATING HORMONE (test 3.43 uIU/mL 0.55-4.78 N code = TSH) - US PELVIC [id number] 17:47:00 [facility] 1935 Sex: FPatient Name: KAUR KINSEY Unit No: [id number] EXAMS: CPT CODE: [id number] US PELVIC COMPLETE 34645 Location: H59 EXAM: - US PELVIC COMPLETE INDICATION: Ovarian mass COMPARISON: CT abdomen/pelvis dated 03/02/2023. TECHNIQUE: Multiplanar grayscale and color Doppler ultrasound of the pelvis were obtained: Transabdominally. FINDINGS: Uterus/Myometrium: Measures 6.0 x 3.4 x 2.0 cm in size. Anteverted.No obvious, focal lesions. Endometrium: Not well evaluated on the included images. Right ovary: Notdefinitively identified. Left ovary: Not definitely identified. Adnexa: There is a predominantly cystic structure within the right adnexa, measuring up to 9.3 cm, with at least one, single, thin internal septation. There is a predominantly cystic structure within the left adnexa, measuring up to 4.1 cm in size, with at least one thin internal septation. Free fluid: None. IMPRESSION: 1. Limited, transabdominal only evaluation. Endometrium is not well evaluated on the included images. 2. The ovaries are not identified and may be obscured by bowel gas and/or positioning. 3. Cystic structures within the bilateral adnexa, measuring up to 9.3 cm on the right, with at least thin internal septations bilaterally. It should be noted that given size, particularly on the right, sonographic characterizationis limited and likely incomplete. Cystic neoplasia is not excluded on the basis of this imaging. Per guidelines, consider correlation with an MRI examination of the pelvis, with and without contrast, versus gynecologic consultation (see below reference). REFERENCE: Samantha Hanks et al. Management of Asymptomatic Ovarian and Other Adnexal Cysts Imaged at US: Society of Radiologists in Ultrasound Consensus Conference Statement. Radiology 2010; 256: [phone] Name: KAUR KINSEY [facility] Phys: BARB. - Radha Mckeon MD [address] : 1935 Age: 88 Sex: [place] [address] Loc: PELIZS 5 Exam Date: 03/02/2023 Status: ADM IN PH: FAX: PAGE 1 Signed Report (CONTINUED) Patient Name: KAUR KINSEY Unit No: [id number] EXAMS: CPT CODE: [id number] US PELVIC [id number] (Continued) at 1747 Reported and signed by: RADHA PRICE M.D. CC: Darnell Diana MD; Radha Mckeon MD Technologist: Padmaja Pruitt Probe: Trscr Dt/Tm: 03/02/2023 (2917) by:[email or web address] Printed Date/Time: 03/02/2023 (5497) Name: KAUR KINSEY [facility] Phys: BARB.Augustin - Radha Mckeon MD [address] : 1935 Age: 88 Sex: [place] [address] Loc: P.ERMS 5 Exam Date: 03/02/2023 Status: ADM IN PH: FAX: PAGE 2 Signed Report- DUP EXTRACRANIAL [id number] 16:32:00 [facility] : 1935 Sex: FPatient Name: KAUR KINSEY Unit No: [id number] EXAMS: CPT CODE: [id number] DUP EXTRACRANIAL [id number] Location: [facility] EXAM: - DUP EXTRACRANIAL CHRISTIANO INDICATION: ARTERIAL BRUIT COMPARISON: None TECHNIQUE: Multiplanar grayscale, color Doppler and spectral Doppler ultrasound of the carotid and vertebral arteries. FINDINGS: Right Carotid System: Right Common Carotid Artery (RCCA): Peak systolic velocity (PSV) of 45 cm/s. Right Internal Carotid Artery (NIKOLAI): PSV of 82 cm/s. No significant plaque. Right External Carotid Artery (RECA): PSV of 56 cm/s. ICA/CCA RATIO: 1.8 Right Vertebral Artery (RVA): Antegrade flow. Left Carotid System: Left Common Carotid Artery (LCCA): PSV of 53 cm/s. Left Internal Carotid Artery (LICA): PSV of 56 cm/s. No significant plaque. Left External Carotid Artery (LECA): PSV of 70 cm/s. ICA/CCA RATIO: 1.0 Left Vertebral Artery (LVA): Antegrade flow. IMPRESSION: Right internal carotid artery: Normal (no stenosis). Left internal carotid artery: Normal (no stenosis). Vertebral arteries: Antegrade flow bilaterally. According to the 2003 Consensus criteria: <50% stenosis: PSV <125 cm/sec, EDV <40cm/sec, ICA:CCA ratio <2 50- 69% stenosis: PSV 125-230cm/sec, [id number]/sec, ICA:CCA ratio 2-4 >70% stenosis: PSV >230cm/sec, EDV >100cm/sec, ICA:CCA ratio >4 REFERENCE: Radiology. 2003 229:340-346. Carotid Artery Stenosis: Whitman-scale and Doppler US diagnosis- Society of Radiologists in Ultrasound Consensus Conference. Vince EG, Dc CB, Gavino GL, et. al. at 1632 Reported and signed by: RADHA PRICE M.D. Name[facility] [place] Phys: BARB Radha Taylor MD [address] DOB: 1935 Age: 88 Sex: [place] [address] Loc: P.ERMS 5 Exam Date: 03/02/2023 Status: ADM IN PH: FAX: PAGE 1 Signed Report (CONTINUED) Patient Name:KAUR KINSEY Unit No: [id number] EXAMS: CPT CODE: [id number] DUP EXTRACRANIAL CHRISTIANO 95011 (Continued) CC: Darnell Diana MD; Radha Mckeon MD Technologist: Padmaja Pruitt Probe: Trscr Dt/Tm: 03/02/2023 (163) by:[email or web address] Printed Date/Time: 03/02/2023 (163) Name: [facility] [place] Phys: BARB Radha Taylor MD [address] DOB: 1935 Age: 88 Sex: [place] [address] Loc: KIN 5 Exam Date: 03/02/2023 Status: ADM IN PH: FAX: PAGE 2 Signed ReportCREATINE KINASE (CK)2023-03-02 15:17:00 Test Item Value Reference Range Interpretation Comments CREATINE KINASE (CK) (test code = CK) 52 U/L 34-171 N - CT CHEST W/O [id number] 05:32:00 [facility] : 1935 Sex: FPatient Name: KAUR KINSEY Unit No: [id number] EXAMS: CPT CODE: [id number] CT CHEST W/O CONTRAST 54716 EXAMINATION: - CT ABD PELVIS W/O CONT, - CT CHEST W/O CONTRAST LOCATION: H101 CLINICAL HISTORY/INDICATION: r/u dissection COMPARISON: None. TECHNIQUE: Axial CT images of the chest, abdomen and pelvis were obtained without IV contrast administration. Coronal and sagittal reformations were reconstructed from the axial data set.This examination was performed according to our departmental dose optimization program, which includes automated exposure control, adjustment of the mA and/or kV according to patient size, and/or use of iterative reconstruction technique. FINDINGS: STATEMENT: Unless otherwise specified, incidental findings do not require dedicated imaging follow-up. CHEST LINES/TUBES/DEVICE: Pacemaker in the right chest. LUNGS AND AIRWAYS: There is mild interstitial and alveolar edemain the bilateral lungs. There is focal nodular infiltrates in the anterior inferior right lower lobe. A multiple nodules scattered throughout the bilateral lungs with enlarged nodule in the right lung is located in the superior segment of the right upper lobe and measures 11 mm (image 51, series 301).Large nodule in the left lung is located in the left lower lobe and measures 10 mm (image 49, axial series 301). PLEURA: Trace left pleural effusion. No pneumothorax. THYROID GLAND: Normal. HEART AND MEDIASTINUM: Mild cardiomegaly. Prosthetic aortic valve is present. Mitral annular calcification noted. Coronary calcification. Moderate aortic atherosclerotic calcification.. Limited evaluation of the vascular structures due to lack of IV contrast.. No aortic aneurysm. Esophagus is unremarkable. ADENOPATHY: None. EXTERNAL SOFT TISSUE: No abnormalities. ABDOMEN AND PELVIS LIVER: No focal hepatic lesions or intrahepatic biliary dilatation. Name: KAUR KINSEY [facility] Phys: Darnell Perez MD [address] : 1935 Age: 88 Sex: [place] [address] Loc: P.ERMS 5 Exam Date: 03/02/2023 Status: ADM IN PH: FAX: PAGE 1 Signed Report (CONTINUED) PatientName: KAUR KINSEY Unit No: [id number] EXAMS: CPT CODE: [id number] CT CHEST W/O CONTRAST 71800 (Continued) GALLBLADDER/BILIARY SYSTEM: Normal CT appearance of the gallbladder. No common duct dilatation. PANCREAS: Unremarkable. SPLEEN: No splenomegaly or focal lesions. ADRENALS: No adrenal nodules.KIDNEYS/URETERS: No hydronephrosis, stones, or solid mass lesions. 2.6 cm simple appearing cyst in the midpole the right kidney. VESSELS: Limited evaluation of the vascular structures due to lack of IVcontrast. No AAA. Mild aortic atherosclerotic calcification. LYMPH NODES: No lymphadenopathy. PERITONEUM / RETROPERITONEUM: No free air or fluid. GI TRACT: Small bowel and colon are not dilated. No bowel wall thickening. Numerous diverticula scattered throughout the entire colon without acute diverticulitis. GENITOURINARY ORGANS: Uterus is unremarkable. 7.2 x 7.1 cm cyst in the right adnexa and 4.1 x3.7 cm cyst in the left adnexa. PELVIC FREE FLUID/FLUID COLLECTION: None. URINARY BLADDER: Unremarkable. EXTERNAL SOFT TISSUE: No abnormalities. BONES: Regional osseous structures are intact. Postoperative changes of median sternotomy. Mild thoracic and lumbar spine spondylosis. Moderate thoracic spine dextroscoliosis. IMPRESSION: Chest CT: 1. Mild interstitial and alveolar edema, trace left pleural effusion mild cardiomegaly is suggestive of CHF. 2. Numerous nodules scattered throughout the bilateral lungs with appearance favoring an infectious process. 3. Cannot evaluate for aortic dissection since the study was acquired without IV contrast. No aortic aneurysm. Abdomen pelvis CT: 1. 7.2 cm cystin the right adnexa and 4.1 cm cyst in the left adnexa. These cysts are atypical findings for patient's age. [facility]: Darnell Perez MD [address] DOB: 1935 Age: 88 Sex: F [place] [address] Loc: P.ERMS 5 Exam Date: 03/02/2023 Status: ADM IN PH: FAX: PAGE 2 Signed Report (CONTINUED) Patient Name: Hugh KINSEY No: [id number] EXAMS: CPT CODE: [id number] CT CHEST W/O CONTRAST 60208 (Continued) ovarian neoplasm cannot be excluded and gynecology follow-up is recommended for further management. 2. No acute findings in the abdomen and pelvis. 3. Colonic diverticulosis. at 0532 Reported and signed by: Elijah Luong M.D. CC: Darnell iDana MD; Radha Mckeon MD Technologist: ASHELY SPRAGUE CTDI: 4.67 DLP: 319 Trscr Dt/Tm: 03/02/2023 (0532) by:[email or web address] Printed Date/Time: 03/02/2023 (0535) Name: [facility] [place] Phys: Darnell Perez MD [address]: 1935 Age: 88 Sex: F [place] [address] Acct No: BP [id number] Loc: P.ERMS 5 Exam Date: 03/02/2023 Status: ADM IN PH: FAX: PAGE 3 Signed Report- CT ABD PELVIS W/O [id number] 05:32:00 [facility] : 1935 Sex: FPatient Name: KAUR KINSEY Unit No: [id number] EXAMS: CPT CODE: [id number] CT ABD PELVIS W/O CONT 61738 EXAMINATION: - CT ABD PELVIS W/O CONT, - CT CHEST W/O CONTRAST LOCATION: H101 CLINICAL HISTORY/INDICATION: r/u dissection COMPARISON: None. TECHNIQUE: Axial CT images of the chest, abdomen and pelvis were obtained without IV contrast administration. Coronal and sagittal reformations were reconstructed from the axial data set.This examination was performed according to our departmental dose optimization program, which includes automated exposure control, adjustment of the mA and/or kV according to patient size, and/or use of iterative reconstruction technique. FINDINGS: STATEMENT: Unless otherwise specified, incidental findings do not require dedicated imaging follow-up. CHEST LINES/TUBES/DEVICE: Pacemaker in the right chest. LUNGS AND AIRWAYS: There is mild interstitial and alveolar edema in the bilateral lungs. There is focal nodular infiltrates in the anterior inferior right lower lobe. A multiple nodules scattered throughout the bilateral lungs with enlarged nodule in the right lung is located in the superior segment of the right upper lobe and measures 11 mm (image 51, series 301). Large nodule in the left lung is located in the left lower lobe and measures 10 mm (image 49, axial series 301). PLEURA: Trace left pleural effusion. No pneumothorax. THYROID GLAND: Normal. HEART AND MEDIASTINUM: Mild cardiomegaly. Prosthetic aortic valve is present. Mitral annular calcification noted. Coronary calcification. Moderate aortic atherosclerotic calcification.. Limited evaluation of thevascular structures due to lack of IV contrast.. No aortic aneurysm. Esophagus is unremarkable. ADENO DAVE: None. EXTERNAL SOFT TISSUE: No abnormalities. ABDOMEN AND PELVIS LIVER: No focal hepatic lesions or intrahepatic biliary dilatation. Name: KAUR KINSEY [facility] Phys: Darnell Perez MD [address] : 1935 Age: 88 Sex: [place] [address] Loc: P.ERMS 5 Exam Date: 03/02/2023 Status: ADM IN PH: FAX: PAGE 1 Signed Report (CONTINUED) Patient Name: KAUR KINSEY Unit No: [id number] EXAMS: CPT CODE: [id number] CT ABD PELVIS W/O CONT 68462(Continued) GALLBLADDER/BILIARY SYSTEM: Normal CT appearance of the gallbladder. No common duct dilatation. PANCREAS: Unremarkable. SPLEEN: No splenomegaly or focal lesions. ADRENALS: No adrenal nodules. KIDNEYS/URETERS: No hydronephrosis, stones, or solid mass lesions. 2.6 cm simple appearing cyst inthe midpole the right kidney. VESSELS: Limited evaluation of the vascular structures due to lack of IV contrast. No AAA. Mild aortic atherosclerotic calcification. LYMPH NODES: No lymphadenopathy. PERITONEUM / RETROPERITONEUM: No free air or fluid. GI TRACT: Small bowel and colon are not dilated. No bowel wall thickening. Numerous diverticula scattered throughout the entire colon without acute diverticulitis. GENITOURINARY ORGANS: Uterus is unremarkable. 7.2 x 7.1 cm cyst in the right adnexa and 4.1 x 3.7 cm cyst in the left adnexa. PELVIC FREE FLUID/FLUID COLLECTION: None. URINARY BLADDER: Unremarkable. EXTERNAL SOFT TISSUE: No abnormalities. BONES: Regional osseous structures are intact. Postoperative changes of median sternotomy. Mild thoracic and lumbar spine spondylosis. Moderate thoracic spine dextroscoliosis. IMPRESSION: Chest CT: 1. Mild interstitial and alveolar edema, trace left pleural effusion mild cardiomegaly is suggestive of CHF. 2. Numerous nodules scattered throughout the bilateral lungs with appearance favoring an infectious process. 3. Cannot evaluate for aortic dissection since the study was acquired without IV contrast. No aortic aneurysm. Abdomen pelvis CT: 1. 7.2 cm cyst in the right adnexa and 4.1 cm cyst in the left adnexa. These cysts are atypical findings for patient's age. Cystic [facility]: [facility] [place] [place]: [place] [address] [place] [address] Dr BISWASB: 1935 Age: 88 Sex: F [place] [id number] Loc: P.ERMS 5 ExamDate: 03/02/2023 Status: ADM IN PH: FAX: PAGE 2 Signed Report (CONTINUED) Patient Name: KAUR KINSEY Unit No: [id number] EXAMS: CPT CODE: [id number] CT ABD PELVIS W/O CONT 41715 (Continued) ovarian neoplasm cannot be excluded and gynecology follow-up is recommended for further management. 2. No acute findings in the abdomen and pelvis. 3. Colonic diverticulosis. at 0532 Reported and signed by: Elijah Luong M.D. CC: Darnell Diana MD; Radha Mckeon MD Technologist: ASHELY SPRAGUE CTDI: 4.67 DLP: 319 Trscr Dt/Tm: 03/02/2023 (0532) by:[email or web address] Printed Date/Time: 03/02/2023 (0535) [facility]: Darnell Perez MD [address] BISWASB: 1935 Age: 88 Sex: F [place] [address] Loc: P.ERMS 5 Exam Date: 03/02/2023 Status: ADM IN PH: FAX: PAGE 3 Signed [id number] 04:30:00 Test Item Value Reference Range Interpretation Comments TROPONIN-I (test 89.8 pg/mL 27.36-66.23 HH Critical Va lue reported code = TROPI) toFirst Name:B DANIEL Last Name:KOTA SMALL READ BACK AND MAINE AlvaresF.DB19, on 03/02/23, @ 6170. BASIC METABOLIC [id number] 04:14:00 Test Item Value Reference Range Interpretation Comments SODIUM (test code 133 mmol/L 136-145 L = NA) POTASSIUM (test 4.1 mmol/L 3.5-5.1 N code = K) CHLORIDE (test 96 mmol/l 98-107 L code = CL) CARBON DIOXIDE 24 mmol/L 20-31 N (test code = CO2) GLUCOSE (test code 140 ng/dL 74-106 H = GLU) BLOOD UREA 16 mg/dL 9-23 N NITROGEN (test code = BUN) GLOMERULAR >=60 max >60 The Glomerular FILTRATION RATE estimate mL/min Filtratio n Rate is a (test code = GFR) calculated parameterbased on serum Creatinin e, patient age and sex. GFR valuesless than 60 mL/min/1.73 square meters are dayami cative ofChronic Kidne y Disease. Values less than 15 mL/min/1.73squa re meters indicate Kidney failure. The calculation for GFR is based on the CK D-EPI (2020) calculat ion. This formulais race indifferent and is the recommended formula for GFR by the National Kidney Foundation for Adults.The GFR will not calculate i f the sex is unknown or if thepatient's ag e is <18 years. CREATININE (test 0.60 mg/dL 0.55-1.02 N code = CREAT) CALCIUM (test code 9.3 mg/dL 8.7-10.4 N = CA) CBC W/AUTO [id number] 04:00:00 Test Item Value Reference Range Interpretation Comments WHITE BLOOD CELL (test code = 9.0 x10 3/uL 4.8-10.8 N WBC) RED BLOOD CELL (test code = 4.10 x10 6/uL 4.20-5.40 L RBC) HEMOGLOBIN (test code = HGB) 12.9 g/dL 12.0-16.0 N HEMATOCRIT (test code = HCT) 37.7 % 37.0-47.0 N MEAN CELL VOLUME (test code = 92.0 fL 81.0-99.0 N MCV) MEAN CELL HGB (test code = MCH) 31.5 pg 27-31 H MEAN CELL HGB CONCENTRATION 34.2 G/DL 33-36.5 N (test code = MCHC) RED CELL DISTRIBUTION WIDTH 12.6 % 12.9-16.9 L (test code = RDW) PLATELET COUNT (test code = 230 x10 3/uL 150-440 N PLT) MEAN PLATELET VOLUME (test code 9.4 fL 8.9-12.4 N = MPV) NEUTROPHIL % (test code = NT%) 85.6 % 42.2-75.2 H LYMPHOCYTE % (test code = LY%) 7.0 % 20.5-51.1 L MONOCYTE % (test code = MO%) 6.0 % 1.7-9.3 N EOSINOPHIL % (test code = EO%) 0.8 % 0.0-7.0 N BASOPHIL % (test code = BA%) 0.4 % 0-2.5 N NEUTROPHIL # (test code = NT#) 7.67 x10 3/uL 1.80-7.70 N LYMPHOCYTE # (test code = LY#) 0.63 x10 3/uL 1.00-4.80 L MONOCYTE # (test code = MO#) 0.54 x10 3/uL 0.00-0.80 N EOSINOPHIL # (test code = EO#) 0.07 x10 3/uL 0.00-0.45 N BASOPHIL # (test code = BA#) 0.04 x10 3/uL 0.0-0.20 N LIPID PROFILE (CORONARY RISK)2021-09-28 10:00:00 Test Item Value Reference Range Interpretation Comments TRIGLYCERIDES (test 71 MG/DL 150-199 L TRIGLYCE RIDES code = TRIG) REFERENCE RANGE:Normal: < 150 mg/dLBorderline High: 150-199 mg/dLHi gh: 200-499 mg/dLVe ry High: >=500 mg/ dL CHOLESTEROL (test code 140 MG/DL <200 = CHOL) HDL CHOLESTEROL (test 63 MG/DL 40-59 H code = HDL) LIPOPROTEIN LDL (test 41 MG/DL 0-99 N OPTIM AL.........<100 code = LDL) mg/dLNEAR OPTIMAL/ABOVE OPTIMAL........ .100-12 9 mg/dL BORDERL INE HIGH.........13 0-159 mg/dL HIGH.........16 0-189 mg/dL VERY HIGH.........>/ = 190 mg/dL PROTHROMBIN [id number] 09:24:00 Test Item Value Reference Range Interpretation Comments PROTHROMBIN TIME 12.3 SECONDS 9.5-12.7 N PATIENT (test code = PTP) INTERNATIONAL NORMAL 1.1 0.86-1.14 N The INR is to be RATIO (test code = used only for INR) monitoring oral anticoagulantth erap y. INDICATION I NR VALUE ---- ---- ---- -------1. Prophylaxis, de ep venous thrombos is, including high risk surgery. 2.0 - 3.0 2. Prophylaxis, deep venous thrombosis, hip surgery, treatm ent for deep venous thrombosis or pulmonary prevention of systemic emboli sm in patients wit h valvular heart disease, atrial fibrillation, tissue heart va lve, or acute myocar dial infarction. 2.0 - 3.0 3. Editorial Project Manager al prosthesis hear t valves, recurre nt systemic emboli sm. 3.0 - 4.5 PTT [id number] 09:24:00 Test Item Value Reference Range Interpretation Comments PTT ACTIVATED (test code = APTT) 39.5 SECONDS 25.1-36.5 H COMPREHENSIVE METABOLIC [id number] 09:23:00 Test Item Value Reference Range Interpretation [...] one of thoseassays per formed in our lab.Interfe rence testing perform ed at Ortho determined that [...] 09/28/21 AT 0603 BY Flora Tejada W/AUTO [id number] 09:08:00 Test Item Value Reference Range Interpretation [...] AT 0604 BY Frances Tejada Asymptomatic IH [id number] 07:39:00 Test Item Value Reference Range Interpretation [...] amount of virus (antigen) in the sample." [id number] 20:10:00 Test Item Value Reference Range Interpretation Comments TROPONIN-I (test code = TROPI) 0.026 NG/ML 0.012-0.033 N - XR SHOULDER 2+V [id number] 15:54:00 [facility] : 1935 Sex: F Patient Name: KAUR KINSEY Unit No: [id number] EXAMS: CPT CODE: [id number] XR SHOULDER 2+[place] [id number] EXAM: - XR SHOULDER 2+V RT CLINICAL [...] Technologist: Araseli Espinal (RT)(R) Transcrpt Date/Tm/Trnsp: 09/27/2021 (6137) KimberleyR.JW22 Orig Print D/T: S: 09/27/2021 (1011) [facility] NAME: KAUR KINSEY [address] PHYS: [id number] - Radha Mg MD [address] [place] [address] : 1935 AGE: 86 SEX: F : [id number].[phone] A PHONE #: [phone] EXAM DATE: 09/27/2021 STATUS: ADM IN FAX #: [phone] RADIOLOGY NO: PAGE 1 Signed [id number] 15:14:00 Test Item Value Reference Range Interpretation Comments TROPONIN-I (test code = TROPI) 0.025 NG/ML 0.012-0.033 COMPREHENSIVE METABOLIC [id number] 11:14:00 Test Item Value Reference Range Interpretation [...] one of thoseassays per formed in our lab.Interfe rence testing perform ed at Ortho determined that [...] PHOSPHATASE (test code = ALKP) CBC W/AUTO [id number] 10:55:00 Test Item Value Reference Range Interpretation [...] 0.00 K/mm3 0.0-0.1 N NRBC#) GLYCOSYLATED HEMOGLOBIN [id number] 10:09:00 Test Item Value Reference Range Interpretation [...] STAFF:XOCHITL GUTIERREZ ON 09/27/21 AT 0641 BY [id number] PROFILE (CORONARY RISK)2021-09-27 10:06:00 Test Item Value Reference Range Interpretation Comments TRIGLYCERIDES (test 69 MG/DL 150-199 L TRIGLYCE RIDES code = TRIG) REFERENCE RANGE:Normal: < 150 mg/dLBorderline High: 150-199 mg/dLHi gh: 200-499 mg/dLVe ry High: >=500 mg/ dL CHOLESTEROL (test code 129 MG/DL <200 = CHOL) HDL CHOLESTEROL (test 57 MG/DL 40-59 N code = HDL) LIPOPROTEIN LDL (test 42 MG/DL 0-99 N OPTI MAL.........<100 code = LDL) mg/dLNEAR OPTIMAL/ABOVE OPTIMAL........ .100-12 9 mg/dL BORDERL INE HIGH.........13 0-159 mg/dL HIGH.........16 0-189 mg/dL VERY HIGH.........>/ = 190 mg/dL PATIENT REFUSE THE BLOOD DRAW. NOTIFIED PATIENT CARE STAFF:XOCHITL GUTIERREZ ON 09/27/21 AT 0642 BY [id number] STIMULATING [id number] 10:06:00 Test Item Value Reference Range Interpretation Comments THYROID STIMULATING 3.530 MIU/L 0.465-4.68 N Please b e aware that HORMONE (test code = bias re sults for TSH TSH) may occur forpa tient who are taking Biotin suppleme nts. PATIENT REFUSE THE BLOOD DRAW. NOTIFIED PATIENT CARE STAFF:XOCHITL GUTIERREZ ON 09/27/21 AT 0642 BY [id number] 10:06:00 Test Item Value Reference Range Interpretation Comments TROPONIN-I (test code = TROPI) 0.028 NG/ML 0.012-0.033 N PATIENT REFUSE THE BLOOD DRAW. NOTIFIED PATIENT CARE STAFF:XOCHITL GUTIERREZ ON 09/27/21 AT 0642 BY [id number] METABOLIC [id number] 09:34:00 Test Item Value Reference Range Interpretation [...] 0-189 mg/dL VERY HIGH.........>/ = 190 mg/dL [id number] 09:34:00 Test Item Value Reference Range Interpretation Comments MAGNESIUM (test code = MAG) 1.9 MG/DL 1.6-2.3 N COVID 19 Asymptomatic IH [id number] 09:23:00 Test Item Value Reference Range Interpretation [...] virus (antigen) in the sample." BASIC METABOLIC [id number] 09:23:00 Test Item Value Reference Range Interpretation [...] LDL (test MG/DL 0-99 code = LDL) [id number] 09:23:00 Test Item Value Reference Range Interpretation Comments MAGNESIUM (test code = MAG) 1.9 MG/DL 1.6-2.3 N PROTHROMBIN [id number] 09:16:00 Test Item Value Reference Range Interpretation [...] syste olga embolism. 3.0 - 4.5 PTT [id number] 09:16:00 Test Item Value Reference Range Interpretation Comments PTT ACTIVATED (test code = APTT) 36.2 SECONDS 25.1-36.5 N CBC W/AUTO [id number] 08:51:00 Test Item Value Reference Range Interpretation [...] = 0.00 K/mm3 0.0-0.1 N NRBC#) BLOOD [id number] 00:00:00 Test Item Value Reference Range Interpretation Comments CULTURE (BEAKER) (test No growth in 5 days code = 1095) BLOOD [id number] 00:00:00 Test Item Value Reference Range Interpretation Comments CULTURE (BEAKER) (test No growth in 5 days code = 1095) RAD, HIP, 2 VIEWS, [id number] 17:39:00Reason for exam:->fallFINAL REPORT Two views of the right hip without comparison. IMPRESSION: There is no acute fracture or traumatic malalignment. Mild degenerative changes are seen at the soft tissuesare unremarkable. The sacrum is obscured by overlying bowel gas. Signed: Floyd Guthrie [facility] Verified Date/Time: 03/13/2018 17:39:18 Reading Location: [facility] B1 C013X Ortho Consult Reading Room [facility] signed by: FLOYD GUTHRIE M.D. on 03/13/2018 05:39 PMTROPONIN [id number] 14:03:00 Test Item Value Reference Range Interpretation [...] acute neurological disease, and persistent tachyarrhythmia.HEMOGLOBIN AND [id number] 13:20:00 Test Item Value Reference Range Interpretation Comments HEMOGLOBIN (BEAKER) (test code = 8.8 GM/DL 11.2-15.7 L 410) HEMATOCRIT (BEAKER) (test code = 25.7 % 34.1-44.9 L 411) HEMOGLOBIN [id number] 08:44:00 Test Item Value Reference Range Interpretation Comments HEMOGLOBIN A1C (BEAKER) (test code = 5.4 % 4.3-6.1 368) TROPONIN [id number] 07:07:00 Test Item Value Reference Range Interpretation [...] failure, acidosis, acute neurological disease, and persistent tachyarrhythmia.[id number] 05:24:00 Test Item Value Reference Range Interpretation Comments PHOSPHORUS (BEAKER) (test code = 2.6 mg/dL 2.3-4.7 604) [id number] 05:24:00 Test Item Value Reference Range Interpretation Comments MAGNESIUM (BEAKER) (test code = 2.1 mg/dL 1.6-2.6 627) BASIC METABOLIC [id number] 05:24:00 Test Item Value Reference Range Interpretation [...] NOT APPLICABLE FOR DIALYSIS PATIEN TS. LIPID [id number] 05:24:00 Test Item Value Reference Range Interpretation [...] High 160-189 Very High >=190TSH/FREE T4 IF [id number] 05:20:00 Test Item Value Reference Range Interpretation Comments THYROID STIMULATING HORMONE 4.02 uIU/mL 0.35-4.94 (BEAKER) (test code = 772) CBC W/PLT COUNT & AUTO [id number] 04:52:00 Test Item Value Reference Range Interpretation [...] (BEAKER) (test code = 2801) HEMOGLOBIN AND [id number] 04:40:00 Test Item Value Reference Range Interpretation Comments HEMOGLOBIN (BEAKER) (test code = 8.8 GM/DL 11.2-15.7 L 410) HEMATOCRIT (BEAKER) (test code = 25.7 % 34.1-44.9 L 411) TROPONIN [id number] 00:53:00 Test Item Value Reference Range Interpretation [...] acute neurological disease, and persistent tachyarrhythmia.HEMOGLOBIN AND [id number] 00:09:00 Test Item Value Reference Range Interpretation Comments HEMOGLOBIN (BEAKER) (test code = 8.8 GM/DL 11.2-15.7 L 410) HEMATOCRIT (BEAKER) (test code = 26.3 % 34.1-44.9 L 411) URINALYSIS W/ REFLEX URINE [id number] 21:53:00 Test Item Value Reference Range Interpretation [...] = 516) SOURCE(BEAKER) (test code = 2795) [id number] 18:36:00 Test Item Value Reference Range Interpretation Comments FERRITIN (BEAKER) (test code = 361) 71 ng/mL 5-275 VITAMIN B12 AND [id number] 18:36:00 Test Item Value Reference Range Interpretation Comments VITAMIN B12 (BEAKER) (test code = 552 pg/mL 213-816 774) FOLATE (BEAKER) (test code = 362) 16.2 ng/mL >=7.0 TROPONIN [id number] 18:12:00 Test Item Value Reference Range Interpretation Comments TROPONIN I (BEAKER) (test code = 0.20 ng/mL 0.00-0.03 HH 397) Troponin I (TnI) [...] H (test code = 2590) HEMOGLOBIN AND [id number] 17:39:00 Test Item Value Reference Range Interpretation Comments HEMOGLOBIN (BEAKER) (test code = 7.1 GM/DL 11.2-15.7 L 410) HEMATOCRIT (BEAKER) (test code = 21.4 % 34.1-44.9 L 411) RAD, CHEST, 1 VIEW, NON [id number] 16:19:00Post-intubationReason for exam:- >sobShould this be performed [...] bone scan can be obtained. Signed: Candy Adameeport Verified Date/Time: 03/12/2018 16:19:21 Reading Location: [facility] Radiology Reading Room [id number] 15:29:00 Test Item Value Reference Range Interpretation Comments PROCALCITONIN (BEAKER) (test code 0.10 ng/mL <0.05 H = 3036) SEPSIS RISK (ng/mL)Low: 0.05-0.50Intermediate: 0.51-2.00High: >=2.01B-TYPE NATRIURETIC FACTOR (BNP)2018-03-12 15:11:00 Test Item Value Reference Range Interpretation Comments B-TYPE NATRIURETIC PEPTIDE (BEAKER) 238 pg/mL 0-100 H (test code = 700) CREATINE KINASE (CK), TOTAL AND [id number] 15:10:00 Test Item Value Reference Range Interpretation Comments CREATINE KINASE TOTAL (BEAKER) 80 U/L 29-200 (test code = 380) CREATINE KINASE-MB (BEAKER) (test 3.1 ng/mL 0.0-6.6 code = 750) CREATINE KINASE-MB INDEX (BEAKER) 3.9 % (test code = 395) CK-MB Reference Range:<6.7 Normal6.7-10.0 Borderline>10.0 AbnormalTROPONIN [id number] 15:10:00 Test Item Value Reference Range Interpretation [...] acute neurological disease, and persistent tachyarrhythmia.COMPREHENSIVE METABOLIC [id number] 15:08:00 Test Item Value Reference Range Interpretation [...] NOT APPLICABLE FOR DIALYSIS PATIEN TS. KETONE, [id number] 15:08:00 Test Item Value Reference Range Interpretation Comments KETONES, BLOOD (BEAKER) (test code 0.6 mmol/L <0.4 H = 1103) [id number] 15:03:00 Test Item Value Reference Range Interpretation Comments PHOSPHORUS (BEAKER) (test code = 3.0 mg/dL 2.3-4.7 604) [id number] 15:03:00 Test Item Value Reference Range Interpretation Comments MAGNESIUM (BEAKER) (test code = 1.5 mg/dL 1.6-2.6 L 627) LACTIC ACID, VENOUS, WHOLE [id number] 14:59:00 Test Item Value Reference Range Interpretation Comments LACTATE BLOOD VENOUS (2) (BEAKER) 1.2 mmol/L 0.5-2.2 (test code = 2872) Effective 11/14/2015: Units/Reference Range ChangeNew: 0.5-2.2 mmol/L Previous: 5- 20 mg/dLPROTHROMBIN TIME/[id number] 14:45:00 Test Item Value Reference Range Interpretation [...] mechanical heart valves.CBC W/PLT COUNT & AUTO [id number] 14:39:00 Test Item Value Reference Range Interpretation [...] % 0-1 PERCENT (BEAKER) (test code = 2804) POCT-GLUCOSE [id number] 13:22:00 Test Item Value Reference Range Interpretation Comments POC-GLUCOSE METER 119 mg/dL 70-[address] [facility] 6720 (BEAKER) (test code = JOEKACI CHAHAL 1538) [address] Notes Date/Time Note Provider Source 2023-03-05 14:02:00 [id number] [facility] [address] [place] [address] PATIENT NAME: KAUR KINSEY ADMIT DATE: 03/02/23ACCOUNT NO: [id number] SYLVIE Ortiz NO: P.ERMS AGE: 88 REPORT TYPE: 360 - QUERY RESPONSE DOCUMENT SEX: F ADMITTING PHYSICIAN:Radha Mckeon MD ATTENDING PHYSICIAN:Radha Mckeon MD Provider Query QUERY TEXT: Type Heart Failure 360MD Query related questions should be directed to: [facility] Eder horvath Query Help-line The medical recor d reflects the diagnosis of Acute on chronic heart failure in the PROGRESS NOTE 03/03/2023, and pertinent studies for type (e.g. echocardiogram, cardiac catheterization, abnormal EF) or pertinent clinical indicators for acuity (e.g. Elevated BNP, IV diuretics, abnormal imaging studies, etc.) Based on your clinical judgment, can you further clarify the type of the heart failure that represents the clinical indicators listed below? The patient's Clinical Indicators include:Acute on chronic heart failure.Dr. Ham, Cardiology input noted. Echocardiogram pending.Continue gentle diuresis with IV twice a day. - PROGRESS NOTE 03/03/2023Labs revealed troponin 267, BNP 3320. - Internal Med. H and P 03/02/2023 (1)The estimated ejection fraction is 55-60%. -ECHOCARDIOGRAM 03/03/2023 (2)FUROSEMIDE 20 MG/2 ML VIAL- MAR 03/02/2023Options provided:-- Systolic-- Diastolic-- Systolic and Diastolic-- Left Ventricular Failure-- Biventricular Heart Failure-- High Output Heart Failure-- Right Hear t Failure, Please specify if due to left heart failure.-- End Stage Heart Failure-- Other - I will add my own diagnosis -- Dismiss - Not applicable / Not valid-- Dismiss - Clinically unable to determine / Unknown-- Assign to anothe r provider QUERY RESPONSE: Patient had Diastolic (HFpEF) Heart Failure. Query created by: PATRICIA CISNEROS on 03/05/2023 5:56 AM at 1402 PATIENT NAME: KAUR KINSEY noteP.[id number] for patient [id number]:03:57 2023-03-03 13:16:00 [id number] [address]WIWBTQC NAME: KAUR KINSEY ADMIT DATE: 03/02/23ACCOUNT NO: [id number] SYLVIE Ortiz NO: P.ERMS AGE: 88 REPORT TYPE: eECHOCARDIOGRAM REPORT SEX: F ADMITTING PHYSICIAN: Radha Mckeon MD ATTENDING PHYSICIAN: Radha Mckeon MD *[facility]*[address] [place] [id number] Transthoracic Echocardiogram Patient: Brendon Kinseyudlandy Date: 03/02/2023 BP: [id number] 1935 Age: 88 Height: 66 i n / 167.6 cmAccession#: [id number] Gender: F Weight: 116.8 lb / 53.1 kgBMI/BSA: 18.9 kg/m 2 / 1.59 m 2 *Ordering Physician: Radha Reinoso *Interpreting Physician: Anuj Ham M.D. - Indications: CHF. - Study data: Transthoracic echocardiogram. Complete 2D, completespectral Doppler, and color Doppler. Location: Bedside. Patientstatus: Observation. Patient room number: ER. Study status:Routine. - Findings Left ventricle: The cavity size is normal. Wall thickness isnormal. Systolic function is normal. The estimated ejectionfraction is 55-60%. Wall motion is normal; there are no regionalwall motion abnormalities. Left ventricular diastolic functionparameters are normal.Right ventricle: The cavity size is normal. Pacer wire noted inth e right ventricle. Systolic function is normal.Lef t atrium: The atrium is mildly dilated. PATIENT NAME: KAUR KINSEY Right atrium: The atrium is normal in size.Aorta : Aortic root: The aortic root is normal in size.Aortic valve: The valve is structurally normal. The valve istrileaflet. There is no evidence of stenosis. There is noregurgitation. There is evidence of paravalvular regurgitation.Mitral valve: The annulus is moderately to severely calcified andthickened. The leaflets are moderately calcified. The findings areconsistent with mild to moderate stenosis. There is noregurgitation.Tricuspid valve: The valve is structurally normal. There i s noregurgitation.Pulmonic valve: The valve is structurally normal. There is noregurgitation.Pericardium: There is no pericardial effusion.Pulmonary arteries:The main pulmonary artery is normal-sized.Systemic veins:Inferior vena cava: The vessel is normal i n size. - Measurements Left ventricle Value Ref ERNESTINA, LAX 4.1 cm 3.8 - 5.2 ESD, LAX 3.2 cm 2.2 - 3.5 ESD/bsa, LAX 2.0 cm/m 2 1.3 - 2.1 FS, LAX 22 % 27 - 45 ESD/bsa major ax, 4.2 cm/m 2 A4C ERNESTINA/bsa minor ax, 4.2 cm/m 2 A4C ERNESTINA major ax, A2C 7.8 cm ESD major ax, A2C 7.2 cm ERNESTINA/bsa major ax, 4.9 cm/m 2 A2C ESD/bsa major ax, 4.5 cm/m 2 A2C ESD 3.2 cm 2.2 - 3.5 ESD/bsa 2.0 cm/m 2 1.3 - 2.1 FS 22 % 27 - 45 PW, ED 1.3 cm 0.6 - 0.9 PW, ES 1.6 cm IVS/PW, ED 1.12 EF 45 % 54 - 74 EF, SMM Teich. 45 % >=55 E', lat carlos, TD I 4.2 cm/sec >=10.0 E/e', lat carlos, 52 TDI E', med carlos, TDI 2.3 cm/sec >=7.0 E/e', med carlos, 94 TDI E', avg, TDI 3.3 cm/sec E/e', avg, TDI 67 <=14 PATIENT NAME: KAUR KINSEY LVOT Value Ref Diam, S 2.20 cm Area 3.8 cm 2 Peak hanna, S 0.97 m/sec Mean hanna, S 0.67 m/sec VTI, S 22.9 cm Peak grad, S 4 mm Hg Mean grad, S 2 mm Hg SV 87 ml SV/bsa 55 ml/m 2 Ventricular septum Value Ref IVS, ED 1.4 cm 0.6 - 0.9 IVS, ES 1.7 c m Right ventricle Value Ref ERNESTINA, LAX 2. 4 cm ERNESTINA 2.4 cm Pressure, S 48 mm Hg Left atrium Value Ref LA ID 4.1 cm AP dim, ES 4.11 cm 2.70 - 3.80 AP dim ES, LAX 4.1 cm 2.7 - 3.8 SI dim ES, LAX 4.1 cm Vol, ES, 2-p 77 ml Vol/bsa, ES, 2-p 49 ml/m 2 16 - 34 LA/Ao root ratio 1.12 AP dim, ES MM 4.1 cm 2.7 - 3.8 LA/Ao root ratio, 1 MM Aortic valve Value Ref Peak v, S 1.79 m/sec Mean v, S 1.16 m/sec VTI, S 35.7 cm Mean grad, S 6.2 mm Hg Pea k grad, S 12.8 mm Hg LVOT/AV, VTI 0.64 ratio HELIO, VTI 2.43 cm 2 LVOT/AV, Vpeak 0.54 ratio HELIO, Vmax 2.06 cm 2 Mitral valve Value Ref Pea k E 0.03 m/sec Peak A 0.04 m/sec Mean v, D 1.53 m/sec VTI leaflet coapt 75.5 cm Decel time 518 ms PHT 122 ms Mean grad, D 10.8 mm Hg PATIENT NAME: KAUR KINSEY Peak grad, D 24.5 mm Hg Peak E/A ratio 53.27 MVA, PHT 1.8 cm 2 Pulmonic valve Value Ref MA peak v 1.6 m/sec MA peak grad 10 mm Hg MA grad, ED 10 mm Hg Tricuspid valve Value Ref TR peak v 3.16 m/sec <=2.8 Peak RV-RA grad, 40 mm Hg S Aortic root Value Ref Root diam 3.7 cm <3.8 Root diam, ED MM 4.11 cm Ascending aorta Value Ref AAo AP diam, S 3.8 cm AAo AP diam/bsa, 2.4 cm/m 2 S Pulmonary artery Value Ref Pressure, S 43.5 mm Hg Systemic veins Value Ref Estimated CVP 8 mm Hg - Conclusions Summary: 1. Left ventricle: The cavity size is normal. Wall thickness is normal. Systolic function is normal . The estimated ejection fraction is 55-60%. Wall motion is normal; there are no regional wall motion abnormalities. Left ventricular diastolic function parameters are normal.2. Left atrium: The atrium is mildly dilated.3. Mitral valve: Th e annulus is moderately to severely calcified and thickened. The leaflets are moderately calcified . The findings are consistent with mild to moderat e stenosis. Prepared and electronically signed by Sreekanth Ham M.D.03/03/2023 13:16 Electronically Signed by Sreekanth Ham MD o n 03/03/23 at 1316 PATIENT NAME: KAUR KINSEY :16: 0 0P.[id number] for patient [id number]:17:02 2023-03-03 11:32:00 [id number] [facility] [address] [place] [address] PATIENT NAME: KAUR KINSEY ADMIT DATE: 03/02/23ACCOUNT NO: [id number] SYLVIE Ortiz NO: PELIZS AGE: 88 REPORT TYPE: PROGRESS NOTE SEX: F ADMITTING PHYSICIAN:Radha Mckeon MD ATTENDING PHYSICIAN:Radha Mckeon MD DATE: 03/03/2023 SUBJECTIVE: Events noted. Discussed with staff. Doing about the same. Feeling better. Edema is improving. She is awake and responsive. Family a t the bedside. OBJECTIVE:VITAL SIGNS: Blood pressure 150/60, heart rate 60, temperature , respiratory rate of 17.HEENT: Head normocephalic.CHEST AND LUNGS: Bilateral breathing sounds.HEART: Normal S1, S2.ABDOMEN: Soft.EXTREMITIES: No edema.NEUROLOGIC: Awake and alert. PERTINENT FINDINGS: Potassium 4.1. ASSESSMENT AND PLAN:1. Acute on chronic heart failure. Dr. Ham, Cardiology input noted. Echocardiogram pending. Continue gentle diuresis with IV twice a day.2. Acute coronary syndrome with non-ST elevation myocardial infarction, on aspirin, statin and Plavix. No intervention per Dr. Ham. Continue with conservative management.3. Level of care: Discussed with family at the bedside and remains FULL CODE.4. Hypothyroidism. Continue the patien t on Synthroid 75 mcg by mouth daily. Patient's TS H normal. Dictated By: Radha Mckeon MD Date Dictated: 03/03/2023 11:32:10Date Transcribed: 03/03/2023 11:59:44KS/SMR/Sohail #: [id number] ID: [id number] by Radha Mckeon MD On 03/04/2023 07:19:23 AM at 0719 PATIENT NAME: KAUR KINSEY [id number]:59:[id number] a ble for patient [id number]:19:50 2023-03-03 07:42:00 [id number]:42:00 [facility] ([facility]) Med Order Sheet REPORT #: [id number] REPORT STATUS: Signed DATE: 03/03/23 TIME: 741 PATIENT: KAUR KINSEY UNIT #: [id number] #: [id number] ROOM #: [facility] BED: 5 : 34 AGE: 88 SEX: F ATTEND: Radha Mckeon MD ADM AUTHOR: Radha Mckeon MD ATTENTION * EDITS and/or ADDENDA must be made in Patient Keeper for this note. Edit s and ammendments [facility] are not visible in Patient Keeper or the legal medical record ([facility]). * Admission Medication Reconciliation -- CONTINUED / CHANGED HOME MEDICATIONS -- Home: [facility] tablet (fexofenadine) 180 MG PO DAILYHosp: [facility] tablet (fexofenadine) 180 MG PO DAILY Home: aspirin chewable tablet 81 MG PO DAILYHosp : Aspirin Chewable Tab (Aspirin Chewable Tab) 81 M G PO DAILY Home: Carvedilol Tab (Coreg Tab) 25 MG PO BID (HALF A TABLET!)Hosp: Existing: CARVEdilo l Tab (Coreg Tab) 25MG PO DAILY stopping on 04/01a t 09:01 Home: Clopidogrel Tab (Plavix Tab) 75 MG P O DAILYHosp: Clopidogrel Tab (Plavix Tab) 75 MG PO DAILY Home: Levothyroxine Tab (Synthroid Tab) 75 MCG PO DAILYHosp: Existing: Levothyroxine Tab (Synthroid Tab) 75MCG PO DAILY@0600stopping on 04/01 at 06:01 Home: Losartan Tab (Cozaar Tab) 5 0 MG PO DAILYHosp: Losartan Tab (Cozaar Tab) 50 MG PO DAILY Home: Pantoprazole Tab.DR (Protonix Tab ) 20 MG PO DAILYHosp: Existing: Pantoprazole Ta b (Protonix Tab) 40MG PO Q12HR stopping at 09:01 Home: Simvastatin Tab (Zocor Tab) 20 MG PO DAILYHosp: Existing: Atorvastatin Tab (Lipitor Tab) 40MG PO BEDTIME stopping at 21:01 - - STOPPED HOME MEDICATIONS -- Home: [facility] All[facility] y tablet (fexofenadine) Oral at 0742ATTENTION * EDITS and/or ADDENDA must be made in Patient Keeper for this note. Edits and ammendments created in [employer] are no t visible in Patient Keeper or the legal medica l record ([facility]). * RPT #: [id number] OF REPORTCLClinical [id number]:42:00P.PA-[id number] v ailable for patient [id number]:42:12 2023-03-02 13:20:00 [id number]:20:00 [facility] ([facility]) Intervent. Card. Consultation REPORT #: [id number] REPORT STATUS: Signed DATE: 03/02/23 TIME: 1320 PATIENT : KAUR KINSEY UNIT #: [id number] #: [id number] ROOM #: P.ERMS BED: 5 : 34 AGE: 88 SEX: F ATTEND: Radha Mckeon MD ADM AUTHOR: Sreekanth Ham MD ATTENTION * EDITS and/or ADDENDA must be made in Patient Keeper for this note. Edit s and ammendments created in [employer] are not visible in Patient Keeper or the legal medica l record ([facility]). * -- ASSESSMENT AND PLAN - - GENERAL ASSESSMENT:Elderly Lady transferred for lower bilateral chest pain. She has advancedDementia and she is unable to give a medical HX. S/p ACB and AVR 2009 and AVsequentia l PPm with new battery one year ago.Hx of PAF .She ia comfortable w/o CP at this time with no rales on exam and [facility] bu t her BNP >3000 and Troponin is mildly elevated.We will assess with repeat Enzymes and CK and TTE.She is not a candidate for invasive study. - - HISTORY -- CONSULT REQUESTED BY:Radha Mckeon MD DATE/TIME AT BEDSIDE:2023-03-02 REASON FOR CONSULT:ACS PAST MEDICAL HISTORY:CAD, Anemia,Dementia, SSS ACB, AVR and AV sequential PPM -- ALLERGIES/HOME MEDS -- ALLERGIES:benazepril (Unknown - Allergy)codeine (Unknown - Allergy)dexamethasone (Unknown - Allergy)iodine (Unknown - Allergy)meperidine (Unknown - Allergy)morphine (Unknown - Allergy)Penicillins (Unknown - Allergy)zolpidem (Unknown - Allergy)[EXTERNAL] benazepril From LOTENSIN (UNKNOWN - External allergies are fordisplay only, consider adding to medical record for drug interaction check)[EXTERNAL] codeine CODEINE (UNKNOWN - External allergies ar e for display only,consider adding to medical record for drug interaction check)[EXTERNAL] dexamethasone DEXAMETHASONE (UNKNOWN - External allergies are for display only, consider adding to medical record for drug interaction check)[EXTERNAL] iodine IODINE (UNKNOWN - External allergies are for display only,consider adding to medical record for drug interaction check)[EXTERNAL] meperidine From DEMEROL (UNKNOW N - External allergies are fordisplay only, consider adding to medical record for drug interaction check)[EXTERNAL] morphine MORPHINE (UNKNOWN - External allergies are for displayonly, consider adding to medical record for drug interaction check)[EXTERNAL] Penicillin s PENICILLINS (UNKNOWN - External allergies are fordisplay only, consider adding to medical record for drug interaction check)[EXTERNAL] zolpidem ZOLPIDEM (UNKNOWN - External allergies are for displayonly, consider adding to medical record for drug interaction check) -- SUBJECTIVE -- UNABLE TO OBTAIN REVIEW OF SYSTEMS -- OBJECTIVE -- VITALS (03/01 13:20 - 03/02 13:20):Temperature F: 97.5 (97.5 - 97.6)Temperature source: OralPulse Rate 60 (60 - 70)Respiratory rate: 15 (15 - 20)Blood pressure: 120/58 (120/58 - 223/96)Blood pressure source: Monitor -EXAM- LUNGS: Clear bilaterally with normal respiratory effort.HEART: Regular rate an d rhythm, normal S1, S2, no murmurs, no rubs, no gallops, no clicks.EXTREMITIES: No clubbing, no cyanosis, no edema. -- DATA -- MEDICATIONS ONDANSETRON HCL/PF 4 MG IV Q6H PRNACETAMINOPHEN 650 MG PO Q8H PRNLEVOTHYROXINE SODIUM 75 MCG PO DAILY@0600PANTOPRAZOLE 40 MG PO [id number] 20 MG IV BID@0500,1700ATORVASTATIN CALCIUM 40 MG PO BEDTIMEhydrALAZINE HCL 10 MG IV Q6H PRNcarvediloL 25 MG PO DAILY LABS CBC W/AUTO DIF F (03/02/23 03:41)WHITE BLOOD CELL 9.0RED BLOOD CELL 4.10 LHEMOGLOBIN 12.9HEMATOCRIT 37.7MEAN CELL VOLUME 92.0MEAN CELL HGB 31.5 HMEAN CELL HG B CONCENTRATION 34.2RED CELL DISTRIBUTION WIDTH 12.6 LPLATELET COUNT 230MEAN PLATELET VOLUME 9.4 NEUTROPHIL % 85.6 HLYMPHOCYTE % 7.0 LMONOCYTE % 6.0EOSINOPHIL % 0.8BASOPHIL % 0.4NEUTROPHIL # 7.67LYMPHOCYTE # 0.63 LMONOCYTE # 0.54EOSINOPHIL # 0.07BASOPHIL # 0.04 BASIC METABOLIC PANEL (03/02/23 03:41)SODIUM 133L LPOTASSIUM 4.1CHLORIDE 96L LCARBON DIOXIDE 24GLUCOSE 140H HBLOOD UREA NITROGEN 16GLOMERULAR FILTRATION RAT E >=60 max estimateCREATININE 0.60CALCIUM 9.3 TROP I (03/02/23 03:33)TROPONIN-I 89.8 *H Signed in PatientKeeper by Sreekanth Ham MD on 03/02/23 at 13:28 at 1328ATTENTION * EDITS and/or ADDENDA must be made in Patient Keeper for this note. Edits and ammendments created in [employer] are no t visible in Patient Keeper or the legal medica l record ([facility]). * RUST #: [id number] OF [id number]:20:00P.PK-N O [id number] for patient [id number]:29:03 2023-03-02 03:21:00 [id number] [address]UVSJMUZ NAME: KAUR KINSEY ADMIT DATE: 03/02/23ACCOUNT NO: [id number] SYLVIE Ortiz NO: P.ERMS AGE: [age] REPORT TYPE: eELECTROCARDIOGRAM SEX: F ADMITTING PHYSICIAN: Radha Mckeon MD ATTENDING PHYSICIAN: Radha Mckeon MD Order:[id number] Reason : Test Date/Time Stamp:ThuMar 02 2023 03:21:24Blood Pressure : / mmHGVent. Rate : 061 BPM Atrial Rate : 054 BPM P-R Int : 000 ms QRS Dur : 178 ms QT Int : 516 ms P-R-T Axes : 00 0 -63 117 degrees QTc Int : 519 ms Ventricular-paced rhythmAbnormal ECGNo previous ECGs availableConfirmed by CHRISTIAN ADLRICH ([id number]) on 03/03/2023 7:19:49 AM Referred By: Darnell anderson Confirmed by:CHRISTIAN ALDRICH at 0719 PATIENT NAME: KAUR KINSEY .[id number] AVAvailable for patient [id number]:20:20 2023-03-02 03:17:00 [id number]:17:00 [facility] ([facility]) Internal Med. H P REPORT #: [id number] REPORT STATUS: Signed DATE: 03/02/23 TIME: 316 PATIENT: KAUR KINSEY UNIT #: [id number] #: [id number] ROOM #: [facility] BED: 5 : 34 AGE: 88 SEX: F ATTEND: Radha Mckeon MD ADM AUTHOR: Ayesha Bashir NP ATTENTION * EDITS and/or ADDENDA must be made in Patient Keeper for this note. Edit s and ammendments created in [employer] are not visible in Patient Keeper or the legal medica l record ([facility]). * -- HISTORY -- ADMISSION DATE:2023-03-02 CHIEF COMPLAINT:Chest pain HPI:This is an 88 year old female with past medical history of CAD s/p CABG BLAIR toLAD at first diagonal, complete heart block with pacemaker status postMedtronic dual-chamber permanent pacemaker, last generator change, 12/01/2020,breast cancer s/p left partial mastectomy radiation, aortic valvereplacement valve is a 21 mm [place] bioprostheti c aortic valve, bleeding gastric ulcer (from takin g NSAIDs with Plavix) who [facility] for concer n for NSTEMI. Thepatient developed bilateral lower chest wall pain on 03/01/23 onset 1730. Painlasted for about 30 minutes then resolved. Also complains of right shoulderpain. Labs revealed troponin 267, BNP 3320. [facility] revealed ventricular paced rhythm. Rate61. Diagnostics pending. PAST MEDICAL HISTORY:Breast cancer, sweet's syndrome, bleedin g gastric ulcer, bradycardia, CAD, VA,OA knees, paroxysmal atrial fibrillation, hypothyroidism, acid reflux, golpbxvF41 deficiency, vitamin D deficiency, and seasonal allergies, complete heartblock. PAST SURGICAL HISTORY:Aortic valve replacement, CABG, left partial mastectomy, aortic aneurysmrepair, pacemaker (2002), cholecystectomy 4), vein surgery (1981), pacemakerbattery replacement, pacemaker replacement 1 year ago, cardiac cath 2009, EGD,aortic root angiogram. IMMUNIZATION STATUS:COVID series Moderna, flu vaccine FAMILY HISTORY:Mother had heart problems, lived to age 92. No premature atherosclerosis. -SOCIAL HISTORY- -VAPING/INHALED SOLVENTS- DETAILS/COMMENTS:Last echocardiogram on 03/26/2020 that showed mild aortic valve insufficiency,normal functioning aortic valve. She had mitral annular calcification withmoderat e stenosis and then moderate insufficiency. Ejection fraction has beenin the 50s, pulmonary hypertension in the 40s. -DRUG USE- DETAILS/COMMENTS:Allergic to IV iodine dexamethasone LIVING SITUATION:WT: 53.5 KG HT: 5'6" BMI 19.4 ADDITIONAL SOCIAL HISTORY:NEG ETOH , NEG tobacco -- SUBJECTIVE -- -REVIEW OF SYSTEMS- GENERAL: Negative for fever.RESPIRATORY: Negativ e for dyspnea.CARDIOVASCULAR: Positive for chest pain.GASTROINTESTINAL: Negative for abdominal pain.MUSCULOSKELETAL: Positive right shoulder pain.SKIN: Negative for rashes. -- OBJECTIVE -- -EXAM- GENERAL: Awake, alert, and oriented.HEAD: Normocephalic, atraumatic.EYES: PERRL, EOM intact, conjunctiva and sclera clear.NECK: No JVD, supple.LUNGS: Clear bilaterally with normal respiratory effort.HEART: Regular rate and rhythm, normal S1, S2.ABDOMEN: Soft, non-tender, non-distended, bowel sound present.MUSCULOSKELETAL: Bilateral lower extremity weakness.EXTREMITIES: No clubbing, no cyanosis, no edema.NEUROLOGICAL: No focal deficits, cranial nerves II-XII grossly intact.PULSES: Pulses normal in all extremities.SKIN: Intact without significant lesion. -- ASSESSMENT AND PLAN -- GENERAL ASSESSMENT:1. Chest pain with subsequent NSTEMI, trend troponins. Consult Cardiology. 2. History of GI bleed, previously took NSAIDs Plavix. EGD revealed gastriculcers. No AC. 3. Hypertension, start hydralazine as needed. 4. Hyperlipidemia, continue statin. Monitor lipid panel. 5. Hypothyroidism, continue levothyroxine. Monitor TSH. CONSULTANTS:Cardiology ADDITIONAL COMMENTS:Not taking AC secondary to GI bleed Signed in PatientKeeper by Ayesha Bashir NP on 03/02/23 at 04:36 Cosigned by RADHA MCKEON MD 03/02/23 at 06:03 at 0603 at 0603ATTENTION * EDITS and/or ADDENDA must be made in Patient Keeper for this note. Edits and ammendments created in [employer] are no t visible in Patient Keeper or the legal medica l record ([facility]). * RUST #: [id number] OF REPORTHPHistory and physical [id number]:17:00P.PK-[id number] for patient [id number]:05:41 2023-03-02 03:07:00 [id number]:07:00 [facility] ([facility])EMERGENCY PROVIDER REPORTREPORT#:[id number] REPORT STATUS: SignedDATE:03/02/23 TIME: 0307 PATIENT: KAUR KINSEY UNIT #: [id number]#: [id number] ROOM: [facility] BED: 5AGE: 88 SEX: F PCP PHYS: Darnell Diana MDSTELLY AUTHOR: Darnell Diana MD * ALL edits or amendments must be made on the electronic/computer document * HPI-Chest Pain 40 and Over Free Text HPI NotesFree Text HPI Apgvi62-ozbq-orl female with a history of coronary artery disease status post CABG, bradycardia with pacemaker, breast cancer status post partial mastectomy and radiation, aortic valve replacement, aortic aneurysm repair, hypothyroidism, bleeding gastric ulcer, Sweet syndrome, hypertension, hyperlipidemia, A-fib, thyroidism, GERD, history of gastric ulcers and cholecystectomy presents to the emergency room with complaint of chest pain. Per EMS report patient family member states that patient complained of chest pain around 1730 on 03/01/2023. Patient arrived at the emergency room at 2040. Patient states that chest pain lasted for about 20 minutes. Patient without any chest pain symptoms at this time. Patient states that in route she developed right shoulder pain. Patient denies any pain in her back. Patient als o complaining of diarrhea that began onthe morning of 03/01/2023. Review of medical records from outside hospital reveals that patient had a potassium of 129, white count of 12.6 mildly elevatedliver enzymes with AST of 105, ALT of 67 and high-sensitivity troponin of 267 with normal range being below 58.9. Cr 0.8. Repeat troponin was not performed. Chest x-ray did not reveal an y acute cardiopulmonary disease. GeneralInitial Greet Date/Time 03/02/23 0300 PresentationChief Complaint Chest painSudden in Onset? Yes Review of Systems Focused Review of SystemsConstitutionalDenies: Chills, Fatigue, Fever. RespiratoryDenies: Cough, non-productive, Shortness of breath. CardiovascularReports: Ches t pain. Denies: Palpitations. GIReports: Diarrhea. Denies: Abdominal pain, Nausea, Vomiting. MusculoskeletalDenies: Back pain. NeurologicDenies: Generalized weakness. Past Medical History - AdultStated Complaint NSTEMIAllergiesCoded Allergies:Penicillins (UNKNOWN 03/02/23)benazepril (From LOTENSIN) (UNKNOWN 03/02/23)codeine (UNKNOWN 03/02/23)dexamethasone (UNKNOWN 03/02/23)iodine (UNKNOWN 03/02/23)meperidine (From DEMEROL) (UNKNOWN 03/02/23)morphine (UNKNOWN 03/02/23)zolpidem (UNKNOWN 03/02/23) Physical Exam Vital SignsVital SignsFirst Documented: Result Date Time Pulse Ox 95 03/02 0304 B/P 210/96 03/02 0304 B/P Mean 134 03/02 0304 O2 Delivery Room air 03/02 0304 Temp 36.4 03/02 030 4 Pulse 63 03/02 0304 Resp 20 03/02 0304 Last Documented: Result Date Time Pulse Ox 95 03/02 0304 B/P 210/96 03/02 0304 B/P Mean 134 03/02 0304 O2 Delivery Room air 03/02 0304 Temp 36.4 03/02 0304 Pulse 63 03/02 0304 Resp 20 03/02 030 4 Review of Vital Signs Reviewed Focused PEGeneral/Const General/Const Awake, Alert, N o acute distress, Well appearing, Well developed, Well hydrated, Well nourishedResp/Chest Respiratory/Chest Atraumatic, Breath sounds NL, Breath sounds = bilat, No respiratory distress, No rales, No rhonchi, No wheezingCardiovascular Cardiovascular Heart rate NL, Regular rhythm, Heart sounds NLAbdomen/GI Abdomen/GI Atraumatic, Soft, Non-tender, No guarding, No reboundSkin Skin Atraumatic, Color NLNeurologic Neurologic Oriented X3, Speech NL, No motor deficits, No sensory deficits, CNII - XII intact Interpretation Diagnostics ECG #1 InterpretationDate 03/02/23Time 0321Interpreted by ED physicianNL ECG Interpretation ventricularly paced rhythm with appropriate discordanceRate 61 Re-Evaluation MDM Free Text MDM NotesFree Text MDM NotesPatient presents to the emergency room with complaint of elevated troponins and chest pain. From outside emergency room. Patient with continued right shoulderpain concern for possible dissection as patient has a n extensive history. Patient with iodine allergy. Unsure at this time if patient has a true iodine allergy and if she has had contrast in the past. Daughter at bedside cannot clarify. Patient also allergic to dexamethasone. Will hold off on CTA of the chest at this time and order CT with without contrast. Re-Evaluation/Progress #1Text/Dict NoteUpon further questioning patient states that she has had right shoulder pain in the past. Patient states that it is worse now. Will give Tylenol at this time. Nitropaste has been given. If patient blood pressure does not improve we will begin IV medication.Time of Re-Eval 0549 ED CourseMedication(s) OrderedMedication(s) Ordered:Central Nervous System Agents Sig/Eladia Start time Last Medication Dose Route Stop Time Status Admin Acetaminophen 650 MG Q8H PRN PRN 03/02 0345 AC 03/02 PO 04/01 0346 0552 Gastrointestinal Drugs Sig/Eladia Start time Last Medication Dose Route Stop Time Statu s Admin Ondansetron HCl 4 MG Q6H PRN PRN 03/02 034 5 AC IV 04/01 0346 Differential Diagnosis)( Differential Diagnosis Acute coronary syndrome, Acute myocardial infarct, Aortic dissection, Chest pain Patient Discharge Departure Vital Signs/ConditionVital SignsFirst Documented: Result Date Time Pulse Ox 95 03/02 0304 B/P 210/96 03/02 0304 B/P Mean 134 03/02 0304 O2 Delivery Room air 03/02 0304 Temp 36.4 03/02 030 4 Pulse 63 03/02 0304 Resp 20 03/02 0304 Last Documented: Result Date Time Pulse Ox 95 03/02 0304 B/P 210/96 03/02 0304 B/P Mean 134 03/02 0304 O2 Delivery Room air 03/02 0304 Temp 36.4 03/02 0304 Pulse 63 03/02 0304 Resp 20 03/02 030 4 All vital signs available at the time of this entry have been reviewed. Clinical ImpressionClinical ImpressionPrimary Impression: Chest painSecondary Impressions: Hyponatremia Disposition DecisionHospitalize Hosp Physician Name KarenRadha MD [facility] Physician Hospitalist )( Accepts Hospitalization Yes )( Reason for HospitalizationCP, hyponatremia )( Accepted Time 316 )( Accepted Date 03/02/23 at 0651RPT #:[id number] OF REPORTEDEmergenc y department owyrsj2049-90-02M65:07:00P.[id number] a ilable for patient [id number]:51:39 2021-09-29 07:02:00 [id number]:02:00 [facility] ([facility])Hospitalist Discharge SummaryREPORT#:[id number] REPORT STATUS: SignedDATE:09/29/21 TIME: 701 PATIENT: KAUR KINSEY UNIT #: [id number]#: [id number] [facility] [birth year] AGE: 86 SEX: F ATTEND: Eliseo Her [facility] AUTHOR: Radha Mg MD R2 * ALL edits or amendments must be made on the electronic/computer document * Radha Mg 09/29/21 0702:General InformationDate of admission:Observation Start Date: Date of admission: 09/27/21 Discharge date : 09/29/21Hospital course:Ms. Kinsey is an 86 yo woman with CAD s/p CABG 2009 (BLAIR to LAD, SV G to D),aortic valve replacement/ aortic aneurysm repair 2009, biventricular pacemaker replaced 2020, hypothyroidism, PUD with GI bleed 2019, osteoarthritis with chronic knee and upper back pain, remote hx breast cancer who presented to OSH for CP and was transferred to our facility for management of possible NSTEMI by her lens and frames prescription clerk Dr. Aldrich. Pt presented to [facility] with chest pain and was admitted for possible ACS and reportedly receive d full-dose ASA 325mg x1 and full-dose Lovenox. Pt was found to have elevated high-sensitivity troponin (172, REF < 59)and non-specific ST changes on ECG and underwent stress test there which was stopped when pt began having R arm pain. On 09/27 pt was transferred to our facility for further management by her outpt lens and frames prescription clerk Dr. Aldrich. Pt's troponins here were normal x2 however pt continued having occasional R shoulder/neck pain worse with movement of R arm. She underwent L heart catheterization 09/28/[address] Aldrich and was found to have occluded BLAIR to LAD however SVG to first diagonal remains patent with no need for revascularization at thi s time. Per cardiology, plan to contiue medical management and optimization of pt's riskfactors. Pt was also evaluated by orthopedic surgeon Dr. Clemons however was not having R shoulder pain at that time; no recommendation for inpt intervention at this time. Pt received [place] 5/325 for her shoulder pain with relief of her symptoms and no adverse effects. During her admission at our facility the pt wasmonitored with telemetry and received her home Coreg, Synthroid, and pantoprazole as well as ASA 81mg and statin. No Eliquis as pt takes this MWF at home. Pt also received Lovenox for DVT Prophylaxis. No acute events overnight although her BP remains somewhat elevated; resumed pt's home losartan 50mg. This AM pt continues having occasional R shoulder/ neck pain however does no t desire steroid injection; plan for outpt follow-up with pt's orthopedist as pt's R shoulder pain appears to be due to musculoskeletal causes rather than cardiac. No CP, SOB, lightheadedness, palpitations, or N/V. Pt is medically stable to dc home per Cardiology with plan to follow up with in 1 week . Also advised follow-up with pt's orthopedist for further evaluation/ treatment of pt's MSK R shoulder pain. Discharge plan was discussed with pt and pt's daughter who expressed understanding and agreement with plan and eagerness to go home . Pt. condition on discharge: improved, stableAllergies:Allergies:Penicillins (Coded, UNKNOWN, 09/27/21)benazepril (From LOTENSIN) (Coded, UNKNOWN, 11/30/20)codeine (Coded, UNKNOWN, 11/30/20)dexamethasone (Coded, UNKNOWN, 11/30/20)iodine (Coded, UNKNOWN, 11/30/20)meperidine (From DEMEROL) (Coded, UNKNOWN, 11/30/20)morphine (Coded, UNKNOWN, 11/30/20)zolpidem (Coded, UNKNOWN, 11/30/20) Med Rec Med RecDischarge meds:Continue taking these medications:SIMVASTATIN (ZOCOR) 20 MG TAB 20 MILLIGRAM ORAL DAILY. CARVEDILOL (COREG) 25 MG TAB 25 MILLIGRAM ORAL DAILY. CLOPIDOGREL (PLAVIX ) 75 MG TAB 75 MILLIGRAM ORAL THURSDAY, THURSDAY, THURSDAY. LEVOTHYROXINE (SYNTHROID) 75 MCG TAB 75 MICROGRAM ORAL DAILY. FEXOFENADINE (CHARLETTE ALLERGY) 180 MG TAB 180 MILLIGRAM ORAL DAILY. PANTOPRAZOLE DR (PROTONIX) 40 MG TAB.DR 40 MILLIGRAM ORAL TWICE DAILY. LOSARTAN (COZAAR) 50 MG TAB 50 MILLIGRAM ORAL DAILY. Comments: TAKE 1 TABLET BY MOUTH EVERY DAY - SIG Obtained From Mariangel ObjectiveVS/I OLast Documented: Result Date Time B/P 167/75 09/29 0619 B/P Mean 105.6 09/29 0619 Pulse 78 09/29 0619 Pulse Ox 97 03/2 0 0411 O2 Delivery Nasal cannula 09/29 041 Temp 97.9 09/29 0411 Resp 16 09/29 0411 FiO2 21 09/29 0112 24 hour I O ending at 0700: 09/29 0700 09/28 1900 Intake Total 360 300 Output Total Balance 360 300 Intake, Oral 360 300 Number Voids 3 Patient 57.5 kg Weight Weight Bed scale Measurement Method General appearance: alert, awake, oriented, no acute distress, mental statu s normalHead/Eyes: atraumatic, normal conjunctiva/sclera, normocephalicENT: moist mucosal membranes, normal ear rightNeck: JVD present, full range of motion, no bruit/NL carotids, no masses or swellingCardiovascular: murmur, pacemaker (biventricular), regular rate rhythm Murmur:systolic 2/6 (YEISON, DEM), diastolic 2/6 (YEISON, DEM)Respiratory: aerating well, clear to auscultation, symmetric expansion, no distressAbdomen: non-tender, soft, no distentionGenitourinary: no bladder distention, no urinary catheterRectal: not indicatedExtremities: moves all, normal capillar y refill, no calf tenderness, no cyanosis, no joselyn a Vascular pulse assess:Palpatated: R radial, L radial, R posterior tibialis, L posterior tibialis. Musculoskeletal: normal inspection, mild R shoulder pain with R shoulder movement, R upper back muscle tenderness to palpation; no bony midline tendernessNeuro/VASCULAR MANAGER: alert, oriente d X 3, normal speechSkin: dry, normal temperaturePsychiatry: normal affect, normal judgment/insight, normal mood ResultsFindings/Data:Laboratory Tests: 09/28 09/28 09/28 0852 0852 0710 Chemistry Sodium (13 7 - 145 MMOL/L) 132 L Potassium (3.5 [...] MG/DL) 9.8 Total Bilirubin (0.2 - 1.3 MG/DL ) 0.9 AST (14 - 36 UNITS/L) 146 H ALT (0 - 34 UNITS/L) 119 H Total Alk Phosphatase (38 - 126 UNITS/L) 68 Total Protein (6.3 - 8.2 G/DL) 8.7 H Albumin (3.5 - 5.0 G/DL) 4.2 Triglycerides (150 - 199 MG/DL) 71 L Cholesterol (<200 MG/DL) 140 LD L Cholesterol Measurd (0 - 99 MG/DL) 41 HDL Cholesterol (40 - 59 MG/DL) 63 H Coagulation INR (0.86 - 1.14) 1.1 APTT (25.1 - 36.5 SECONDS) 39.5 H PT Patient/Control Mix (9.5 - 12.7 SECONDS) 12.3 Hematology WBC (3.8 - 9.8 K/MM3) 8.0 RBC (3.58 - 4.97 M/MM3) 4.13 Hgb (11.2 - 14. 9 G/DL) 13.0 Hct (33.2 - 43.5 %) 38.9 MCV (80.7 - 99.1 fL) 94 MCH (27.0 - 34.1 pg) 31.5 MCHC (32.2 - 35.7 %) 33.4 RDW (12.1 - 15.2 %) 12.3 Plt Count (129 - 368 K/MM3) 243 MPV (7.4 - 10.4 fl) 10.0 Neut % (Auto) (43 - 75 %) 72.7 Lymph % (Auto) (14 - 44 %) 14.2 Lynn % (Auto) (4 - 13 %) 10.4 Eos % (Auto) (0 - 6 %) 1.6 Baso % (Auto) (0 - 2 %) 0.7 Neut # (Auto) (2.0 - 7.6 K/mm3) 5.84 Lymph # (Auto) (1.0 - 3.8 K/mm3) 1.14 Lynn # (Auto) (0.1 - 0.8 K/mm3) 0.84 H Eos # (Auto) (0. 0 - 0.2 K/mm3) 0.13 Baso # (Auto) (0.0 - 0.2 K/mm3) 0.06 Immature Gran % (0.0 - 2.0 %) 0.4 Nucleated RBC % (0 - 1.0 %) 0.0 Nucleated RBCs # (Man) (0.0 - 0.1 K/mm3) 0.00 Serology SARS-CoV-2 Ag (Rapid) (Negative) NEGATIVE Results: labs reviewed, vital signs reviewed, current med profile rev'd Discharge Instructions PCPPCP follow-up:PCP: DOES_NOT KNOW Additional Discharg e Routines: [facility] Director Follow-UpDiet: CardiacAdditional instructions:follow up with pt's orthopedist for R shoulder/ upper back painDischarge management: greater than 30 mins, face to face encounterTime spent: Time spent wit h patient (minutes): 38 Follow-up AppointmentsConsulting provider 1: Provider 1: Christian Aldrich MD Specialty: Cardiology Consult follow up timeframe: In 1-2 weeks Quality: Discharge Advanced Care Plan 65 or OlderDiscusse d with: patient, surrogate decis. maker ( and daughter)Discussion included: code status (DNR) Current MedicationsCurrent medication review:I attest that the foregoing medication list in the medical record is true, accurate, an d complete to the best of my knowledge. Evan Harris 09/29/21 1410:Attestations Sheldon horvath Physician AttestationF/U visit w/ resident:I saw the patient with the resident. D/W Pt and pt daughter at bed side. Pt wants to follow up with her Orthos as outpt. Reviewed labs. agree with the resident's findings and plan. d/w pt, pt daughter, RN Resident Discharge time > 30 minute s in coordinating care at 1409 at 1413 RPT #:[id number] OF REPORTDSDischarge [id number]:02:00Z.[id number] v ailable for patient [id number]:09:49 2021-09-29 06:43:00 [id number]:43:00 [facility] ([facility])Cardiology Progress NoteREPORT#:[id number] REPORT STATUS: SignedDATE:09/29/21 TIME: 06 PATIENT: KAUR KINSEY UNIT #: [id number]#: [id number] [facility] AGE: 86 SEX: F ATTEND: Eliseo Her MDA AUTHOR: Terrell Moore MD * ALL edits or amendments must be made on the electronic/computer document * SubjectiveChief complaint:CP/NSTMIHPI:No shoulder pain.Patient reports:No: chest pain, palpitations, shortness of breath. Objective GeneralVS/I O:24 hour I O ending at 0700: 09/29 0700 09/28 1900 Intake Total 300 Output Total Balance 300 Intake, Oral 300 Patient 57.5 kg Weight Weight Bed scale Measurement Method Nathalia l Signs: Date Time Temp Pulse Resp B/P B/P Pulse O 2 O2 Flow FiO2 Mean Ox Delivery Rate 09/29 618 78 167/75 105.6 09/29 0411 97.9 79 16 175/67 103.2 97 Nasal cannula 09/29 0112 95 Room air 21 03 0 0035 98.1 98 17 161/69 99.6 96 09/28 2057 97.7 6 6 17 163/70 100.9 95 09/28 1835 97.5 75 16 171/68 102.5 98 Room air 09/28 1527 97.7 71 18 128/62 84.1 95 Room air 09/28 1411 97.5 81 16 144/74 97.1 95 09/28 0650 98.1 78 16 156/64 94.6 95 Sylvie m air PATIENT WEIGHT: Weight (lb): 126Weight (oz): 12.25Weight (kg): 57.500 Medications:Active Meds + DC'd Last 24 HrsNitroglycerin (NITRO-BID UD) 1 INCH Q6HR TRANSDERM Sodium Chloride (SODIUM CHLORIDE 0.9%) 173 ML PREOP ONCE ONE IV (DC) Hydrocodone Bitart/Acetaminophen (NORCO 5/325 TABLET (C-II)) 0 .STK-MED ONE .ROUTE (DC) Nitroglycerin (NITRO-BID UD) 0 .STK-MED ONE .ROUTE (DC) Iopamidol (ISOVUE-300) 0 .STK-MED ON E .ROUTE (DC) Heparin Sodium/Sodium Chloride (HEPARIN 1000 UNITS/NS 500ML) 1,000 ML .STK-MED ONE IV (DC) Iopamidol (ISOVUE-300) 0 .STK-MED ON E .ROUTE (DC) Lidocaine HCl (XYLOCAINE 1%) 0 .STK-MED ONE .ROUTE (DC) Fentanyl Citrate (SUBLIMAZE (C-II)) 0 .STK-MED ONE .ROUTE (DC) Heparin Sodium (HEPARIN SODIUM) 0 .STK-MED ONE .ROUTE (DC) Midazolam HCl (VERSED (C-IV)) 0 .STK-MED ONE .ROUTE (DC) Diphenhydramine HCl (BENADRYL) 0 .STK-MED ONE IV (DC) Famotidine (PEPCID) 0 .STK-MED ONE IV (DC) Methylprednisolone Sodium Succinate (SOLU-Medrol ) 0 .STK-MED ONE IV (DC) Hydrocodone Bitart/Acetaminophen (NORCO 5/325 TABLET (C-II)) 1 TAB Q4H PRN PRN PO Tramadol HCl (ULTRAM) 50 MG Q6H PRN PRN PO Aspirin (CHILDREN'S ASPIRIN) 81 M G DAILY PO Atorvastatin Calcium (LIPITOR) 40 MG DAILY PO Carvedilol (COREG) 25 MG DAILY PO Levothyroxine Sodium (Synthroid) 75 MCG DAILY PO Pantoprazole (PROTONIX) 40 MG BID PO Clopidogrel Bisulfate (PLAVIX) 75 MG MOWEFR PO (CKD) Acetaminophen (TYLENOL) 650 MG Q4H PRN PRN PO Hydralazine HCl (APRESOLINE) 10 MG Q4H PRN PRN I V Ondansetron HCl (ZOFRAN) 4 MG Q8H PRN PRN IV Physical ExamGeneral appearance: alert, awake, orientedHead/Eyes: atraumatic, normocephalic, PERRLAENT: moist mucosal membranesNeck: JVD present, full range of motion, no bruit/NL carotids, no masses or swellingCardiovascular: C V assessment: regular rate and rhythm, BP pulses = bilaterally Murmur assessment:II/ YEISON and DEMRespiratory: clear to auscultation, no distressAbdomen: soft, non-tender, no mass/organomegaly, no pulsatile massLower extremity: LE assessment: no edema, 2+ periphera l pulsesMusculoskeletal: full range of motionNeuro/VASCULAR MANAGER: alert, oriented X 3, CN II-XII intact, no motor deficitsPsychiatry: normal affect, normal judgment/insight, normal mood, no hallucinations ResultsFindings/Data:Laboratory Tests 09/28 09/28 0852 0852 Chemistry Sodium (137 - 145 MMOL/L) 132 L Potassium (3.5 - 5.1 MMOL/L) 4.1 Chloride (98 - 107 MMOL/L) 96 L Carbon Dioxide (22 - 30 MMOL/L) 28 Anion Gap (1 4 - 24 MMOL/L) 12 L BUN (7 - 17 MG/DL) 19 H Creatinine (0.52 - 1.04 MG/DL) 0.60 Glomerular Filtr Rate > 60 Glucose (74 - 106 MG/DL) 124 H Calcium (8.4 - 10.2 MG/DL) 9.8 Total Bilirubin (0.2 - 1.3 MG/DL) 0.9 AST (14 - 36 UNITS/L) 146 H ALT (0 - 34 UNITS/L) 119 H Total Alk Phosphatas e (38 - 126 UNITS/L) 68 Total Protein (6.3 - 8.2 G/DL) 8.7 H Albumin (3.5 - 5.0 G/DL) 4.2 Triglycerides (150 - 199 MG/DL) 71 L Cholesterol (<200 MG/DL) 140 LDL Cholesterol Measurd (0 - 99 MG/DL) 41 HDL Cholesterol (40 - 59 MG/DL) 63 H Laboratory Tests 09/28 0852 Coagulation INR (0.86 - 1.14) 1.1 APTT (25.1 - 36.5 SECONDS) 39. 5 H PT Patient/Control Mix (9.5 - 12.7 SECONDS) 12.3 Laboratory Tests 09/28 0852 Hematology WBC (3.8 - 9.8 K/MM3) 8.0 RBC (3.58 - 4.97 M/MM3) 4.13 Hgb (11.2 - 14.9 G/DL) 13.0 Hct (33.2 - 43. 5 %) 38.9 MCV (80.7 - 99.1 fL) 94 MCH (27.0 - 34.1 pg) 31.5 MCHC (32.2 - 35.7 %) 33.4 RDW (12.1 - 15.2 %) 12.3 Plt Count (129 - 368 K/MM3) 243 MPV (7.4 - 10.4 fl) 10.0 Neut % (Auto) (43 - 75 %) 72.7 Lymph % (Auto) (14 - 44 %) 14.2 Lynn % (Auto) (4 - 13 %) 10.4 Eos % (Auto) (0 - 6 %) 1. 6 Baso % (Auto) (0 - 2 %) 0.7 Neut # (Auto) (2.0 - 7.6 K/mm3) 5.84 Lymph # (Auto) (1.0 - 3.8 K/mm3) 1.14 Lynn # (Auto) (0.1 - 0.8 K/mm3) 0.84 H Eos # (Auto) (0.0 - 0.2 K/mm3) 0.13 Baso # (Auto) (0.0 - 0.2 K/mm3) 0.06 Immature Gran % (0.0 - 2. 0 %) 0.4 Nucleated RBC % (0 - 1.0 %) 0.0 Nucleate d RBCs # (Man) (0.0 - 0.1 K/mm3) 0.00 Laboratory Tests 09/28 0710 Serology SARS-CoV-2 Ag (Rapid) (Negative) NEGATIVE Laboratory Tests 09/28 0852 Coagulation APTT (25.1 - 36.5 SECONDS) 39.5 H Diagnosis, Assessment Plan Free Text DxA P NotesFree Text DxA P Notes:IMPRESSION: 1. CP/NSTMI - s/p LHC. Occluded BLAIR to LAD. 2. CAD , S/P CABX2 on 03/01/2010, BLAIR to LAD, SVG to D 3 . AVR, AI, stable 4. MR 5. PAFIB 6. S/P PPI 7. HTN 8. HLP 9. Shoulder pain - resolved. RECOMMEND: 1 . Continue current Med Rx 2. Consider amlodipine i f continued HTN. 3. Cardiac cleared for discharge. at 0708 RPT #:[id number] OF REPORTPRProgress [id number]:43:00Z.[id number] kristyn able for patient [id number]:08:48 2021-09-28 18:48:00 [id number]:48:00 [facility] ([facility])Orthopaedic Consult NoteREPORT#:[id number] REPORT STATUS: SignedDATE:09/28/21 TIME: 1847 PATIENT: KAUR KINSEY UNIT #: [id number]#: [id number] [facility]ADOB: [birth year] AGE: 86 SEX: F ATTEND: Eliseo Her [facility] AUTHOR: Devendra Melendez MD * ALL edits or amendments must be made on the electronic/computer document * History of Present Illness Time At Bedside)( Dat e at bedside: 1800Reason for consult: pain (right shoulder)Chief complaint:pain between the shoulder bladesHPI:86 years old lady with a history of carotid artery disease, aortic aneurysm and pacemaker was admitted to the hospital due to the complaint of chest pain.Patient also reported that she has occasional pain in between her shoulder blades several months of Prialt to her admission.Howeve r today patient has no pain in her right shoulder or in her back. History - Adult longitudinalAdditional medical history:CAD s/p CABG, bradycardia with pacemaker, breast cancer s/p L mastectomy and radiation, aortic valve replacement, aortic aneurysm repair, hypothyroidism, bleeding gastric ulcer (2-3 year s ago per daughter, causes by NSAID use on top of Plavix, treated via EGD), and Sweet's syndromeAdditional surgical history:CABG (02/2010), aortic valve replacement (02/2010), aortic aneurysm repair (02/2010), R leg vein surgery, L partial mastectomy (1981), cholecystectomy (1953), vein surgery (1961), pacemaker placement (2002, batteries replaced 2009, pacemaker replaced 1 year ago)Smoking status: Smoking status for patients 13 years old or older: Never SmokerAllergies:Coded Allergies:Penicillins (UNKNOWN 09/27/21)benazepril (From LOTENSIN) (UNKNOWN 11/30/20)codeine (UNKNOWN 11/30/20)dexamethasone (UNKNOWN 11/30/20)iodine (UNKNOWN 11/30/20)meperidine (From DEMEROL) (UNKNOWN 11/30/20)morphine (UNKNOWN 11/30/20)zolpidem (UNKNOWN 11/30/20) Review of SystemsConstitutional:Denies: chills, fatigue, fever, generalized weakness, lethargy, malaise, recent wt loss, other. Musculoskeletal:Denies: extremity pain, extremity swelling, joint pain, joint swelling, lumbar pain, myalgias, neck pain , thoracic pain. ObjectiveVS:Last Documented: Result Date Time Pulse Ox 98 09/28 1834 B/P 171/68 09/28 1834 B/P Mean 102.5 09/28 1834 O2 Delivery Room air 09/28 1834 Temp 97.5 09/28 Pulse 75 09/28 1834 Resp 16 09/28 1834 PATIENT WEIGHT: Weight (lb): 126Weight (oz): 12.25Weight (kg): 57.500 Ambulation status: ambulating, self Physical ExamGeneral appearance: alert, awake, oriented, no acute distress, pleasant, conversational, mental status normalShoulder-left: full range of motion, neurovascular intact, non-tender, normal inspection, shoulder stable, no compartment syndrome, no deformity, no evidence of DVT, no joint swellingShoulder-right: full range of motion, neurovascular intact, non-tender, normal inspection, shoulder stable, no compartment syndrome, no deformity, no evidence of DVT, no joint swellingNeck: full range of motion, non-tender, supple/no meningismus, no masses or swellingMusculoskeletal: no midline vertebral tend, no muscle spasm, no paraspinal tenderness Diagnosis, Assessment PlanProblem List/A P: 1. CAD (coronary artery disease) 2. Pacemaker 3. History of bradycardia 4. S/P CABG (coronary artery bypass graft) 5. S/P aortic valve replacement 6. S/P aortic aneurysm repair 7. Status post partial mastectomy of left breast Free Text A P:Assessment:1. No abnormality of both shoulders are thoracic spine/cervical spine.2. The occasional soreness between her shoulder blades was probably due to heavy liftin g pulling or pushing doing her daily activity. However patient was asymptomatic today. Plan: I recommended the patient to avoid any heavy lifting pulling or pushing. Quality: Ortho Current MedicationsCurrent medication review:I attest that the foregoing medication list in the medical record is true, accurate, and complete t o the best of my knowledge. at 1856 RPT #:[id number] OF REPORTQATspfvabohjcz1476-15-78W95:48:00Z.PDOC 2 [id number] for patient [id number]:56:38 2021-09-28 11:16:00 [id number] [facility] [address] [address] PATIENT NAME: KAUR KINSEY ADMIT DATE: 09/27/21ACCOUNT NO: [id number] [facility] 86 REPORT TYPE: CARDIAC CATHETERIZATION REPORT SEX: F ADMITTING PHYSICIAN:Eliseo Her MD ATTENDING PHYSICIAN:Eliseo Her MD PROCEDURE DATE: 09/28/2021 RISK ASSESSOR: Christian Aldrich MD TITLE OF THE PROCEDURE:1. Left heart catheterization.2 . Graft angiography.3. BLAIR angiogram.4. Aortic root angiogram. INDICATION FOR THE PROCEDURE: Chest pain, non-ST wave myocardial infarction in a patient with known coronary artery disease, aortic valve replacement andprevious bypass. ESTIMATED BLOOD LOSS: Minimal. COMPLICATIONS: None. CONTRAST: 110 mL. ANESTHESIA: Conscious sedation with Versed and fentanyl. A 1% lidocain e forlocal anesthesia. FINAL DIAGNOSES: Single-vessel coronary artery disease, patent saphenous veingraft to the first diagonal, occluded left internal mammary artery to the leftanterior descending, thoracic aortic aneurysm, status post ascending graftrepair and aortic valve replacement. The recommendation is medical therapy. PROCEDURE IN DETAIL: After informed consent, the patient was brought to thecardiac catheterization lab in a stable fasting nonsedated state. She wasprepped and draped in the usual sterile fashion. After conscious sedation, 1%lidocaine was administered to the right common femoral artery area for localanesthesia. A 6-Lao sheath was placed in the right common femoral arteryusing standard techniques and fluoroscopy. After heparinization , left coronaryangiogram showed 20% ostial LAD. Th e circumflex had luminal irregularities. The LAD itself had a 55% mid lesion. The first diagonal had like a 30% proximallesion and then the graft to the diagonal is aneurysmal at the distal part . Thesecond diagonal had a 50% ostial lesion. Ther e is a 30% distal plaque in theLAD. The BLAIR appears to be occluded. There is no retrograde flow. Rightcoronary angiogram showed 35% plaque proximal, mid, and distal dominant vessel,large vessel. Left ventricular angiogram showed ejection fraction of 60%, leftventricular end-diastolic pressure of 7, no wall motion abnormalities or PATIENT NAME: KAUR KINSEY significant aorti c valve gradient. BLAIR is occluded proximally. The vein graftto the first diagonal is patent with 45% mid disease. There is a valve rightafter the disease and there is an aneurysmal dilatation distal. Aortic rootangiogram was carried out shahbaz t showed the ascending graft to be patent and thenafter proximal to that, there is aneurysm at 3.5 cm. The right groin was sealedusing Angio-Seal. There were no complications. The patient tolerated theprocedure well. She was transferred back to the holding area for observationand then back to her room where she can be safely discharged this evening. Thiswas all discussed in detail with the patient and her daughter. Dictated By: Christian Aldrich MD WT: CATH:ZTOM/GISELA/NTSDD: 09/28/2021 11:16:08DT: 09/28/2021 11:45:32Conf#: [id number]/DID#: [id number] Authenticated by Christian Aldrich MD On 09/28/2021 12:15:57 PM at 1215 PATIENT NAME: KAUR KINSEY [id number]:45:00Z.[id number] a ble for patient [id number]:16:37 2021-09-28 08:58:00 [id number] [address] PATIENT NAME: KAUR KINSEY ADMIT DATE: 09/27/21ACCOUNT NO: [id number] ROOM NO: [facility] AGE: 86 REPORT TYPE: ELECTROCARDIOGRA M SEX: F ADMITTING PHYSICIAN:Eliseo Her MD ATTENDING PHYSICIAN:Eliseo Her MD Order:[id number] Reason : CP/CAD/VA Test Date/Time Stamp:Sat Sep 28 2021 08:58:32Blood Pressure : / mmHGVent. Rate : 074 BPM Atrial Rate : 074 BPM P-R Int : 166 ms QRS Dur : 182 ms QT Int : 480 ms P-R-T Axes : 049 -66 105 degrees QTc Int : 532 ms Atrial-sensed ventricular-paced rhythmAbnormal ECGWhen compare d with ECG of 27-SEP-2021 11:10,Vent. rate has increased BY 2 BPMConfirmed by CHRISTIAN ALDRICH ([id number]) on 09/28/2021 12:20:15 PM Referred By: Eliseo Her Confirmed by:CHRISTIAN ALDRICH at 1220 PATIENT NAME: KAUR KINSEY .[id number] AVAvailable for patient [id number]:20:37 2021-09-28 08:58:00 [id number] [address] PATIENT NAME: KAUR KINSEY ADMIT DATE: 09/27/21ACCOUNT NO: [id number] ROOM NO: Z.408 AGE: 86 REPORT TYPE: ELECTROCARDIOGRA M SEX: F ADMITTING PHYSICIAN:Eliseo Her MD ATTENDING PHYSICIAN:Eliseo Her MD Order:[id number] Reason : CP/CAD/VA Test Date/Time Stamp:ThuSep 28 2021 08:58:32Blood Pressure : / mmHGVent. Rate : 074 BPM Atrial Rate : 074 BPM P-R Int : 166 ms QRS Dur : 182 ms QT Int : 480 ms P-R-T Axes : 049 -66 105 degrees QTc Int : 532 ms Atrial-sensed ventricular-paced rhythmAbnormal ECGWhen compare d with ECG of 27-SEP-2021 11:10,Vent. rate has increased BY 2 BPMConfirmed by CHRISTIAN ALDRICH ([id number]) on 09/30/2021 4:17:57 PM Referred By: Self Referred Confirmed by:CHRISTIAN ALDRICH at 1617 PATIENT NAME: KAUR KINSEY .[id number] AVAvailable for patient [id number]:18:13 2021-09-28 06:31:00 [id number]:31:00 [facility] Progress NoteREPORT#:[id number] REPORT STATUS: SignedDATE:09/28/21 TIME: 630 PATIENT: KAUR KINSEY UNIT #: [id number]#: [id number] [facility] AGE: 86 SEX: F ATTEND: Eliseo Her [facility] AUTHOR: Jarrell Crespo MD R1 * ALL edits or amendments mus t be made on the electronic/computer document * See AddendumJarrell Crespo 09/28/21 0631:SubjectiveChief complaint:chest painHPI:Patient was sitting in the chair at the time of examination. She reports that she had ar m pain earlier, but none now. Review of SystemsConstitutional:Denies: chills, fever. Allergy/Immun:Denies: anaphylaxis. Eyes:Denies: itching. Respiratory:Denies: STERN (dyspnea on exertion), pleuritic pain, pneumonia, productive cough (sputum), SOB. Cardiovascular:Denies: ches t pain, STERN (dyspnea on exertion). GI:Denies: abdominal pain, nausea, vomiting. Neuro:Denies: slurred speech, unable to speak. Psych:Denies: agitation. All systems rev neg: except as marked Objective GeneralVS/I O:Vital Signs: Date Time Temp Pulse Resp B/P B/P Pulse O2 O2 Flow FiO2 Mean Ox Delivery Rate 09/28 0650 [...] Oral 480 Number Voids 4 1 PATIENT WEIGHT : Weight (lb): Weight (oz): Weight (kg): Medications:Active Meds + DC'd Last 24 HrsSodium Chloride (SODIUM CHLORIDE 0.9%) 3 ML PREOP ONCE ONE IV (PEND) Hydrocodone Bitart/Acetaminophen (NORCO 5/325 TABLET (C-II)) 1 TAB Q4H PRN PRN PO Tramadol HCl (ULTRAM) 50 MG Q6H PRN PRN PO Aspirin (CHILDREN'S ASPIRIN) 81 MG DAILY PO Atorvastatin Calcium (LIPITOR) 40 MG DAILY PO Carvedilol (COREG) 25 MG DAILY PO Enoxaparin Sodium (LOVENOX) 40 MG Q24H SUBQ (DC) Levothyroxine Sodium (Synthroid) 75 MCG DAILY PO Pantoprazole (PROTONIX) 40 MG BID PO Clopidogrel Bisulfate (PLAVIX) 75 MG MOWEFR PO (CKD) Acetaminophen (TYLENOL) 650 MG Q4H PRN PRN PO Hydralazine HCl (APRESOLINE) 10 MG Q4H PRN PRN I V Ondansetron HCl (ZOFRAN) 4 MG Q8H PRN PRN IV Nutrition assessment:The data set between the solid lines has been imported from the dietitian's assessment. Any exceptions have been noted under Provider comments. _ BMI Calculated: Nutrition related diagnosis: Nutrition diagnosis details: Nutrition problem: Nutrition etiology: Nutrition signs and symptoms: Nutrition prescription: Dietitian name: Assessment completed: _ Provider comments on imported dietitian assessment: Physical ExamGeneral appearance: alert, awake, orientedHead/Eyes: atraumatic, normocephalicENT: moist mucosal membranesNeck: supple/no meningismusCardiovascular: murmur (from valve replacement.), pacemakerRespiratory: aerating well, no distressAbdomen: non-tender, softNeuro/VASCULAR MANAGER: alert, oriented X 3, normal speechSkin: dryPsychiatry: normal affect, normal mood ResultsFindings/Data:Laboratory Tests 09/27 09/27 09/27 09/27 09/27 1930 1418 0902 0902 090 2 Chemistry Sodium (137 - 145 MMOL/L) 134 L Potassium (3.5 - 5.1 MMOL/L) 4.5 Chloride (98 - 107 MMOL/L) 99 Carbon Dioxide (22 - 30 MMOL/L) 2 9 Anion Gap (14 - 24 MMOL/L) 11 L BUN (7 - 17 MG/DL) 19 H Creatinine (0.52 - 1.04 MG/DL) 0.80 Glomerular Filtr Rate > 60 Glucose (74 - 106 MG/DL) 119 H Mean Blood Glucose (70 - 110 MG/DL) 105 Hemoglobin A1c (4.8 - 5.9 %) 5.3 Calcium (8. 4 - 10.2 MG/DL) 9.9 Total Bilirubin (0.2 - 1.3 MG/DL) 0.8 AST (14 - 36 UNITS/L) 130 H ALT (0 - 34 UNITS/L) 90 H Total Alk Phosphatase (38 - 12 6 UNITS/L) 59 Troponin I (0.012 - 0.033 NG/ML) 0.026 0.025 0.028 Total Protein (6.3 - 8.2 G/DL) 8.3 H Albumin (3.5 - 5.0 G/DL) 4.0 Triglycerides (150 - 199 MG/DL) 69 L Cholesterol (<200 MG/DL) 129 LDL Cholesterol Measurd (0 - 99 MG/DL) 42 HD L Cholesterol (40 - 59 MG/DL) 57 TSH (0.465 - 4.68 MIU/L) 3.530 Laboratory Tests 09/27 0902 Hematology WBC (3.8 - 9.8 K/MM3) 7.7 RBC (3.58 - 4.97 M/MM3) 4.17 Hgb (11.2 - 14.9 G/DL) 12.9 Hct (33.2 - 43.5 %) 39.6 MCV (80.7 - 99.1 fL) 95 MC H (27.0 - 34.1 pg) 30.9 MCHC (32.2 - 35.7 %) 32.6 RDW (12.1 - 15.2 %) 12.4 Plt Count (129 - 368 K/MM3) 220 MPV (7.4 - 10.4 fl) 10.4 Neut % (Auto ) (43 - 75 %) 74.2 Lymph % (Auto) (14 - 44 %) 11. 4 L Lynn % (Auto) (4 - 13 %) 10.3 Eos % (Auto) (0 - 6 %) 2.9 Baso % (Auto) (0 - 2 %) 0.9 Neut # (Auto) (2.0 - 7.6 K/mm3) 5.72 Lymph # (Auto) (1. 0 - 3.8 K/mm3) 0.88 L Lynn # (Auto) (0.1 - 0.8 K/mm3) 0.79 Eos # (Auto) (0.0 - 0.2 K/mm3) 0.22 H Baso # (Auto) (0.0 - 0.2 K/mm3) 0.07 Immature Gran % (0.0 - 2.0 %) 0.3 Nucleated RBC % (0 - 1. 0 %) 0.0 Nucleated RBCs # (Man) (0.0 - 0.1 K/mm3) 0.00 Laboratory Tests 09/28 0710 Serology SARS-CoV-2 Ag (Rapid) (Negative) NEGATIVE Radiology data:Recent Impressions:RADIOLOGY - XR SHOULDER 2+V RT 09/27 1520 Report Impression - Status: SIGNED Entered: 09/27/2021 6242 IMPRESSION: No acute osseous findings.Impression By: [email or web address] - Duarte Palm MD Free Text Obj NotesFree Text Obj Notes:Limited physical exam because patient refused to be examined overnight and wanted to sleep Diagnosis, Assessment PlanProblem List/A P: 1. Elevated troponin 2. Pacemaker 3. History of bradycardia 4. CAD (coronary artery disease) 5. History of breast cancer 6. Hypothyroidism 7. H/O gastric ulcer 8. S/P CABG (coronary artery bypass graft) 9. S/P aortic valve replacement 10. S/P aortic aneurysm repair 11. Status post partial mastectomy of lef t breast Consultants: cardiology Free Text DxA P NotesFree text DxA P notes:86yo woman with PMHx of CAD s/p CABG, bradycardia with pacemaker, breast cancer s/p L partial mastectomy and radiation, aortic valve replacement, aortic aneurysm repair, hypothyroidism, bleeding gastri c ulcer, and Sweet's syndrome who presents as a transfer [facility] for concern forNSTEMI. #Elevated troponin#CAD s/ p CABG #Hx of aortic valve replacement #Hx of aortic aneurysm repair-Patients symptoms and lab s concerning for NSTEMI so patient transferred here-s/p ASA and Lovenox 1mg/kg x1 dose at OSH-Trend troponin and ekgs-Continue ASA, statin-Continue Plavix-Lovenox DVT dose for now. Trops here were normal. Pending cardiology cath. #History of bradycardia#Pacemaker in place-No bradycardia as per vitals. -HTN on PRN meds.-Continue home carvedilol and monitor closely #H/O gastric ulcer-Continue protonix, moniter for signs of bleeding #Hypothyroidism-Continue home Synthroid Shoulder pain.X ray was negative. Family wants shoulder injection prior to d/c home. Diet: CardiacDVT ppx: SCDs, lovenoxCode Status -- patient stated DNR at OSH but no official DNR paperwork availab e Quality: Gen Med Crit Care VTE ProphylaxisVTE prophylaxis initiated: yes Current MedicationsCurrent medication review:I attest that the foregoing medication list in the medica l record is true, accurate, and complete to the best of my knowledge. Advanced Care Plan 65 or OlderDiscussed with: patient, surrogate decis. maker ( and daughter)Discussion included: code status (DNR) AttestationsAttestation needed : teaching physician Evan Harris 09/29/21 1407:Attestations Teaching Physician AttestationF/U visit w/ resident:I saw the patient with the resident. Pt is s/p cardiac cath. Will get ortho to evaluate patint for shoulder pain.Monitor bp closelycontinue current treatment. agree with the resident's findings an d plan. at 1350 at 1409 Addendum 1: 09/28/21 1351 by Jarrell Crespo MD R1 dnr is signed. at 1351 at 1756 RPT #:[id number] OF REPORTPRProgress [id number]:31:00Z.[id number] l able for patient [id number]:50:52 2021-09-28 06:14:00 [id number]:14:00 [facility] ([facility])Cardiology Progress NoteREPORT#:[id number] REPORT STATUS: SignedDATE:09/28/21 TIME: 613 PATIENT: KAUR KINSEY UNIT #: [id number]#: [id number] [facility] AGE: 86 SEX: F ATTEND: Eliseo Her [facility] AUTHOR: Christian Aldrich MD * ALL edits or amendments mus t be made on the electronic/computer document * SubjectiveChief complaint:CP/NSTMIPatient reports:Yes: chest pain. No: nausea, palpitations, shortness of breath, swelling. Nursing reports:No: complaints. Objective GeneralVS/I O:24 hour I O ending at 0700: 09/28 0700 09/27 1900 Intake Total 480 Output Total Balance 480 Intake, Oral 480 Number Voids 4 1 Vital Signs: Date Time Temp Pulse Resp B/P B/P Pulse O2 O2 Flow FiO2 Mean Ox Delivery Rate 09/10 9 0446 97.5 99 17 162/77 105.5 97 09/28 0333 97.5 70 18 173/70 104.6 96 Room air 09/27 2342 98.1 7 4 19 149/58 88.5 95 Room air 09/27 2201 97.5 61 17 198/70 112.9 96 09/27 1918 97.5 61 19 174/63 99.9 94 Room air 09/27 1536 59 16 104/66 78.8 94 09/27 1031 71 17 99 09/27 1031 97.3 74 16 150/6 6 94.0 90 PATIENT WEIGHT: Weight (lb): Weight (oz) : Weight (kg): Medications:Active Meds + DC'd Last 24 HrsSodium Chloride (SODIUM CHLORIDE 0.9%) 0 PREOP ONCE ONE IV (UNi) Hydrocodone Bitart/Acetaminophen (NORCO 5/325 TABLET (C-II)) 1 TAB Q4H PRN PRN PO [...] Clopidogrel Bisulfate (PLAVIX) 75 MG MOWEFR PO (CKD) Acetaminophen (TYLENOL) 650 MG Q4H PRN PRN PO Hydralazine HCl (APRESOLINE) 10 MG Q4H PRN PRN I V Ondansetron HCl (ZOFRAN) 4 MG Q8H PRN PRN IV Pacemaker: permanentNutrition assessment:The yulia a set between the solid lines has been imported from the dietitian's assessment. Any exceptions have been noted under Provider comments. _ BMI Calculated: Nutrition related diagnosis: Nutrition diagnosis details: Nutrition problem: Nutrition etiology: Nutrition signs and symptoms: Nutrition prescription: Dietitian name: Assessment completed: _ Provider comments on imported dietitian assessment: Physical ExamGeneral appearance: alert, awake, oriented, no acute distress, pleasant, conversational, mental statu s normal, no respiratory distressHead/Eyes: atraumatic, normocephalic, PERRLAENT: moist mucosal membranesNeck: JVD present, full range o f motion, no bruit/NL carotids, no masses or swellingCardiovascular: CV assessment: regular rate and rhythm, BP pulses = bilaterally Murmur assessment:II/ YEISON and DEM Respiratory: clear to auscultation, no distressAbdomen: soft, non-tender, no mass/organomegaly, no pulsatile massLower extremity: LE assessment: no edema, 2+ peripheral pulsesMusculoskeletal: full range of motionNeuro/VASCULAR MANAGER: alert, oriented X 3, CN II-XII intact, no motor deficitsPsychiatry: normal affect, normal judgment/insight, normal mood, no hallucinations ResultsFindings/Data:Laboratory Tests 09/27 09/27 09/27 09/27 09/27 1930 1418 0902 0902 0902 Chemistry Sodium (137 - 145 MMOL/L) 134 L Potassium (3.5 - 5.1 MMOL/L) 4.5 Chloride (98 - 107 MMOL/L) 99 Carbon Dioxide (2 2 - 30 MMOL/L) 29 Anion Gap (14 [...] - 34 UNITS/L) 90 H Total Alk Phosphatas e (38 - 126 UNITS/L) 59 Troponin I (0.012 - 0.033 NG/ML) 0.026 0.025 0.028 Total Protein (6.3 - 8. 2 G/DL) 8.3 H Albumin (3.5 - 5.0 G/DL) 4.0 Triglycerides (150 - 199 MG/DL) 69 L Cholesterol (<200 MG/DL) 129 LDL Cholesterol Measurd (0 - 99 MG/DL) 42 HDL Cholesterol (40 - 59 MG/DL) 57 TSH (0.465 - 4.68 MIU/L) 3.530 Laboratory Tests 09/10 8 0902 Hematology WBC (3.8 - 9.8 K/MM3) [...] - 75 %) 74.2 Lymph % (Auto) (1 4 - 44 %) 11.4 L Lynn % (Auto) (4 - 13 %) 10.3 Eos % (Auto) (0 - 6 %) 2.9 Baso % (Auto) (0 - 2 %) 0.9 Neut # (Auto) (2.0 - 7.6 K/mm3) 5.72 Lymph # (Auto) (1.0 - 3.8 K/mm3) 0.88 L Lynn # (Auto) (0.1 - 0.8 K/mm3) 0.79 Eos # (Auto) (0.0 - 0.2 K/mm3) 0.22 H Baso # (Auto) (0.0 - 0.2 K/mm3) 0.07 Immature Gran % (0.0 - 2.0 %) 0.3 Nucleated RBC % (0 - 1.0 %) 0.0 Nucleated RBCs # (Man) (0. 0 - 0.1 K/mm3) 0.00 Laboratory Tests 09/27 09/27 09/27 1930 1418 0902 Chemistry Troponin I (0.01 2 - 0.033 NG/ML) 0.026 0.025 0.028 Radiology data:Recent Impressions:RADIOLOGY - XR SHOULDER 2+V RT 09/27 1520 Report Impression - Status: SIGNED Entered: 09/27/2021 1558 IMPRESSION: No acute osseous findings.Impression By: [email or web address] Brett Palm MD Results: labs reviewed, vital signs reviewed, vital signs stable, echo personally reviewed, EKG personally reviewed, rhythm personally rev'd, US results reviewed, x-ray personally reviewed, current med profile rev'dEKG Interpretation: pacedTelemetry Interpretation:AV PacedEcho results:Stable Diagnosis, Assessment PlanProblem List/A P: 1. CAD (coronary artery disease) 2. Pacemaker 3. Elevated troponin 4. History of breast cancer 5. H/O gastric ulcer 6. S/P CABG (coronary artery bypass graft) 7. S/P aortic valve replacement 8. S/P aortic aneurysm repair 9. Status post partia l mastectomy of left breast Orders: Procedure Date/time Status Nothing By Mouth 09/28 B Active Surgical Prep 09/29 623 Active Verify signed consent on chart 09/29 623 Active Assess: Peripheral Pulse 09/29 623 Active Hold Dose 09/29 623 Active Clip Prep 09/29 623 Active VT E Prophylaxis Status 09/29 623 Active CARDIAC CAT H LAB 09/29 623 Active NPO: Except for Meds 09/10 06 Active Plan discussed with: patient, daughter, admitting physician, patient care team , nurse Free Text DxA P NotesFree Text DxA P Notes:IMPRESSION: 1. CP/NSTMI 2. CAD, S/P CABX2 on 03/01/2010, BLAIR to LAD, SVG to D 3. AVR, AI, stable 4. MR 5. PAFIB 6. S/P PPI 7. HTN 8. HLP RECOMMEND: 1. Continue current Med Rx 2. Proceed with L CATH/Grafts poss PCI 3. Risks/Benefits discussed in detail with pt and daughter and the y are willing to proceed 4. Rest as per orders at 0633 RPT #:[id number] OF REPORTPRProgress [id number]:14:00Z.[id number] l able for patient [id number]:33:47 2021-09-27 16:23:00 [id number]:23:[id number] [place] [address] PATIENT NAME: KAUR KINSEY ADMIT DATE: 09/27/21ACCOUNT NO: [id number] ROOM NO: Z.[facility] AGE: 86 REPORT TYPE: ECHOCARDIOGRAM SEX: F ADMITTING PHYSICIAN:Eliseo Her MD ATTENDING PHYSICIAN:Eliseo Her MD *[facility]*[address] [place], [place] [address]Phone Transthoracic Echocardiogram Patient: Kaur KinseyeStudy Date: 09/27/2021 BP: 150 / 66 [id number] : 1935 Age: 86 Height: / Gender: F Weight: /BMI/BSA: / *Ordering Physician: * Manjula Rome R2 *Interpreting Physician: * Christian Aldrich MD*Slitter Helper: * Florencia Mg RCS, RVT - Indications: Chest Pain, unspecified. - Study data: Transthoracic echocardiogram. Procedure: Transthoracicechocardiography was performed. Images were obtained using a [employer] d machine. Image quality was fair. M-mode, complet e 2D,complete spectral Doppler, and color Doppler. Location: Bedside.Patient status: Inpatient. Patient room number: 408. Study status:Routine. Rhythm: Normal sinus rhythm. - Findings Left ventricle: The cavity size is normal. Wall thickness is moderatelyincreased. Systolic function is normal . The estimated ejection fractionis 55-60%. Wall motion is normal; there are no regional wall motionabnormalities. Pulmonary venous flow is no t recorded. Left ventriculardiastolic function parameters are normal.Right ventricle: Poorly visualized. The cavity size is normal. Pacerwire noted in the right ventricle. Systolic function is normal. PATIENT NAME: KAUR KINSEY Left atrium: The atrium is mildly dilated.Right atrium: The atrium is normal in size. Pacer wire noted in rightatrium.Aorta: The aortic root is not dilated.Aortic valve: Poorly visualized. There i s a bioprosthetic valve.Transvalvular velocity is within the normal range. There is no evidenceof stenosis. There is mild regurgitation.Mitral valve: The annulus is moderately calcified. The leaflets aremildly calcified. The findings are consistent with severe stenosis.There is mild regurgitation.Tricuspid valve: Not well visualized. The valve is structurallynormal. There is no evidence of stenosis. There is mildregurgitation.Pulmonic valve: Not well visualized. There is no significantregurgitation.Pericardium: A trivial pericardial effusion is identified. No evidenceo f pleural fluid accumulation. - Measurements Left ventricle Value Ref ERNESTINA, LAX 4.2 cm 3.8 - 5.2 ESD, LAX 2.9 cm 2.2 - 3.5 FS, LAX 30 % 27 - 45 PW, ED 1.3 cm 0.6 - 0.9 PW, ES 1.8 cm - IVS/PW, ED 1.25 EF 58 % 54 - 74 IVRT 137 ms E/e', avg, TDI 47 <=14 LVOT Value Ref Diam, S 2.05 cm Area 3.3 c m 2 Peak hanna, S 1.14 m/sec Mean hanna, S 0.81 m/sec VTI, S 26.7 cm Peak grad, S 5 mm Hg Mean grad, S 3 mm Hg SV 87 ml Qs 5.14 L/min Ventricula r septum Value Ref IVS, ED 1.6 cm 0.6 - 0.9 IVS, E S 1.9 cm Right ventricle Value Ref ERNESTINA , LAX 2.1 cm Pressure, S 44 mm [...] MM 1.35 Right atrium Value Ref Area, ES , A4C 18 cm 2 10 - 18 Aortic valve Value Ref Leaflet sep, MM 1.52 cm Peak v, S 1.81 m/sec Mean v, S 1.19 m/sec VTI, S 37.1 cm Mean grad , S 6.7 mm Hg Peak grad, S [...] PHT 1.3 cm 2 Pulmonic valve Value Re f MA v, ED 0.59 m/sec Tricuspid valve Value Ref TR peak v 2.63 m/sec <=2.8 Peak RV-RA grad, S 28 mm Hg Aortic root Value Ref Root diam 3.3 cm Root diam, ED M M 3.63 cm Pulmonary artery Value Ref Pressure, S 40.0 mm Hg Systemic vein s Value Ref Estimated CVP 10 mm Hg - Conclusions PATIENT NAME: KAUR KINSEY Summary: 1. Left ventricle: The cavity size is normal. Wall thickness is moderately increased. Systolic function is normal. The estimated ejection fraction is 55-60%. Wall motion is normal; there are no regional wall motion abnormalities. Left ventricular diastolic function parameters are normal.2. Right ventricle: The RV pressure during systole by Doppler is 44 mm Hg.3. Left atrium: The atrium i s mildly dilated.4. Aortic valve: There is a bioprosthetic valve. There is mild regurgitation.5. Mitral valve: The findings are consistent with severe stenosis. The mean diastolic gradient is 12.6 mm Hg. The peak diastolic gradient is 18.9 mm Hg.6. Pericardium, extracardiac: A trivial pericardial effusion is identified. Prepared and electronically signed Christian Velasco MD09/27/2021 16:23 at 162 3 PATIENT NAME: KAUR KINSEY :23: 0 0Z.[id number] for patient [id number]:24:14 2021-09-27 11:10:00 [id number]:10:[id number] [place] [address] PATIENT NAME: KAUR KINSEY ADMIT DATE: 09/27/21ACCOUNT NO: [id number] ROOM NO: [facility] AGE: 86 REPORT TYPE: ELECTROCARDIOGRA M SEX: F ADMITTING PHYSICIAN:Eliseo Her MD ATTENDING PHYSICIAN:Eliseo Her MD Order:[id number] Reason : CP/[place]/CAD Test Date/Time Stamp:ThuSep 27 2021 11:10:41Blood Pressure : / mmHGVent. Rate : 072 BPM Atrial Rate : 072 BPM P-R Int : 164 ms QRS Dur : 174 ms QT Int : 484 ms P-R-T Axes : -28 -61 111 degrees QTc Int : 529 ms Atrial-sensed ventricular-paced rhythmAbnormal ECGWhen compare d with ECG of 01-DEC-2020 11:06,Vent. rate has increased BY 12 BPMConfirmed by CHRISTIAN ALDRICH ([id number]) on 09/27/2021 4:19:28 PM Referred By: Self Referred Confirmed by:CHRISTIAN ALDRICH at 1619 PATIENT NAME: KAUR KINSEY .[id number] AVAvailable for patient [id number]:19:50 2021-09-27 08:10:00 [id number] [facility] [address] [address] PATIENT NAME: KAUR KINSEY ADMIT DATE: 09/27/21ACCOUNT NO: [id number] ROOM NO: [facility] AGE: 86 REPORT TYPE: CONSULTATION REPORT SEX: F ADMITTING PHYSICIAN:Eliseo Her MD ATTENDING PHYSICIAN:Eliseo Her MD CONSULTATION DATE: 09/27/2021 CONSULTING PHYSICIAN: Terrell Moore MD REFERRING PHYSICIAN: Eliseo Her MD REASON FOR CONSULTATION: We were asked to evaluate this patient for chest pain. HISTORY OF PRESENT ILLNESS: This is an 86-year-old female with a history ofcoronary artery disease, status post aortocoronary bypass, aortic valvereplacement, complete heart block, permanent pacemaker, statu s post Medtronicdual-chamber permanent pacemaker, last generator change, 12/01/2020,hypothyroidism , who [facility]. She presented there for evaluation of chest pain,which began at 11:00 p.m. on 09/25/2020. Geena tomlin has difficulty giving a detaileddescription of her chest discomfort. She is somewhat confused and was unawareshe was admitted as a patient here. She was transferred here yesterday afterfinding elevated troponin. Currently, she denies chest pain. PAST MEDICAL HISTORY:1. Coronary artery disease, status post aortocoronary bypass in February 2010.2. Status post aortic valve replacement in February 2010. Valve is a 21 mm[place]ent[place]-East bioprosthetic aortic valve.3. History of bradycardia, status post permanent pacemaker.4. History of bleeding gastric ulcer.5. History of aortic aneurysm repair in February 2010.6. Hypothyroidism.7. Breas t cancer, status post left mastectomy and radiation.8. Status post cholecystectomy.9. Paroxysmal atrial fibrillation.10. Hyperlipidemia.11. Hypothyroidism ALLERGIES: CODEINE, MORPHINE, DEMEROL, PENICILLIN, IODINE, LOTENSIN, AMBIEN,DEXAMETHASONE. FAMILY HISTORY: No family history of coronary artery disease. SOCIAL HISTORY: No tobacco. No alcohol. HOME MEDICATIONS: Fexofenadine, clopidogrel 75 mg on Thursday, Thursday, andThursday; carvedilol 25 mg daily, simvastatin 20 mg daily, pantoprazole 40 mg PATIENT NAME: KAUR KINSEY twice daily, levothyroxine 75 mc g daily. REVIEW OF SYSTEMS:CONSTITUTIONAL: No complaints of fever or chills.ENMT: No complaint s of headache.EYES: No complaints of blurred vision.RESPIRATORY: Denies shortness of breath. No complaints of cough.CARDIOVASCULAR: Chest pain, which is now resolved.GASTROINTESTINAL: No complaints of nausea or vomiting.GENITOURINARY: No complaints of urinary frequency or dysuria.MUSCULOSKELETAL: No complaints of joint pain.SKIN: No complaints of skin rash.NEUROLOGIC : No complaints of focal weakness. PHYSICAL EXAMINATION:GENERAL: Well-nourished female, in n o acute distress.VITAL SIGNS: The patient refused vital signs.ENMT: Atraumatic, normocephalic.RESPIRATORY: Normal effort. Clear to auscultation bilaterally.CARDIOVASCULAR: Normal S1 and S2. No S3 or S4.NECK: JVP is normal. There are no carotid bruits.EXTREMITIES: No edema.NEUROLOGIC: Cranial nerves II through XII are intact. No focal motor deficitsnoted. DIAGNOSTIC STUDIES: Electrocardiogram at [facility] showed sinusrhythm with demand atrial pacing and atrial triggered ventricular pacing. OUTSIDE LABORATORY DATA: White blood cell count 8.3, hemoglobin 13.2, andplatelets 238. Sodium 134, potassium 4.4, chloride 97, CO2 30, BUN 18,creatinine 0.81, glucose 104, calcium 9.7. Troponin-I 172.7. SARS-CoV-2 rapidnegative. IMPRESSION:1. Upb-MW-aqxsqku elevation myocardial infarction.2 . History of coronary artery disease, status post aortocoronary bypass.3. Status post bioprostheti c aortic valve replacement.4. Complete heart block , status post Medtronic dual-chamber permanent pacemakerwith generator change in November 2020.5. Hypertension.6. Hyperlipidemia. PLAN: Currently, the patient is refusing any further evaluation o r treatment.She has refused vitals, EKG, and lab evaluation. She stated she would like to go home . She is unaware she was admitted here as a patient. I explained to her that she has evidenc e of having myocardial infarction. Above, will jerzy hanks to be reviewed with her daughter who apparently brought her to the [facility] initially and is currently unavailable. Dictated By: Terrell Moore MD WT: CON:Z.HIM/PEPGR/NTSDD: 09/27/2021 08:10:17DT: 09/27/2021 11:22:03 PATIENT NAME: KAUR KINSEY Conf#: [id number]/DID#: [id number] Authenticated and Edited by Terrell Moore MD On 10/03/21 9:12:15 PM at 0913 PATIEN T NAME: KAUR KINSEY :22:00Z.H I [id number] for patient [id number]:14:23 2021-09-27 06:59:00 [id number]:59:00 [facility] ([facility] Progress NoteREPORT#:[id number] REPORT STATUS: SignedDATE:09/27/21 TIME: 06 PATIENT: KAUR KINSEY UNIT #: [id number]#: [id number] [facility] [birth year] AGE: 86 SEX: F ATTEND: Eliseo Her [facility] AUTHOR: Jarrell Crespo MD R1 * ALL edits or amendments mus t be made on the electronic/computer document * See AddendumJarrell Crespo 09/27/21 0659:SubjectiveChief complaint:chest painHPI:Patient was sitting in the chair at the time of examination. Nurse had reported that she previously had refused to do the blood work and ekg earlier. After speaking to the patient, she is agreeable to getting the lab work done. Revie w of SystemsConstitutional:Denies: chills, fever. Allergy/Immun:Denies: anaphylaxis. Eyes:Denies: itching. Respiratory:Denies: STERN (dyspnea on exertion), hemoptysis, non productive cough, parox nocturnal dyspnea, pleurisy, pleuritic pain, pneumonia, productive cough (sputum), SOB, wheezing. Cardiovascular:Denies: chest pain, STERN (dyspnea on exertion), palpitations. GI:Denies: abdominal pain, nausea, vomiting. Neuro:Denies: headache, slurred speech, unable to speak. Psych:Denies: agitation. All systems rev neg: except as marked Objective GeneralVS/I O:PATIENT WEIGHT: Weight (lb): Weight (oz): Weight (kg): Medications:Active Meds + DC'd Last 24 HrsEnoxaparin Sodium (LOVENOX) 40 MG 0600 SUBQ (CAN) Aspirin (CHILDREN'S ASPIRIN) 81 MG DAILY P O Atorvastatin Calcium (LIPITOR) 40 MG DAILY PO Carvedilol (COREG) 25 MG DAILY PO Enoxaparin Sodium (LOVENOX) 40 MG Q24H SUBQ Levothyroxine Sodium (Synthroid) 75 MCG DAILY PO Pantoprazole (PROTONIX) 40 MG BID PO Simvastatin (ZOCOR) 20 M G DAILY PO (CAN) Clopidogrel Bisulfate (PLAVIX) 75 MG MOWEFR PO (CKD) Enoxaparin Sodium (LOVENOX) 0 ONCE ONE SUBQ (CAN) Acetaminophen (TYLENOL) 650 MG Q4H PRN PRN PO Hydralazine HCl (APRESOLINE) 1 0 MG Q4H PRN PRN IV Ondansetron HCl (ZOFRAN) 4 MG Q8H PRN PRN IV Nutrition assessment:The data set between the solid lines has been imported from the dietitian's assessment. Any exceptions have been noted under Provider comments. _ BMI Calculated: Nutrition related diagnosis: Nutrition diagnosis details: Nutrition problem: Nutrition etiology: Nutrition signs and symptoms: Nutrition prescription: Dietitian name: Assessment completed: _ Provider comments on imported dietitian assessment: Physical ExamGeneral appearance: alert, awakeHead/Eyes: atraumatic, normocephalicENT: moist mucosal membranesNeck: supple/no meningismusCardiovascular: murmur (fro m valve replacement.), pacemakerRespiratory: aerating well, no distressAbdomen: non-tender, softNeuro/VASCULAR MANAGER: alert, oriented X 3, normal speechSkin: dryPsychiatry: normal affect, normal mood ResultsFindings/Data:Laboratory Tests 09/27 09/27 0902 0902 Chemistry Mean Blood Glucose (7 0 - 110 MG/DL) 105 Hemoglobin A1c (4.8 - 5.9 %) 5. 3 Troponin I (0.012 - 0.033 NG/ML) 0.028 Triglycerides (150 - 199 MG/DL) 69 L Cholesterol (<200 MG/DL) 129 LDL Cholesterol Measurd (0 - 99 MG/DL) 42 HDL Cholesterol (40 - 59 MG/DL) 57 TSH (0.465 - 4.68 MIU/L) 3.530 Free Text Obj NotesFree Text Obj Notes:Limited physical exam because patient refused to be examined overnight and wanted to sleep Diagnosis, Assessment PlanProblem List/A P: 1. Elevated troponin 2. Pacemaker 3. History of bradycardia 4. CAD (coronary artery disease) 5. History of breast cancer 6. Hypothyroidism 7. H/O gastric ulcer 8. S/P CABG (coronary artery bypass graft) 9. S/P aortic valve replacement 10. S/P aortic aneurysm repair 11. 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 #Elevated troponin#CAD s/p CABG #Hx o f aortic valve replacement #Hx of aortic aneurysm repair-Patients symptoms and labs concerning for NSTEMI so patient transferred here-s/p ASA and Lovenox 1mg/kg x1 dose at OSH-Trend troponin and ekgs-Continue ASA, statin-Continue Plavix-Loveno x DVT dose for now. Troponin here is still pending . Echo is pending.-Dr. Aldrich is consulted. #History of bradycardia#Pacemaker in place-Patient refused vitals here but HR 68 at 1999 on 09/26 per prior records -Continue home carvedilol and monitor closely #H/O gastric ulcer-Continue protonix, moniter for signs of bleeding #Hypothyroidism-Continue home Synthroid Diet: CardiacDVT ppx: SCDs, lovenoxCode Status - - patient stated DNR at OSH but no official DNR paperwork availabe Quality: Gen Med Crit Care VT E ProphylaxisVTE prophylaxis initiated: yes Mary ceja MedicationsCurrent medication review:I attest that the foregoing medication list in the medica l record is true, accurate, and complete to the best of my knowledge. AttestationsAttestation needed: teaching physician Eliseo Her 09/27/21 1752:Quality: Gen Med Crit Care Advance d Care Plan 65 or OlderDiscussed with: patient, surrogate decis. maker ( and daughter)Discussion included: code status (DNR) Attestations Teaching Physician AttestationF/U visit w/ resident:I saw the patient with the resident Dr Crespo PGy1 and . . . agree with the resident's findings and plan. 86 yoF with known h/o CAD s/p CABG with bioprosthetic aortic valve replacement and aortic aneurysm repair, SSS s/p dual chamber PM[facility] Pt was initially admitted for work up of chest pain. Her initial troponins was elevated at 172 (high sensitivity scale where 0-59 is normal range) but pt developed angina pain when attempted to undergone cardiac stress testing. Currently she's resting in bed with family at bedside, in V-paced rhythm rate 60s. However, intermittently she still c/o right shoulder and arm pain, described as tightness.Will admit for further ischemic workup by her lens and frames prescription clerk Dr Aldrich. at 1407 at 1753 Addendum 1: 09/27/211757 by Jarrell Crespo MD R1 Patient has signed dnr leti r today. at 1758 at 2046 RPT #:[id number] OF REPORTPRProgress [id number]:59:00Z.[id number] l able for patient [id number]:07:27 2021-09-27 04:07:00 [id number]:00 [facility] ([facility] History PhysicalREPORT#:[id number] REPORT STATUS: SignedDATE:09/27/21 TIME: 406 PATIENT: KAUR KINSEY UNIT #: [id number]#: [id number] [facility] [birth year] AGE: 86 SEX: F ATTEND: Eliseo Her MDADM AUTHOR: Manjula Rome MD R2 * ALL edits or amendments must be made on the electronic/computer document * Merle Rome 09/27/21 040:History of Present Illness HPIChief complaint:chest painPCP:PCP: DOES_NOT KNOW HPI:History primarily from transfer notes and daughter's recollection because the patient refused to asnwer questions or be examined on arrival, stating that she jsut wanted to rest. Per daughter, the patient is als o very forgetful at baseline. 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 The patient began to hav e chest pain around 11pm on 09/25/20 that made it uncomfortable for her to sleep. EKG without any acute ST elevations and nonspecific T wave inversions. CXR showed minimal increased linear densities within the right and left lung base could correspond to atelectasis and/or infiltrate. CBC and CMP wnl. High sensitivity troponin elevated at 172.70 (normal < 58.9). The patient was treated with ASA 324mg and Lovenox 1mg/kg x1 per patient's daughter. Echo and stres s test were ordered per records but no echo report available. The patient was taken for a stress test but it was stopped due to patient experiencing severe R arm pain. The patient's lens and frames prescription clerk is Dr. Aldrich so she was transferred here for further evaluation. PMHx: CAD s/p CABG, bradycardia with pacemaker, breast cancer s/p L mastectomy and radiation, aortic valve replacement, aortic aneurysm repair, hypothyroidism,bleeding gastric ulcer (2-3 years ago per daughter, causes by NSAID use on top of Plavix, treated via EGD), and Sweet's syndromePSHx: CABG (02/2010), aortic valve replacement (02/2010), aortic aneurysm repair(02/2010), R leg vein surgery, L partial mastectomy (1981), cholecystectomy (1953), vein surgery (1961), pacemaker placement (2002, batteries replaced 2009, pacemaker replaced 1 year ago)Alleriges: per chartMeds: per chartFam Hx: none per prior notesSocial hx: per notes, never smoker, no etoh or durg use History Past Medical Surgical HxAdditional medical history:CA D s/p CABG, bradycardia with pacemaker, breast cancer s/p L mastectomy and radiation, aortic valve replacement, aortic aneurysm repair, hypothyroidism, bleeding gastric ulcer (2-3 year s ago per daughter, causes by NSAID use on top of Plavix, treated via EGD), and Sweet's syndromeAdditional surgical history:CABG (02/2010), aortic valve replacement (02/2010), aortic aneurysm repair (02/2010), R leg vein surgery, L partial mastectomy (1981), cholecystectomy (1953), vein surgery (1961), pacemaker placement (2002, batteries replaced 2009, pacemaker replaced 1 year ago) Social HistorySmoking status: Smoking status for patients 13 years old or older: Never Smoker Medication/Allergy-Vaccine HxMedications:Home Medications:CLOPIDOGREL (PLAVIX) 75 MG PO MOWEFR SIMVASTATIN (ZOCOR) 20 MG PO DAILY CARVEDILOL (COREG) 25 MG PO DAILY LEVOTHYROXINE (SYNTHROID) 75 MCG PO DAILY FEXOFENADINE (CHARLETTE ALLERGY) 180 MG PO DAILY PANTOPRAZOLE DR (PROTONIX) 40 MG PO BID Allergies:Coded Allergies:Penicillins (UNKNOWN 09/27/21)benazepril (From LOTENSIN) (UNKNOWN 11/30/20)codeine (UNKNOWN 11/30/20)dexamethasone (UNKNOWN 11/30/20)iodine (UNKNOWN 11/30/20)meperidine (From DEMEROL) (UNKNOWN 11/30/20)morphine (UNKNOWN 11/30/20)zolpidem (UNKNOWN 11/30/20) Unable to obtain: family history, smoking history, social history Review of SystemsUnable to obtain due to:Patient refused to answer questions Physical ExamVS/I O:Patient Weight and BMI Weight (kg): BMI: General appearance: alert, awake, no acute distress, no respiratory distressHead/Eyes: atraumatic, normocephalicENT: moist mucosal membranesNeck: supple/no meningismusRespiratory: aerating well, no distress ResultsResults: labs reviewed, EKG personally reviewed, x-ray personally reviewed, current med profile rev'd Free Text PE NotesFree Text PE Notes:Limited physical exam because patient refused to be examined overnight and wanted to sleep Diagnosis , Assessment PlanProblem List/A P: 1. Elevated troponin 2. CAD (coronary artery disease) 3. S/P CABG (coronary artery bypass graft) 4. S/P aorti c valve replacement 5. S/P aortic aneurysm repair 6. History of bradycardia 7. Pacemaker 8. H/O gastric ulcer 9. Hypothyroidism 10. History of breast cancer 11. 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 #Elevated troponin#CAD s/ p CABG #Hx of aortic valve replacement #Hx of aortic aneurysm repair-Patients symptoms and lab s concerning for NSTEMI so patient transferred here-s/p ASA and Lovenox 1mg/kg x1 dose at OSH-Trend troponin and ekgs-Continue ASA, statin-Continue Plavix-Lovenox DVT dose for now-f/u echo-Cardiology consulted-Telemetry monitoring -- patient refused telemetry monitoring despite multiple attempts to talk wit h her. Patient's daughter aware and states that th e patient is difficult to convince #History of bradycardia#Pacemaker in place-Patient refused vitals here but HR 68 at 2000 on 09/26 per prior records-Continue home carvedilol and monitor closely #H/O gastric ulcer-Continue protonix, moniter for signs of bleeding #Hypothyroidism-Continue home Synthroid Diet: CardiacDVT ppx: SCDs, lovenoxCode Status -- patient stated DNR at OSH but no official DNR paperwork availabeConsultants: cardiologyResuscitation discussion: Pt/family expressed: desire for DNR Unable: patient not cooperative Quality: Gen Med Crit Care VTE ProphylaxisVTE prophylaxis initiated: yes Mary ceja MedicationsCurrent medication review:I attest that the foregoing medication list in the medica l record is true, accurate, and complete to the best of my knowledge. Eliseo Her 09/27/21 1746:Quality: Gen Med Crit Care Advanced Care Plan 65 or OlderDiscussed with: patient, surrogate decis. maker ( and daughter)Discussion included: code status (DNR) Attestations Teaching Physician [id number] visit w/o resident:I performed a history and physical examination of the patient and discusse d withthe resident Dr Lemus PGy2. I have reviewed the resident's note and . . . agreewith the findings and plan as documented in the resident' s note. 86 yoF with known h/o CAD s/p CABG with bioprosthetic aortic valve replacement and aorti c aneurysm repair, SSS s/p dual chamber PM[facility] was initially admitted for work up of chest pain. Her initial troponins was elevated at 172 (high sensitivity scale where 0-59 is normal range) but pt developed angina pain when attempted to undergone cardiac stress testing. Currently she's resting in bed with family at bedside, in V-paced rhythm rate 60s. However, intermittently she still c/o right shoulder and arm pain, described as tightness.Will admit for further ischemic workup by her lens and frames prescription clerk Dr Aldrich. at 0504 at 1752 RPT #:[id number] OF REPORTHPHistory and physical dmbgzkilena5257-05-19N50:07:00Z.[id number] AVAvailable for patient [id number]:04:46 2020-12-01 11:06:00 [id number]:06:[id number] 027 [facility] [place] [address] PATIENT NAME: KAUR KINSEY ADMIT DATE: 12/01/20ACCOUNT NO: [id number] ROOM NO: AGE: 85 REPORT TYPE: ELECTROCARDIOGRAM SEX: F ADMITTING PHYSICIAN: ATTENDING PHYSICIAN:Christian Aldrich MD Order:[id number] Reason : S/P PPI Test Date/Time Stamp:ThuDec 01 2020 11:06:00Blood Pressure : / mmHGVent. Rate : 060 BPM Atrial Rate : 060 BPM P-R Int : 186 ms QRS Dur : 146 ms QT Int : 496 ms P-R-T Axes : 079 -75 107 degrees QTc Int : 496 ms AV sequential or dual chamber electronic pacemakerWhen compared with ECG of 01-DEC-2020 09:00,Vent. rate has decrease d BY 5 BPMConfirmed by CHRISTIAN ALDRICH ([id number]) on 12/01/2020 11:49:15 AM Referred By: Christian Aldrich Confirmed by:CHRISTIAN ALDRICH at 1149 PATIENT NAME: KAUR KINSEY .[id number] AVAvailable for patient [id number]:49:26 2020-12-01 10:37:00 [id number]:37:[id number] 0[address] [place] [address] PATIENT NAME: KAUR KINSEY ADMIT DATE: 12/01/20ACCOUNT NO: [id number] ROOM NO: AGE: 85 REPORT TYPE: CARDIAC CATHETERIZATION REPORT SEX: F ADMITTING PHYSICIAN: ATTENDING PHYSICIAN:Christian Aldrich PROCEDURE DATE: 12/01/2020 CARDIOLOGY PROCEDURE RISK ASSESSOR: Christian Aldrich MD TITLE OF THE PROCEDURE: Dual-chamber pacemaker change out, pacemaker generatorchange. INDICATION FOR THE PROCEDURE: Pacemaker JAQUELINE for complete heart block. ESTIMATED BLOOD LOSS: Minimal. COMPLICATIONS: None. CONTRAST: None. ANESTHESIA: Conscious sedation with Versed and fentanyl and 1% lidocaine forlocal anesthesia. FINAL DIAGNOSIS: Successful pacemaker generator change with the new generatorbeing Medtronic [id number], serial #[id number]. The leads were existing from 2002. PROCEDURE IN DETAIL: Please see enclosed report in the chart. DISPOSITION: The patient will be going home in few hours. Dictated By: Christian Aldrich MD WT: CATH:DAMARIS/GISELA/NTSDD: 12/01/2020 10:37:59DT: 12/01/2020 11:15:34Conf#: [id number]/DID#: [id number] Authenticated by Christian Aldrich MD On 12/01/2020 11:29:01 AM at 1129 PATIENT NAME: KAUR KINSEY [id number]:15:00Z.[id number] a ble for patient [id number]:29:26 2020-12-01 09:00:00 [id number]:00:[id number] 011 [facility] [place] [address] PATIENT NAME: KAUR KINSEY ADMIT DATE: 12/01/20ACCOUNT NO: [id number] ROOM NO: AGE: 85 REPORT TYPE: ELECTROCARDIOGRA M SEX: F ADMITTING PHYSICIAN: ATTENDING PHYSICIAN:Christian Aldrich MD Order:[id number] Reason : PREOP Test Date/Time Stamp:ThuDec 01 2020 09:00:27Blood Pressure : / mmHGVent. Rate : 065 BPM Atrial Rate : 065 BPM P-R Int : 000 ms QRS Dur : 180 ms QT Int : 500 ms P-R-T Axes : 000 -63 117 degrees QTc Int : 520 ms Electronic ventricular pacemakerNo previous ECGs availableConfirmed by CHRISTIAN ALDRICH ([id number]) on 12/01/2020 9:08:01 AM Referred By: Christian Aldrich Confirmed by:CHRISTIAN ALDRICH at 0908 PATIENT NAME: KAUR KINSEY .[id number] AVAvailable for patient [id number]:08:20 2020-11-30 07:27:00 [id number]:27:[id number] 014 [place] [place] [address] PATIENT NAME: KAUR KINSEY ADMIT DATE: ACCOUNT NO: [id number] ROOM NO: AGE: 85 REPORT TYPE: PREOP HISTORY AND PHYSICAL SEX: Gladys Horvath PHYSICIAN: ATTENDING PHYSICIAN:Christian Aldrich PATIENT NAME: KAUR KINSEY ADMIT DATE:12/01/2020DMISSION DATE: 12/01/2020 RISK ASSESSOR: Christian Aldrich MD REASON FOR ADMISSION: Pacemaker generator change in a patient who is apacemaker dependent. The pacemaker has reached [facility]. HISTORY OF PRESENT ILLNESS: Kaur is an 85-year-old patient of mine with a longhistory of complete heart block, status post first pacemaker implantation on06/29/2003. She had her replacement on 05/11/2010, and now she is due foranother replacement. She is at [facility]. She is pacemaker dependent. The patientis known to have coronary artery disease and severe aortic insufficiencydocumented by catheterization on 02/09/2010. She underwent aortic valvereplacement, bioprosthetic as well as bypas s on 03/01/2010. At that time, shehad BLAIR to the LAD and vein graft to the first diagonal and the bioprostheticvalve was a 21 mm Zenon-Edward s bioprosthetic aortic valve. The patienthas done well from the coronary artery disease and from the aortic valvestandpoint. She has not required any cardiac catheterization since her 2009pre-surgery catheterization. She had an echocardiogram on 03/26/2020 thatshowed mild aortic valve insufficiency, normal functioning aortic valve. Shehad mitral annular calcificatio n with moderate stenosis and then moderateinsufficiency. Ejection fraction has bee n in the 50s, pulmonary hypertension inthe 40s. Geena tomlin had a negative nuclear stress test on 10/07/2018 . She has not hadany significant angina and no congestive heart failure, TIAs, or strokes. Thepatient is here today for pacemaker generator change. PAST MEDICAL HISTORY: Remarkable for the above in addition to hypertension,hyperlipidemia , paroxysmal atrial fibrillation, hypothyroidism, acid reflux,history of gastric ulcers, vitamin B12 deficiency, vitamin D deficiency, andallergies. PAST SURGICAL HISTORY: Remarkable for the above. In addition, she has hadcholecystectomy in 4, partial mastectomy i n 1981. She was diagnosed withSweet syndrome in 2001. Received radiation after her mastectomy on the left. ALLERGIES: SEVERAL; CODEINE, MORPHINE, DEMEROL, PENICILLIN, IODINE, LOTENSIN,AMBIEN, DEXAMETHASONE. THESE ALLERGIES ARE NOT SEVERE, MAINLY REACTION TO THOSEMEDICATIONS. MEDICATIONS : Simvastatin 20 mg daily, Levothroid 112 mcg daily, Charlette daily,Protonix 40 mg daily, vitamins C, D, and B12, carvedilol 25 mg, Plavix 75 mg PATIENT NAME: KAUR KINSEY daily. She is not on any other bloo d thinners because of her gastric history. SOCIAL HISTORY: The patient never smoked. There is no history of alcohol orstreet drug use. She is accompanied by her . FAMILY HISTORY: Mother had heart problems, lived to age 92. No prematureatherosclerosis. REVIEW OF SYSTEMS: Remarkable for the above in addition to lack of energy,insomnia, allergies, numbness, tiredness. No acute GI or symptoms. No TIAsor strokes. PHYSICAL EXAMINATION:GENERAL: Reveals a pleasant elderly lady, in no acute distress.VITAL SIGNS: Blood pressure 128/78, pulse 75 and regular, respiratory rate 18and unlabored, and temperatur e afebrile.HEENT: Head, atraumatic and normocephalic. Eyes ENT examination within normalfor age.NECK: Supple. Mild jugular venous distention. No bruits. No lymphadenopathy. Maritza l upstroke.LUNGS: Clear and resonant.HEART: Regula r rate and rhythm with I to II/ systolic ejectio n murmur anddiastolic murmurs at the mitral and aortic area respectively. No gallops.ABDOMEN: Soft. No tenderness, no organomegaly, no masses or bruits.EXTREMITIES: A 2+ distal pulses. No edema, cyanosis, or clubbing.NEUROLOGIC: Alert and oriented x3. The examination appears to be nonfocal. LABORATORY DATA: Pending. Noninvasive cardiovascular workup enclosed. IMPRESSION: This is an 85-year-old lady with coronary artery disease andvalvular heart disease detailed above . She has also short runs of paroxysmalatrial fibrillation. She has a complete heart block and a pacemaker since 2002. She is here for pacemake r generator change. RECOMMENDATIONS: The recommendation is to proceed with the above-mentionedprocedures. The risks and benefit s of the planned procedures were discussed indetai l with the patient and her , and she is willing to proceed. Rest asper orders. Dictated By: Christian Aldrich MD WT: PREOPHP:Z.ANDREW/GISELA/WILFREDDD: 11/30/2020 07:27:39DT : 11/30/2020 07:52:40Conf#: [id number]/DID#: [id number] and Edited by Christian Aldrich MD On 11/30/20 3:20:39 PM at 152 5 PATIENT NAME: KAUR KINSEY and physical yxisuvramvg0232-86-53N64:52:00Z.[id number] A VAvailable for patient [id number]:26:15
--- NOTE | 2023-06-14 17:00 | RAD REPORT ---
EXAM DESCRIPTION: Lorena Single View06/14/2023 4:46 pm CLINICAL HISTORY: Cough COMPARISON: February 2023 FINDINGS: Mild right basilar lung opacities. Left lung appears clear Heart is mildly enlarged. Postsurgical changes involve the chest. Pacemaker leads in place IMPRESSION: Mild right basilar opacities may represent an infiltrate
[2023-06-14 17:11] LABS: Absolute Lymphocytes (CBC) 0.5 K/uL (0.7-4.9); Hematocrit 35.9 % (36.0-45.0); Lymphocytes % 5.4 % (15.3-44.8); MCV 87.7 fL (80-100); MPV 8.1 fL (7.6-11.3); Platelets 227 thou/uL (152-406)
[2023-06-14 17:15] LABS: Protime INR 1.39
[2023-06-14] MEDS ORDERED: CEFTRIAXONE 1000 MG/VIAL ONE (17:20)
[2023-06-14] MEDS ORDERED: NA CHLORIDE 0.9% 2,000 ML ONE (17:20)
[2023-06-14 17:28] LABS: Albumin 2.7 g/dL (3.4-5.0); Bilirubin Direct 0.3 mg/dL (0-0.2); Bilirubin Indirect, Calculated 0.4 mg/dL (0.2-0.8); Bilirubin Total 0.7 mg/dL (0.2-1.0); Magnesium 1.8 mg/dL (1.6-2.4); Potassium 3.8 mEq/L (3.5-5.1); Protein, Total 7.4 g/dL (6.4-8.2)
[2023-06-14 17:32] LABS: Troponin High Sensitivity 332.1 pg/mL (<58.9)
[2023-06-14 17:34] LABS: SARS-CoV-2 Antigen Rapid Res Negative (Negative)
--- NOTE | 2023-06-14 18:22 | ER ---
Nurse's Notes [facility] Name: Kaur Kinsey Age: 88 yrs Sex: Female : 1935 Arrival Date: 06/14/2023 Time: 15:49 Bed 7 Private MD: Diagnosis: Pneumonia due to other specified bacteria-RIGHT LOWER LOBE;Weakness;Cough;Presence of cardiac pacemaker;Non ST elevation [place] Presentation: 06/14 16:26 Chief complaint: Cough and congestion x 1 week, generalized weakness over last few hb days. Coronavirus screen: Client presents with at least one sign or symptom that may indicate coronavirus-19. Provider contacted for isolation considerations. Ebola Screen: No symptoms or risks identified at this time. Initial Sepsis Screen: Does the patient meet any 2 criteria? No. Patient's initial sepsis screen is negative. Does the patient have a suspected source of infection? No. Patient's initial sepsis screen is negative. Risk Assessment: Do you want to hurt yourself or someone else? Patient reports no desire to harm self or others. Onset of symptoms was June 07, 2023. 16:26 Method Of Arrival: Wheelchair hb 16:26 Acuity: LORRAINE 2 hb Historical: - Allergies: 16:28 Codeine; hb 16:28 Demerol; hb 16:28 Dexamethasone; hb 16:28 Iodine; hb 16:28 Lotensin; hb 16:28 Morphine; hb 16:28 PENICILLINS; hb 16:28 zolpidem; hb - PMHx: 16:28 heart disease; Aneurysm; insomnia; High Cholesterol; knee pain; Myocardial infarction; hb Thyroid problem; - PSHx: 16:28 Cholecystectomy; partial mastectomy; open heart; pacemaker; hb - Immunization history:: Adult Immunizations up to date. - Social history:: Smoking status: Patient denies any tobacco usage or history of. Screenin:17 [facility] ED Fall Risk Assessment (Adult) Score/Fall Risk Level 0 - 2 = Low Risk. Abuse as6 screen: Denies threats or abuse. Denies injuries from another. Nutritional screening: No deficits noted. Tuberculosis screening: No symptoms or risk factors identified. Assessment: 16:35 General: Appears in no apparent distress. comfortable, Behavior is calm, cooperative. rs5 Pain: Denies pain. Neuro: Level of Consciousness is awake, alert, obeys commands, Oriented to person, place, time, situation. Cardiovascular: Heart tones S1 S2 present Capillary refill < 3 seconds is brisk in bilateral fingers toes Rhythm is regular. Respiratory: Airway is patent Respiratory effort is even, unlabored, Respiratory pattern is regular, symmetrical, Breath sounds are clear bilaterally. GI: Bowel sounds present X 4 quads. Abd is soft and non tender X 4 quads. Patient currently denies nausea, vomiting. 16:35 : No signs and/or symptoms were reported regarding the genitourinary system. EENT: No rs5 signs and/or symptoms were reported regarding the EENT system. Derm: Skin is pink, warm \T\ dry. Musculoskeletal: Range of motion: intact in all extremities. 17:40 Reassessment: Patient and/or family updated on plan of care and expected duration. Pain rs5 level reassessed. Patient is alert, oriented x 3, equal unlabored respirations, skin warm/dry/pink. 18:45 Reassessment: No changes from previously documented assessment. rs5 19:17 General: family at bedside, no complaints or concerns at this time. as6 Vital Signs: 16:26 BP 135 / 54; Pulse 61; Resp 20; Temp 98(TE); Pulse Ox 88% on R/A; Weight 50.8 kg; hb Height 5 ft. 6 in. ; Pain 0/10; 19:16 BP 151 / 61; Pulse 65; Resp 17 S; Pulse Ox 97% on 2 lpm NC; as6 20:41 BP 133 / 51; Pulse 66; Resp 17; Pulse Ox 99% on 2 lpm NC; as6 16:26 Body Mass Index 18.08 (50.80 kg, 167.64 cm) hb 16:26 Pain Scale: Adult hb ED Course: 15:53 Patient arrived in ED. mr 16:28 Triage completed. hb 16:30 Alex Yañez MD is Attending Physician. tom 16:30 Arm band placed on. hb 16:38 Nacho Warren, MATT is Primary Nurse. rs5 16:47 XRAY Chest (1 view) In Process Unspecified. EDMS 16:55 Initial lab(s) drawn, by me, sent to lab. Inserted saline lock: 22 gauge in right aa5 forearm, using aseptic technique. Blood collected. 16:55 First set of blood cultures drawn by me. aa5 18:21 Jamey Grove MD is Hospitalizing Provider. [facility] 19:17 Bed in low position. Call light in reach. Side rails up X2. as6 19:17 Provided Education on: need for admit. as6 19:18 No provider procedures requiring assistance completed. Patient admitted, IV remains in as6 place. Administered Medications: 16:40 Drug: NS 0.9% IV 1000 ml IV at 1 bolus Per protocol; 1000 mL bolus Route: IV; Rate: 1 rs5 bolus; Site: right antecubital; 20:06 Follow up: Response: No adverse reaction; IV Status: Completed infusion; IV Intake: as6 1000ml 16:40 Drug: NS 0.9% IV 1000 ml IV at 125 ml/hr continuous Route: IV; Rate: 125 ml/hr; Site: rs5 right antecubital; 20:06 Follow up: Response: No adverse reaction; IV Status: Infusion continued upon admission; as6 IV Intake: 400ml 16:55 Drug: Rocephin IV 1 grams IV at per protocol once; Given slow IV push per pharmacy rs5 instructions Route: IV; Rate: per protocol; Site: right antecubital; 20:06 Follow up: Response: No adverse reaction; IV Status: Completed infusion; IV Intake: 18gksh9 18:27 Drug: Aspirin PO Chewable Tablet 81 mg PO once Route: PO; rs5 20:06 Follow up: Response: No adverse reaction as6 18:27 Drug: Zithromax IVPB 500 mg IVPB once over 1 hrs; mix in 250 mL NS Route: IVPB; Infused rs5 Over: 1 hrs; Site: right antecubital; 20:04 Follow up: Response: No adverse reaction; IV Status: Completed infusion; IV Intake: as6 250ml 18:27 Drug: Levalbuterol Inhalation 1.25 mg Inhalation once Route: Inhalation; rs5 20:03 Follow up: Response: No adverse reaction as6 18:27 Drug: Famotidine IVP 20 mg IVP once; dilute with 10 mL 0.9% NaCl; give over 2 minutes rs5 Route: IVP; Site: right antecubital; 20:03 Follow up: Response: No adverse reaction as6 18:27 Drug: Enoxaparin Sub-Q 50 mg Sub-Q once Route: Sub-Q; Site: left lower abdomen; rs5 20:03 Follow up: Response: No adverse reaction as6 18:27 Drug: MethylPrednisoLONE IVP 2 mg/kg IVP once Route: IVP; Site: right antecubital; rs5 20:03 Follow up: Response: No adverse reaction as6 Medication: 19:16 VIS not applicable for this client. as6 Intake: 20:04 IV: 250ml; Total: 250ml. as6 20:06 IV: 1000ml; Total: 1250ml. as6 20:06 IV: 50ml; Total: 1300ml. as6 20:06 IV: 400ml; Total: 1700ml. as6 Outcome: 18:22 Decision to Hospitalize by Provider. tom 19:18 Condition: stable as6 19:18 Instructed on the need for admit, 20:02 Admitted to Med/surg accompanied by nurse, family with patient, via stretcher, room as6 219, with oxygen, with chart, Report called to Corey GUTIERREZ 20:41 Patient left the ED. as6 Signatures: Dispatcher [employer] EDMS Alex Yañez MD MD cha Rivera, Mary, Reg Reg mr Mirela Robledo, RN RN aa5 Giovana Bowers, RN RN hb Virgil Lange, MTAT RN as6 Nacho Warren, RN RN rs5 Corrections: (The following items were deleted from the chart) 16:36 16:26 BP 135 / 54; Pulse 61bpm; Resp 20bpm; Pulse Ox 91% RA; Temp 98F Temporal; 50.8 hb kg; Height 5 ft. 6 in.; BMI: 18.0; Pain 0/10, Adult; hb 16:36 16:26 Acuity: LORRAINE 3 hb hb
--- NOTE | 2023-06-14 18:22 | EDPHYS ---
Physician Documentation [facility] Name: Kaur Kinsey Age: 88 yrs Sex: Female : 1935 Arrival Date: 06/14/2023 Time: 15:49 Bed 7 Private MD: ED Physician Alex Yañez HPI: 06/14 18:15 This 88 yrs old Female presents to ER via Wheelchair with complaints of tom General Weakness, Congestion, Cough. 18:15 The patient or guardian reports airway noise, cough, flu symptoms, arthralgias, tom low-grade fever, myalgias. Onset: The symptoms/episode began/occurred 3 day(s) ago. Severity of symptoms: At their worst the symptoms were mild, in the emergency department the symptoms are unchanged. Modifying factors: The symptoms are alleviated by. Associated signs and symptoms: Pertinent positives: rhinorrhea, sore throat. The patient has experienced similar episodes in the past, a few times. Historical: - Allergies: 16:28 Codeine; hb 16:28 Demerol; hb 16:28 Dexamethasone; hb 16:28 Iodine; hb 16:28 Lotensin; hb 16:28 Morphine; hb 16:28 PENICILLINS; hb 16:28 zolpidem; hb - PMHx: 16:28 heart disease; Aneurysm; insomnia; High Cholesterol; knee pain; Myocardial infarction; hb Thyroid problem; - PSHx: 16:28 Cholecystectomy; partial mastectomy; open heart; pacemaker; hb - Immunization history:: Adult Immunizations up to date. - Social history:: Smoking status: Patient denies any tobacco usage or history of. ROS: 18:17 Constitutional: Negative for fever, chills, and weight loss, Eyes: Negative for injury, tom pain, redness, and discharge, ENT: Negative for injury, pain, and discharge, Neck: Negative for injury, pain, and swelling, Cardiovascular: Negative for chest pain, palpitations, and edema, Abdomen/GI: Negative for abdominal pain, nausea, vomiting, diarrhea, and constipation, Back: Negative for injury and pain, : Negative for injury, bleeding, discharge, and swelling, MS/Extremity: Negative for injury and deformity, Neuro: Negative for headache, weakness, numbness, tingling, and seizure, Psych: Negative for depression, anxiety, suicide ideation, homicidal ideation, and hallucinations, Allergy/Immunology: Negative for hives, rash, and allergies, Endocrine: Negative for neck swelling, polydipsia, polyuria, polyphagia, and marked weight changes, Hematologic/Lymphatic: Negative for swollen nodes, abnormal bleeding, and unusual bruising, 18:17 Respiratory: Positive for cough, "sounds productive", shortness of breath, at rest. wheezing, expiratory, of the right middle lobe, right lower lobe, right posterior middle lobe and right posterior lower lobe, 18:17 MS/extremity: Negative for acute changes, Exam: 18:19 Constitutional: This is a well developed, well nourished patient who is awake, alert, tom and in no acute distress. Head/Face: Normocephalic, atraumatic. Eyes: Pupils equal round and reactive to light, extra-ocular motions intact. Lids and lashes normal. Conjunctiva and sclera are non-icteric and not injected. Cornea within normal limits. Periorbital areas with no swelling, redness, or edema. ENT: Nares patent. No nasal discharge, no septal abnormalities noted. Tympanic membranes are normal and external auditory canals are clear. Oropharynx with no redness, swelling, or masses, exudates, or evidence of obstruction, uvula midline. Mucous membranes moist. Neck: Trachea midline, no thyromegaly or masses palpated, and no cervical lymphadenopathy. Supple, full range of motion without nuchal rigidity, or vertebral point tenderness. No Meningismus. Chest/axilla: Normal chest wall appearance and motion. Nontender with no deformity. No lesions are appreciated. Cardiovascular: Regular rate and rhythm with a normal S1 and S2. No gallops, murmurs, or rubs. Normal PMI, no JVD. No pulse deficits. Abdomen/GI: Soft, non-tender, with normal bowel sounds. No distension or tympany. No guarding or rebound. No evidence of tenderness throughout. Back: No spinal tenderness. No costovertebral tenderness. Full range of motion. Female : Normal external genitalia. Skin: Warm, dry with normal turgor. Normal color with no rashes, no lesions, and no evidence of cellulitis. MS/ Extremity: Pulses equal, no cyanosis. Neurovascular intact. Full, normal range of motion. Neuro: Awake and alert, GCS 15, oriented to person, place, time, and situation. Cranial nerves II-XII grossly intact. Motor strength 5/5 in all extremities. Sensory grossly intact. Cerebellar exam normal. Normal gait. Psych: Awake, alert, with orientation to person, place and time. Behavior, mood, and affect are within normal limits. 18:19 ECG was reviewed by the Attending Physician. 18:19 Respiratory: the patient does not display signs of respiratory distress, Respirations: normal, no acute changes, is not noted, Breath sounds: bronchial sounds, that are mild, are scattered, are heard in the right posterior middle lobe and right posterior lower lobe, decreased breath sounds, that are mild, are scattered, rhonchi, that are mild, are scattered, stridor, is not appreciated, + upper airway congestion. wheezing: expiratory that is mild, is heard in the right posterior middle lobe and right posterior lower lobe, Vital Signs: 16:26 BP 135 / 54; Pulse 61; Resp 20; Temp 98(TE); Pulse Ox 88% on R/A; Weight 50.8 kg; hb Height 5 ft. 6 in. ; Pain 0/10; 19:16 BP 151 / 61; Pulse 65; Resp 17 S; Pulse Ox 97% on 2 lpm NC; as6 20:41 BP 133 / 51; Pulse 66; Resp 17; Pulse Ox 99% on 2 lpm NC; as6 16:26 Body Mass Index 18.08 (50.80 kg, 167.64 cm) hb 16:26 Pain Scale: Adult hb MDM: 16:30 Patient medically screened. tom 18:26 Differential diagnosis: Anemia Bronchitis CHF exacerbation, Chronic Obstructive tom Pulmonary Disease obstructed airway, tracheal injury, bronchitis, flu, URI, Myocardial Infarction pneumonia, pulmonary edema, Pulmonary Embolism reactive airway disease, Sepsis Unstable Angina. Antibiotic administration: Rocephin and Zithromax given. Differential Diagnosis: Obstructed Airway Bronchitis Influenza Upper Respiratory Infection Sinusitis Pharyngitis Viral Syndrome Pneumonia. Immunization status: Pneumococcal vaccine: within last 5 years. Influenza vaccine: within last 5 years. Data reviewed: vital signs, nurses notes, lab test result(s), EKG, radiologic studies, CT scan, plain films. Consideration of Admission/Observation Patient was admitted/placed on observation. Escalation of care including admission/observation considered. I considered the following discharge prescriptions or medication management in the emergency department Medications were administered in the Emergency Department. See MAR. Independent interpretation of the following test(s) in the Emergency Department EKG: See my EKG interpretation above. Test considered but Not performed: CT: NO CT CHEST. Care significantly affected by the following chronic conditions: Hypertension, CAD, A ANEURYSM, [place], HIGH CHLESTEROL. 06/14 16:33 Order name: Basic Metabolic Panel; Complete Time: 17:59 tom 06/14 16:33 Order name: CBC with Diff; Complete Time: 17:59 [facility] 06/14 16:33 Order name: LFT's; Complete Time: 17:59 [facility] 06/14 16:33 Order name: Magnesium; Complete Time: 17:59 [facility] 06/14 16:33 Order name: NT PRO-BNP; Complete Time: 17:59 [facility] 06/14 16:33 Order name: PT-INR; Complete Time: 17:59 [facility] 06/14 16:33 Order name: Troponin HS; Complete Time: 17:59 [facility] 06/14 16:33 Order name: Lipase; Complete Time: 17:59 [facility] 06/14 16:33 Order name: Blood Culture Adult (2) [facility] 06/14 16:33 Order name: Lactate w/ 2H reflex if indic.; Complete Time: 17:59 [facility] 06/14 16:33 Order name: Flu; Complete Time: 17:59 [facility] 06/14 16:33 Order name: SARS RAPID; Complete Time: 17:59 [facility] 06/14 19:11 Order name: CBC with Automated Diff [facility] 06/14 19:11 Order name: CBC with Automated Diff [facility] 06/14 19:11 Order name: Comprehensive Metabolic Panel [facility] 06/14 19:11 Order name: Comprehensive Metabolic Panel [facility] 06/14 19:11 Order name: Lipid Profile [facility] 06/14 19:11 Order name: Lipid Profile [facility] 06/14 19:11 Order name: Magnesium [facility] 06/14 19:11 Order name: Magnesium [facility] 06/14 19:11 Order name: NT PRO-BNP [facility] 06/14 19:11 Order name: NT PRO-BNP [facility] 06/14 19:11 Order name: Procalcitonin [facility] 06/14 19:11 Order name: Procalcitonin [facility] 06/14 19:11 Order name: Troponin High Sensitivity [facility] 06/14 19:11 Order name: Troponin High Sensitivity [facility] 06/14 19:11 Order name: Troponin High Sensitivity [facility] 06/14 19:11 Order name: Troponin High Sensitivity [facility] 06/14 16:33 Order name: XRAY Chest (1 view); Complete Time: 17:59 [facility] 06/14 19:11 Order name: Echo with Doppler [facility] 06/14 16:33 Order name: EKG; Complete Time: 16:34 [facility] 06/14 19:10 Order name: CONS Physician Consult [facility] 06/14 19:11 Order name: CONS Physician Consult [facility] 06/14 16:33 Order name: Cardiac monitoring; Complete Time: 17:02 [facility] 06/14 16:33 Order name: EKG - Nurse/Tech; Complete Time: 17:02 [facility] 06/14 16:33 Order name: IV Saline Lock; Complete Time: 17:02 [facility] 06/14 16:33 Order name: Labs collected and sent; Complete Time: 17:02 [facility] 06/14 16:33 Order name: O2 Per Protocol; Complete Time: 17:02 [facility] 06/14 16:33 Order name: O2 Sat Monitoring; Complete Time: 17:02 [facility] EC:19 Rate is 66 beats/min. Rhythm is regular. QRS [place] is Normal. RI interval is normal. QRS tom interval is normal. QT interval is normal. No Q waves. T waves are Normal. No ST changes noted. Clinical impression: Abnormal EKG without significant change and No evidence of ischemia. Interpreted by me. Reviewed by me. Administered Medications: 16:40 Drug: NS 0.9% IV 1000 ml IV at 1 bolus Per protocol; 1000 mL bolus Route: IV; Rate: 1 rs5 bolus; Site: right antecubital; 20:06 Follow up: Response: No adverse reaction; IV Status: Completed infusion; IV Intake: as6 1000ml 16:40 Drug: NS 0.9% IV 1000 ml IV at 125 ml/hr continuous Route: IV; Rate: 125 ml/hr; Site: rs5 right antecubital; 20:06 Follow up: Response: No adverse reaction; IV Status: Infusion continued upon admission; as6 IV Intake: 400ml 16:55 Drug: Rocephin IV 1 grams IV at per protocol once; Given slow IV push per pharmacy rs5 instructions Route: IV; Rate: per protocol; Site: right antecubital; 20:06 Follow up: Response: No adverse reaction; IV Status: Completed infusion; IV Intake: [id number] 18:27 Drug: Aspirin PO Chewable Tablet 81 mg PO once Route: PO; rs5 20:06 Follow up: Response: No adverse reaction as6 18:27 Drug: Zithromax IVPB 500 mg IVPB once over 1 hrs; mix in 250 mL NS Route: IVPB; Infused rs5 Over: 1 hrs; Site: right antecubital; 20:04 Follow up: Response: No adverse reaction; IV Status: Completed infusion; IV Intake: as6 250ml 18:27 Drug: Levalbuterol Inhalation 1.25 mg Inhalation once Route: Inhalation; rs5 20:03 Follow up: Response: No adverse reaction as6 18:27 Drug: Famotidine IVP 20 mg IVP once; dilute with 10 mL 0.9% NaCl; give over 2 minutes rs5 Route: IVP; Site: right antecubital; 20:03 Follow up: Response: No adverse reaction as6 18:27 Drug: Enoxaparin Sub-Q 50 mg Sub-Q once Route: Sub-Q; Site: left lower abdomen; rs5 20:03 Follow up: Response: No adverse reaction as6 18:27 Drug: MethylPrednisoLONE IVP 2 mg/kg IVP once Route: IVP; Site: right antecubital; rs5 20:03 Follow up: Response: No adverse reaction as6 Disposition Summary: 06/14/23 18:22 Hospitalization Ordered Notes: Hospitalization Status: Inpatient Admission tom Provider: Jamey Grove cha Location: Telemetry/MedSurg (Inpatient) tom Condition: Fair tom Problem: new tom Symptoms: have improved tom Bed/Room Type: Standard tom Room Assignment: 219(06/14/23 19:50) as6 Diagnosis - Pneumonia due to other specified bacteria - RIGHT LOWER LOBE tom - Weakness tom - Cough tom - Presence of cardiac pacemaker tom - Non ST elevation WI tom Forms: - Medication Reconciliation Form tom - SBAR form tom - Leadership Thank You Letter tom Signatures: Dispatcher [employer] Alex Bhakta MD MD cha Baxter, Heather, RN MATT Virgil Lange RN RN as6 Nacho Warren RN RN rs5 Corrections: (The following items were deleted from the chart) 19:50 18:22 tom as6
[2023-06-14] MEDS ORDERED: ASPIRIN 81 MG CHEWABLE TABLET ONE (18:41)
[2023-06-14] MEDS ORDERED: METHYLPREDNISOLONE 125 MG INJ ONE (18:41)
[2023-06-14] MEDS ORDERED: LEVALBUTEROL 1.25 MG/3 ML NEB ONE (18:42)
[2023-06-14] MEDS ORDERED: FAMOTIDINE 20 MG/2 ML VIAL IV ONE (18:42)
[2023-06-14] MEDS ORDERED: AZITHROMYCIN 500 MG INJ IVPB ONE (18:42)
[2023-06-14] MEDS ORDERED: NA CHLORIDE 0.9% 250 ML ONE (18:42)
[2023-06-14] MEDS ORDERED: ENOXAPARIN 60 MG/0.6 ML SQ ONE (18:43)
[2023-06-14] MEDS ORDERED: ONDANSETRON 4 MG/2 ML VIAL IV PRN (19:05)
[2023-06-14] MEDS ORDERED: IPRATROPIUM BROM 0.5MG/2.5ML NEB PRN (19:05)
[2023-06-14] MEDS ORDERED: ACETAMINOPHEN 500 MG TAB PO PRN (19:05)
[2023-06-14] MEDS ORDERED: ALBUTEROL 2.5 MG/3 ML NEB SOL NEB PRN (19:05)
[2023-06-14] MEDS ORDERED: NA CHLORIDE 0.9% 1,000 ML IV SCH (20:00)
[2023-06-14] MEDS ORDERED: Levofloxacin500mg IV 500 MG/100 ML BAG IV SCH (22:00)
[2023-06-14] MEDS ORDERED: FUROSEMIDE 20 MG/ 2ML VIAL IV ONE (22:00)
[2023-06-14] MEDS ORDERED: Levofloxacin 750mg IV 750 MG/150 ML BAG IV SCH (22:00)
[2023-06-14 22:15] VITALS: BMI 19.0
[2023-06-15] MEDS: METHYLPREDNISOLONE 125 MG INJ IV SCH ×2 (00:35→09:56)
[2023-06-15] MEDS: BENZONATATE 100 MG CAP PO PRN (01:56)
[2023-06-15 03:04] LABS: Absolute Lymphocytes (CBC) 0.5 K/uL (0.7-4.9); Hematocrit 33.9 % (36.0-45.0); Lymphocytes % 6.7 % (15.3-44.8); MCV 88.5 fL (80-100); MPV 8.5 fL (7.6-11.3); Platelets 212 thou/uL (152-406); RBC Red Blood Cell Count 3.83 M/uL (3.86-4.86)
[2023-06-15 03:30] LABS: Albumin 2.4 g/dL (3.4-5.0); Bilirubin Total 0.4 mg/dL (0.2-1.0); Magnesium 1.7 mg/dL (1.6-2.4); Potassium 3.5 mEq/L (3.5-5.1); Protein, Total 6.8 g/dL (6.4-8.2)
[2023-06-15 03:31] LABS: Troponin High Sensitivity 291.8 pg/mL (<58.9)
[2023-06-15 04:22] LABS: Blood Morphology Comment NOTED (NOT SEEN); Burr Cells 2+; Platelet Estimate ADEQ; Target Cells FEW
--- NOTE | 2023-06-15 05:20 | P.HP ---
Certification for Inpatient Patient admitted to: Inpatient With expected LOS: >2 Midnights Patient will require the following post-hospital care: None Practitioner: I am a practitioner with admitting privileges, knowledge of patient current condition, hospital course, and medical plan of care. Services: Services provided to patient in accordance with Admission requirements found in Title 42 Section 412.3 of the Code of Federal Regulations Patient History Date of Service: 06/14/23 Reason for admission: Patient with shortness of breath and persistent cough and congestion History of Present Illness: Patient is an 88-year-old female who is very pleasant who comes into the emergency room with cough and shortness of breath. Patient's family was at be dside with her and they states she has not been feeling well for the last couple of days. She came into the emergency room and she was started on nebs, steroids, antibiotics. Patient also was gently diuresed. Patient is clinically feeling a little bit better in the emergency room. She denies any fever shakes or chills. Patient's chest x-ray shows interstitial changes with a questionable lower lobe pneumonia. Patient will be admitted to the hospital for further evaluation. Will treat patient with IV antibiotic therapy. Will also gently diurese patient. Patient's BNP is significantly elevated. Patient also with mildly elevated troponins. Will go ahead and consult cardiology and pulmonary for further assistance in patient's care. Patient lives at home with her who has been ill with a viral infection. Patient states that that is where she got the viral infection, and she will be on medication at this time. Allergies benazepril [From Lotensin] Allergy (Verified 09/26/21 15:04) Hives/Rash codeine Allergy (Verified 09/26/21 15:04) Shortness of breath dexamethasone Allergy (Verified 09/26/21 15:04) Hives/Rash iodine Allergy (Verified 09/26/21 15:04) Hives/Rash meperidine [From Demerol] Allergy (Verified 09/26/21 15:04) Shortness of breath morphine Allergy (Verified 09/26/21 15:04) Shortness of breath Penicillins Allergy (Verified 09/26/21 15:04) Hives/Rash zolpidem Allergy (Verified 09/26/21 15:04) Hives/Rash Home Medications: Carvedilol [Coreg] 1 tab PO BID 09/26/21 Clopidogrel Bisulfate [Plavix] 75 mg PO DAILY 09/26/21 Levothyroxine Sodium [Levothyroxine] 88 mcg PO DAILY 09/26/21 Pantoprazole [Protonix Tab*] 1 tab PO DAILY 09/26/21 Simvastatin 1 tab PO BEDTIME 09/26/21 Aspirin [Aspirin EC 81 MG] 81 mg PO DAILY 06/15/23 Cyanocobalamin (Vitamin B-12) [Vitamin B-12] 500 mcg PO BEDTIME 06/15/23 Fexofenadine HCl [Charlette Allergy] 180 mg PO DAILY 06/15/23 Losartan Potassium [Cozaar] 50 mg PO DAILY 06/15/23 - Past Medical/Surgical History Has patient received pneumonia vaccine in the past: Yes Diabetic: No -: CAD s/p CABG -: Hypothyroidism -: h/o breast cancer, now s/p mastectomy -: CABG -: Cholecystectomy -: Partial mastectomy -: Pacemaker - Family History Father Family History: Reviewed- Non-Contributory - Social History Smoking Status: Never smoker Alcohol use: No Caffeine use: Yes Place of Residence: Home Review of Systems 10-point ROS is otherwise unremarkable Physical Examination - Vital Signs Temperature: 98 F Blood Pressure: 120/53 Pulse: 60 Respirations: 17 Pulse Ox (%): 95 - Physical Exam General: Alert, In no apparent distress, Oriented x3 HEENT: Atraumatic, PERRLA, Mucous membr. moist/pink, EOMI, Sclerae nonicteric Neck: Supple, 2+ carotid pulse no bruit, No LAD, Without JVD or thyroid abnormality Respiratory: Clear to auscultation bilaterally, Normal air movement Cardiovascular: Regular rate/rhythm, Normal S1 S2 Gastrointestinal: Normal bowel sounds, Soft and benign, Non-distended, No te nderness Musculoskeletal: No clubbing, No swelling, No tenderness Integumentary: No rashes Neurological: Normal speech, Normal strength at 5/5 x4 extr, Normal tone, Sensation intact, Cranial nerves 3-12 intact, Normal affect Lymphatics: No axilla or inguinal lymphadenopathy - Studies Laboratory Data (last 24 hrs) 06/14/23 06/14/23 06/14/23 16:55 16:55 16:55 WBC 9.40 Hgb 12.3 Hct 35.9 L Plt Count 227 PT 15.3 H INR 1.39 Sodium 128 L Potassium 3.8 BUN 21 H Creatinine 0.80 Glucose 151 H Magnesium 1.8 Total Bilirubin 0.7 AST 23 ALT 24 Alkaline Phosphatase 30 L Lipase 16 Microbiology Data (last 24 hrs): 06/14/23 16:59 Nasopharnyx Influenza Type A Antigen Screen - Final 06/14/23 16:59 Nasopharnyx Influenza Type B Antigen Screen - Final Assessment & Plan - Problems (Diagnosis) (1) Right lower lobe pneumonia Current Visit: Yes Status: Acute (2) Shortness of breath Current Visit: Yes Status: Acute (3) CHF (congestive heart failure) Current Visit: Yes Status: Acute (4) Elevated troponin Current Visit: Yes Status: Acute - Plan Plan: 1. Patient with shortness of breath with right lower lobe pneumonia along with CHF; continue with IV antibiotic therapy and IV diuretics. Echocardiogram pending. Plan to treat with IV antibiotic therapy. Continue with nebs, steroids, antibiotics. 2. History of hypertension; continue with supportive care 3. History of hypothyroidism; continue with Synthroid 4. History of coronary artery disease status post CABG; continue with antiplatelet therapy and statin therapy 5. GI DVT prophylaxis Discharge Plan: Home Plan to discharge in: 24 Hours - Advance Directives Does patient have a Living Will: Yes Does patient have a Durable POA for Healthcare: Yes - Code Status/Comfort Care Code Status Assessed: Yes Code Status: Full Code Critical Care: No Time Spent Managing PTS Care (In Minutes): 45
[2023-06-15] MEDS ORDERED: POTASSIUM CL SA 10 MEQ TAB PO ONE (09:00)
[2023-06-15] MEDS ORDERED: MAGNESIUM SULFATE 1 gm IVPB 1 GM/100 ML BAG IV ONE (09:00)
[2023-06-15] MEDS: FUROSEMIDE 20 MG/ 2ML VIAL IV SCH ×2 (09:56→17:24)
[2023-06-15] MEDS: ENOXAPARIN 40 MG/0.4 ML SQ SCH (09:56)
[2023-06-15] MEDS: AMOX/K CLAV 875 MG TAB PO SCH ×2 (09:57→20:57)
[2023-06-15] MEDS: FEXOFENADINE 180 MG TAB PO SCH (12:14)
[2023-06-15] MEDS: LOSARTAN POTASSIUM 50 MG TABLET PO SCH (12:15)
[2023-06-15] MEDS: carvediloL 25 MG TAB PO SCH ×2 (12:15→17:25)
[2023-06-15] MEDS: PANTOPRAZOLE 40MG TABLET PO SCH (12:15)
[2023-06-15] MEDS: LEVOTHYROXINE SOD 0.088 MG TAB PO SCH (12:15)
[2023-06-15] MEDS: CLOPIDOGREL 75 MG TABLET PO SCH (12:15)
--- NOTE | 2023-06-15 12:28 | P.CNS ---
Date of Consult: 06/15/23 Chief Complaint: Possible pneumonia History of Present Illness: It is 88 years of age mated to the hospital with possible pneumonia admitted with cough congestion been sick for about a week prior history of cardiopulmonary problems denies any fever or chills Allergies benazepril [From Lotensin] Allergy (Verified 09/26/21 15:04) Hives/Rash codeine Allergy (Verified 09/26/21 15:04) Shortness of breath dexamethasone Allergy (Verified 09/26/21 15:04) Hives/Rash iodine Allergy (Verified 09/26/21 15:04) Hives/Rash meperidine [From Demerol] Allergy (Verified 09/26/21 15:04) Shortness of breath morphine Allergy (Verified 09/26/21 15:04) Shortness of breath Penicillins Allergy (Verified 09/26/21 15:04) Hives/Rash zolpidem Allergy (Verified 09/26/21 15:04) Hives/Rash Home Medications: Carvedilol [Coreg] 1 tab PO BID 09/26/21 Clopidogrel Bisulfate [Plavix] 75 mg PO DAILY 09/26/21 Levothyroxine Sodium [Levothyroxine] 88 mcg PO DAILY 09/26/21 Pantoprazole [Protonix Tab*] 1 tab PO DAILY 09/26/21 Simvastatin 1 tab PO BEDTIME 09/26/21 Aspirin [Aspirin EC 81 MG] 81 mg PO DAILY 06/15/23 Cyanocobalamin (Vitamin B-12) [Vitamin B-12] 500 mcg PO BEDTIME 06/15/23 Fexofenadine HCl [Charlette Allergy] 180 mg PO DAILY 06/15/23 Losartan Potassium [Cozaar] 50 mg PO DAILY 06/15/23 - Past Medical/Surgical History Diabetic: No -: CAD s/p CABG -: Hypothyroidism -: h/o breast cancer, now s/p mastectomy -: CABG -: Cholecystectomy -: Partial mastectomy -: Pacemaker - Family History Father Family History: Reviewed- Non-Contributory - Social History Alcohol use: No CD- Drugs: No Caffeine use: Yes Place of Residence: Home Review of Systems 10-point ROS is otherwise unremarkable General: Weakness Respiratory: Cough, Shortness of Breath Physical Examination Temp Pulse Resp BP Pulse Ox 97.6 F 71 16 186/82 H 93 06/15/23 08:00 06/15/23 09:56 06/15/23 08:00 06/15/23 09:56 06/15/23 08:00 General: Alert, In no apparent distress, Oriented x3 HEENT: Atraumatic Neck: Supple Respiratory: Clear to auscultation bilaterally Cardiovascular: No edema, Regular rate/rhythm, Normal S1 S2 Laboratory Data (last 24 hrs) 06/14/23 06/14/23 06/14/23 16:55 16:55 16:55 WBC 9.40 Hgb 12.3 Hct 35.9 L Plt Count 227 PT 15.3 H INR 1.39 Sodium 128 L Potassium 3.8 BUN 21 H Creatinine 0.80 Glucose 151 H Magnesium 1.8 Total Bilirubin 0.7 AST 23 ALT 24 Alkaline Phosphatase 30 L Lipase 16 - Problems (1) Right lower lobe pneumonia Current Visit: Yes Status: Acute Plan: Patient is 88 years of age has been sick for about a week complaining of cough congestion possible right lower lobe pneumonia prior history of any cardiopulmonary problems has a pacemaker aortic valve replacement patient does not smoke or drink pressure is elevated he is on oxygen all signs otherwise stable we will do a CT scan of the chest without contrast to p.o. Augmentin ambulate no fever charge planning on Augmentin and Zithromax may have underlying congestive heart failure BNP is elevated troponins also elevated add spironolactone cardiogram pending Qualifiers: Aspiration pneumonia type: unspecified
[2023-06-15] MEDS: SPIRONOLACTONE 25 MG TABLET PO SCH ×2 (13:15→20:57)
--- NOTE | 2023-06-15 13:52 | RAD REPORT ---
EXAM DESCRIPTION: CT - Thorax Wo Con CLINICAL HISTORY: Chest pain Possible pneumonia COMPARISON: Chest Single View dated 06/14/2023; Chest Single View dated 03/01/2023 FINDINGS: Mild diffuse COPD is present. Small subcentimeter areas of nodularity are present in both lungs. Moderate poorly defined reticular opacities are noted particularly in the right lower lobe inf eriorly. Similar but smaller reticular opacities are also seen right middle lobe posteriorly. Trace r ight and small left pleural effusion. No pneumothorax. Mild mediastinal lymph node enlargement is seen, most notable in the precarinal space measuring 16 mm . Aortic atherosclerosis is present. No concerning bony finding. No gross upper abdominal finding. All CT scans are performed using dose optimization technique as appropriate and may include automated exposure control or mA/KV adjustment according to patient size. IMPRESSION: Moderate COPD is noted with small areas of nonspecific subcentimeter nodularity bilatera lly. Poorly defined reticular and linear opacities particularly in the right lower lobe probably related t o infection/pneumonia. Atypical infection is a possibility.
--- NOTE | 2023-06-15 16:10 | P.PN ---
Subjective Date of Service: 06/15/23 Chief Complaint: Possible pneumonia Patient states she feels better compared to yesterday but she is still short of breath with talking. She is currently tolerating room air. Physical Examination - Vital Signs Temperature: 97.5 F Blood Pressure: 164/71 Pulse: 61 Respirations: 16 Pulse Ox (%): 92 - Studies Laboratory Data (last 24 hrs) 06/14/23 06/14/23 06/14/23 16:55 16:55 16:55 WBC 9.40 Hgb 12.3 Hct 35.9 L Plt Count 227 PT 15.3 H INR 1.39 Sodium 128 L Potassium 3.8 BUN 21 H Creatinine 0.80 Glucose 151 H Magnesium 1.8 Total Bilirubin 0.7 AST 23 ALT 24 Alkaline Phosphatase 30 L Lipase 16 Microbiology Data (last 24 hrs): 06/14/23 16:59 Nasopharnyx Influenza Type A Antigen Screen - Final 06/14/23 16:59 Nasopharnyx Influenza Type B Antigen Screen - Final Assessment And Plan - Current Problems (Diagnosis) (1) Acute respiratory failure with hypoxia Current Visit: Yes Status: Acute (2) Right lower lobe pneumonia Current Visit: Yes Status: Acute Qualifiers: Aspiration pneumonia type: unspecified (3) Acute on chronic heart failure Current Visit: Yes Status: Acute (4) Elevated troponin Current Visit: Yes Status: Acute - Plan Physical Exam General: Alert, mild respiratory distress, oriented x3 HEENT: Mucous membr. Sclerae nonicteric Neck: Supple, no JVD elevation. Respiratory: Mild scattered crackles-right lower chest, Normal air movement Cardiovascular: Regular rate/rhythm, Normal S1 S2 Gastrointestinal: Normal bowel sounds, Soft and benign, Non-distended, No tenderness Musculoskeletal: No clubbing, No swelling, No tenderness Integumentary: No rashes Neurological: Normal speech, Normal strength at 5/5 x4 extr, Normal affect Plan: Acute respiratory failure with hypoxia/right lower lobe pneumonia Continue antibiotics. Bronchodilators as needed. Patient is currently tolerating room air. Pulmonary input appreciated. Patient started on oral Augmentin. Acute on chronic CHF Unknown EF Continue IV Lasix and monitor intake and output. Obtain echocardiogram. Essential hypertension Continue home medications Hypothyroidism Continue home dose Synthroid. History of coronary artery disease/CABG Continue home medications. Allergic rhinitis/sinusitis Continue fexofenadine. DVT prophylaxis: Lovenox Discharge Plan: Home
[2023-06-15] MEDS: CYANOCOBALAMIN 1,000 MCG TAB PO SCH (20:55)
[2023-06-15] MEDS: ATORVASTATIN 10 MG TAB PO SCH (20:55)
[2023-06-16 03:01] LABS: Magnesium 1.9 mg/dL (1.6-2.4); Potassium 3.3 mEq/L (3.5-5.1)
[2023-06-16 03:17] LABS: Troponin High Sensitivity 243.2 pg/mL (<58.9)
[2023-06-16] MEDS: LEVOTHYROXINE SOD 0.088 MG TAB PO SCH (05:33)
[2023-06-16] MEDS ORDERED: POTASSIUM CL SA 10 MEQ TAB PO ONE (06:00)
--- NOTE | 2023-06-16 07:13 | P.CNS ---
Ms. Babin is an 88 yo patient with a history of CABG, Pacermaker/Defibrillator, HTN who was admitted for pneumonia and electrolyte disturbance with an elevated troponin. She is improved with antibiotic therapy and has not needed Cardiology intervention as troponin remained flat and patient has improved, has no chest pain, and elevations seem to be based on demand ischemia. Patient is up for discharge and will follow with her Cardiology in [place], Dr. Aldrich, on an outpatient basis. Allergies: Benazepril Codiene dexamethasone iodine meperidine morphine zolpidem PCN Home medications: Carvedilol Clopidogrel 75mg po daily Levothyroxine 88mcg po daily Pantoprazole 40mg po daily Simvastatin ASA 81mg po daily Cyanocobalamin 500mcg po daily Fexofenadine 180mg po daily Losartan 50mg po daily Family history: reviewed, non-contributory Social: never smoker denies ETOH +caffeine use Lives at home 10 point review of symptoms negative, feeling better, denies chest pain General: A&O x 3 HEENT: Mucous membranes moist, pink, EOMI, sclera nonicteric Neck: supple, 2+ carotid pulses without bruit, no JVD Respiratory: Normal air movement, no distress, no accessory muscle use Cardiovascular: RRR without murmur, negative edema Gastrointestinal: BS+ to all quads, no pulsations MSK: no clubbing, tenderness, edema Skin w/d Neurological: alert, generally weak but moves all extremities, gait not tested peripheral pulses + Cleared from cardiology standpoint for discharge
[2023-06-16] MEDS: FEXOFENADINE 180 MG TAB PO SCH (09:00)
--- NOTE | 2023-06-16 09:56 | P.PN ---
Date of Service: 06/16/23 Subjective: Feeling better today Still feeling very weak; hasn't been getting out of bed much Cough continues but slowly improving; occurring less frequently no new / worsening problems denies chest pain afebrile ROS: 10 point ROS as noted above, otherwise negative Physical Exam: GEN: Alert, oriented, NAD HEENT: Normal conjunctiva, sclera anicteric CV: Regular rate and rhythm (paced), trace b/l pedal edema Pulm: Nonlabored respirations on room air, diminished at bases b/l ABD: Soft, nontender, nondistended Neuro: Normal speech, normal affect, +dementia vitals reviewed Problem List: Acute respiratory failure with hypoxia secondary to RLL pneumonia Acute on chronic CHF NSTEMI History of coronary artery disease/CABG Essential hypertension Hypothyroidism Allergic rhinitis/sinusitis Acute respiratory failure with hypoxia secondary to RLL pneumonia CT chest (06/15): Moderate COPD. Poorly defined reticular and linear opacities particularly in the right lower lobe probably related to infection/pneumonia. Atypical infection is a possibility Pulm consulted Continue empiric PO augmentin (06/15-) afebrile, no leukocytosis Bronchodilators, nebs as needed Antitussives PRN Patient is currently tolerating room air has not ambulated yet Acute on chronic CHF, unkonwn type NSTEMI History of coronary artery disease/CABG Continue home medications. Troponins elevated x3, monitor no tele likely demand ischemia in setting of pneumonia / chf exacerbation denies chest pain Cardiology consulted Continue IV Lasix no inpatient ischemic workup needed at this time Essential hypertension Continue home medications Hypothyroidism Continue home dose Synthroid. Allergic rhinitis/sinusitis Continue fexofenadine. VTE: Lovenox Code: Full Dispo: Home, ?HH ~1-2 days Pending further improvement, strength improves, ambulatory o2 check
[2023-06-16] MEDS: FUROSEMIDE 20 MG/ 2ML VIAL IV SCH ×2 (10:59→18:03)
[2023-06-16] MEDS: ASPIRIN EC 81 MG TAB PO SCH (10:59)
[2023-06-16] MEDS: AMOX/K CLAV 875 MG TAB PO SCH ×2 (10:59→20:45)
[2023-06-16] MEDS: ENOXAPARIN 40 MG/0.4 ML SQ SCH (11:00)
[2023-06-16] MEDS ORDERED: ALBUTEROL 2.5 MG/3 ML NEB SOL NEB PRN (11:00)
[2023-06-16] MEDS: SPIRONOLACTONE 25 MG TABLET PO SCH ×2 (11:06→20:49)
[2023-06-16] MEDS: CLOPIDOGREL 75 MG TABLET PO SCH (11:06)
[2023-06-16] MEDS: carvediloL 25 MG TAB PO SCH ×2 (11:06→18:02)
[2023-06-16] MEDS: PANTOPRAZOLE 40MG TABLET PO SCH (11:07)
[2023-06-16] MEDS: LOSARTAN POTASSIUM 50 MG TABLET PO SCH (11:07)
--- NOTE | 2023-06-16 13:34 | EKG ---
Test Date: 2023-06-14 Test Time: 16:47:44 [employer] Program Assistant: RUDY MEASUREMENT RESULTS: Intervals: Rate: 66 VA: QRSD: 182 QT: 474 QTc: 496 [place]: P: VA: QRS: -70 T: 106 INTERPRETIVE STATEMENTS: Electronic ventricular pacemaker Compared to ECG 03/02/2023 00:15:24 No significant changes Electronically Signed On 06-16-23 13:28:15 GAUGE MAKER APPRENTICE by Catracho Dyson
[2023-06-16] MEDS: ATORVASTATIN 10 MG TAB PO SCH (20:45)
[2023-06-16] MEDS: CYANOCOBALAMIN 1,000 MCG TAB PO SCH (20:45)
[2023-06-16] MEDS: BENZONATATE 100 MG CAP PO PRN (20:49)
[2023-06-17 02:32] LABS: Magnesium 1.6 mg/dL (1.6-2.4); Potassium 3.9 mEq/L (3.5-5.1)
[2023-06-17 02:40] LABS: Troponin High Sensitivity 277.6 pg/mL (<58.9)
[2023-06-17 05:36] VITALS: O2SAT 95
[2023-06-17] MEDS: LEVOTHYROXINE SOD 0.088 MG TAB PO SCH (06:23)
--- NOTE | 2023-06-17 08:25 | P.DS ---
Admission Date: 06/14/23 Discharge Date: 06/17/23 Disposition: DC HOME/HOME HEALTH CARE Discharge Condition: GOOD Reason for Admission: Possible pneumonia Consultations: Pulmonology - Dr. Bro Cardiology - Dr. Dyson Brief History of Present Illness: 88yo F, PMH: CAD s/p CABG, Hypothyroidism, h/o breast cancer, now s/p mastectomy ,CABG ,Cholecystectomy ,partial mastectomy ,Pacemaker, CHF Patient who comes into the emergency room with cough and shortness of breath. Patient's family was at bedside with her and they states she has not been feeling well for the last couple of days. She came into the emergency room and she was started on nebs, steroids, antibiotics. Patient also was gently diuresed. Patient is clinically feeling a little bit better in the emergency ro om. She denies any fever shakes or chills. Patient's chest x-ray shows interstitial changes with a questionable lower lobe pneumonia. Patient will be admitted to the hospital for further evaluation. Will treat patient with IV antibiotic therapy. Will also gently diurese patient. Patient's BNP is significantly elevated. Patient also with mildly elevated troponins. Will go ahead and consult cardiology and pulmonary for further assistance in patient's care. Patient lives at home with her who has been ill with a viral infection. Patient states that that is where she got the viral infection, and she will be on medication at this time. Hospital Course: Problem List: Acute respiratory failure with hypoxia secondary to RLL pneumonia NSTEMI acute, mild hyponatremia, unclear etiology; improved History of coronary artery disease/CABG Essential hypertension Hypothyroidism Allergic rhinitis/sinusitis Patient presented with shortness of breath, cough, weakness. CXR / CT chest suggestive of RLL pneumonia/infection. Pulmonology was consulted. Patient was given empiric antibiotics, and de- escalated to oral augmentin along with bronchodilators, nebs, and a dose of steroids in the ED. She had improvement of her symptoms. Patient was feeling better, breathing comfortably on room air, afebrile without leukocytosis and was deemed stable for discharge. Patient able to ambulate without difficulty on room air on day of discharge. Patient is to complete 7 days of augmentin on discharge. During her hospitalization, troponins were elevated. Cardiology was consulted. Given troponins remained flat, patient without chest pain, recommend to follow up with cardiology as outpatient for further work up. No inpatient ischemic workup needed at this time. Suspect demand ischemia in setting of pneumonia. On presentation to ED there was concern for possible CHF component given her cardiac history. She received low dose IV lasix for gentle diuresis which she tolerated well. CT without any effusions/pulmonary edema and more consistent with pneumonia. Lasix will not be continued on discharge. Recommend to follow up with her [employer], Dr. Aldrich in next few weeks. She may need to start on low dose diuretic in near future. Medications: Augmentin x7 days Allergy was documented as hives/rash to penicillin previously. Patient tolerated augmentin without any allergic reaction. Jonny babb Follow up: PCP in 3-5 days Cardiology in ~3-4 weeks Pulmonology in 1-2 weeks Physical Exam: GEN: Alert, oriented, NAD HEENT: Normal conjunctiva, sclera anicteric CV: Regular rate and rhythm (paced), no edema Pulm: Nonlabored respirations on room air, slightly diminished at bases b/l ABD: Soft, nontender, nondistended Neuro: Normal speech, normal affect, +dementia Vital Signs/Physical Exam: Temp Pulse Resp BP Pulse Ox 96.9 F 65 16 165/78 H 95 06/17/23 04:00 06/17/23 04:00 06/17/23 04:00 06/17/23 04:00 06/17/23 04:00 Laboratory Data at Discharge: WBC 7.20 thou/uL (4.3-10.9) 06/15/23 01:46 Hgb 11.4 g/dL (12.0-15.0) L 06/15/23 01:46 Hct 33.9 % (36.0-45.0) L 06/15/23 01:46 Plt Count 212 thou/uL (152-406) 06/15/23 01:46 PT 15.3 SECONDS (9.5-12.5) H 06/14/23 16:55 INR 1.39 06/14/23 16:55 Sodium 133 mEq/L (136-145) L D 06/17/23 01:40 Potassium 3.9 mEq/L (3.5-5.1) 06/17/23 01:40 BUN 27 mg/dL (7-18) H 06/17/23 01:40 Creatinine 0.86 mg/dL (0.55-1.02) 06/17/23 01:40 Glucose 124 mg/dL (74-106) H 06/17/23 01:40 Magnesium 1.6 mg/dL (1.6-2.4) 06/17/23 01:40 Total Bilirubin 0.4 mg/dL (0.2-1.0) 06/15/23 01:46 AST 27 U/L (15-37) 06/15/23 01:46 ALT 31 U/L (13-56) 06/15/23 01:46 Alkaline Phosphatase 36 U/L (45-117) L 06/15/23 01:46 Triglycerides 37 mg/dL (<150) 06/15/23 01:46 Cholesterol 84 mg/dL (<200) 06/15/23 01:46 HDL Cholesterol 52 mg/dL (40-60) 06/15/23 01:46 Cholesterol/HDL Ratio 1.62 06/15/23 01:46 Lipase 16 U/L (13-75) 06/14/23 16:55 Home Medications: Carvedilol [Coreg] 1 tab PO BID 09/26/21 Clopidogrel Bisulfate [Plavix*] 75 mg PO DAILY 09/26/21 Levothyroxine Sodium 88 mcg PO DAILY 09/26/21 Pantoprazole [Protonix Tab*] 1 tab PO DAILY 09/26/21 Simvastatin 1 tab PO BEDTIME 09/26/21 Aspirin [Aspirin EC 81 MG] 81 mg PO DAILY 06/15/23 Cyanocobalamin (Vitamin B-12) [Vitamin B-12] 500 mcg PO BEDTIME 06/15/23 Fexofenadine HCl [Charlette Allergy] 180 mg PO DAILY 06/15/23 Losartan Potassium [Cozaar*] 50 mg PO DAILY 06/15/23 Amox/Clavulanate [Augmentin 875-125 Tab*] 875 mg PO BID 7 Days #14 tab 06/17/23 Benzonatate 200 mg PO Q8H PRN #15 cap 06/17/23 New Medications: Amox/Clavulanate [Augmentin 875-125 Tab*] 875 mg PO BID 7 Days #14 tab Benzonatate 200 mg PO Q8H PRN #15 cap PRN Reason: Cough Physician Discharge Instructions: Patient presented with shortness of breath, cough, weakness. CXR / CT chest suggestive of RLL pneumonia/infection. Pulmonology was consulted. Patient was given empiric antibiotics, and de- escalated to oral augmentin along with bronchodilators, nebs, and a dose of steroids in the ED. She had improvement of her symptoms. Patient was feeling better, breathing comfortably on room air, afebrile without leukocytosis and was deemed stable for discharge. Patient able to ambulate without difficulty on room air on day of discharge. Patient is to complete 7 days of augmentin on discharge. During her hospitalization, troponins were elevated. Cardiology was consulted. Given troponins remained flat, patient without chest pain, recommend to follow up with cardiology as outpatient for further work up. No inpatient ischemic workup needed at this time. Suspect demand ischemia in setting of pneumonia. On presentation to ED there was concern for possible CHF component given her cardiac history. She received low dose IV lasix for gentle diuresis which she tolerated well. CT without any effusions/pulmonary edema and more consistent with pneumonia. Lasix will not be continued on discharge. Recommend to follow up with her [employer], Dr. Aldrich in next few weeks. She may need to start on low dose diuretic in near future. Medications: Augmentin x7 days Allergy was documented as hives/rash to penicillin previously. Patient tolerated augmentin without any allergic reaction. Jonny babb Follow up: PCP in 3-5 days Cardiology in ~3-4 weeks Pulmonology in 1-2 weeks Time spent managing pt's care (in minutes): 45
[2023-06-17 08:55] VITALS: BP 173/68; TEMP 97.4
[2023-06-17] MEDS: SPIRONOLACTONE 25 MG TABLET PO SCH (08:57)
[2023-06-17] MEDS: PANTOPRAZOLE 40MG TABLET PO SCH (08:57)
[2023-06-17] MEDS: FUROSEMIDE 20 MG/ 2ML VIAL IV SCH (08:57)
[2023-06-17] MEDS: ASPIRIN EC 81 MG TAB PO SCH (08:57)
[2023-06-17] MEDS: CLOPIDOGREL 75 MG TABLET PO SCH (08:57)
[2023-06-17] MEDS: BENZONATATE 100 MG CAP PO PRN (08:57)
[2023-06-17] MEDS: FEXOFENADINE 180 MG TAB PO SCH (08:57)
[2023-06-17] MEDS: LOSARTAN POTASSIUM 50 MG TABLET PO SCH (08:57)
[2023-06-17] MEDS: ENOXAPARIN 40 MG/0.4 ML SQ SCH (08:58)
[2023-06-17] MEDS: AMOX/K CLAV 875 MG TAB PO SCH (08:58)
[2023-06-17] MEDS: carvediloL 25 MG TAB PO SCH (08:58)
[2023-06-17] MEDS ORDERED: MAGNESIUM SULFATE 1 gm IVPB 1 GM/100 ML BAG IV ONE (09:00)
[2023-06-17] MEDS ORDERED: POTASSIUM CL SA 10 MEQ TAB PO ONE (09:00)
== END 2023-06-17 11:20 | disposition home health service (06) | DRG 177 ==
LOC: ER 15:49 → ERHOLD 19:05 → 2ND 19:52
PROVIDERS: ADMIT Hospitalist; ATTEND Hospitalist
DX: J69.0 Pneumonitis due to inhalation of food and vomit (principal); I21.A1 Myocardial infarction type 2; J96.01 Acute respiratory failure with hypoxia; E87.1 Hypo-osmolality and hyponatremia; E03.9 Hypothyroidism, unspecified; I11.0 Hypertensive heart disease with heart failure; I50.9 Heart failure, unspecified; J30.9 Allergic rhinitis, unspecified; E78.00 Pure hypercholesterolemia, unspecified; F03.90 Unspecified dementia, unspecified severity, without behavioral disturbance, psychotic disturbance, mood disturbance, and anxiety; I25.10 Atherosclerotic heart disease of native coronary artery without angina pectoris; I25.2 Old myocardial infarction; Z88.0 Allergy status to penicillin; Z88.8 Allergy status to other drugs, medicaments and biological substances; Z95.1 Presence of aortocoronary bypass graft; Z85.3 Personal history of malignant neoplasm of breast; Z88.5 Allergy status to narcotic agent; Z90.49 Acquired absence of other specified parts of digestive tract; Z11.52 Encounter for screening for COVID-19; Z90.10 Acquired absence of unspecified breast and nipple; Z79.02 Long term (current) use of antithrombotics/antiplatelets; Z79.82 Long term (current) use of aspirin; Z79.899 Other long term (current) drug therapy; Z95.810 Presence of automatic (implantable) cardiac defibrillator; Z79.890 Hormone replacement therapy
CPT/HCPCS: 36415; 71045; 71250; 80048; 80053; 80061; 80076; 83605; 83690; 83735; 83880; 84132; 84145; 84484; 85025; 85610; 87040; 87804; 87811; 93005; 94760; 96365; 96366; 96372; 96375; 97110; 97116; 97161; 97530; 99285; J0696; J1650; J1940; J2930; J3475; J7030; J7050; J7614